=== PATIENT | female | born 1980 | race Caucasian/White ===

== ENCOUNTER → 2019-02-18 | Outpatient (CLI) | payer BC ==
--- NOTE | 2019-02-18 16:36 | XR ---
PROCEDURE: XR lumbosacral spine min 5V DATE AND TIME: 02/18/2019 4:22 PM CLINICAL INDICATION: YCH; [id number] LBP,LUMBAGO TECHNIQUE: Department protocol COMPARISON: None FINDINGS: There is no fracture or malalignment. The soft tissues are unremarkable. No incidentals. IMPRESSION: NO ACUTE PROCESS.
== END | disposition home or self-care (01) ==
LOC: RADXRYALE 15:55
PROVIDERS: ATTEND Physician Assistant Medical
DX: M54.40 Lumbago with sciatica, unspecified side (principal)
CPT/HCPCS: 72110

== ENCOUNTER → 2020-07-19 | Outpatient (CLI) | payer BC ==
--- NOTE | 2020-07-19 15:53 | XR ---
Second digit right hand HISTORY: Pain and swelling 2 views of the second digit of the right hand There is soft tissue swelling present. Bone mineralization, joint spaces and alignment are maintained . No fracture or dislocation. No periostitis to suggest osteomyelitis. IMPRESSION: Soft tissue swelling.
== END | disposition home or self-care (01) ==
LOC: RADXRYALE 14:36
PROVIDERS: ATTEND Physician Assistant Medical
DX: M79.89 Other specified soft tissue disorders (principal)

== ENCOUNTER 2020-10-08 13:36 | Observation (INO) | payer BC ==
[2020-10-08] MEDS ORDERED: SODIUM CHLORIDE 0.9% 800 ML IV STA (14:12)
[2020-10-08 14:38] LABS: Basophils % (A) 1 %; Eosinophils % (A) 1 %; HCT 38.5 % (34.0-46.0); HGB 14.4 gm/dL (11.4-16.0); Hyperchromasia Slight; Lymphocytes # (A) 1.2 k/uL (1.0-4.8); Lymphocytes % (A) 30 %; MCH 32.8 pg (25.0-35.0); MCHC 37.3 g/dL (31.0-37.0); MCV 87.9 fL (80.0-100.0); Mean Platelet Volume 7.4; Monocytes # (A) 0.2 k/uL (0-1.0); Monocytes % (A) 5 %; Neutrophils # (A) 2.4 k/uL (1.3-7.7); Neutrophils % (A) 61 %; Platelet Count 126 k/uL (150-450); RBC 4.38 m/uL (3.80-5.40); RDW 12.4 % (11.5-15.5); WBC 3.9 k/uL (3.8-10.6)
--- NOTE | 2020-10-08 14:41 | ED ---
General Adult HPI - General Chief complaint: Recheck/Abnormal Lab/Rx Stated complaint: Weight Loss Source: patient Mode of arrival: ambulatory Limitations: no limitations - History of Present Illness Initial comments: 39-year-old female presenting to the emergency department with a chief complaint of weight loss. Patient states in the last 8 months she has lost approximately 140 pounds. Patient states she has been on a strict [place] diet along with an extensive workout regimen. Patient reports over the last month she has lost muscle mass not just that. Patient states now she is feeling weak and is not able to run anymore. Only walking. She also reports some bruising in bilateral lower extremities although this is benign when on for several years. States she saw her primary care physician who obtain some laboratory work and contacted her today to come to emergency department for abnormal laboratory work. Patient states she is also seeing a counselor and takes antidepressant medication. Patient reports recently she has been under a lot of stress due to her mother passing away in her father going to hospice. She denies any nausea vomiting diarrhea. Denies any purging. Her family member present in the room did state the patient has been dealing with eating disorders while she was in her 20s as well. Denies chest pain shortness of breath. - Related Data Home Medications Medication Instructions Recorded Confirmed Ibuprofen 800 mg PO Q8H PRN 10/08/20 10/08/20 Sertraline [Zoloft] 50 mg PO DAILY 10/08/20 10/08/20 clonazePAM [KlonoPIN] 0.5 mg PO BID PRN 10/08/20 10/08/20 Allergies Allergy/AdvReac Type Severity Reaction Status Date / Time Sulfa (Sulfonamide Allergy Swelling Verified 10/08/20 14:36 Antibiotics) Review of Systems ROS Statement: Those systems with pertinent positive or pertinent negative responses have been documented in the HPI. ROS Other: All systems not noted in ROS Statement are negative. Past Medical History Past Medical History: Neurologic Disorder Additional Past Medical History / Comment(s): neuropathy History of Any Multi-Drug Resistant Organisms: None Reported Past Surgical History: Cholecystectomy Past Psychological History: Anxiety, Depression Smoking Status: Never smoker Past Alcohol Use History: None Reported Past Drug Use History: None Reported General Exam Limitations: no limitations General appearance: alert, in no apparent distress, cachectic Head exam: Present: atraumatic, normocephalic, normal inspection Eye exam: Present: normal appearance, PERRL, EOMI Pupils: Present: normal accommodation ENT exam: Present: normal exam, normal oropharynx, mucous membranes moist, TM's normal bilaterally, normal external ear exam Neck exam: Present: normal inspection, full ROM. Absent: tenderness Respiratory exam: Present: normal lung sounds bilaterally. Absent: respiratory distress, wheezes Cardiovascular Exam: Present: regular rate, normal rhythm, normal heart sounds. Absent: systolic murmur, diastolic murmur GI/Abdominal exam: Present: soft. Absent: distended, tenderness, guarding, rebound Extremities exam: Present: normal inspection (Some bruising noted on bilateral lower extremities), full ROM, normal capillary refill. Absent: tenderness, pedal edema, joint swelling, calf tenderness Back exam: Present: normal inspection, full ROM. Absent: tenderness, CVA tenderness (R), CVA tenderness (L) Neurological exam: Present: alert, oriented X3 Psychiatric exam: Present: normal affect, normal mood Skin exam: Present: warm, dry, intact, normal color Course Vital Signs 10/08/20 10/08/20 13:37 15:00 Temperature 97.8 F Pulse Rate 64 64 Respiratory 18 15 Rate Blood Pressure 130/83 121/88 O2 Sat by Pulse 99 99 Oximetry EKG Findings - EKG Comments: EKG Findings:: Sinus rhythm with first-degree AV block. Ventricular rate 61, NC 230, QRS 96, QTC 410. Medical Decision Making - Medical Decision Making 39-year-old female presenting to emergency departments chief complaint of weight loss. Medical record reviewed. Supposedly the patient lost 140 pounds in about 8-9 months. This was achieved with restrictive carbohydrate diet and heavy exercise. Patient does appear slightly cachectic. CBC is unremarkable. CMP reveals hyponatremia with a sodium level of 126. Magnesium, phosphorus and potassium within normal limits. She also has an elevated BUN and creatinine. Patient was given IV fluids. Patient will be admitted for electrolyte imbalance, dehydration and anorexia. I spoke to . Inserting Machine Operator will be consulted along with psychiatric services. Case discussed with Dr.Bayudam Dr morrow is admitting Dr Salter consulted Diatician consulted - Lab Data Result diagrams: 10/08/20 14:32 10/08/20 14:32 Lab Results 10/08/20 10/08/20 10/08/20 Range/Units 14:32 14:32 14:32 WBC 3.9 (3.8-10.6) k/uL RBC 4.38 (3.80-5.40) m/uL Hgb 14.4 (11.4-16.0) gm/dL Hct 38.5 (34.0-46.0) % MCV 87.9 (80.0-100.0) fL MCH 32.8 (25.0-35.0) pg MCHC 37.3 H (31.0-37.0) g/dL RDW 12.4 (11.5-15.5) % Plt Count 126 L (150-450) k/uL MPV 7.4 Neutrophils % 61 % Lymphocytes % 30 % Monocytes % 5 % Eosinophils % 1 % Basophils % 1 % Neutrophils # 2.4 (1.3-7.7) k/uL Lymphocytes # 1.2 (1.0-4.8) k/uL Monocytes # 0.2 (0-1.0) k/uL Eosinophils # 0.0 (0-0.7) k/uL Basophils # 0.0 (0-0.2) k/uL Hyperchromasia Slight PT 9.7 (9.0-12.0) sec INR 0.9 (<1.2) APTT 23.0 (22.0-30.0) sec Sodium 126 L (137-145) mmol/L Potassium 4.4 (3.5-5.1) mmol/L Chloride 87 L (98-107) mmol/L Carbon Dioxide 38 H (22-30) mmol/L Anion Gap 1 mmol/L BUN 34 H (7-17) mg/dL Creatinine 0.72 (0.52-1.04) mg/dL Est GFR (CKD-EPI)AfAm >90 (>60 ml/min/1.73 sqM) Est GFR (CKD-EPI)NonAf >90 (>60 ml/min/1.73 sqM) Glucose 88 (74-99) mg/dL Calcium 8.8 (8.4-10.2) mg/dL Phosphorus (2.5-4.5) mg/dL Magnesium (1.6-2.3) mg/dL Total Bilirubin 0.6 (0.2-1.3) mg/dL AST 80 H (14-36) U/L ALT 123 H (4-34) U/L Alkaline Phosphatase 65 (38-126) U/L Creatine Kinase 45 (30-135) U/L Total Protein 6.6 (6.3-8.2) g/dL Albumin 4.0 (3.5-5.0) g/dL Urine Color Urine Appearance (Clear) Urine pH (5.0-8.0) Ur Specific Wiggins (1.001-1.035) Urine Protein (Negative) Urine Glucose (UA) (Negative) Urine Ketones (Negative) Urine Blood (Negative) Urine Nitrite (Negative) Urine Bilirubin (Negative) Urine Urobilinogen (<2.0) mg/dL Ur Leukocyte Esterase (Negative) Urine RBC (0-5) /hpf Urine WBC (0-5) /hpf Ur Squamous Epith Cells (0-4) /hpf Amorphous Sediment (None) /hpf Urine Bacteria (None) /hpf 10/08/20 10/08/20 Range/Units 14:32 15:22 WBC (3.8-10.6) k/uL RBC (3.80-5.40) m/uL Hgb (11.4-16.0) gm/dL Hct (34.0-46.0) % MCV (80.0-100.0) fL MCH (25.0-35.0) pg MCHC (31.0-37.0) g/dL RDW (11.5-15.5) % Plt Count (150-450) k/uL MPV Neutrophils % % Lymphocytes % % Monocytes % % Eosinophils % % Basophils % % Neutrophils # (1.3-7.7) k/uL Lymphocytes # (1.0-4.8) k/uL Monocytes # (0-1.0) k/uL Eosinophils # (0-0.7) k/uL Basophils # (0-0.2) k/uL Hyperchromasia PT (9.0-12.0) sec INR (<1.2) APTT (22.0-30.0) sec Sodium (137-145) mmol/L Potassium (3.5-5.1) mmol/L Chloride (98-107) mmol/L Carbon Dioxide (22-30) mmol/L Anion Gap mmol/L BUN (7-17) mg/dL Creatinine (0.52-1.04) mg/dL Est GFR (CKD-EPI)AfAm (>60 ml/min/1.73 sqM) Est GFR (CKD-EPI)NonAf (>60 ml/min/1.73 sqM) Glucose (74-99) mg/dL Calcium (8.4-10.2) mg/dL Phosphorus 2.5 (2.5-4.5) mg/dL Magnesium 2.2 (1.6-2.3) mg/dL Total Bilirubin (0.2-1.3) mg/dL AST (14-36) U/L ALT (4-34) U/L Alkaline Phosphatase (38-126) U/L Creatine Kinase (30-135) U/L Total Protein (6.3-8.2) g/dL Albumin (3.5-5.0) g/dL Urine Color Colorless Urine Appearance Clear (Clear) Urine pH 7.0 (5.0-8.0) Ur Specific Wiggins 1.006 (1.001-1.035) Urine Protein Negative (Negative) Urine Glucose (UA) Negative (Negative) Urine Ketones Negative (Negative) Urine Blood Negative (Negative) Urine Nitrite Negative (Negative) Urine Bilirubin Negative (Negative) Urine Urobilinogen <2.0 (<2.0) mg/dL Ur Leukocyte Esterase Moderate H (Negative) Urine RBC 1 (0-5) /hpf Urine WBC 4 (0-5) /hpf Ur Squamous Epith Cells 2 (0-4) /hpf Amorphous Sediment Rare H (None) /hpf Urine Bacteria Rare H (None) /hpf Disposition Clinical Impression: Anorexia, Hyponatremia, Dehydration Disposition: ADMITTED IP TO THIS HOSP Condition: Fair Is patient prescribed a controlled substance at d/c from ED?: No Referrals: Jones Mclean DO [Primary Care Provider] - 1-2 days Time of Disposition: 15:39
[2020-10-08 14:50] LABS: ALT 123 U/L (4-34); AST 80 U/L (14-36); African American GFR (CKD) >90 (>60 ml/min/1.73 sqM); Alkaline Phosphatase 65 U/L (38-126); Anion Gap 1 mmol/L; Blood Urea Nitrogen 34 mg/dL (7-17); Calcium 8.8 mg/dL (8.4-10.2); Carbon Dioxide 38 mmol/L (22-30); Chloride 87 mmol/L (98-107); Creatine Kinase 45 U/L (30-135); Glucose 88 mg/dL (74-99); Non-African American GFR(CKD) >90 (>60 ml/min/1.73 sqM); Potassium 4.4 mmol/L (3.5-5.1); Sodium 126 mmol/L (137-145); Total Bilirubin 0.6 mg/dL (0.2-1.3); Total Protein 6.6 g/dL (6.3-8.2)
[2020-10-08 14:52] LABS: INR 0.9 (<1.2); Prothrombin Time 9.7 sec (9.0-12.0)
[2020-10-08 15:22] LABS: Magnesium 2.2 mg/dL (1.6-2.3); Phosphorus 2.5 mg/dL (2.5-4.5)
[2020-10-08] MEDS ORDERED: LORazepam 2 MG/ML INJ IV PRN (15:29)
[2020-10-08] MEDS ORDERED: HYDROmorphone 0.5 MG/0.5 ML SYRINGE IVP PRN (15:29)
[2020-10-08] MEDS ORDERED: NALOXONE 0.4 MG/ML 1 ML VIAL IV PRN (15:29)
[2020-10-08] MEDS ORDERED: ONDANSETRON 4 MG/2 ML VIAL IVP PRN (15:29)
[2020-10-08] MEDS ORDERED: MORPHINE SULFATE 4 MG/ML SYRINGE IV PRN (15:29)
[2020-10-08] MEDS ORDERED: traMADol 50 MG TAB PO PRN (15:29)
[2020-10-08] MEDS ORDERED: SODIUM CHLORIDE 0.9% 1,000 ML IV SCH (15:30)
[2020-10-08 15:33] LABS: Amorphous Sediment,Urine Rare /hpf; Appearance,Urine Clear (Clear); Bacteria,Urine Rare /hpf; Bilirubin,Urine Negative (Negative); Blood,Urine Negative (Negative); Color,Urine Colorless; Glucose,Urine (UA) Negative (Negative); Ketones,Urine Negative (Negative); Leukocyte Esterase,Urine Moderate (Negative); Nitrite,Urine Negative (Negative); Protein,Urine Negative (Negative); RBC,Urine 1 /hpf (0-5); Specific Gravity,Urine 1.006 (1.001-1.035); Squamous Epithelial Cell,Urine 2 /hpf (0-4); Urobilinogen,Urine <2.0 mg/dL (<2.0); WBC,Urine 4 /hpf (0-5)
[2020-10-08] MEDS ORDERED: IBUPROFEN 400 MG TAB PO PRN (17:02)
[2020-10-08] MEDS: PANTOPRAZOLE 40 MG/10 ML VIAL IVP SCH (20:12)
[2020-10-08] MEDS ORDERED: clonazePAM 0.5 MG TAB PO PRN (21:00)
--- NOTE | 2020-10-09 | P.HPIM ---
History of Present Illness H&P Date: 10/08/20 Chief Complaint: Generalized weakness Patient is a 39-year-old female with a known history of anxiety/depression and neuropathy who has been trying to lose weight with keto diet for the past 8 months. She lost about 140 LBS during last 8 to 9 months. Patient states that she has been strict keto diet and exercise regimen but for the past few weeks patient has been eating normally but could not weight gain her weight back and has been feeling weak. And unable to run anymore. Patient also reports bruising in the bilateral lower extremities. Patient's family recommended her to go to her primary care physician. Patient was seen by her primary care physician who obtained laboratory data work-up and recommended go to ER. Patient is also seeing a counselor and is taking antidepressant medication. Otherwise patient denies any complaints of fever or chills. No nausea vomiting or abdominal pain or diarrhea. No complaints of chest pain or shortness breath. No leg swelling. According to her family mother at bedside patient has been dealing with eating disorders in her 20s as well. Patient states that she has been under a lot of stress due to her mother passing away and her father is going to hospice care. EKG showed normal sinus rhythm with first-degree AV block. Laboratory data showed WBC 3.9, hemoglobin 14.4 and platelets 126 Sodium 126, potassium 4.4, chloride 87, bicarb 38 and BUN 34 and creatinine 0.72 AST 80, ALT 123 UA showed moderate leukocytes present for WBCs. Blood pressure is 127/90 8 mm history and 95% on room air. Pulse ox. Heart rat e 63 and respiration 18. Review of Systems Constitutional: Patient denies any fever or chills . Generalized weakness and fatigue. Weight loss. Abdomen: Patient denied nausea vomiting and diarrhea and abdominal pain. Cardiovascular: Patient denies any chest pain or short of breath no palpitations. Respiratory: patient denied any cough or sputum production. No shortness of breath Neurologic: Patient denied any numbness or tingling headache. Musculoskeletal: Patient denies any complaints of joint swelling or deformity. Skin: Negative Psychiatric: Negative Endocrine: No heat or cold intolerance. No recent weight gain. Genitourinary: No dysuria or hematuria. 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 Past Drug Use History: None Reported - Past Family History Father Family Medical History: Pneumonia Additional Family Medical History / Comment(s): Parkinson's, depression, TBI. Mother Family Medical History: Coronary Artery Disease (CAD) Medications and Allergies Home Medications Medication Instructions Recorded Confirmed Type Ibuprofen 800 mg PO Q8H PRN 10/08/20 10/08/20 History Sertraline [Zoloft] 50 mg PO DAILY 10/08/20 10/08/20 History clonazePAM [KlonoPIN] 0.5 mg PO BID PRN 10/08/20 10/08/20 History Allergies Allergy/AdvReac Type Severity Reaction Status Date / Time Sulfa (Sulfonamide Allergy Swelling Verified 10/08/20 14:36 Antibiotics) Physical Exam Vitals: Vital Signs Temp Pulse Pulse Resp BP BP Pulse Ox 10/08/20 16:41 97.9 F 63 18 127/98 95 10/08/20 16:16 97.9 F 78 16 132/78 98 10/08/20 15:00 64 15 121/88 99 10/08/20 13:37 97.8 F 64 18 130/83 99 Intake and Output 10/08/20 10/08/20 10/08/20 06:59 14:59 22:59 Other: Weight 42.229 kg 41 kg PHYSICAL EXAMINATION: Patient is lying in the bed comfortably, no acute distress, awake alert and oriented.Cachectic. HEENT: Normocephalic. Neck is supple. Pupils reactive. Nostrils clear. Oral cavity is moist. Ears reveal no drainage. Neck reveals no JVD, carotid bruits, or thyromegaly. CHEST EXAMINATION: Trachea is central. Symmetrical expansion. Lung keane clear to auscultation and percussion. CARDIAC: Normal S1, S2 with no gallops. No murmurs ABDOMEN: Soft. Bowel sounds normal. No organomegaly. No abdominal bruits. Extremities: reveal no edema. No clubbing or cyanosis Neurologically awake, alert, oriented x3 with well-coordinated movements. No focal deficits noted Skin: Patient does have bruising on the lower calf region. Psychiatric: Coperative. Nonsuicidal Musculoskeletal: No joint swelling or deformity. Normal range of motion. Results CBC & Chem 7: 10/08/20 14:32 10/08/20 14:32 Labs: Abnormal Lab Results - Last 24 Hours (Table) 10/08/20 10/08/20 10/08/20 Range/Units 14:32 14:32 15:22 MCHC 37.3 H (31.0-37.0) g/dL Plt Count 126 L (150-450) k/uL Sodium 126 L (137-145) mmol/L Chloride 87 L (98-107) mmol/L Carbon Dioxide 38 H (22-30) mmol/L BUN 34 H (7-17) mg/dL AST 80 H (14-36) U/L ALT 123 H (4-34) U/L Ur Leukocyte Esterase Moderate H (Negative) Amorphous Sediment Rare H (None) /hpf Urine Bacteria Rare H (None) /hpf Thrombosis Risk Factor Assmnt - DVT/VTE Prophylaxis DVT/VTE Prophylaxis: Mechanical Prophylaxis ordered - Choose All That Apply Any of the Below Risk Factors Present?: Yes Each Factor Represents 1 point: Age 41-60 years Other Risk Factors: No Other congenital or acquired thrombophilia - If yes, enter type in comment: No Thrombosis Risk Factor Assessment Total Risk Factor Score: 1 Thrombosis Risk Factor Assessment Level: Low Risk Assessment and Plan Assessment: Generalized weakness and fatigue likely due to refeeding syndrome. Hypovolemic hyponatremia Hypercapnia likely due to contraction alkalosis. Elevated liver enzymes Mild thrombocytopenia Extensive weight loss with keto diet until 1 week ago and is currently regular diet as per patient. History of eating disorders and anorexia. Anxiety/depression First-degree AV block and T inversion in the lateral leads. DVT prophylaxis with SCDs Plan: Patient will be continued on IV hydration with normal saline. Replace electrolytes and follow-up CBC and BMP tomorrow. Patient will continue regular diet and nutrition service will be consulted. Psychiatry will be consulted and follow-up closely. Further recommendations based on the clinical course. Time with Patient: Greater than 30
[2020-10-09 03:05] VITALS: RESP 16
[2020-10-09 06:08] LABS: HCT 37.7 % (34.0-46.0); HGB 13.7 gm/dL (11.4-16.0); MCH 32.3 pg (25.0-35.0); MCHC 36.3 g/dL (31.0-37.0); MCV 88.9 fL (80.0-100.0); Mean Platelet Volume 7.2; Platelet Count 123 k/uL (150-450); RBC 4.24 m/uL (3.80-5.40); RDW 12.6 % (11.5-15.5); WBC 3.7 k/uL (3.8-10.6)
[2020-10-09 06:29] LABS: African American GFR (CKD) >90 (>60 ml/min/1.73 sqM); Anion Gap -1 mmol/L; Blood Urea Nitrogen 32 mg/dL (7-17); Calcium 8.5 mg/dL (8.4-10.2); Carbon Dioxide 40 mmol/L (22-30); Chloride 90 mmol/L (98-107); Glucose 78 mg/dL (74-99); Non-African American GFR(CKD) >90 (>60 ml/min/1.73 sqM); Potassium 3.7 mmol/L (3.5-5.1); Sodium 129 mmol/L (137-145)
[2020-10-09 06:48] LABS: Lymphocytes # (M) 1.44 k/uL (1.0-4.8); Monocytes # (M) 0.26 k/uL (0-1.0); Neutrophils % (M) 54 %; Nucleated Red Blood Cells 0 /100 WBC (0-0); Total Cells Counted 100
[2020-10-09] MEDS: PANTOPRAZOLE 40 MG/10 ML VIAL IVP SCH (08:08)
[2020-10-09] MEDS ORDERED: SERTRALINE 50 MG TAB PO SCH (09:00)
[2020-10-09 11:46] LABS: Hepatitis A Antibody IgM Non-Reactive (Non-Reactive); Hepatitis B Core IgM Non-Reactive (Non-Reactive); Hepatitis B Surface Antigen Non-Reactive (Non-Reactive); Hepatitis C IgG Antibody Non-Reactive (Non-Reactive)
[2020-10-09 12:09] VITALS: BMI 16.5
--- NOTE | 2020-10-09 12:52 | P.CRDCN ---
History of Present Illness Consult date: 10/09/20 Reason for Consult (text): Abnormal EKG History of present illness: The patient is a 39-year-old female with past medical history of anxiety and depression, who presents to the hospital for weakness. The patient was on the Keto diet in an attempt to lose weight, as well as participating in a beach body exercise program. The patient has lost approximately 140 over the last 8-9 months. The patient states she had been doing well and retaining muscle mass up until the month of July. Gradually over the last several weeks she's been unable to exercise due to muscle weakness. She has not been able to gain any weight back despite gradually increasing the volume of her diet. 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 No carbohydrates. On arrival to the emergency room, she was noted to be extremely dehydrated and hyponatremic. Cardiology was consult to for an abnormal EKG. The patient's family has been quite concerned with her weight loss as she has a history of eating disorders. The patient's mother recently and her father has been admitted to [facility] for hospice care. The patient was interviewed and examined in her room. She was pacing around the room quite anxiously, then eventually sat down for her exam. She states her initial weight loss was intentional, however over the last several weeks she knows that her weight has become unhealthy. She denies any excessive laxative use or induced vomiting. She states she is feeling better now that she has received IV fluids. DIAGNOSTICS: EKG shows sinus mechanism with first-degree AV block and T-wave inversions in V4 through V6 Laboratory data shows WBC 3.9, hemoglobin 14.4, hematocrit 30.5, platelet 126, sodium 126, potassium 4.4, chloride 87, BUN 34, creatinine 0.72, magnesium 2.2, phosphorus 2.5, AST 80, ALT 123, albumin 4.0, CK 45 PAST MEDICAL HISTORY: Anxiety, depression, eating disorder REVIEW OF SYSTEMS: No fever or chills. No cough or expectoration. No diaphoresis. Patient denies headache, dizziness, blurred vision, double vision. Patient denies any stomach discomfort. No nausea, vomiting. No hematochezia. No hematemesis. Denies any black stools or blood in his stools. Denies dysuria or hematuria. No chest pain or chest pressure. Positive for muscle weakness. PHYSICAL EXAMINATION: This is a 39-year-old underweight female who is quite anxious at the time of my examination. HEENT: Head is atraumatic, normocephalic. Pupils are equal, round. Sclerae anicteric. Conjunctivae are clear. Mucous membranes of the mouth are moist. Neck is supple. There is no jugular venous distention. No carotid bruit is heard. CHEST EXAMINATION: Lungs are clear to auscultation. No chest wall tenderness is noted on palpation or with deep breathing. HEART EXAMINATION: Heart regular rate and rhythm. S1, S2 heard. No murmurs, gallops or rub. ABDOMEN: Soft, nontender. Bowel sounds are heard. No organomegaly noted. EXTREMITIES: 2+ peripheral pulses with no evidence of peripheral edema and no calf tenderness noted. Cachectic. NEUROLOGIC EXAMINATION: Patient is awake, alert and oriented x3. FINAL ASSESSMENT AND PLAN: #1 dehydration, rapid weight loss due to dietary modification #2 hyponatremia, secondary to dehydration #3 history of eating disorder, psychiatric consult pending #4 abnormal EKG, newly diagnosed first-degree AV block and T-wave inversion PLAN: No recommendations from the cardiac standpoint at this time, as she remains asymptomatic from the cardiac standpoint. The patient will follow-up in our office for further workup if needed. The patient does have a family history of cardiac disorders and she would like to continue to follow with Dr. Baer. The patient has been seen and evaluated. Plan of care has been reviewed and agreed upon by Dr Baer. 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 Past Drug Use History: None Reported - Past Family History Father Family Medical History: Pneumonia Additional Family Medical History / Comment(s): Parkinson's, depression, TBI. Mother Family Medical History: Coronary Artery Disease (CAD) Medications and Allergies Home Medications Medication Instructions Recorded Confirmed Type Ibuprofen 800 mg PO Q8H PRN 10/08/20 10/08/20 History Sertraline [Zoloft] 50 mg PO DAILY 10/08/20 10/08/20 History clonazePAM [KlonoPIN] 0.5 mg PO BID PRN 10/08/20 10/08/20 History Allergies Allergy/AdvReac Type Severity Reaction Status Date / Time Sulfa (Sulfonamide Allergy Swelling Verified 10/08/20 14:36 Antibiotics) Physical Exam Vitals: Vital Signs Temp Pulse Pulse Resp BP BP Pulse Ox 10/09/20 08:00 97.4 F L 67 16 114/71 100 10/09/20 02:00 97.5 F L 66 16 96/62 98 10/08/20 23:58 64 17 10/08/20 23:53 97.8 F 64 17 100/74 97 10/08/20 20:00 98.1 F 72 18 122/72 100 10/08/20 16:41 97.9 F 63 18 127/98 95 10/08/20 16:16 97.9 F 78 16 132/78 98 10/08/20 15:00 64 15 121/88 99 10/08/20 13:37 97.8 F 64 18 130/83 99 Intake and Output 10/08/20 10/09/20 10/09/20 22:59 06:59 14:59 Intake Total 1989 Balance 1989 Intake: Intake, IV Titration 750 Amount Sodium Chloride 0.9% 1, 750 000 ml @ 75 mls/hr IV . [id number] [facility] Rx#:[id number] Oral 1240 Other: Voiding Method Toilet Toilet # Voids 1 1 1 Weight 41 kg 41 kg Results 10/09/20 05:54 10/09/20 05:54 Cardiac Enzymes 10/08/20 Range/Units 14:32 AST 80 H (14-36) U/L Coagulation 10/08/20 Range/Units 14:32 PT 9.7 (9.0-12.0) sec APTT 23.0 (22.0-30.0) sec CBC 10/08/20 10/09/20 Range/Units 14:32 05:54 WBC 3.9 3.7 L (3.8-10.6) k/uL RBC 4.38 4.24 (3.80-5.40) m/uL Hgb 14.4 13.7 (11.4-16.0) gm/dL Hct 38.5 37.7 (34.0-46.0) % Plt Count 126 L 123 L (150-450) k/uL Comprehensive Metabolic Panel 10/08/20 10/09/20 Range/Units 14:32 05:54 Sodium 126 L 129 L (137-145) mmol/L Potassium 4.4 3.7 (3.5-5.1) mmol/L Chloride 87 L 90 L (98-107) mmol/L Carbon Dioxide 38 H 40 H (22-30) mmol/L BUN 34 H 32 H (7-17) mg/dL Creatinine 0.72 0.72 (0.52-1.04) mg/dL Glucose 88 78 (74-99) mg/dL Calcium 8.8 8.5 (8.4-10.2) mg/dL AST 80 H (14-36) U/L ALT 123 H (4-34) U/L Alkaline Phosphatase 65 (38-126) U/L Total Protein 6.6 (6.3-8.2) g/dL Albumin 4.0 (3.5-5.0) g/dL Current Medications Generic Name Dose Route Start Last Admin Trade Name Freq PRN Reason Stop Dose Admin Clonazepam 0.5 mg 10/08/20 21:00 Clonazepam 0.5 Mg Tab PO BID PRN Anxiety Hydromorphone HCl 0.5 mg 10/08/20 15:29 Hydromorphone 0.5 Mg/0.5 Ml Syringe IVP Q3HR PRN Moderate Pain Sodium Chloride 1,000 mls @ 75 mls/hr 10/08/20 15:30 10/08/20 15:35 Saline 0.9% IV 20 mls/hr .[id number] MILADYS Administration Ibuprofen 400 mg 10/08/20 17:02 10/08/20 17:13 Ibuprofen 400 Mg Tab PO 400 mg Q6HR PRN Administration Pain Lorazepam 0.5 mg 10/08/20 15:29 Lorazepam 2 Mg/Ml Inj IV Q6HR PRN Anxiety Morphine Sulfate 4 mg 10/08/20 15:29 Morphine Sulfate 4 Mg/Ml Syringe IV Q4HR PRN Severe Pain Naloxone HCl 0.2 mg 10/08/20 15:29 Naloxone 0.4 Mg/Ml 1 Ml Vial IV Q2M PRN Opioid Reversal Ondansetron HCl 4 mg 10/08/20 15:29 Ondansetron 4 Mg/2 Ml Vial IVP Q8HR PRN Nausea And Vomiting Pantoprazole Sodium 40 mg 10/09/20 17:30 Pantoprazole 40 Mg Tablet PO AC-BID MILADYS Sertraline HCl 50 mg 10/09/20 09:00 10/09/20 08:08 Sertraline 50 Mg Tab PO 50 mg DAILY MILADYS Administration Tramadol HCl 50 mg 10/08/20 15:29 Tramadol 50 Mg Tab PO Q6H PRN Moderate Pain Intake and Output 10/08/20 10/09/20 10/09/20 22:59 06:59 14:59 Intake Total 1989 Balance 1989 Intake: Intake, IV Titration 750 Amount Sodium Chloride 0.9% 1, 750 000 ml @ 75 mls/hr IV . [id number] [facility] Rx#:[id number] Oral 1240 Other: Voiding Method Toilet Toilet # Voids 1 1 1 Weight 41 kg 41 kg Patient Weight 10/10/20 06:59 Weight 41 kg 10/09/20 05:54 10/09/20 05:54
[2020-10-09 15:22] VITALS: BP 103/67; PULSE 66; TEMP 98
[2020-10-09] MEDS ORDERED: PANTOPRAZOLE 40 MG TABLET PO SCH (17:30)
--- NOTE | 2020-10-09 23:20 | CONS ---
CONSULTATION DATE OF SERVICE: 10/09/2020 PURPOSE OF CONSULTATION: Evaluate for the eating disorder and depression. HISTORY OF PRESENTING ILLNESS: The patient is a 39-year-old female who was admitted to the medical floor for generalized weakness and fatigue along with hypovolemia and hyponatremia. She has had long-term problems with eating disorder issues. She had been obese and in the last year began losing weight primarily with efforts of a ketogenic diet along with exercise. She lost about 140 pounds total. In the last year, she notes that she had lost 100 pounds. Back to about 3 to 4 months ago she was stable at around 115 pounds, which she maintained through the fall. In the last month, she was under a lot of stress and began losing more weight even without any efforts towards weight loss. She said she was under high stress in that her mother had . She was living with her father and caring for him, though was no longer able to keep up with that. One month ago she supported him in moving to [place]. She said that that was a very high stress situation and continues to create a lot of difficulties for her. There are money issues that the family is struggling with. The patient notes that when all of the stress came on her, she started losing more weight and now she notes that her weight is down to around 89 pounds. She said that her ideal weight would be 115 pounds. Her height is 5 feet 2 inches. She notes that she was working out regularly on a daily basis and felt that she was managing her weight well. Now she notes that she has even been trying to eat more, but continues to lose weight. She has lost significant muscle mass in her arms and legs. She notes significant depression. She has been on Zoloft 25 mg a day. It was recently increased to 50 mg a day. She has not been sleeping well. She says that at most she may sleep 5 or 6 hours, though it does not feel she is sleeping very soundly. She has high anxiety. She has had some recent episodes of panic. She does not exactly identify depression though notes high anxiety as more of her mood state than anything else. She has not had issues with psychotic or bipolar symptoms. She has just started seeing a counselor at [facility] and had her first appointment last week. She is scheduled to see the counselor every 2 weeks. Her family physician prescribes Zoloft. She reports no substance use issues. MENTAL STATUS EXAM: Patient was sitting in bed. She gave fairly good eye contact. She was fairly restless. She answered questions appropriately. Her thoughts were clear, coherent, and goal directed. She was spontaneous and interactive. Her affect was somewhat anxious though for the most part appropriate. Her mood dysphoric, though not clearly depressed. She appears to be moderately distressed. There was no indication of thought disorder. She voiced no thoughts of harm. Cognition was clear. ASSESSMENT: This 39-year-old female was diagnosed with major depression. Her major symptoms of depression are manifest through anxiety, sleep difficulties and experiencing a high level of stress. She likely has had some metabolic alterations as one factor contributing to weight loss. One factor could be that if she stopped working out and began losing muscle mass than that could contribute to significant metabolic change. I recommended to the patient that she talk with her physician about increasing Zoloft to 100 mg a day for 2 weeks. If she does not see improvement in terms of anxiety and other issues relating to mood disorder to look at increasing to 150 mg a day. If she does not benefit from Zoloft after a few weeks trial on each dose, there might be consideration to switching to an alternative antidepressant. Given that her TSH is at 3.2, there might be consideration for short-term use of triiodothyronine 12.5 mcg a day up to 25 mcg a day for antidepressant augmentation, which would be just a short-term trial for 1-2 weeks along with the increase in Zoloft. I encouraged the patient to get back on a regular exercise program, especially to work the major muscles in her arms and legs. I provided her with some resources to look at diet and would recommend a balanced diet between protein, fats and carbohydrates. Natural probiotics may provide some additional benefits as well. The patient notes that she has consultations set up with a credentialing analyst and feels that she has had a positive connection with the counselor with whom she will continue to work. She will be discharged today for outpatient followup. MMODL / IJN: [id number] /
--- NOTE | 2020-10-17 21:58 | P.DS ---
Providers Date of admission: 10/08/20 15:43 Expected date of discharge: 10/09/20 Attending physician: Dulce Maria Ramirez Consults: 10/08/20 15:29 Consult Physician Stat Consulting Provider: Rodrigo Salter Consult Reason/Comments: anoxeria Do you want consulting provider notified?: Yes 10/08/20 20:42 Consult Physician Routine Consulting Provider: Felix Quinteros Consult Reason/Comments: ekg change, low sodium. Do you want consulting provider notified?: Yes [facility] care physician: [facility] Hospital Course: Discharge diagnosis Generalized weakness and fatigue likely due to refeeding syndrome. improved Hypovolemic hyponatremia Hypercapnia likely due to contraction alkalosis. Elevated liver enzymes Mild thrombocytopenia Extensive weight loss with keto diet until 1 week ago and is currently regular diet as per patient. History of eating disorders and anorexia. Anxiety/depression First-degree AV block and T inversion in the lateral leads. DVT prophylaxis with SCDs Hospital course Patient is a 39-year-old female with a known history of anxiety/depression and neuropathy who has been trying to lose weight with keto diet for the past 8 months. She lost about 140 LBS during last 8 to 9 months. Patient states that she has been strict keto diet and exercise regimen but for the past few weeks patient has been eating normally but could not weight gain her weight back and has been feeling weak. And unable to run anymore. Patient also reports bruising in the bilateral lower extremities. Patient's family recommended her to go to her primary care physician. Patient was seen by her primary care physician who obtained laboratory data work-up and recommended go to ER. Patient is also seeing a counselor and is taking antidepressant medication. Otherwise patient denies any complaints of fever or chills. No nausea vomiting or abdominal pain or diarrhea. No complaints of chest pain or shortness breath. No leg swelling. According to her family mother at bedside patient has been dealing with eating disorders in her 20s as well. Patient states that she has been under a lot of stress due to her mother passing away and her father is going to hospice care. EKG showed normal sinus rhythm with first-degree AV block. Laboratory data showed WBC 3.9, hemoglobin 14.4 and platelets 126 Sodium 126, potassium 4.4, chloride 87, bicarb 38 and BUN 34 and creatinine 0.72 AST 80, ALT 123 UA showed moderate leukocytes present for WBCs. Blood pressure is 127/90 8 mm history and 95% on room air. Pulse ox. Heart rate 63 and respiration 18. Patient was continued on IV hydration with normal saline. Replaced electrolytes. Patient will continue regular diet and nutrition service was consulted. Psychiatry will be consulted and follow-up closely. Patient did improve clinically overnight. Tolerating oral diet now. No complaints of chest pain or shortness of the. Sodium level improved. Cardiology recommends no further intervention at this time. Patient does have psychiatric follow-up as an outpatient and follows with [facility]. Patient is awake alert oriented x3 and wishes to be discharged home. PHYSICAL EXAMINATION: Patient is lying in the bed comfortably, no acute distress, awake alert and oriented.Cachectic. HEENT: Normocephalic. Neck is supple. Pupils reactive. Nostrils clear. Oral cavity is moist. Ears reveal no drainage. Neck reveals no JVD, carotid bruits, or thyromegaly. CHEST EXAMINATION: Trachea is central. Symmetrical expansion. Lung keane clear to auscultation and percussion. CARDIAC: Normal S1, S2 with no gallops. No murmurs ABDOMEN: Soft. Bowel sounds normal. No organomegaly. No abdominal bruits. Extremities: reveal no edema. No clubbing or cyanosis Neurologically awake, alert, oriented x3 with well-coordinated movements. No focal deficits noted Skin: Patient does have bruising on the lower calf region. Psychiatric: Coperative. Nonsuicidal Musculoskeletal: No joint swelling or deformity. Normal range of motion. Discharge vitals reviewed. Patient Condition at Discharge: Fair Plan - Discharge Summary Discharge Rx Participant: Yes New Discharge Prescriptions: Continue Ibuprofen 800 mg PO Q8H PRN PRN Reason: Pain clonazePAM [KlonoPIN] 0.5 mg PO BID PRN PRN Reason: Anxiety Sertraline [Zoloft] 50 mg PO DAILY Discharge Medication List Ibuprofen 800 mg PO Q8H PRN 10/08/20 [History] Sertraline [Zoloft] 50 mg PO DAILY 10/08/20 [History] clonazePAM [KlonoPIN] 0.5 mg PO BID PRN 10/08/20 [History] Follow up Appointment(s)/Referral(s): Mj Baer MD [STAFF PHYSICIAN] - 3 Weeks Jones Mclean DO [Primary Care Provider] - 1-2 days Patient Instructions/Handouts: Hyponatremia (DC), Anorexia Nervosa (DC) Discharge Disposition: HOME SELF-CARE
== END 2020-10-09 16:06 | disposition home or self-care (01) ==
LOC: EC 13:36 → 6PED 15:43 → 1SOBS 21:49
PROVIDERS: ADMIT Internal Medicine; ATTEND Internal Medicine
DX: R64 Cachexia (principal); M62.81 Muscle weakness (generalized); E87.1 Hypo-osmolality and hyponatremia; E86.0 Dehydration; E86.1 Hypovolemia; R74.8 Abnormal levels of other serum enzymes; D69.6 Thrombocytopenia, unspecified; Z86.59 Personal history of other mental and behavioral disorders; Z81.8 Family history of other mental and behavioral disorders; Z82.0 Family history of epilepsy and other diseases of the nervous system; F41.9 Anxiety disorder, unspecified; F32.9 Major depressive disorder, single episode, unspecified; I44.0 Atrioventricular block, first degree; G62.9 Polyneuropathy, unspecified; Z79.899 Other long term (current) drug therapy
CPT/HCPCS: 96374; 93005 ×2; 96376; 96361; 99284; 36415; 80053; 80048; 80074; 82550; 83735; 84100; 85025 ×2; 85610; 85730; 81001; G0378 ×3; C9113 ×2

== ENCOUNTER → 2020-10-19 | Outpatient (CLI) | payer BC ==
[2020-10-20 11:13] VITALS: BMI 18.3
== END | disposition home or self-care (01) ==
LOC: DBWHC3 15:00
PROVIDERS: ATTEND Physician Assistant Medical
DX: R63.4 Abnormal weight loss (principal); R53.1 Weakness
CPT/HCPCS: 97802

== ENCOUNTER 2020-11-08 18:02 | Inpatient (IN) | payer BC, OTHER ==
--- NOTE | 2020-11-08 18:11 | ED ---
Anxiety HPI - General Chief Complaint: Anxiety Stated Complaint: anxiety, dizziness Time Seen by Provider: 11/08/20 18:09 Source: patient Mode of arrival: ambulatory - History of Present Illness Initial Comments: 40-year-old female with history of anorexia presenting to the emergency department for psychiatric evaluation. Patient states she was admitted to the hospital about 2 months ago for malnutrition. Patient states she is not having an adequate diet. Patient is concerned about gaining weight. Patient states that she is mostly drinking energy drinks struck the day but not eating much food. Patient reports taking Zoloft for quite some time which she believes it is not helping her much. States about 1 month ago she was started on Klonopin which makes her like a "zombie", So she stopped taking it. Patient states she attempted to reach out to [facility] with no success. States she also saw dietitian in the last month but it has not helped her. Patient states her father recently and she is under a lot of stress and has increased anxiety. She also reports feeling weak. She denies any homicidal, suicidal thoughts or ideations. - Related Data Home Medications: Home Medications Medication Instructions Recorded Confirmed clonazePAM [KlonoPIN] 0.5 mg PO BID PRN 10/08/20 11/08/20 Sertraline [Zoloft] 50 mg PO DAILY 11/08/20 11/08/20 Allergies/Adverse Reactions: Allergies Allergy/AdvReac Type Severity Reaction Status Date / Time Sulfa (Sulfonamide Allergy Swelling Verified 11/08/20 19:22 Antibiotics) Review of Systems ROS Statement: Those systems with pertinent positive or pertinent negative responses have been documented in the HPI. ROS Other: All systems not noted in ROS Statement are negative. Past Medical History Past Medical History: Neurologic Disorder Additional Past Medical History / Comment(s): neuropathy History of Any Multi-Drug Resistant Organisms: None Reported Past Surgical History: Cholecystectomy Past Anesthesia/Blood Transfusion Reactions: No Reported Reaction Past Psychological History: Anxiety, Depression Smoking Status: Never smoker Past Alcohol Use History: None Reported Past Drug Use History: None Reported - Past Family History Father Family Medical History: Pneumonia Additional Family Medical History / Comment(s): Parkinson's, depression, TBI. Mother Family Medical History: Coronary Artery Disease (CAD) General Exam Limitations: no limitations General appearance: alert, in no apparent distress, other (BMI of 16.5) Head exam: Present: atraumatic, normocephalic, normal inspection Eye exam: Present: normal appearance, PERRL, EOMI Pupils: Present: normal accommodation ENT exam: Present: normal exam, normal oropharynx, mucous membranes moist, TM's normal bilaterally, normal external ear exam Neck exam: Present: normal inspection, full ROM. Absent: tenderness Respiratory exam: Present: normal lung sounds bilaterally. Absent: respiratory distress, wheezes, rales, rhonchi, stridor Cardiovascular Exam: Present: regular rate, normal rhythm, normal heart sounds GI/Abdominal exam: Present: soft. Absent: distended, tenderness, guarding, rebound Extremities exam: Present: normal inspection, full ROM, normal capillary refill. Absent: tenderness, pedal edema, joint swelling, calf tenderness Back exam: Present: normal inspection, full ROM. Absent: tenderness, CVA tenderness (R), CVA tenderness (L) Neurological exam: Present: alert, oriented X3 Psychiatric exam: Present: normal affect, depressed Skin exam: Present: warm, dry, intact, normal color Course Vital Signs 11/08/20 18:04 Temperature 97.7 F Pulse Rate 63 Respiratory 20 Rate Blood Pressure 110/71 O2 Sat by Pulse 100 Oximetry Medical Decision Making - Medical Decision Making 40-year-old female presenting to the emergency department physical to evaluation. On initial evaluation, patient appears to be malnutrition. Her BMI is 16.5. She was admitted about 2 months ago for hypernatremia. Repeat labs reveal similar electrolyte levels. Patient is hyponatremic with 126. Elevated BUN of 37. Creatinine within normal limits. Sodium replacement therapy started. Patient will be admitted for further medical management. Case was discussed with patient was understanding and agreeable. Case was also discussed with Dr. Hayward. Admitting physician is . Psychiatry consulted Insurance Associate consulted - Lab Data Result diagrams: 11/08/20 18:48 11/08/20 18:48 Lab Results 11/08/20 11/08/20 11/08/20 Range/Units 18:48 18:48 18:48 WBC 4.5 (3.8-10.6) k/uL RBC 4.27 (3.80-5.40) m/uL Hgb 14.4 (11.4-16.0) gm/dL Hct 40.7 (34.0-46.0) % MCV 95.2 D (80.0-100.0) fL MCH 33.6 (25.0-35.0) pg MCHC 35.3 (31.0-37.0) g/dL RDW 13.9 (11.5-15.5) % Plt Count 304 D (150-450) k/uL MPV 6.6 Neutrophils % 65 % Lymphocytes % 27 % Monocytes % 5 % Eosinophils % 1 % Basophils % 1 % Neutrophils # 2.9 (1.3-7.7) k/uL Lymphocytes # 1.2 (1.0-4.8) k/uL Monocytes # 0.2 (0-1.0) k/uL Eosinophils # 0.0 (0-0.7) k/uL Basophils # 0.1 (0-0.2) k/uL Sodium 126 L (137-145) mmol/L Potassium 3.9 (3.5-5.1) mmol/L Chloride 90 L (98-107) mmol/L Carbon Dioxide 28 (22-30) mmol/L Anion Gap 8 mmol/L BUN 37 H (7-17) mg/dL Creatinine 0.66 (0.52-1.04) mg/dL Est GFR (CKD-EPI)AfAm >90 (>60 ml/min/1.73 sqM) Est GFR (CKD-EPI)NonAf >90 (>60 ml/min/1.73 sqM) Glucose 123 H (74-99) mg/dL Calcium 9.3 (8.4-10.2) mg/dL Total Bilirubin 0.5 (0.2-1.3) mg/dL AST 40 H (14-36) U/L ALT 37 H (4-34) U/L Alkaline Phosphatase 52 (38-126) U/L Total Protein 7.0 (6.3-8.2) g/dL Albumin 4.3 (3.5-5.0) g/dL Urine Opiates Screen Not Detected (NotDetected) Ur Oxycodone Screen Not Detected (NotDetected) Urine Methadone Screen Not Detected (NotDetected) Ur Propoxyphene Screen Not Detected (NotDetected) Ur Barbiturates Screen Not Detected (NotDetected) U Tricyclic Antidepress Not Detected (NotDetected) Ur Phencyclidine Scrn Not Detected (NotDetected) Ur Amphetamines Screen Not Detected (NotDetected) U Methamphetamines Scrn Not Detected (NotDetected) U Benzodiazepines Scrn Not Detected (NotDetected) Urine Cocaine Screen Not Detected (NotDetected) U Marijuana (THC) Screen Not Detected (NotDetected) Disposition Clinical Impression: Acute anxiety, Hyponatremia, Dehydration, Anorexia Disposition: ADMITTED IP TO THIS [facility] Condition: Fair Instructions (If sedation given, give patient instructions): Generalized Anxiety Disorder (ED) Is patient prescribed a controlled substance at d/c from ED?: No Referrals: Jones Mclean DO [Primary Care Provider] - 1-2 days Time of Disposition: 20:25
[2020-11-08] MEDS ORDERED: SODIUM CHLORIDE 0.9% 1,000 ML IV STA (18:24)
[2020-11-08 19:13] LABS: Basophils # (A) 0.1 k/uL (0-0.2); Basophils % (A) 1 %; Eosinophils % (A) 1 %; HCT 40.7 % (34.0-46.0); HGB 14.4 gm/dL (11.4-16.0); Lymphocytes # (A) 1.2 k/uL (1.0-4.8); Lymphocytes % (A) 27 %; MCH 33.6 pg (25.0-35.0); MCHC 35.3 g/dL (31.0-37.0); Mean Platelet Volume 6.6; Monocytes # (A) 0.2 k/uL (0-1.0); Monocytes % (A) 5 %; Neutrophils # (A) 2.9 k/uL (1.3-7.7); Neutrophils % (A) 65 %; RBC 4.27 m/uL (3.80-5.40); RDW 13.9 % (11.5-15.5); WBC 4.5 k/uL (3.8-10.6)
[2020-11-08 19:21] LABS: ALT 37 U/L (4-34); AST 40 U/L (14-36); African American GFR (CKD) >90 (>60 ml/min/1.73 sqM); Albumin 4.3 g/dL (3.5-5.0); Alkaline Phosphatase 52 U/L (38-126); Anion Gap 8 mmol/L; Blood Urea Nitrogen 37 mg/dL (7-17); Calcium 9.3 mg/dL (8.4-10.2); Carbon Dioxide 28 mmol/L (22-30); Chloride 90 mmol/L (98-107); Glucose 123 mg/dL (74-99); Non-African American GFR(CKD) >90 (>60 ml/min/1.73 sqM); Potassium 3.9 mmol/L (3.5-5.1); Sodium 126 mmol/L (137-145); Total Bilirubin 0.5 mg/dL (0.2-1.3)
[2020-11-08 19:26] LABS: MCV 95.2 fL (80.0-100.0); Platelet Count 304 k/uL (150-450)
[2020-11-08 19:33] LABS: Amphetamine Screen,Urine Not Detected (NotDetected); Barbiturate Screen,Urine Not Detected (NotDetected); Benzodiazepines Screen,Urine Not Detected (NotDetected); Cocaine Screen,Urine Not Detected (NotDetected); Methadone Screen, Urine Not Detected (NotDetected); Opiate Screen,Urine Not Detected (NotDetected); Oxycodone Screen, Urine Not Detected (NotDetected); Phencyclidine Screen,Urine Not Detected (NotDetected); Tricyclic Antidepressant,Urine Not Detected (NotDetected); Urn Cannabinoid Scrn Not Detected (NotDetected)
[2020-11-08] MEDS ORDERED: Acetaminophen-Codeine 300-30mg TAB PO PRN (20:25)
[2020-11-08] MEDS ORDERED: ONDANSETRON 4 MG/2 ML VIAL IVP PRN (20:25)
[2020-11-08] MEDS ORDERED: ACETAMINOPHEN TAB 325 MG TAB PO PRN (20:25)
[2020-11-08] MEDS ORDERED: LORazepam 2 MG/ML INJ IV PRN (20:25)
[2020-11-08] MEDS ORDERED: MORPHINE SULFATE 4 MG/ML SYRINGE IV PRN (20:25)
[2020-11-08] MEDS ORDERED: NALOXONE 0.4 MG/ML 1 ML VIAL IV PRN (20:25)
[2020-11-09] MEDS: SERTRALINE 50 MG TAB PO SCH (08:10)
[2020-11-09 13:29] VITALS: BMI 16.5
[2020-11-09] MEDS: SODIUM CHLORIDE 0.9% 1,000 ML IV SCH (16:03)
--- NOTE | 2020-11-09 23:29 | P.HPIM ---
History of Present Illness H&P Date: 11/09/20 Patient is a 40-year-old female with a known history of anxiety/depression, neuropathy and malnutrition/anorexia presents to ER with complaints of anxiety and psychiatric evaluation. Patient was previous admitted to the hospital 2 months ago for malnutrition and hyponatremia. Patient is concerned about gaining weight and not taking adequate oral intake. Patient has been drinking Gatorade and plain water not eating solid diet. Patient does take Zoloft for a long time but believes it is not helping her. Patient is supposed to follow-up with mental health clinic as an outpatient. Patient states that she was started on Klonopin which makes her of so she stopped taking it. Patient states that her father recently after her previous admission and is under a lot of stress with increased anxiety. Patient also feels very weak. Denies any cough or sputum production. No fever no chills. No suicidal or homicidal ideation. No headache or dizziness lightheadedness. Laboratory showed sodium 126, potassium 3.9, BUN 37 creatinine 0.66 AST 40 ALT 37 and UDS is negative. Albumin 4.3. Review of Systems Constitutional: Patient denies any fever or chills . generalized weakness and weight loss. Abdomen: Patient denied nausea vomiting and diarrhea and abdominal pain. Cardiovascular: Patient denies any chest pain or short of breath no palpitations. Respiratory: patient denied any cough or sputum production. No shortness of breath Neurologic: Patient denied any numbness or tingling headache. Musculoskeletal: Patient denies any complaints of joint swelling or deformity. Skin: Negative Psychiatric: anxiety Endocrine: No heat or cold intolerance. No recent weight gain. Genitourinary: No dysuria or hematuria. 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 Past Drug Use History: None Reported - Past Family History Father Family Medical History: Pneumonia Additional Family Medical History / Comment(s): Parkinson's, depression, TBI. Mother Family Medical History: Coronary Artery Disease (CAD) Medications and Allergies Home Medications Medication Instructions Recorded Confirmed Type clonazePAM [KlonoPIN] 0.5 mg PO BID PRN 10/08/20 11/08/20 History Sertraline [Zoloft] 50 mg PO DAILY 11/08/20 11/08/20 History Allergies Allergy/AdvReac Type Severity Reaction Status Date / Time Sulfa (Sulfonamide Allergy Swelling Verified 11/08/20 19:22 Antibiotics) Physical Exam Vitals: Vital Signs Temp Pulse Pulse Resp BP BP Pulse Ox 11/09/20 13:12 98.3 F 53 L 19 125/82 100 11/09/20 07:19 97.4 F L 53 L 19 118/76 100 11/09/20 02:00 98 F 53 L 17 102/66 99 11/08/20 21:09 97.8 F 54 L 18 108/69 100 11/08/20 21:00 63 18 106/74 98 11/08/20 18:04 97.7 F 63 20 110/71 100 Intake and Output 11/08/20 11/09/20 11/09/20 22:59 06:59 14:59 Other: Weight 40.823 kg 40.823 kg PHYSICAL EXAMINATION: Patient is lying in the bed comfortably, no acute distress, awake alert and oriented. anorexic.. HEENT: Normocephalic. Neck is supple. Pupils reactive. Nostrils clear. Oral cavity is moist. Ears reveal no drainage. Neck reveals no JVD, carotid bruits, or thyromegaly. CHEST EXAMINATION: Trachea is central. Symmetrical expansion. Lung keane clear to auscultation and percussion. CARDIAC: Normal S1, S2 with no gallops. No murmurs ABDOMEN: Soft. Bowel sounds normal. No organomegaly. No abdominal bruits. Extremities: reveal no edema. No clubbing or cyanosis Neurologically awake, alert, oriented x3 with well-coordinated movements. No focal deficits noted Skin: No rash or skin lesions. Psychiatric: Coperative. NonsuicidalAnxious, Musculoskeletal: No joint swelling or deformity. Normal range of motion. Results CBC & Chem 7: 11/08/20 18:48 11/08/20 18:48 Labs: Abnormal Lab Results - Last 24 Hours (Table) 11/08/20 Range/Units 18:48 Sodium 126 L (137-145) mmol/L Chloride 90 L (98-107) mmol/L BUN 37 H (7-17) mg/dL Glucose 123 H (74-99) mg/dL AST 40 H (14-36) U/L ALT 37 H (4-34) U/L Thrombosis Risk Factor Assmnt - DVT/VTE Prophylaxis DVT/VTE Prophylaxis: Pharmacologic Prophylaxis ordered - Choose All That Apply Any of the Below Risk Factors Present?: Yes Each Factor Represents 1 point: Age 41-60 years Other Risk Factors: No Other congenital or acquired thrombophilia - If yes, enter type in comment: No Thrombosis Risk Factor Assessment Total Risk Factor Score: 1 Thrombosis Risk Factor Assessment Level: Low Risk Assessment and Plan Assessment: Hyponatremia likely due to increased plain water intake and decreased solute intake. Dehydration volume depletion Malnutrition and anorexia Depression/anxiety DVT prophylaxis with early ambulation Plan: Patient will require IV hydration with normal saline and monitor sodium level. Encourage increased solute intake and solid diet. Patient was seen by nutrition service during previous admission. Psychiatry will be consulted for evaluation. Further recommendations based on clinical course. Time with Patient: Greater than 30
[2020-11-10 05:42] VITALS: RESP 16
[2020-11-10] MEDS: SERTRALINE 50 MG TAB PO SCH (08:32)
[2020-11-10 09:15] LABS: African American GFR (CKD) 123.9 (60.0-200.0); Anion Gap 5.1 mmol/L (4.00-12.00); BUN/Creat Ratio 38.57 Ratio (12.00-20.00); Calcium 8.9 mg/dL (8.7-10.3); Carbon Dioxide 30.9 mmol/L (21.6-31.8); Non-African American GFR(CKD) 106.9 (60.0-200.0); Potassium 4.2 mmol/L (3.5-5.5)
[2020-11-10] MEDS ORDERED: ALPRAZolam 0.25 MG TAB PO PRN (10:21)
[2020-11-10] MEDS: SODIUM CHLORIDE 0.9% 1,000 ML IV SCH (11:37)
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
[2020-11-10 13:51] VITALS: BP 120/79; PULSE 92; TEMP 97.8
--- NOTE | 2020-11-10 15:10 | CDI ---
Documentation Clarification Form Date: 11/10/2020 From: Yennifer Shoemaker RN,CCDS Admit Date: 11/08/2020 Patient Name: Irena Alfonso (F 40 yrs) Visit Number: [id number] Discharge Date: Dr. Dulce Maria Ramirez Malnutrition has been documented in the past medical history and the H/P. Please further specify the severity of malnutrition. History/Risk Factors: Anxiety, Depression, malnutrition, Neurologic Disorder Clinical Indicators: 40-year-old concerned about gaining weight and not taking adequate oral intake. She has been drinking Gatorade and plain water not eating solid diet. She admits to binge eating per nutrition history. 11/09 Labs: Na+ 126, K+ 3.9, BUN 37 Current BMI: 16.5 kg (was 41 kg on last admission 10/09/2020) Insufficient energy intake: Yes not eating solid foods Weight Loss: She is underweight Loss of subcutaneous fat: Mild clavicle, positive temporal muscle wasting Loss of muscle mass: Yes Treatment: Monitor PO intake Dietary Consult: Yes Supplements: Ensure Enlive BID In your professional opinion, can you please clarify if these findings signify one of the following conditions? Mild Protein-Calorie Malnutrition Moderate Protein-Calorie Malnutrition Severe Protein-Calorie Malnutrition Other condition, please specify Unable to determine (Last Revision: April 2019) MTDD
--- NOTE | 2020-11-10 15:38 | P.DS ---
Providers Date of admission: 11/08/20 20:00 Expected date of discharge: 11/10/20 Attending physician: Esperanza Mazariegos Consults: 11/09/20 13:49 Consult Physician Routine Consulting Provider: Tad Hwang Consult Reason/Comments: Anorexia psych support. Do you want consulting provider notified?: Yes Primary care physician: Jones Mclean Hospital Course: Final diagnosis Mild protein calorie malnutrition Hyponatremia likely due to increased plain water intake and decreased solute intake, improved Dehydration volume depletion anorexia Depression/anxiety DVT prophylaxis Discharge disposition Patient is being discharged in a stable condition with guarded prognosis to home. Patient will follow-up with Dr. Mclean upon discharge. Patient to follow-up with psychiatry in the outpatient setting. Total time taken is greater than 35 minutes. Hospital course This is a 40-year-old female who was recently admitted with hyponatremia, anxiety, depression and was being closely monitored. Patient was started on IV fluids and sodium improved and is currently 140. Patient was seen and evaluated with psychiatry and medication adjustments have been made. Patient will continue with Zoloft at an increased dose and will add Abilify 5 mg for mood and will follow-up with counseling outpatient. Patient also provided resources for psychiatrist follow-up she will continue to need prescriptions. Patient does follow with Dr. Mclean in the outpatient setting and instructed to follow up upon discharge. Patient denies any suicidal ideation or thoughts of harming he rself or others. Patient states she would like to go home today. Currently no reports of chest pain, shortness of breath, or palpitations. Patient is afebrile. No reports of nausea or vomiting and patient is tolerating diet. Guarded prognosis. On exam vital signs are stable. Temp is 97.8F, pulse is 92, respirations are 16, blood pressure is 120/79, oxygen saturation is 94% on room air. Cardio S1, S2 are muffled. Respiratory shows diminished breath sounds at the bases with no wheezing or rhonchi noted. Abdomen is soft and nontender. Nervous system shows no focal deficits. Please refer to medication reconciliation sheet for a list of medications. Patient Condition at Discharge: Stable Plan - Discharge Summary Discharge Rx Participant: No New Discharge Prescriptions: New ARIPiprazole [Abilify] 5 mg PO DAILY 30 Days #30 tab ALPRAZolam [Xanax] 0.25 mg PO BID PRN #10 tab PRN Reason: Anxiety Sertraline [Zoloft] 100 mg PO DAILY 30 Days #60 tab Discontinued clonazePAM [KlonoPIN] 0.5 mg PO BID PRN PRN Reason: Anxiety Sertraline [Zoloft] 50 mg PO DAILY Discharge Medication List ALPRAZolam [Xanax] 0.25 mg PO BID PRN #10 tab 11/10/20 [Rx] ARIPiprazole [Abilify] 5 mg PO DAILY 30 Days #30 tab 11/10/20 [Rx] Sertraline [Zoloft] 100 mg PO DAILY 30 Days #60 tab 11/10/20 [Rx] Follow up Appointment(s)/Referral(s): Jones Mclean DO [Primary Care Provider] - 1-2 days Patient Instructions/Handouts: Generalized Anxiety Disorder (ED) Activity/Diet/Wound Care/Special Instructions: Activity Limited until follow-up Follow-up with primary care provider upon discharge Follow-up with counseling outpatient Established with psychiatrist in the outpatient setting Possible follow-up with [facility] comprehensive eating disorder program [phone] Discharge Disposition: HOME SELF-CARE
[2020-11-11] MEDS ORDERED: ARIPiprazole 5 MG TAB PO SCH (09:00)
[2020-11-11] MEDS ORDERED: SERTRALINE 50 MG TAB PO SCH (09:00)
== END 2020-11-10 14:41 | disposition home or self-care (01) | DRG 641 ==
LOC: EC 18:02 → 5NMEDONC 20:00
PROVIDERS: ADMIT Internal Medicine; ATTEND Internal Medicine
DX: E87.1 Hypo-osmolality and hyponatremia (principal); E44.1 Mild protein-calorie malnutrition; Z68.1 Body mass index [BMI] 19.9 or less, adult; F32.9 Major depressive disorder, single episode, unspecified; F50.9 Eating disorder, unspecified; E86.0 Dehydration; G62.9 Polyneuropathy, unspecified; F41.9 Anxiety disorder, unspecified; R94.4 Abnormal results of kidney function studies; Z79.899 Other long term (current) drug therapy; Z63.4 Disappearance and death of family member; Z90.49 Acquired absence of other specified parts of digestive tract; Z87.19 Personal history of other diseases of the digestive system; Z98.890 Other specified postprocedural states; Z88.2 Allergy status to sulfonamides; Z82.0 Family history of epilepsy and other diseases of the nervous system; Z82.49 Family history of ischemic heart disease and other diseases of the circulatory system; Z83.6 Family history of other diseases of the respiratory system
CPT/HCPCS: 36415; 80048; 80053; 80306; 85025; 99284

== ENCOUNTER → 2021-10-11 | Outpatient (CLI) | payer OTHER ==
[2021-10-11 09:54] VITALS: BP 118/77; PULSE 71; RESP 16; TEMP 98.1
--- NOTE | 2021-10-11 11:45 | P.HPOB ---
History of Present Illness H&P Date: 10/11/21 Chief Complaint: The patient is here for her routine gynecologic exam and ma mmogram. This is a 40-year-old G0 with an LMP of 2018. The patient is here to establish with this office. It has been about 5 years since her last pelvic exam. She states her menstrual periods were regular until about 1-1/2 years ago when they suddenly stopped. She believes it may be related to her significant weight loss which was intentional. Lost about 120 pounds over the past 2 years and this has been through exercise and diet. She denies any significant hot flashes. She is without gynecologic complaints. Review of Systems The patient has lost 120 pounds over the last 2 years. The weight loss has been intentional and has been done through diet and exercise. She denies respiratory, cardiac, or G.I. problems. 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 History of Any Multi-Drug Resistant Organisms: None Reported Past Surgical History: Cholecystectomy Past Anesthesia/Blood Transfusion Reactions: No Reported Reaction Past Psychological History: Anxiety, Depression Smoking Status: Never smoker Past Alcohol Use History: Abuse Additional Past Alcohol Use History / Comment(s): former alcoholic . sober since 2011. Past Drug Use History: None Reported Additional History: She is single and is not seeing anybody at this time and is not sexually active at this time. She works doing [employer] and works out of her home. - Past Family History Father Family Medical History: Pneumonia Additional Family Medical History / Comment(s): Parkinson's following a closed head injury., depression, TBI. Mother Family Medical History: Coronary Artery Disease (CAD) Additional Family Medical History / Comment(s): following a surgery for a heart valve problem. Medications and Allergies Home Medications Medication Instructions Recorded Confirmed Type Desvenlafaxine Succinate [Pristiq] 100 mg PO DAILY 10/11/21 10/11/21 History Folic Acid 1 mg PO DAILY 10/11/21 10/11/21 History Multivitamin [Multivitamins Adult 1 each PO DAILY 10/11/21 10/11/21 History Gummies] metHOTREXate sodium [Methotrexate] 10 mg PO Q7D 12/22/21 12/22/21 History Allergies Allergy/AdvReac Type Severity Reaction Status Date / Time Sulfa (Sulfonamide Allergy Swelling Verified 10/11/21 09:47 Antibiotics) Exam Vital Signs Temp Pulse Resp BP Pulse Ox 10/11/21 09:48 98.1 F 71 16 118/77 99 Intake and Output 10/10/21 10/11/21 10/11/21 22:59 06:59 14:59 Other: Weight 53.07 kg Height 5 feet 2 half inches, weight 117 pounds, BMI 21.1. This is a well-developed well-nourished white female who is alert and oriented times 3 in no acute distress. HEENT: Within normal limits. NECK: Supple without mass or thyromegaly. CHEST AND LUNGS: Clear to auscultation. HEART: Regular rate and rhythm. BREASTS: Are without mass or discharge. AXILLARY EXAM: Negative for adenopathy. BACK: Negative for CVA tenderness. ABDOMEN: Soft, nontender, without palpable masses. PELVIC EXAM: Normal external genitalia. Cervix and vagina appear normal. There is no unusual discharge. There is no evidence of prolapse. The uterus is midposition, nongravid size and nontender. There are no palpable adnexal masses or tenderness. RECTAL EXAM: negative for mass or tenderness and is negative for occult blood. EXTREMITIES: Nontender. IMPRESSION: 1. 40-year-old female with normal gynecologic exam. 2. Secondary amenorrhea. Differential diagnosis will include menopause, thyroid dysfunction, and exercise/weight loss-induced amenorrhea. PLAN: 1. Pap smear cotest was performed. 2. Self breast awareness was discussed with the patient. We have also discussed symptoms associated with inflammatory breast cancer. 3. Screening mammogram will be done today. This is a baseline screening mammogram. 4. Osteoporosis prevention was discussed. I have stressed the importance of adequate calcium, vitamin D and regular exercise. Recommended amounts of calcium and vitamin D were also discussed. 5. Blood tests will include estradiol, FSH and TSH. This will be drawn today. 6. She has not received a Covid vaccination. We have discussed possible risks of being unvaccinated including serious illness and possible . She we will consider getting vaccinated. 7. She was advised to return in one year for her annual well woman exam.
[2021-10-11 19:20] LABS: Estradiol 9.9 pg/mL
== END | disposition home or self-care (01) ==
LOC: WWCWWP 09:20
PROVIDERS: ATTEND Obstetrics & Gynecology
DX: Z12.31 Encounter for screening mammogram for malignant neoplasm of breast (principal); N91.1 Secondary amenorrhea
CPT/HCPCS: 77067; 82670; 83001; 84443

== ENCOUNTER → 2022-07-16 | Outpatient (CLI) | payer OTHER ==
[2022-07-16 13:46] LABS: INR 0.9 (<1.2); Partial Thromboplastin Time 23.1 sec (22.0-30.0); Prothrombin Time 10.1 sec (9.0-12.0)
[2022-07-16 19:13] LABS: HCT 42.1 % (37.2-46.3); HGB 13.8 g/dL (12.0-15.0); MCH 30.9 pg (27.0-32.0); MCHC 32.8 g/dL (32.0-37.0); MCV 94.2 fL (80.0-97.0); Mean Platelet Volume 10.4 fL (9.5-12.2); NRBC Per 100 WBC 0 /100 WBCS (0.0-0.0); Platelet Count 260 X 10*3/uL (140-440); RBC 4.47 X 10*6/uL (4.10-5.20); RDW 14.8 % (11.5-14.5); WBC 5.57 X 10*3/uL (4.50-10.00)
[2022-07-16 19:26] LABS: African American GFR (CKD) 102.8 (60.0-200.0); Albumin 4.4 g/dL (3.8-4.9); Albumin/Globulin Ratio 1.86 (1.60-3.17); Anion Gap 8.9 mmol/L (10.00-18.00); BUN/Creat Ratio 20.94 Ratio (12.00-20.00); Calcium 9.5 mg/dL (8.7-10.3); Carbon Dioxide 27.5 mmol/L (20.0-27.5); Globulin 2.4 g/dL (1.6-3.3); Non-African American GFR(CKD) 88.7 (60.0-200.0); Potassium 3.8 mmol/L (3.5-5.5); Total Bilirubin 0.3 mg/dL (0.30-1.20); Total Protein 6.8 g/dL (6.2-8.2)
== END | disposition home or self-care (01) ==
LOC: LABWHC1 12:27
PROVIDERS: ATTEND Orthopaedic Surgery
DX: Z01.812 Encounter for preprocedural laboratory examination (principal); Z01.818 Encounter for other preprocedural examination; M17.12 Unilateral primary osteoarthritis, left knee
CPT/HCPCS: 80053; 85027; 85610; 85730; 87070

== ENCOUNTER 2022-08-06 07:21 | Day surgery (SDC) | payer OTHER ==
[~2022-08-06 07:21] MED LIST: ACETAMINOPHEN TAB 500 MG TAB PO PRN; DEXAMETHASONE SOD PHOSPHATE 4 MG/ML 1 ML VIAL IV ONE; GABAPENTIN 300 MG CAP PO PRN; LACTATED RINGERS 1,000 ML IV SCH; LIDOCAINE 1% (10MG/ML) FOR IV START INTRADERMA PRN; MELOXICAM 7.5 MG TAB PO PRN; MIDAZOLAM 2 MG/2 ML VIAL IV PRN; ONDANSETRON 4 MG/2 ML VIAL IVP ONE; TRANEXAMIC ACID IN NACL,ISO-OS 1,000 MG in SALINE 1 100ML.BAG IVPB PRN; VANCOMYCIN 1,000 MG in SODIUM CHLORIDE 0.9% 250 ML IVPB PRN
[2022-08-06 08:16] LABS: Glucose,Whole Blood 72 mg/dL (70-110)
[2022-08-06] MEDS ORDERED: fentaNYL (PF) 50 MCG/ML 2 ML AMP IVP ONE (08:35)
[2022-08-06] MEDS ORDERED: MIDAZOLAM 2 MG/2 ML VIAL IVP ONE (08:35)
[2022-08-06] MEDS ORDERED: HYDROmorphone 0.5 MG/0.5 ML SYRINGE IVP PRN ×2 (08:46)
[2022-08-06] MEDS ORDERED: HYDROmorphone 1 MG/ML 1 ML SYRINGE IVP PRN (08:46)
[2022-08-06] MEDS ORDERED: NALOXONE 0.4 MG/ML 1 ML VIAL IV PRN (08:46)
[2022-08-06] MEDS ORDERED: hydrOXYzine pamoate 25 MG CAP PO PRN (08:46)
[2022-08-06] MEDS ORDERED: ONDANSETRON 4 MG/2 ML VIAL IVP PRN (08:46)
[2022-08-06] MEDS ORDERED: traMADol 50 MG TAB PO PRN (08:46)
[2022-08-06] MEDS ORDERED: KETOROLAC 15 MG/ML 1 ML VIAL IVP PRN (08:49)
[2022-08-06] MEDS ORDERED: DEXAMETHASONE SOD PHOSPHATE 4 MG/ML 1 ML VIAL ONE (08:59)
[2022-08-06] MEDS ORDERED: KETAMINE 10 MG/ML 20 ML VIAL ONE (08:59)
[2022-08-06] MEDS ORDERED: PROPOFOL 10 MG/ML 20 ML VIAL IV ONE (08:59)
[2022-08-06] MEDS ORDERED: LIDOCAINE 2% INJ 20 MG/ML (2 ML VIAL) ONE (08:59)
[2022-08-06] MEDS ORDERED: GLYCOPYRROLATE 0.2 MG/ML 2 ML VIAL ONE (08:59)
[2022-08-06] MEDS ORDERED: TRANEXAMIC ACID IN NACL,ISO-OS 1,000 MG/100 ML BAG ONE (08:59)
[2022-08-06] MEDS ORDERED: SODIUM CHLORIDE 0.9% (PF) 10 ML VIAL ONE (08:59)
[2022-08-06] MEDS ORDERED: ROPIVACAINE 5 MG/ML 30 ML VIAL ONE (08:59)
[2022-08-06] MEDS ORDERED: ROCURONIUM 10 MG/ML (5 ML VIAL) IV ONE (08:59)
[2022-08-06] MEDS ORDERED: SUCCINYLCHOLINE CHLORIDE 200 MG/10 ML VIAL IV ONE (08:59)
[2022-08-06] MEDS ORDERED: NEOSTIGMINE 1 MG/ML 10 ML VIAL ONE (08:59)
[2022-08-06] MEDS ORDERED: fentaNYL (PF) 50 MCG/ML 2 ML AMP ONE (08:59)
[2022-08-06] MEDS ORDERED: MIDAZOLAM 2 MG/2 ML VIAL ONE (08:59)
[2022-08-06] MEDS ORDERED: SODIUM CHLORIDE 0.9% 1,000 ML IV SCH (09:00)
[2022-08-06] MEDS ORDERED: SCOPOLAMINE 1 MG/72 HR PATCH TRANSDERM ONE (09:01)
[2022-08-06] MEDS ORDERED: ceFAZolin 1,000 MG in SODIUM CHLORIDE 0.9% 1,000 ML IRRIGATION ONE (09:06)
[2022-08-06] MEDS ORDERED: SODIUM CHLORIDE 0.9% 50 ML with ceFAZolin 2,000 MG IV ONE ×2 (09:06)
--- NOTE | 2022-08-06 09:29 | P.ANPRN ---
Procedure Note - Anesthesia - Nerve Block Performed Left Adductor Canal Infusion Time Out Performed: Yes (833) Date of Procedure: 08/06/22 Procedure Start Time: 08:40 Procedure Stop Time: 08:55 Location of Patient: PreOp Indication: Acute Post-Operative Pain, Requested by Surgeon Sedation Type: Sedate with meaningful contact maintained Preparation: Sterile Prep, Sterile Dressing Position: Supine Catheter: Indwelling Needle Types: On-Q Needle Gauge: 18 Ultrasound used to visualize needle placement: Yes Ultrasound used to observe medication spread: Yes Injectate: 2.0% Lidocaine (see comment for volume) (5 mL of 2% lidocaine volume injected as a test dose) Blood Aspirated: No Pain Paresthesia on Injection Noted: No Resistance on Injection: Normal Image Stored and Saved: Yes Events: Other (see comment) (20 mL of block solution containing 10 mL of 0.5% ropivacaine, 9 mL of preservative free 0.9% NaCl,) Left iPack Single Time Out Performed: Yes (833) Date of Procedure: 08/06/22 Procedure Start Time: :40 Procedure Stop Time: 08:55 Location of Patient: PreOp Indication: Acute Post-Operative Pain, Requested by Surgeon Sedation Type: Sedate with meaningful contact maintained Preparation: Sterile Prep, Sterile Dressing Position: Supine Catheter: None Needle Types: Pajunk Needle Gauge: 21 Ultrasound used to visualize needle placement: Yes Ultrasound used to observe medication spread: Yes Injectate: 0.5% Ropivacaine (see comment for volume) Blood Aspirated: No Pain Paresthesia on Injection Noted: No Resistance on Injection: Normal Image Stored and Saved: Yes Events: Uneventful and Well Tolerated (20 mL of block solution containing 9 mL of 0.5% ropivacaine, 9 mL of preservative free 0.9% NaCl mixed with 4 MG of dexamethasone)
--- NOTE | 2022-08-06 10:11 | P.OP ---
Date of Procedure: 08/06/22 Preoperative Diagnosis: Severe osteoarthritis left knee Postoperative Diagnosis: Severe osteoarthritis left knee Procedure(s) Performed: Left total knee arthroplasty Implants: Rob & Nephew Journey II CR Oxinium cruciate retaining femoral component size 4, left Rob & Nephew Journey nonporous tibial baseplate size 3, left Rob & Nephew Journey II, XLPE Deep Dished articular insert, size 13 mm, Size 3-4, left Rob & Nephew Journey Renae II resurfacing patellar component, oval, 29 mm All components were cemented using Palacos R bone cement The articulation is Oxinium on polyethylene Anesthesia: YANELI Surgeon: Jones Oviedo Technology Assistant #1: Sunitha Smith Estimated Blood Loss (ml): 40 Pathology: other (Bone and cartilage) Condition: stable Disposition: PACU Indications for Procedure: After failure of conservative treatment we discussed the surgical and nonsurgical treatment options at length. Patient wishes to proceed with a total knee arthroplasty. Complications specific to this procedure were discussed at length, including but not limited to infection, bleeding, stiffness, and nerve injury. Covid-19 was also discussed at length with the patient, and they are aware of the current policies and procedures. The patient was given the option of delaying surgery, but they elect to proceed knowing these risks. Patient is aware of all these complications and informed consent was obtained Operative Findings: The operative findings are consistent with severe osteoarthritis of the left knee Description of Procedure: Patient was seen in the preoperative area and the consent was reviewed and the operative site was marked with a skin marker. The patient verified the procedure and the operative site. An adductor canal pain catheter and an iPACK block was placed by anesthesia in the preoperative area. The patient was then brought to the operating room and given preoperative antibiotics intravenously. A gram of transexamic acid was given intravenously. A general anesthetic was administered by the anesthesia department. A tourniquet was placed on the upper thigh and the lower extremity was prepped with chlorhexidine and draped in usual sterile fashion. A universal timeout was then performed which confirmed the patient's name, surgical site, ALLERGIES, and consent. The lower extremity was then exsanguinated and tourniquet was inflated to 250 mmHg. A standard anterior midline approach to the knee was performed. The skin and subcutaneous tissue were sharply dissected down to the patellar tendon. A medial parapatellar arthrotomy was then performed. The knee was then extended, the patellar was everted, and the knee was again flexed. The infra-patellar fat pad was removed in order to enhance exposure. The anterior horns of both menisci were excised, and a release was performed to the posterior medial aspect of the knee. On gross visual inspection, there was complete loss of articular cartilage in the medial and patellofemoral joint spaces. There was also significant cartilage damage in the lateral compartment. There were multiple periarticular osteophytes globally about the knee which were then removed with a Ronguer. The femoral canal was then opened with the 9.5 mm intramedullary drill. The 8 mm intramedullary melvin was then inserted into the femoral canal with the distal femoral cutting guide set for 5 of valgus. The distal femoral cutting block was then pinned in place. The intramedullary melvin was then removed, and the distal femur was then cut. The cutting block was then removed and the cut was checked for symmetry. The resected bone was then measured to confirm the appropriate distal femoral resection. Next, the sizing guide was then placed and set for 3 external rotation based off of the epicondylar axis and [place] line. Pins were then placed and the drill holes, and the femur was sized with the sizing stylus. The pins were then removed, and the sizing guide was then removed. The spikes of the femoral block was then placed into the predrilled holes, and malleted into place. Two 45 mm pins were then placed into the fixation holes on the cutting block. An sher wing was then used to ensure there would be no notching with the anterior cut. The anterior condyles were cut without notching. The anterior chord cut was then performed, followed by the posterior cut, posterior chamfer cut, and the anterior chamfer cut. The collateral ligaments were protected during the entire process. The cutting block was then removed. Any remaining bone and osteophytes were removed from the femur with a Ronguer. The femoral canal was plugged with autologous bone. Attention was then directed to the tibia. The remaining ACL was removed with a Ronguer, and the tibia was then gently subluxed forward with a large bent knee retractor. Any remaining menisci were excised. The posterior lateral corner was cauterized in order to coagulate the lateral geniculate artery. The extra medullary tibial cutting guide was then placed, set for the appropriate rotation, slope, and depth of resection. The proximal tibia cutting guide was then pinned in place. Proximal tibia was then cut and sized. The femoral trial was placed. A narrow saw blade was then used to remove the anterior intracondylar femoral bone. The CR notch trial was then placed. The tibial trial was placed with the appropriate-sized insert. The knee was able to fully extend and flex to 130 and was stable throughout all range of motion. The knee was then extended and the patella was everted. Patella was then measured, and then using an osteotomy guide, the patella was cut at the appropriate level. The patella was then measured and drilled and the patella trial was then placed. The knee was then taken through range of motion with the patella trial and the patella tracked normally using the no thumbs technique. The knee was then extended patella trial was then removed and the patella was everted. Knee was then flexed and lug holes were drilled through the femoral trial and the femoral trial was then removed. The tibial was then re-exposed, and the tibial broach guide was then pinned in place after it was set for the appropriate rotation to allow for the most coverage without overhang. The tibia was then reamed and broached. The cut surfaces of bone were then irrigated with pulsatile lavage. The knee was also irrigated with Irrisept solution. The components were then opened, the cement was mixed, and the components were then cemented in place. The cement was allowed to harden with the knee in full extension. After the cemented hardened, the tourniquet was released and hemostasis was obtained. A second gram of transexamic acid was given intravenously. The knee was again irrigated. The knee was again taken through range of motion and found to be stable throughout all range of motion of 0-130, and the patella tracked normally. The fascia was then closed with 0 Vicryl followed by #2 strata fix suture. The subcutaneous tissue was closed with 3-0 Vicryl and 3-0 strata fix. Exofin glue was used for the skin and placed with the knee in flexion. After the glue had dried, and Optafoam silver impregnated dressing was applied. The patient was then transferred to recovery room in stable condition. The medical assistant supervisor ANASTASIYA Haro was required due the complexity surgery and the need for a skilled surgical asst. She assisted in positioning, draping, retraction, and closure of the wound.
[2022-08-06] MEDS: HYDROmorphone 0.5 MG/0.5 ML SYRINGE IVP PRN ×3 (10:49→11:33)
[2022-08-06 11:03] VITALS: TEMP 97
[2022-08-06] MEDS ORDERED: SODIUM CHLORIDE 0.9% 1,000 ML IV ONE (11:08)
[2022-08-06] MEDS ORDERED: ROPIVACAINE 0.2%-NS ON-Q PUMP 2 MG/ML EACH MISCELLANE ONE (11:09)
--- NOTE | 2022-08-06 11:46 | XR ---
Left knee Limited HISTORY: Status post left knee arthroplasty 2 views left knee Patient is status post left knee arthroplasty. There is anatomic alignment. Lucencies present within the soft tissues consistent with postop state. IMPRESSION: Orthopedic follow-up.
[2022-08-06] MEDS ORDERED: ONDANSETRON 4 MG/2 ML VIAL IVP ONE (14:17)
[2022-08-06] MEDS ORDERED: ceFAZolin 1,000 MG VIAL IVPB ONE (14:19)
[2022-08-06 14:52] VITALS: BP 116/67; PULSE 74; RESP 16
== END 2022-08-06 15:19 | disposition home health service (06) ==
LOC: OR 07:21
PROVIDERS: ATTEND Orthopaedic Surgery
DX: M17.12 Unilateral primary osteoarthritis, left knee (principal); G89.18 Other acute postprocedural pain; F32.A Depression, unspecified; Z97.3 Presence of spectacles and contact lenses; Z79.899 Other long term (current) drug therapy; Z88.0 Allergy status to penicillin; Z82.49 Family history of ischemic heart disease and other diseases of the circulatory system
CPT/HCPCS: 97110; 97161; 81025; 64999; 64448; 76942; 88300; 73560; 27447; C1713; J2250; J3370; J0330; J1100; J2710; J2405; J0690; J3010; J2795 ×2; J2704; J1170; J2001

== ENCOUNTER 2022-10-02 07:36 | Day surgery (SDC) | payer OTHER ==
[2022-09-27 10:28] VITALS: BMI 22.1
[~2022-10-02 07:36] MED LIST changes: -LIDOCAINE 1% (10MG/ML) FOR IV START INTRADERMA PRN; -MIDAZOLAM 2 MG/2 ML VIAL IV PRN; -VANCOMYCIN 1,000 MG in SODIUM CHLORIDE 0.9% 250 ML IVPB PRN
[2022-10-02 07:58] VITALS: RESP 16
[2022-10-02] MEDS ORDERED: VANCOMYCIN 750 MG in SODIUM CHLORIDE 0.9% 250 ML IVPB PRN (08:28)
[2022-10-02] MEDS ORDERED: VANCOMYCIN 1,000 MG in SODIUM CHLORIDE 0.9% 250 ML IVPB PRN (08:30)
[2022-10-02] MEDS ORDERED: SCOPOLAMINE 1 MG/72 HR PATCH TRANSDERM ONE (09:16)
[2022-10-02] MEDS ORDERED: MIDAZOLAM 2 MG/2 ML VIAL IVP ONE (09:19)
[2022-10-02] MEDS ORDERED: fentaNYL (PF) 50 MCG/1 ML VIAL IVP ONE (09:19)
[2022-10-02] MEDS ORDERED: SODIUM CHLORIDE 0.9% (PF) 10 ML VIAL ONE (09:55)
[2022-10-02] MEDS ORDERED: ROCURONIUM 10 MG/ML (5 ML VIAL) IV ONE (09:55)
[2022-10-02] MEDS ORDERED: fentaNYL (PF) 50 MCG/ML 2 ML AMP ONE (09:55)
[2022-10-02] MEDS ORDERED: ROPIVACAINE 5 MG/ML 30 ML VIAL ONE (09:55)
[2022-10-02] MEDS ORDERED: MIDAZOLAM 2 MG/2 ML VIAL ONE (09:55)
[2022-10-02] MEDS ORDERED: PROPOFOL 10 MG/ML 20 ML VIAL IV ONE (09:55)
[2022-10-02] MEDS ORDERED: SUCCINYLCHOLINE CHLORIDE 200 MG/10 ML VIAL IV ONE (09:55)
[2022-10-02] MEDS ORDERED: LIDOCAINE 2% INJ 20 MG/ML (2 ML VIAL) ONE (09:55)
[2022-10-02] MEDS ORDERED: TRANEXAMIC ACID IN NACL,ISO-OS 1,000 MG/100 ML BAG ONE (09:55)
[2022-10-02] MEDS ORDERED: ONDANSETRON 4 MG/2 ML VIAL IVP PRN (10:00)
[2022-10-02] MEDS ORDERED: ceFAZolin 1,000 MG in SODIUM CHLORIDE 0.9% 1,000 ML IRRIGATION ONE (10:00)
[2022-10-02] MEDS ORDERED: HYDROmorphone 0.5 MG/0.5 ML SYRINGE IVP PRN ×2 (10:00)
[2022-10-02] MEDS ORDERED: SODIUM CHLORIDE 0.9% 1,000 ML IV SCH (10:00)
[2022-10-02] MEDS ORDERED: NALOXONE 0.4 MG/ML 1 ML VIAL IV PRN (10:00)
[2022-10-02] MEDS ORDERED: HYDROmorphone 1 MG/ML 1 ML SYRINGE IVP PRN (10:00)
[2022-10-02] MEDS ORDERED: HYDROcodone/APAP 7.5-325MG 1 EACH TAB PO PRN ×2 (10:02)
--- NOTE | 2022-10-02 10:58 | P.ANPRN ---
Procedure Note - Anesthesia - Nerve Block Performed Right Adductor Canal Infusion Time Out Performed: Yes (917) Date of Procedure: 10/02/22 Procedure Start Time: : Procedure Stop Time: Location of Patient: PreOp Indication: Acute Post-Operative Pain, Requested by Surgeon Specifically requested for management of pain by DrLacy: Jones [place]o Sedation Type: Sedate with meaningful contact maintained Preparation: Sterile Prep, Sterile Dressing Position: Supine Catheter Depth at Skin (cm): 4 Catheter: Indwelling Needle Types: Pajunk Needle Gauge: 18 Ultrasound used to visualize needle placement: Yes Ultrasound used to observe medication spread: Yes Injectate: 0.5% Ropivacaine (see comment for volume) (15cc+ 5cc nacl pf) Blood Aspirated: No Pain Paresthesia on Injection Noted: No Resistance on Injection: Normal Image Stored and Saved: Yes Events: Uneventful and Well Tolerated
--- NOTE | 2022-10-02 10:58 | P.ANPRN ---
Procedure Note - Anesthesia - Nerve Block Performed Right iPack Single Time Out Performed: Yes (918) Date of Procedure: 10/02/22 Procedure Start Time: Procedure Stop Time: Location of Patient: PreOp Indication: Acute Post-Operative Pain, Requested by Surgeon Specifically requested for management of pain by DrLacy: Jones Oviedo Sedation Type: Sedate with meaningful contact maintained Preparation: Sterile Prep Position: Supine Catheter: None Needle Types: Pajunk Needle Gauge: 21 Ultrasound used to visualize needle placement: Yes Ultrasound used to observe medication spread: Yes Injectate: 0.5% Ropivacaine (see comment for volume) (15cc + 5cc nacl pf) Blood Aspirated: No Pain Paresthesia on Injection Noted: No Resistance on Injection: Normal Image Stored and Saved: Yes Events: Uneventful and Well Tolerated
[2022-10-02] MEDS ORDERED: LACTATED RINGERS 1,000 ML IV ONE (11:00)
--- NOTE | 2022-10-02 11:04 | P.OP ---
Date of Procedure: 10/02/22 Preoperative Diagnosis: Severe osteoarthritis right knee Postoperative Diagnosis: Severe osteoarthritis right knee Procedure(s) Performed: Right total knee arthroplasty Implants: Rob & Nephew Journey II CR Oxinium cruciate retaining femoral component size 4, right Rob & Nephew Journey nonporous tibial baseplate size 3, right Rob & Nephew Journey II, XLPE Deep Dished articular insert, size 13 mm, Size 3-4, right Rob & Nephew Journey Renae II resurfacing patellar component, oval, 29 mm All components were cemented using Palacos R bone cement The articulation is Oxinium on polyethylene Anesthesia: YANELI Surgeon: Jones Oviedo Host #1: Sunitha Smith Estimated Blood Loss (ml): 30 Pathology: other (Bone and cartilage) Condition: stable Disposition: PACU Indications for Procedure: This is a 41-year-old female with a history of right knee osteoarthritis. The patient's knee is end-stage, and conservative management has failed. The operation of knee replacement has been discussed at length in the office, as well as potential risks and complications. These are inclusive of, but not limited to: Infection, bleeding, scarring, discomfort, stiffness, blood vessel and nerve damage, need for further surgery, failure to relieve symptoms, persistence, recurrence, or worsening of problems, loosening, dislocation, wear, blood clot, pulmonary embolism, , gait dysfunction, stiffness, and other risks as discussed in the office. Patient elects to proceed and the consent form has been signed. Operative Findings: The operative findings are consistent with severe osteoarthritis of the right knee Description of Procedure: Patient was seen in the preoperative area and the consent was reviewed and the operative site was marked with a skin marker. The patient verified the procedure and the operative site. An adductor canal pain catheter and an IPACK block were placed by anesthesia in the preoperative area. The patient was then brought to the operating room and positioned on the operating room table in the supine position. Preoperative antibiotics and a gram of transexamic acid were given intravenously. A general anesthetic was administered by the anesthesia department. Care was taken to make sure that all pressure points were adequately padded. A tourniquet was placed on the upper thigh and the lower extremity was prepped with ChloraPrep and draped in usual sterile fashion. A universal timeout was then performed which confirmed the patient's name, surgical site, ALLERGIES, and consent. The lower extremity was then exsanguinated and tourniquet was inflated to 250 mmHg. A standard anterior midline approach to the knee was performed. The skin and subcutaneous tissue were sharply dissected down to the patellar tendon. A medial parapatellar arthrotomy was then performed. The knee was then extended, the patellar was everted, and the knee was flexed. The infra-patellar fat pad was removed in order to enhance exposure. The anterior horns of both menisci were excised, and a release was performed to the posterior medial aspect of the knee. On gross visual inspection, there was complete loss of articular cartilage in the medial and patellofemoral joint spaces. There was also significant cartilage damage in the lateral compartment. There were multiple periarticular osteophytes globally about the knee which were then removed with a Ronguer. The femoral canal was then opened with the 9.5 mm intramedullary drill. The 8 mm intramedullary melvin was then inserted into the femoral canal with the distal femoral cutting guide set for 5 of valgus. The distal femoral cutting block was then pinned in place. The intramedullary melvin was then removed, and the distal femur was then cut. The cutting block was then removed and the cut was checked for symmetry. The resected bone was then measured to confirm the appropriate distal femoral resection. Next, the sizing guide was then placed and set for 3 external rotation based off of the epicondylar axis and [place]'s line. Pins were then placed and the drill holes, and the femur was sized with the sizing stylus. The pins were then removed, and the sizing guide was then removed. The spikes of the appropriate size femoral block was then placed into the predrilled holes, and malleted into place. Two 45 mm pins were then placed into the fixation holes on the cutting block. An sher wing was then used to ensure there would be no notching with the anterior cut. The anterior condyles were cut without notching. The anterior chord cut was then performed, followed by the posterior cut, posterior chamfer cut, and the anterior chamfer cut. The collateral ligaments were protected during the entire process. The cutting block was then removed. Any remaining bone and osteophytes were removed from the femur with a Ronguer. Attention was then directed to the tibia. The remaining ACL was removed with a Ronguer, and the tibia was then gently subluxed forward with a large bent knee retractor. Any remaining menisci were excised. The posterior lateral corner was cauterized in order to coagulate the lateral geniculate artery. The extra medullary tibial cutting guide was then placed, set for the appropriate rotation, slope, and depth of resection. The proximal tibia cutting guide was then pinned in place. Proximal tibia was then cut and sized. A curved osteotome was then used to remove any posterior osteophytes from the distal femur. The femoral trial was placed. A narrow saw blade was then used to remove the anterior intracondylar femoral bone. The CR notch trial was then placed. The tibial trial was placed with the appropriate-sized insert. The knee was able to fully extend and flex to 130 and was stable throughout all range of motion. The knee was then extended and the patella was everted. Patella was then measured, and then using an osteotomy guide, the patella was cut at the appropriate level. The patellar component was sized. The patellar drill guide was placed and the patella was drilled. The patella trial was then placed. The knee was then taken through range of motion with the patella trial and the patella tracked normally using the no thumbs technique. The patella trial was then removed. The knee was then flexed and lug holes were drilled through the femoral trial and the femoral trial was then removed. The tibial was then re- exposed, and the tibial broach guide was then pinned in place after it was set for the appropriate rotation to allow for the most coverage without overhang. The tibia was then reamed and broached. The femoral canal was plugged with autologous bone. The cut surfaces of bone were then irrigated with pulsatile lavage. The knee was also irrigated with Irrisept solution. The components were then opened, the cement was mixed. Cement was placed on the backside of the femoral, tibial, and patellar components. Cement was then applied to the tibial surface and pressurized into the surface using finger pressurization technique. The tibial component was then applied and excess cement was removed after it was impacted securely noted to be flush with the cut surface. In similar fashion, the cement was applied to the cut femoral surface, pressurized and using finger pressurization the component was impacted in place. Excess cement was removed. The polyethylene spacer was then implanted and locked into position. Patellar component was then applied in a similar technique and the patellar clamp was used to hold patella in place while the alexx ent hardened. The knee was held in full extension while the cement hardened. Once the cement had fully hardened, the knee was reinspected. Any other cement extrusion was removed the final range of motion testing showed range of motion from 0-130 with excellent stability, both medial and laterally and appropriate alignment of the leg. Patella tracked normally[default value] After the cemented hardened, the tourniquet was released and hemostasis was obtained. A second gram of transexamic acid was given intravenously. The knee was again irrigated. The knee was again taken through range of motion and found to be stable throughout all range of motion of 0-130, and the patella tracked normally. The fascia was then closed with 0 Vicryl followed by #2 strata fix suture. The subcutaneous tissue was closed with 3-0 Vicryl and 3-0 strata fix. Exofin glue was used for the skin and placed with the knee in flexion. After the glue had dried, and Optafoam silver impregnated dressing was applied. A lightly compressive dressing was applied using web roll and Alex wrap. Patient was then transferred to the stretcher and taken to recovery room in stable condition. Sponge and needle counts were correct. The editorial assistant ANASTASIYA Haro was required due the complexity surgery and the need for a skilled child welfare assistant. She assisted in positioning, draping, retraction, and closure of the wound.
[2022-10-02 11:40] VITALS: TEMP 97.5
[2022-10-02] MEDS ORDERED: ROPIVACAINE 1,100 MG, SODIUM CHLORIDE 0.9% 500 ML 330 ML, EMPTY PAIN BALL 1 EACH MISCELLANE PRN ×2 (11:46)
[2022-10-02] MEDS: HYDROmorphone 0.5 MG/0.5 ML SYRINGE IVP PRN ×2 (12:07→12:47)
--- NOTE | 2022-10-02 12:09 | XR ---
EXAMINATION TYPE: XR knee limited RT DATE OF EXAM: 10/02/2022 COMPARISON: NONE TECHNIQUE: Two views submitted HISTORY: Post op FINDINGS: There is a prosthetic knee in near anatomic alignment. There is soft tissue edema and emphysema. IMPRESSION: 1. Postoperative change. Appears in near-anatomic alignment
[2022-10-02 13:40] VITALS: PULSE 83
[2022-10-02] MEDS ORDERED: ceFAZolin 10 GM VIAL IVPB ONE (13:43)
[2022-10-02] MEDS ORDERED: traMADol 50 MG TAB PO PRN (13:46)
[2022-10-02] MEDS ORDERED: traMADol 50 MG TAB ONE (13:51)
[2022-10-02] MEDS ORDERED: traMADol 50 MG TAB PO ONE (13:52)
[2022-10-02 13:55] VITALS: BP 120/71
[2022-10-02] MEDS ORDERED: IV FLUID CONTINUATION 1,000 ML IV ONE (13:57)
== END 2022-10-02 14:46 | disposition home or self-care (01) ==
LOC: OR 07:36
PROVIDERS: ATTEND Orthopaedic Surgery
DX: M17.11 Unilateral primary osteoarthritis, right knee (principal); M25.761 Osteophyte, right knee; G89.18 Other acute postprocedural pain; G62.9 Polyneuropathy, unspecified; F32.A Depression, unspecified; Z79.1 Long term (current) use of non-steroidal anti-inflammatories (NSAID); Z79.83 Long term (current) use of bisphosphonates; Z79.899 Other long term (current) drug therapy; Z97.3 Presence of spectacles and contact lenses; Z88.2 Allergy status to sulfonamides; Z47.1 Aftercare following joint replacement surgery; Z96.652 Presence of left artificial knee joint; Z82.49 Family history of ischemic heart disease and other diseases of the circulatory system; Z79.811 Long term (current) use of aromatase inhibitors
CPT/HCPCS: 97161; 64999; 64448; 76942; 88300; 73560; 27447; C1713; C1776; C1751; J2250; J3370; J0330; J1100; J0690 ×2; J2405; J3010 ×2; J2795; J2704; J1170; J2001

== ENCOUNTER 2023-05-16 14:51 | Observation (INO) | payer OTHER ==
[2023-05-16] MEDS ORDERED: SODIUM CHLORIDE 0.9% 1,000 ML IV ONE (16:33)
[2023-05-16] MEDS ORDERED: chlordiazePOXIDE 25 MG CAP PO STA (16:33)
--- NOTE | 2023-05-16 17:14 | ED ---
Alcohol HPI - General Chief Complaint: Alcohol Stated Complaint: ETOH Time Seen by Provider: 05/16/23 15:35 Source: EMS Mode of arrival: EMS Limitations: no limitations - History of Present Illness Initial Comments: Irena is a 42-year-old female with a history of depression, anxiety and alcohol abuse. The patient presents to ER today via ambulance for evaluation of concern for alcohol detox. Patient states that for the past 6 months she is been drinking about a fifth of vodka daily, she woke up this morning feeling shaky and nauseated had some vomiting palpitations she knew she was beginning withdrawal so she drank a pint of vodka. She then decided to come the hospital for evaluation a few scattered going through withdrawals at home. She has not been hospitalized for DTs or withdrawals in the past. She was previously sober for 10 years before her relapse 6 months ago. Patient states she just feels very very anxious and very well and like she is not safe to be home alone. She denies any intent to harm or self or others and states that medically she doesn't feel like she is well enough to be alone. - Related Data Home Medications Medication Instructions Recorded Confirmed Etanercept [Enbrel] 25 mg SQ SA 05/16/23 05/16/23 Ibuprofen [Motrin Ib] 800 mg PO Q8H PRN 05/16/23 05/16/23 Venlafaxine HCl [Effexor XR] 150 mg PO DAILY 05/16/23 05/16/23 Allergies Allergy/AdvReac Type Severity Reaction Status Date / Time Sulfa (Sulfonamide Allergy Swelling Verified 05/16/23 16:27 Antibiotics) Review of Systems ROS Statement: Those systems with pertinent positive or pertinent negative responses have been documented in the HPI. ROS Other: All systems not noted in ROS Statement are negative. 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 History of Any Multi-Drug Resistant Organisms: None Reported Past Surgical History: Cholecystectomy Additional Past Surgical History / Comment(s): Left knee replacement. Past Anesthesia/Blood Transfusion Reactions: No Reported Reaction Past Psychological History: Anxiety, Depression Smoking Status: Never smoker Past Alcohol Use History: Abuse Past Drug Use History: None Reported - Past Family History Father Family Medical History: Pneumonia Additional Family Medical History / Comment(s): Parkinson's following a closed head injury, depression, TBI. Mother Family Medical History: Coronary Artery Disease (CAD) Additional Family Medical History / Comment(s): following a surgery for a heart valve problem. General Exam - General Exam Comments Initial Comments: Physical Exam GENERAL: Patient is well-developed and well-nourished. Patient is nontoxic and well-hydrated and is in no distress. HENT: Normocephalic, Atraumatic. EYES: PERRL, EOMI PULMONARY: Unlabored respirations. CARDIOVASCULAR: RRR Warm and well perfused extremities ABDOMEN: Non-distended SKIN: No rashes or bruising : Deferred NEUROLOGIC: Alert and oriented Normal speech MUSCULOSKELETAL: Moving all extremities with no apparent injury PSYCHIATRIC: Anxious, tearful Limitations: no limitations Course Vital Signs 05/16/23 14:58 Temperature 98.9 F Pulse Rate 105 H Respiratory 16 Rate Blood Pressure 150/90 O2 Sat by Pulse 96 Oximetry Medical Decision Making - Medical Decision Making The patient was seen and evaluated, history is obtained from the patient, initially discussed the patient option for outpatient management however she is very anxious states she feels unwell she feels that she will have withdraw at home and is not safe for discharge. Initial CIWA 8 - IV ativan ordered Labs unremarkable Patient has symptomatic alcohol withdrawal, requiring IV medications, she i snot stable for discharge home and will require hospitalization for medications and monitoring. Was pt. sent in by a medical professional or institution (, PA, MACHINE LACER, urgent care, hospital, or longterm...) When possible be specific @ -No Did you speak to anyone other than the patient for history (EMS, parent, family, police, friend...)? What history was obtained from this source @ -No Did you review nursing and triage notes (agree or disagree)? Why? @ -I reviewed and agree with nursing and triage notes Were old charts reviewed (outside hosp., previous admission, EMS record, old EKG, old radiological studies, urgent care reports/EKG's, longterm records)? Report findings @ -No old charts were reviewed Differential Diagnosis (chest pain, altered mental status, abdominal pain women, abdominal pain men, vaginal bleeding, weakness, fever, dyspnea, syncope, headache, dizziness, GI bleed, back pain, seizure, CVA, palpatations, mental health, musculoskeletal)? @ -not applicable EKG interpreted by me (3pts min.). @ -As above X-rays interpreted by me (1pt min.). @ -None done CT interpreted by me (1pt min.). @ -None done U/S interpreted by me (1pt. min.). @ -None done What testing was considered but not performed or refused? (CT, X-rays, U/S, labs)? Why? @ -None What meds were considered but not given or refused? Why? @ -None Did you discuss the management of the patient with other professionals (professionals i.e. , PA, MACHINE LACER, lab, RT, psych nurse, social security assessor, senior quality analyst, teacher, head correction officer, wrapper caser)? Give summary @ -No Was smoking cessation discussed for >3mins.? @ -No Was critical care preformed (if so, how long)? @ -No Were there social determinants of health that impacted care today? How? (Homelessness, low income, unemployed, alcoholism, drug addiction, transportation, low edu. Level, literacy, decrease access to med. care, halfway, rehab)? @ -No Was there de-escalation of care discussed even if they declined (Discuss DNR or withdrawal of care, Hospice)? DNR status @ -No What co-morbidities impacted this encounter? (DM, HTN, Smoking, COPD, CAD, Cancer, CVA, ARF, Chemo, Hep., AIDS, mental health diagnosis, sleep apnea, morbid obesity)? @ -None Was patient admitted / discharged? Hospital course, mention meds given and route, prescriptions, significant lab abnormalities, going to OR and other pertinent info. @ - Admitted Undiagnosed new problem with uncertain prognosis? @ -No Drug Therapy requiring intensive monitoring for toxicity (Heparin, Nitro, Insulin, Cardizem)? @ -No Were any procedures done? @ -No Diagnosis/symptom? @ -Alcohol withdrawal Acute, or Chronic, or Acute on Chronic? @ -default Uncomplicated (without systemic symptoms) or Complicated (systemic symptoms)? @ -default Side effects of treatment? @ -No Exacerbation, Progression, or Severe Exacerbation? @ -No Poses a threat to life or bodily function? How? (Chest pain, [place], [place], pneumonia, PE, COPD, DKA, ARF, appy, cholecystitis, CVA, Diverticulitis, Homicidal, Suicidal, threat to staff... and all critical care pts) @ -No - Lab Data Result diagrams: 05/16/23 17:38 05/16/23 17:38 Lab Results 05/16/23 05/16/23 05/16/23 Range/Units 17:38 17:38 17:38 WBC 5.4 (3.8-10.6) k/uL RBC 4.85 (3.80-5.40) m/uL Hgb 14.1 (11.4-16.0) gm/dL Hct 42.4 (34.0-46.0) % MCV 87.3 (80.0-100.0) fL MCH 29.1 (25.0-35.0) pg MCHC 33.4 (31.0-37.0) g/dL RDW 15.5 (11.5-15.5) % Plt Count 258 (150-450) k/uL MPV 6.9 Neutrophils % 70 % Lymphocytes % 22 % Monocytes % 5 % Eosinophils % 1 % Basophils % 1 % Neutrophils # 3.7 (1.3-7.7) k/uL Lymphocytes # 1.2 (1.0-4.8) k/uL Monocytes # 0.3 (0-1.0) k/uL Eosinophils # 0.0 (0-0.7) k/uL Basophils # 0.1 (0-0.2) k/uL Sodium 139 (137-145) mmol/L Potassium 4.1 (3.5-5.1) mmol/L Chloride 107 (98-107) mmol/L Carbon Dioxide 18 L (22-30) mmol/L Anion Gap 14 mmol/L BUN 12 (7-17) mg/dL Creatinine 0.58 (0.52-1.04) mg/dL Est GFR (CKD-EPI)AfAm >90 (>60 ml/min/1.73 sqM) Est GFR (CKD-EPI)NonAf >90 (>60 ml/min/1.73 sqM) Glucose 90 (74-99) mg/dL Calcium 8.4 (8.4-10.2) mg/dL Total Bilirubin 0.6 (0.2-1.3) mg/dL AST 40 H (14-36) U/L ALT 23 (4-34) U/L Alkaline Phosphatase 73 (38-126) U/L Total Protein 8.2 (6.3-8.2) g/dL Albumin 4.5 (3.5-5.0) g/dL Urine Color Yellow Urine Appearance Clear (Clear) Urine pH 6.0 (5.0-8.0) Ur Specific [place] 1.025 (1.001-1.035) Urine Protein 2+ (Negative) Ur Protein Confirm Not Reportable Urine Glucose (UA) Negative (Negative) Urine Ketones Negative (Negative) Urine Blood Trace (Negative) Urine Nitrite Negative (Negative) Urine Bilirubin Negative (Negative) Ur Bilirubin Confirm Not Reportable Urine Urobilinogen <2.0 (<2.0) mg/dL Ur Leukocyte Esterase Negative (Negative) Urine RBC 1 (0-5) /hpf Urine WBC 2 (0-5) /hpf Ur Squamous Epith Cells 1 (0-4) /hpf Urine Bacteria Rare H (None) /hpf Hyaline Casts 3 H (0-2) /lpf Urine Mucus Rare H (None) /hpf Urine Opiates Screen Not Detected (NotDetected) Ur Oxycodone Screen Not Detected (NotDetected) Urine Methadone Screen Not Detected (NotDetected) Ur Propoxyphene Screen Not Detected (NotDetected) Ur Barbiturates Screen Not Detected (NotDetected) U Tricyclic Antidepress Not Detected (NotDetected) Ur Phencyclidine Scrn Not Detected (NotDetected) Ur Amphetamines Screen Not Detected (NotDetected) U Methamphetamines Scrn Not Detected (NotDetected) U Benzodiazepines Scrn Not Detected (NotDetected) Urine Cocaine Screen Not Detected (NotDetected) U Marijuana (THC) Screen Not Detected (NotDetected) Disposition Clinical Impression: Alcohol withdrawal syndrome Disposition: ADMITTED IP TO THIS [facility] Condition: Stable Is patient prescribed a controlled substance at d/c from ED?: No Referrals: Jones Mclean DO [Primary Care Provider] - 1-2 days
[2023-05-16] MEDS ORDERED: LORazepam 2 MG/ML INJ IV STA (17:28)
[2023-05-16 17:47] LABS: Basophils # (A) 0.1 k/uL (0-0.2); Basophils % (A) 1 %; Eosinophils % (A) 1 %; HCT 42.4 % (34.0-46.0); HGB 14.1 gm/dL (11.4-16.0); Lymphocytes # (A) 1.2 k/uL (1.0-4.8); Lymphocytes % (A) 22 %; MCH 29.1 pg (25.0-35.0); MCHC 33.4 g/dL (31.0-37.0); MCV 87.3 fL (80.0-100.0); Mean Platelet Volume 6.9; Monocytes # (A) 0.3 k/uL (0-1.0); Monocytes % (A) 5 %; Neutrophils # (A) 3.7 k/uL (1.3-7.7); Neutrophils % (A) 70 %; Platelet Count 258 k/uL (150-450); RBC 4.85 m/uL (3.80-5.40); RDW 15.5 % (11.5-15.5); WBC 5.4 k/uL (3.8-10.6)
[2023-05-16 18:06] LABS: Bacteria,Urine Rare /hpf; Hyaline Casts,Urine 3 /lpf (0-2); Mucus,Urine Rare /hpf; RBC,Urine 1 /hpf (0-5); Squamous Epithelial Cell,Urine 1 /hpf (0-4); WBC,Urine 2 /hpf (0-5)
[2023-05-16 18:07] LABS: ALT 23 U/L (4-34); AST 40 U/L (14-36); African American GFR (CKD) >90 (>60 ml/min/1.73 sqM); Albumin 4.5 g/dL (3.5-5.0); Alkaline Phosphatase 73 U/L (38-126); Anion Gap 14 mmol/L; Blood Urea Nitrogen 12 mg/dL (7-17); Calcium 8.4 mg/dL (8.4-10.2); Carbon Dioxide 18 mmol/L (22-30); Chloride 107 mmol/L (98-107); Glucose 90 mg/dL (74-99); Non-African American GFR(CKD) >90 (>60 ml/min/1.73 sqM); Potassium 4.1 mmol/L (3.5-5.1); Sodium 139 mmol/L (137-145); Total Bilirubin 0.6 mg/dL (0.2-1.3); Total Protein 8.2 g/dL (6.3-8.2)
[2023-05-16 18:18] LABS: Amphetamine Screen,Urine Not Detected (NotDetected); Barbiturate Screen,Urine Not Detected (NotDetected); Benzodiazepines Screen,Urine Not Detected (NotDetected); Cocaine Screen,Urine Not Detected (NotDetected); Methadone Screen, Urine Not Detected (NotDetected); Opiate Screen,Urine Not Detected (NotDetected); Oxycodone Screen, Urine Not Detected (NotDetected); Phencyclidine Screen,Urine Not Detected (NotDetected); Tricyclic Antidepressant,Urine Not Detected (NotDetected); Urn Cannabinoid Scrn Not Detected (NotDetected)
[2023-05-16 18:35] LABS: Appearance,Urine Clear (Clear); Bilirubin,Urine Negative (Negative); Blood,Urine Trace (Negative); Color,Urine Yellow; Glucose,Urine (UA) Negative (Negative); Ketones,Urine Negative (Negative); Protein,Urine 2+ (Negative); Specific Gravity,Urine 1.025 (1.001-1.035); Urobilinogen,Urine <2.0 mg/dL (<2.0)
[2023-05-16 18:36] LABS: Leukocyte Esterase,Urine Negative (Negative); Nitrite,Urine Negative (Negative)
[2023-05-16] MEDS ORDERED: NALOXONE 0.4 MG/ML 1 ML VIAL IV PRN (20:09)
[2023-05-16] MEDS ORDERED: LORazepam 2 MG/ML INJ IV PRN (22:29)
[2023-05-16] MEDS ORDERED: chlordiazePOXIDE 25 MG CAP PO PRN (22:29)
[2023-05-16] MEDS ORDERED: THIAMINE 100 MG/ML 2 ML VIAL IM STA (22:29)
[2023-05-16] MEDS: LORazepam 1 MG TAB PO PRN (22:59)
[2023-05-17] MEDS ORDERED: ONDANSETRON 4 MG/2 ML VIAL IVP PRN (01:27)
--- NOTE | 2023-05-17 01:27 | P.HPIM ---
History of Present Illness H&P Date: 05/16/23 Chief Complaint: alcohol withdrawal 42 year old female with alcohol dependance patient coming in for alcohol detox. she by choice decided to quit alcohol , and seeking help. she normally drinks a fifth every day, and today was her last drink she is trying to quit and had only a pint GERD feels that she is shaky and nervous she seeing shadows denies any tactile hallucination she's been through rehab she denies any history of withdrawal seizures Otherwise he denies any GI bleeding abdominal pain nausea vomiting denies any chest pain trouble breathing coughing fevers or chills She denies any significant past medical history Denies any illicit drugs or smoking review of systems Pertinent positives as noted in HPI. All other systems were reviewed and are negative on exam Constitutional: No acute distress, conversant, pleasant Eyes: Anicteric sclerae, moist conjunctiva, Pupils equal round reactive to light ENMT: NC/AT Oropharynx clear, no erythema, or exudates Neck: Supple, no masses, or JVD No carotid bruits No thyromegaly Lungs: Clear to auscultation Clear to percussion Normal respiratory effort, no accessory muscle use Cardiovascular: Heart regular in rate and rhythm, No murmurs, gallops, or rubs No peripheral edema Abdominal: Soft Nontender, no guarding, rebound or rigidity Abdomen moving with respiration Normoactive bowel sounds No hepatomegaly, No splenomegaly No palpable mass No abdominal wall hernia noted Skin: Normal temperature, tone, texture, turgor No induration No subcutaneous nodules No rash, lesions No ulcers Extremities: No digital cyanosis No clubbing Pedal pulses intact and symmetrical Radial pulses intact and symmetrical No calf tenderness Psychiatric: Alert and oriented to person, place and time Appropriate affect fair judgement Neuro Muscles Strength 5/5 in all 4 extremities Sensation to light touch grossly present throughout Cranial nerves II-XII grossly intact Lymphatics: no palpable cervical or supraclavicular lymph nodes Past Medical History Past Medical History: Neurologic Disorder, Rheumatoid Arthritis (RA) Additional Past Medical History / Comment(s): neuropathy. 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 History of Any Multi-Drug Resistant Organisms: None Reported Past Surgical History: Cholecystectomy Additional Past Surgical History / Comment(s): Left knee replacement. Past Anesthesia/Blood Transfusion Reactions: No Reported Reaction Past Psychological History: Anxiety, Depression Smoking Status: Never smoker Past Alcohol Use History: Abuse Past Drug Use History: None Reported - Past Family History Father Family Medical History: Pneumonia Additional Family Medical History / Comment(s): Parkinson's following a closed head injury, depression, TBI. Mother Family Medical History: Coronary Artery Disease (CAD) Additional Family Medical History / Comment(s): following a surgery for a heart valve problem. Medications and Allergies Home Medications Medication Instructions Recorded Confirmed Type Etanercept [Enbrel] 25 mg SQ SA 05/16/23 05/16/23 History Ibuprofen [Motrin Ib] 800 mg PO Q8H PRN 05/16/23 05/16/23 History Venlafaxine HCl [Effexor XR] 150 mg PO DAILY 05/16/23 05/16/23 History Allergies Allergy/AdvReac Type Severity Reaction Status Date / Time Sulfa (Sulfonamide Allergy Swelling Verified 05/16/23 16:27 Antibiotics) Physical Exam Vitals: Vital Signs Temp Pulse Resp BP Pulse Ox 05/16/23 14:58 98.9 F 105 H 16 150/90 96 Intake and Output 05/16/23 05/16/23 05/16/23 06:59 14:59 22:59 Other: Weight 81.647 kg Results CBC & Chem 7: 05/16/23 17:38 05/16/23 17:38 Labs: Abnormal Lab Results - Last 24 Hours (Table) 05/16/23 05/16/23 Range/Units 17:38 17:38 Carbon Dioxide 18 L (22-30) mmol/L AST 40 H (14-36) U/L Urine Bacteria Rare H (None) /hpf Hyaline Casts 3 H (0-2) /lpf Urine Mucus Rare H (None) /hpf Assessment and Plan Assessment: 42-year-old female with alcohol dependence coming in seeking detox from alcohol discussed the case with the ED doctor and accepted the admission for alcohol withdrawals with anticipated length of stay more than 2 midnights Alcohol dependence with pending alcohol withdrawals Seizure precautions Benzos per CIWA scale Thiamine daily IV fluid hydration normal saline Renal function showing BUN of 12 creatinine 0.5 sodium 139 potassium 4.1 Hemoglobin 14.1 white BC 5.4 both unremarkable Full code DVT prophylaxis mechanical
[2023-05-17] MEDS: LORazepam 1 MG TAB PO PRN ×3 (04:40→12:12)
[2023-05-17 08:10] VITALS: RESP 16
[2023-05-17] MEDS ORDERED: MULTIVITAMINS, THERA 1 EACH TAB PO SCH (09:00)
[2023-05-17] MEDS ORDERED: THIAMINE 100 MG TAB PO SCH (09:00)
[2023-05-17] MEDS ORDERED: FOLIC ACID 1 MG TAB PO SCH (09:00)
[2023-05-17 14:05] VITALS: BP 154/95; PULSE 116; TEMP 98.4
--- NOTE | 2023-05-17 14:07 | P.PN ---
Subjective Progress Note Date: 05/17/23 No new complaints today. Gen: awake, alert HEENT: normocephalic, atraumatic, good hearing acuity, moist mucous membranes Resp: good air exchange, breathing comfortably with no accessory muscle use CVS: good distal perfusion x 4, GI: soft, NTTP, ND : no SPT, no CVAT, whitaker catheter not present MSK: no pitting edema, no clubbing Neuro: non-focal, moving all extremities Psych: cooperative, euthymic mood Assessment/Plan: 42-year-old female with alcohol dependence coming in seeking detox from alcohol discussed the case with the ED doctor and accepted the admission for alcohol withdrawals with anticipated length of stay more than 2 midnights Alcohol dependence with pending alcohol withdrawals Seizure precautions Benzos per CIWA scale Thiamine daily IV fluid hydration normal saline Renal function showing BUN of 12 creatinine 0.5 sodium 139 potassium 4.1 Hemoglobin 14.1 white BC 5.4 both unremarkable Full code DVT prophylaxis mechanical Objective - Vital Signs Vital signs: Vital Signs Temp 98.4 F 05/17/23 14:03 Pulse 116 H 05/17/23 14:03 Resp 16 05/17/23 14:03 BP 154/95 05/17/23 14:03 Pulse Ox 100 05/17/23 14:03 FiO2 Intake & Output 05/16/23 05/17/23 05/17/23 18:59 06:59 18:59 Weight 81.647 kg 81.647 kg Other: Voiding Method Toilet # Voids 2 1 - Labs CBC & Chem 7: 05/16/23 17:38 05/16/23 17:38 Labs: Abnormal Lab Results - Last 24 Hours (Table) 05/16/23 05/16/23 Range/Units 17:38 17:38 Carbon Dioxide 18 L (22-30) mmol/L AST 40 H (14-36) U/L Urine Bacteria Rare H (None) /hpf Hyaline Casts 3 H (0-2) /lpf Urine Mucus Rare H (None) /hpf
--- NOTE | 2023-05-17 14:50 | P.DS ---
Providers Date of admission: 05/16/23 20:09 Expected date of discharge: 05/17/23 Attending physician: Haroon Ruth MD Primary care physician: [facility] Course: Alcohol dependence with pending alcohol withdrawals 42-year-old female with alcohol dependence coming in seeking detox from alcohol discussed the case with the ED doctor and accepted the admission for alcohol withdrawals with anticipated length of stay more than 2 midnights. In the emergency room, patient is afebrile, 150/90, heart rate 105, 96% on room air. CBC is unremarkable. Basic metabolic panel showed mild acidosis to 18, otherwise unremarkable. Liver function test showed AST elevation of 40, ALT of 23. UA was unremarkable. Urine tox screen was negative. Patient was admitted for alcohol withdrawal syndrome. She was given Ativan as needed for withdrawal symptoms and improved quickly and by the following day was amenable to discharge. Patient was counseled on alcohol cessation and recommended to go to alcoholic's Anonymous, she should complete 2 weeks of thiamine, multiple vitamin, folic acid. Follow-up with her PCP. Gen: awake, alert HEENT: normocephalic, atraumatic, good hearing acuity, moist mucous membranes Resp: good air exchange, breathing comfortably with no accessory muscle use CVS: good distal perfusion x 4, GI: soft, NTTP, ND : no SPT, no CVAT, whitaker catheter not present MSK: no pitting edema, no clubbing Neuro: non-focal, moving all extremities Psych: cooperative, euthymic mood Patient Condition at Discharge: Good Plan - Discharge Summary New Discharge Prescriptions: New Multivitamins, Thera [Multivitamin (formulary)] 1 each PO DAILY #30 tab Folic Acid 1 mg PO DAILY #14 tab Thiamine [Vitamin B-1] 100 mg PO DAILY #14 tab Continue Etanercept [Enbrel] 25 mg SQ SA Ibuprofen [Motrin Ib] 800 mg PO Q8H PRN PRN Reason: Pain Or Fever > 100.5 Venlafaxine HCl [Effexor XR] 150 mg PO DAILY Discharge Medication List Etanercept [Enbrel] 25 mg SQ SA 05/16/23 [History] Ibuprofen [Motrin Ib] 800 mg PO Q8H PRN 05/16/23 [History] Venlafaxine HCl [Effexor XR] 150 mg PO DAILY 05/16/23 [History] Folic Acid 1 mg PO DAILY #14 tab 05/17/23 [Rx] Multivitamins, Thera [Multivitamin (formulary)] 1 each PO DAILY #30 tab 05/17/23 [Rx] Thiamine [Vitamin B-1] 100 mg PO DAILY #14 tab 05/17/23 [Rx] Follow up Appointment(s)/Referral(s): Jones Mclean DO [Primary Care Provider] - 1-2 days Discharge/Stand Alone Forms: AA Meetings [place] Discharge Disposition: HOME SELF-CARE
== END 2023-05-17 15:31 | disposition home or self-care (01) ==
LOC: EC 14:51 → 6NMEDSUR 20:09
PROVIDERS: ADMIT Internal Medicine; ATTEND Internal Medicine
DX: F10.20 Alcohol dependence, uncomplicated (principal); E87.20 Acidosis, unspecified; M06.9 Rheumatoid arthritis, unspecified; F32.A Depression, unspecified; F41.9 Anxiety disorder, unspecified; R11.2 Nausea with vomiting, unspecified; R00.2 Palpitations; Z71.41 Alcohol abuse counseling and surveillance of alcoholic; Z79.899 Other long term (current) drug therapy; Z88.2 Allergy status to sulfonamides; Z90.49 Acquired absence of other specified parts of digestive tract; Z96.652 Presence of left artificial knee joint; Z81.8 Family history of other mental and behavioral disorders; Z82.0 Family history of epilepsy and other diseases of the nervous system; Z82.49 Family history of ischemic heart disease and other diseases of the circulatory system
CPT/HCPCS: 82075; 96361; 96372; 96374; 99285; 36415; 80053; 85025; 81001; 80306; G0378 ×2; J2060; J3411

== ENCOUNTER 2023-05-24 21:06 | Emergency (ER) | payer OTHER ==
[2023-05-24 21:12] VITALS: TEMP 97.9
[2023-05-24] MEDS ORDERED: SODIUM CHLORIDE 0.9% 1,000 ML IV ONE (21:55)
--- NOTE | 2023-05-24 22:16 | ED ---
General Adult HPI - General Chief complaint: Alcohol Stated complaint: Detoxing Time Seen by Provider: 05/24/23 21:23 Source: patient, RN notes reviewed Mode of arrival: ambulatory Limitations: no limitations - History of Present Illness Initial comments: 42-year-old female with a past medical history significant for EtOH abuse presents emergency Department with a chief complaint of EtOH withdrawal. Patient reports that she drinks a fifth of vodka daily and has for 10 years. She reports that her last drink was at 10 AM this morning. She reports that she would like to detox. She is concerned for her safety at home. She denies any homicidal or suicidal ideations. Denies any plan for suicide. Patient states if I go home I will to the . "She denies any specific complaints at this time. Denies any headache, dizziness, vision loss, nausea, vomiting, tremors. Denies any auditory or visual hallucination - Related Data Home Medications Medication Instructions Recorded Confirmed Etanercept [Enbrel] 25 mg SQ SA 05/16/23 05/16/23 Ibuprofen [Motrin Ib] 800 mg PO Q8H PRN 05/16/23 05/16/23 Venlafaxine HCl [Effexor XR] 150 mg PO DAILY 05/16/23 05/16/23 Previous Rx's Medication Instructions Recorded Folic Acid 1 mg PO DAILY #14 tab 05/17/23 Multivitamins, Thera [Multivitamin 1 each PO DAILY #30 tab 05/17/23 (formulary)] Thiamine [Vitamin B-1] 100 mg PO DAILY #14 tab 05/17/23 Allergies Allergy/AdvReac Type Severity Reaction Status Date / Time Sulfa (Sulfonamide Allergy Swelling Verified 05/24/23 14:11 Antibiotics) Review of Systems ROS Statement: Those systems with pertinent positive or pertinent negative responses have been documented in the HPI. ROS Other: All systems not noted in ROS Statement are negative. 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 History of Any Multi-Drug Resistant Organisms: None Reported Past Surgical History: Cholecystectomy Additional Past Surgical History / Comment(s): Left knee replacement. Past Anesthesia/Blood Transfusion Reactions: No Reported Reaction Past Psychological History: Anxiety, Depression Smoking Status: Never smoker Past Alcohol Use History: Abuse, Daily, Heavy Past Drug Use History: None Reported - Past Family History Father Family Medical History: Pneumonia Additional Family Medical History / Comment(s): Parkinson's following a closed head injury, depression, TBI. Mother Family Medical History: Coronary Artery Disease (CAD) Additional Family Medical History / Comment(s): following a surgery for a heart valve problem. General Exam - General Exam Comments Initial Comments: General: Alert, in no acute distress Head: atraumatic normocephalic. Eyes PERRL, EOMI intact, mucous membranes moist Respiratory: Lungs clear to auscultation bilaterally Cardiovascular: Heart rate regular rate and rhythm Abdominal: Soft without guarding or rebound Extremities: Normal inspection with full range of motion and normal capillary re fill Neuroogic: alert and oriented 3, CN II-XII intact, able to ambulate with steady gait Skin: warm dry and intact with normal color Limitations: no limitations Course Vital Signs 05/24/23 05/25/23 21:08 00:03 Temperature 97.9 F Pulse Rate 109 H 108 H Respiratory 20 18 Rate Blood Pressure 147/105 142/105 O2 Sat by Pulse 98 97 Oximetry Medical Decision Making - Medical Decision Making Was pt. sent in by a medical professional or institution (, PA, SEO ANALYST, urgent care, hospital, or [facility]...) When possible be specific @ -[No] Did you speak to anyone other than the patient for history (EMS, parent, family, police, friend...)? What history was obtained from this source @ -[No] Did you review nursing and triage notes (agree or disagree)? Why? @ -[I reviewed and agree with nursing and triage notes] Were old charts reviewed (outside hosp., previous admission, EMS record, old EKG, old radiological studies, urgent care reports/EKG's, [facility] records)? Report findings @ -[No old charts were reviewed] Differential Diagnosis (chest pain, altered mental status, abdominal pain women, abdominal pain men, vaginal bleeding, weakness, fever, dyspnea, syncope, headache, dizziness, GI bleed, back pain, seizure, CVA, palpatations, mental health, musculoskeletal)? @ -[not applicable] EKG interpreted by me (3pts min.). @ -[As above] X-rays interpreted by me (1pt min.). @ -[None done] CT interpreted by me (1pt min.). @ -[None done] U/S interpreted by me (1pt. min.). @ -[None done] What testing was considered but not performed or refused? (CT, X-rays, U/S, labs)? Why? @ -[None] What meds were considered but not given or refused? Why? @ -[None] Did you discuss the management of the patient with other professionals (professionals i.e. , PA, SEO ANALYST, lab, RT, psych nurse, sr. social media & mobile manager, repair miller, te acher, network security officer, insurance case manager)? Give summary @ -[No] Was smoking cessation discussed for >3mins.? @ -[No] Was critical care preformed (if so, how long)? @ -[No] Were there social determinants of health that impacted care today? How? (Homelessness, low income, unemployed, alcoholism, drug addiction, transportation, low edu. Level, literacy, decrease access to med. care, intermediate, rehab)? @ -[No] Was there de-escalation of care discussed even if they declined (Discuss DNR or withdrawal of care, Hospice)? DNR status @ -[No] What co-morbidities impacted this encounter? (DM, HTN, Smoking, COPD, CAD, Cancer, CVA, ARF, Chemo, Hep., AIDS, mental health diagnosis, sleep apnea, morbid obesity)? @ -[None] Was patient admitted / discharged? Hospital course, mention meds given and route, prescriptions, significant lab abnormalities, going to OR and other pertinent info. @ -Discharged. This is a pleasant 42-year-old female who presents emergency Department with alcohol withdrawal. Patient had a thorough history and physical exam performed on the ED. Physical exam is essentially unremarkable. Heart rate regular rate and rhythm, lungs clear to auscultation bilaterally, abdomen soft without tenderness. Patient's breathalyzer alcohol test is 0.182 patient appears clinically sober. I discussed the results in detail with the patient verbalized understanding and all questions were addressed. She was given a 1 L IV with symptomatic relief in the emergency department. Return precautions were discussed at length with recommend close follow-up with PCP in 1-2 days. Patient will be discharged in stable condition Case discussed with Dr. Carranza who agrees with plan of care Undiagnosed new problem with uncertain prognosis? @ -[No] Drug Therapy requiring intensive monitoring for toxicity (Heparin, Nitro, Insulin, Cardizem)? @ -[No] Were any procedures done? @ -[No] Diagnosis/symptom? @ -Alcohol Withdrawal Acute, or Chronic, or Acute on Chronic? @ -Acute on Chronic Uncomplicated (without systemic symptoms) or Complicated (systemic symptoms)? @ Uncomplicated Side effects of treatment? @ -[No] Exacerbation, Progression, or Severe Exacerbation? @ -[No] Poses a threat to life or bodily function? How? (Chest pain, USA, [place], pneumonia, PE, COPD, DKA, ARF, appy, cholecystitis, CVA, Diverticulitis, Homicidal, Suicidal, threat to staff... and all critical care pts) @ -Low likelihood Disposition Clinical Impression: Alcohol abuse Disposition: HOME SELF-CARE Condition: Stable Instructions (If sedation given, give patient instructions): Alcohol Withdrawal (ED) Additional Instructions: Please follow-up with [place] Please return to the nearest emergency department symptoms worsen or persist Is patient prescribed a controlled substance at d/c from ED?: No Referrals: Jones Mclean DO [Primary Care Provider] - 1-2 days Time of Disposition: 23:37
[2023-05-25 00:06] VITALS: BP 142/105; PULSE 108; RESP 18
== END 2023-05-25 00:05 | disposition home or self-care (01) ==
LOC: EC 21:06
DX: F10.139 Alcohol abuse with withdrawal, unspecified (principal); F41.9 Anxiety disorder, unspecified; F32.A Depression, unspecified; Z79.899 Other long term (current) drug therapy; Z88.2 Allergy status to sulfonamides; Z90.49 Acquired absence of other specified parts of digestive tract
CPT/HCPCS: 82075; 96360; 99283

== ENCOUNTER 2023-08-11 14:02 | Inpatient (IN) | payer OTHER ==
[2023-08-11] MEDS ORDERED: SODIUM CHLORIDE 0.9% 1,000 ML IV ONE ×2 (14:20→16:30)
[2023-08-11 14:56] LABS: Basophils % (A) 0 %; Eosinophils # (A) 0.1 k/uL (0-0.7); Eosinophils % (A) 0 %; HCT 44.3 % (34.0-46.0); HGB 14.8 gm/dL (11.4-16.0); Lymphocytes # (A) 0.8 k/uL (1.0-4.8); Lymphocytes % (A) 5 %; MCHC 33.5 g/dL (31.0-37.0); MCV 86.5 fL (80.0-100.0); Mean Platelet Volume 6.5; Monocytes # (A) 0.6 k/uL (0-1.0); Monocytes % (A) 4 %; Neutrophils # (A) 14.3 k/uL (1.3-7.7); Neutrophils % (A) 90 %; Platelet Count 238 k/uL (150-450); RBC 5.12 m/uL (3.80-5.40); RDW 15.8 % (11.5-15.5); WBC 15.9 k/uL (3.8-10.6)
[2023-08-11 15:35] LABS: ALT 120 U/L (4-34); AST 161 U/L (14-36); African American GFR (CKD) >90 (>60 ml/min/1.73 sqM); Albumin 5.3 g/dL (3.5-5.0); Alkaline Phosphatase 145 U/L (38-126); Anion Gap 29 mmol/L; Blood Urea Nitrogen 9 mg/dL (7-17); Calcium 8.8 mg/dL (8.4-10.2); Chloride 100 mmol/L (98-107); Glucose 80 mg/dL (74-99); Magnesium 2.3 mg/dL (1.6-2.3); Non-African American GFR(CKD) >90 (>60 ml/min/1.73 sqM); Potassium 4.7 mmol/L (3.5-5.1); Sodium 136 mmol/L (137-145); Total Bilirubin 1.4 mg/dL (0.2-1.3); Total Protein 9.1 g/dL (6.3-8.2)
--- NOTE | 2023-08-11 15:35 | ED ---
General Adult HPI - General Chief complaint: Psychiatric Symptoms Stated complaint: Mental Health, ETOH Time Seen by Provider: 08/11/23 14:04 Source: patient, family, EMS, RN notes reviewed, old records reviewed Mode of arrival: EMS Limitations: altered mental status - History of Present Illness Initial comments: 42-year-old female presenting with alcohol intoxication, suicidal statements. History is obtained somewhat from the patient but predominantly from the patient's brother and [id number] who state that she's been dealing with alcoholism for some time and she had previously been to a rehabilitation center outside of the stay and have been released approximately one week ago. Patient does admit to heavy alcohol consumption. She had apparently made statements saying that she wanted to end her life. Patient's level of intoxication does limit history. Patient has been petitioned by family for psychiatric evaluation. - Related Data Home Medications Medication Instructions Recorded Confirmed Etanercept [Enbrel] 25 mg SQ SA 05/16/23 05/16/23 Ibuprofen [Motrin Ib] 800 mg PO Q8H PRN 05/16/23 05/16/23 Venlafaxine HCl [Effexor XR] 150 mg PO DAILY 05/16/23 05/16/23 Previous Rx's Medication Instructions Recorded Folic Acid 1 mg PO DAILY #14 tab 05/17/23 Multivitamins, Thera [Multivitamin 1 each PO DAILY #30 tab 05/17/23 (formulary)] Thiamine [Vitamin B-1] 100 mg PO DAILY #14 tab 05/17/23 Allergies Allergy/AdvReac Type Severity Reaction Status Date / Time Sulfa (Sulfonamide Allergy Swelling Verified 05/24/23 14:11 Antibiotics) Review of Systems ROS Statement: Those systems with pertinent positive or pertinent negative responses have been documented in the HPI. ROS Other: All systems not noted in ROS Statement are negative. 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 History of Any Multi-Drug Resistant Organisms: None Reported Past Surgical History: Cholecystectomy Additional Past Surgical History / Comment(s): Left knee replacement. Past Anesthesia/Blood Transfusion Reactions: No Reported Reaction Past Psychological History: Anxiety, Depression Smoking Status: Never smoker Past Alcohol Use History: Abuse, Daily, Heavy Past Drug Use History: None Reported - Past Family History Father Family Medical History: Pneumonia Additional Family Medical History / Comment(s): Parkinson's following a closed head injury, depression, TBI. Mother Family Medical History: Coronary Artery Disease (CAD) Additional Family Medical History / Comment(s): following a surgery for a heart valve problem. General Exam Limitations: altered mental status General appearance: in no apparent distress, appears intoxicated Head exam: Present: atraumatic, normocephalic Eye exam: Present: normal appearance, PERRL ENT exam: Present: mucous membranes dry Neck exam: Present: normal inspection. Absent: tenderness, meningismus Cardiovascular Exam: Present: normal rhythm, tachycardia GI/Abdominal exam: Present: soft. Absent: distended, tenderness Neurological exam: Present: alert. Absent: motor sensory deficit Skin exam: Present: warm, dry, intact Course Vital Signs 08/11/23 14:03 Temperature 98.4 F Pulse Rate 121 H Respiratory 18 Rate Blood Pressure 138/109 O2 Sat by Pulse 98 Oximetry Medical Decision Making - Medical Decision Making Was pt. sent in by a medical professional or institution (ANASTASIYA Hernandez, TOPOGRAPHICAL DRAFTER, urgent care, hospital, or usp...) When possible be specific @ -No Did you speak to anyone other than the patient for history (EMS, parent, family, police, friend...)? What history was obtained from this source @ -[Patient's family members Did you review nursing and triage notes (agree or disagree)? Why? @ -I reviewed and agree with nursing and triage notes Were old charts reviewed (outside hosp., previous admission, EMS record, old EKG, old radiological studies, urgent care reports/EKG's, usp records)? Report findings @ -No old charts were reviewed Differential Diagnosis (chest pain, altered mental status, abdominal pain women, abdominal pain men, vaginal bleeding, weakness, fever, dyspnea, syncope, headache, dizziness, GI bleed, back pain, seizure, CVA, palpatations, mental health, musculoskeletal)? @ -Overdose, alcohol intoxication EKG interpreted by me (3pts min.). @ -As above X-rays interpreted by me (1pt min.). @ -None done CT interpreted by me (1pt min.). @ -None done U/S interpreted by me (1pt. min.). @ -None done What testing was considered but not performed or refused? (CT, X-rays, U/S, labs)? Why? @ -None What meds were considered but not given or refused? Why? @ -None Did you discuss the management of the patient with other professionals (professionals i.e. , PA, TOPOGRAPHICAL DRAFTER, lab, RT, psych nurse, public health social worker, group worker, teacher, commanding officer traffic division, case sealer)? Give summary @ -Sound Was smoking cessation discussed for >3mins.? @ -No Was critical care preformed (if so, how long)? @ -[yes 35 minutes Were there social determinants of health that impacted care today? How? (Homelessness, low income, unemployed, alcoholism, drug addiction, transportation, low edu. Level, literacy, decrease access to med. care, fdc, rehab)? @ -Alcoholism Was there de-escalation of care discussed even if they declined (Discuss DNR or withdrawal of care, Hospice)? DNR status @ -No What co-morbidities impacted this encounter? (DM, HTN, Smoking, COPD, CAD, Cancer, CVA, ARF, Chemo, Hep., AIDS, mental health diagnosis, sleep apnea, morb id obesity)? @ -None Was patient admitted / discharged? Hospital course, mention meds given and route, prescriptions, significant lab abnormalities, going to OR and other pertinent info. @42-year-old female with acute alcohol intoxication, suicidal statements. Patient is tachycardic with otherwise stable vitals. Her breath alcohol is significantly elevated and serum alcohol is obtained which is over 400. She is also acidotic with an anion gap metabolic acidosis likely secondary to alcohol and possible starvation ketosis. She's given IV fluid, fine and. She is monitored on her suicide precaution as well as seizure precaution for wi thdrawal. She'll be admitted to [facility] emergency department physician group. Repeat BMP, venous gas, Tylenol and salicylate levels have been added and results are pending. Undiagnosed new problem with uncertain prognosis? @ -No Drug Therapy requiring intensive monitoring for toxicity (Heparin, Nitro, Insulin, Cardizem)? @ -No Were any procedures done? @ -No Diagnosis/symptom? @ -Alcohol intoxication, metabolic acidosis Acute, or Chronic, or Acute on Chronic? @ -Acute on chronic Uncomplicated (without systemic symptoms) or Complicated (systemic symptoms)? @ -[Complicated Side effects of treatment? @ -No Exacerbation, Progression, or Severe Exacerbation? @ -No Poses a threat to life or bodily function? How? (Chest pain, USA, [place], pneumonia, PE, COPD, DKA, ARF, appy, cholecystitis, CVA, Diverticulitis, Homicidal, Suicidal, threat to staff... and all critical care pts) @ -Yes, alcohol abuse. - Lab Data Result diagrams: 08/11/23 14:47 08/11/23 14:47 Lab Results 08/11/23 08/11/23 Range/Units 14:47 14:47 WBC 15.9 H (3.8-10.6) k/uL RBC 5.12 (3.80-5.40) m/uL Hgb 14.8 (11.4-16.0) gm/dL Hct 44.3 (34.0-46.0) % MCV 86.5 (80.0-100.0) fL MCH 29.0 (25.0-35.0) pg MCHC 33.5 (31.0-37.0) g/dL RDW 15.8 H (11.5-15.5) % Plt Count 238 (150-450) k/uL MPV 6.5 Neutrophils % 90 % Lymphocytes % 5 % Monocytes % 4 % Eosinophils % 0 % Basophils % 0 % Neutrophils # 14.3 H (1.3-7.7) k/uL Lymphocytes # 0.8 L (1.0-4.8) k/uL Monocytes # 0.6 (0-1.0) k/uL Eosinophils # 0.1 (0-0.7) k/uL Basophils # 0.0 (0-0.2) k/uL Sodium 136 L (137-145) mmol/L Potassium 4.7 (3.5-5.1) mmol/L Chloride 100 (98-107) mmol/L Carbon Dioxide 7 L* (22-30) mmol/L Anion Gap 29 mmol/L BUN 9 (7-17) mg/dL Creatinine 0.64 (0.52-1.04) mg/dL Est GFR (CKD-EPI)AfAm >90 (>60 ml/min/1.73 sqM) Est GFR (CKD-EPI)NonAf >90 (>60 ml/min/1.73 sqM) Glucose 80 (74-99) mg/dL Calcium 8.8 (8.4-10.2) mg/dL Magnesium 2.3 (1.6-2.3) mg/dL Total Bilirubin 1.4 H (0.2-1.3) mg/dL AST 161 H (14-36) U/L ALT 120 H (4-34) U/L Alkaline Phosphatase 145 H (38-126) U/L Total Protein 9.1 H (6.3-8.2) g/dL Albumin 5.3 H (3.5-5.0) g/dL Serum Alcohol 445 H* mg/dL Critical Care Time Critical Care Time: Yes Total Critical Care Time: 35 Disposition Clinical Impression: Alcoholic intoxication, Metabolic acidosis, Dehydration Disposition: HOME SELF-CARE Condition: Fair Is patient prescribed a controlled substance at d/c from ED?: No Referrals: Jones Mclean DO [Primary Care Provider] - 1-2 days Time of Disposition: 15:56
[2023-08-11 15:42] LABS: Carbon Dioxide 7 mmol/L (22-30)
[2023-08-11 15:45] LABS: Alcohol 445 mg/dL
[2023-08-11] MEDS ORDERED: THIAMINE 100 MG/ML 2 ML VIAL IM STA (15:47)
[2023-08-11] MEDS ORDERED: LORazepam 2 MG/ML INJ IV PRN ×2 (15:47)
[2023-08-11] MEDS ORDERED: NALOXONE 0.4 MG/ML 1 ML VIAL IV PRN (15:48)
[2023-08-11] MEDS ORDERED: SODIUM CHLORIDE 0.9% 1,000 ML IV SCH (16:00)
[2023-08-11 16:06] LABS: VBG PH 7.28 (7.31-7.41)
[2023-08-11] MEDS ORDERED: LORazepam 1 MG TAB PO PRN (16:22)
[2023-08-11] MEDS ORDERED: LORazepam 0.5 MG TAB PO PRN (16:22)
[2023-08-11 16:29] LABS: Amphetamine Screen,Urine Not Detected (NotDetected); Barbiturate Screen,Urine Not Detected (NotDetected); Benzodiazepines Screen,Urine Not Detected (NotDetected); Cocaine Screen,Urine Not Detected (NotDetected); Methadone Screen, Urine Not Detected (NotDetected); Opiate Screen,Urine Not Detected (NotDetected); Oxycodone Screen, Urine Not Detected (NotDetected); Phencyclidine Screen,Urine Not Detected (NotDetected); Tricyclic Antidepressant,Urine Not Detected (NotDetected); Urn Cannabinoid Scrn Not Detected (NotDetected)
[2023-08-11 16:48] LABS: Acetaminophen <10.0 ug/mL; Salicylate <1.0 mg/dL
[2023-08-11] MEDS: ONDANSETRON 4 MG/2 ML VIAL IVP PRN ×2 (16:57→23:27)
--- NOTE | 2023-08-11 18:03 | P.HPIM ---
History of Present Illness H&P Date: 08/11/23 History of Presenting Illness: Patient is a 42-year-old female with a past medical history of alcoholism. She reports she recently got out of a [facility] last week and has been on a 5 day and her drinking a minimum of a fifth of alcohol a day and more. She reports long-standing history of alcoholism but since leaving rehab she has been very depressed and reports wanting to drink away her life. Patient presented to the emergency department and reportedly making suicidal statements. Patient was petitioned by family members at bedside. She underwent full evaluation in the emergency department. Labs completed and reviewed. CBC showing leukocytosis with WBC count of 15.9. BMP showing sodium 136, chloride 100, bicarb 7, and anion gap elevated at 29 with normal blood glucose of 80. Liver profile showing transaminitis with total bili of 1.4, AST of 161, ALT 120, and alkaline phosphatase of 145. Blood alcohol 445. VBG showing pH of 7.28, pCO2 of 25, and bicarb of 12. PT 11.0 with INR 1.0. Lactic acid was elevated at 4.3. Urine hCG negative for . Urine drug screen pending. EKG completed showing sinus tachycardia at 123 bpm. Patient's blood alcohol level at stated above is 445. However patient is sitting up in bed at time of assessment, speech clear and answering questions appropriately at this time. Patient denies having any other drug use, reports alcohol is her crutch. Patient currently denies having suicidal plan but does report having frequent suicidal ideations. Patient denies having any headache, lightheadedness, dizziness, chest pain, palpitations, shortness of breath, or experiencing any recent falls or injuries at this time. Patient admitted under our services with consultation to psychiatry. Review of systems: Pertinent positives and negatives as discussed in HPI, a complete review of systems was performed and all other systems are negative. Physical exam: Vital signs reviewed and stable. General: Nontoxic, no distress and appears stated age. Derm: Skin warm and dry, normal coloration for ethnicity. Head: Atraumatic, normocephalic and symmetric. Eyes: EOMs intact, no lid lag, and anicteric sclera Mouth: no lip lesions, mucus membranes moist Cardiovascular: regular rate and rhythm with normal S1S2, no murmur, positive posterior tibial pulses bilaterally, and cap refill < 2 seconds. Lungs: Respirations even, regular, and unlabored on room air. Lungs CTA bilatera lly, no rhonchi, no rales, no wheezing, and no accessory muscle usage. Abdominal: soft, nontender to palpation, no guarding, no appreciable organomegaly Ext: ROM intact. No gross muscle atrophy, no edema, no contractures Neuro: Speech clear, face symmetrical and CN II-XII grossly intact with no noted focal neuro deficits Psych: Alert and oriented to person, place, time, and situation. Depressed affect, tearful throughout assessment. 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 -Order placed for monitoring of CIWA scores and patient to be medicated with Ativan 0.5 mg every 4 hours as needed for CIWA score of 4-5, Ativan 1 mg every 4 hours for CIWA score of 6-7, Ativan 2 mg every 3 hours CIWA score of 8-9, and Ativan 2 mg every 2 hours forr CIWA score of 10 or greater. -Patient given 2 L bolus for lactic acidosis with initial lactate of 4.3 and we will continue to monitor for resolution. -Continuous IV hydration. -Thiamine 100 mg twice a day, Multivitamin daily, and Folate 1 mg daily -Seizure, fall, aspiration, and elopement precautions in place. -Urine drug screen -Urine hCG negative for -Continued close monitoring of electrolytes and replace as needed. -Telemetry monitoring. Suicidal ideations without reported suicidal plan Consult placed to psychiatry Patient placed on suicide precautions with one-to-one sitter Data reviewed: -Labs completed and reviewed. CBC showing leukocytosis with WBC count of 15.9. BMP showing sodium 136, chloride 100, bicarb 7, and anion gap elevated at 29 with normal blood glucose of 80. Liver profile showing transaminitis with total bili of 1.4, AST of 161, ALT 120, and alkaline phosphatase of 145. Blood alcohol 445. VBG showing pH of 7.28, pCO2 of 25, and bicarb of 12. PT 11.0 with INR 1.0. Lactic acid was elevated at 4.3. -Urine hCG negative for . Urine drug screen pending. -EKG completed showing sinus tachycardia at 123 bpm. CODE STATUS: Full code DVT prophylaxis: Heparin Discussed with: Pt, RN, and ED physician Anticipated discharge date: Clinical course to determine Anticipated discharge place: Clinical course to determine Patient was seen independently by Nurse Practitioner. This document was prepared using Gut[employer] dictation software. Please allow for errors in professional advisor while rare they do occur. Elio Garcia NP rendered care for this patient independently, reviewed the findings and plan as documented in the note above. I did not physically speak with or examine the patient on this date. 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 History of Any Multi-Drug Resistant Organisms: None Reported Past Surgical History: Cholecystectomy Additional Past Surgical History / Comment(s): Left knee replacement. Past Anesthesia/Blood Transfusion Reactions: No Reported Reaction Past Psychological History: Anxiety, Depression Smoking Status: Never smoker Past Alcohol Use History: Abuse, Daily, Heavy Past Drug Use History: None Reported - Past Family History Father Family Medical History: Pneumonia Additional Family Medical History / Comment(s): Parkinson's following a closed head injury, depression, TBI. Mother Family Medical History: Coronary Artery Disease (CAD) Additional Family Medical History / Comment(s): following a surgery for a heart valve problem. Medications and Allergies Home Medications Medication Instructions Recorded Confirmed Type Etanercept [Enbrel] 25 mg SQ SA 05/16/23 05/16/23 History Ibuprofen [Motrin Ib] 800 mg PO Q8H PRN 05/16/23 05/16/23 History Venlafaxine HCl [Effexor XR] 150 mg PO DAILY 05/16/23 05/16/23 History Folic Acid 1 mg PO DAILY #14 tab 05/17/23 Rx Multivitamins, Thera [Multivitamin 1 each PO DAILY #30 tab 05/17/23 Rx (formulary)] Thiamine [Vitamin B-1] 100 mg PO DAILY #14 tab 05/17/23 Rx Allergies Allergy/AdvReac Type Severity Reaction Status Date / Time Sulfa (Sulfonamide Allergy Swelling Verified 05/24/23 14:11 Antibiotics) Physical Exam Vitals: Vital Signs Temp Pulse Resp BP Pulse Ox 08/11/23 14:03 98.4 F 121 H 18 138/109 98 Intake and Output 08/11/23 08/11/23 08/11/23 06:59 14:59 22:59 Other: Weight 83.915 kg Results CBC & Chem 7: 08/12/23 02:31 08/12/23 02:31 Labs: Abnormal Lab Results - Last 24 Hours (Table) 08/11/23 08/11/23 08/11/23 Range/Units 14:47 14:47 15:58 WBC 15.9 H (3.8-10.6) k/uL RDW 15.8 H (11.5-15.5) % Neutrophils # 14.3 H (1.3-7.7) k/uL Lymphocytes # 0.8 L (1.0-4.8) k/uL VBG pH 7.28 L (7.31-7.41) VBG pCO2 25 L (37-51) mmHg VBG HCO3 12 L (24-28) mmol/L Sodium 136 L (137-145) mmol/L Carbon Dioxide 7 L* (22-30) mmol/L Total Bilirubin 1.4 H (0.2-1.3) mg/dL AST 161 H (14-36) U/L ALT 120 H (4-34) U/L Alkaline Phosphatase 145 H (38-126) U/L Total Protein 9.1 H (6.3-8.2) g/dL Albumin 5.3 H (3.5-5.0) g/dL Serum Alcohol 445 H* mg/dL
[2023-08-11 18:47] LABS: African American GFR (CKD) >90 (>60 ml/min/1.73 sqM); Anion Gap 24 mmol/L; Blood Urea Nitrogen 9 mg/dL (7-17); Calcium 8.1 mg/dL (8.4-10.2); Chloride 105 mmol/L (98-107); Glucose 81 mg/dL (74-99); Non-African American GFR(CKD) >90 (>60 ml/min/1.73 sqM); Potassium 4.1 mmol/L (3.5-5.1); Sodium 136 mmol/L (137-145)
[2023-08-11 19:02] LABS: Carbon Dioxide 7 mmol/L (22-30)
[2023-08-11] MEDS: DEXTROSE 5%-0.9% NACL 1,000 ML IV SCH (19:03)
[2023-08-11] MEDS: LORazepam 2 MG/ML INJ IV PRN (21:55)
[2023-08-11] MEDS: HEPARIN SODIUM,PORCINE 5,000 UNIT/ML 1 ML VIAL SQ SCH (23:41)
[2023-08-12] MEDS: LORazepam 2 MG/ML INJ IV PRN ×3 (01:18→08:50)
[2023-08-12 03:00] LABS: HCT 35.5 % (34.0-46.0); MCH 28.9 pg (25.0-35.0); MCHC 33.7 g/dL (31.0-37.0); MCV 85.9 fL (80.0-100.0); Mean Platelet Volume 7.7; Platelet Count 127 k/uL (150-450); RBC 4.13 m/uL (3.80-5.40); RDW 15.8 % (11.5-15.5)
[2023-08-12 03:41] LABS: Band Neutrophils % 10 %; Hypochromasia (M) Present; Lymphocytes # (M) 0.49 k/uL (1.0-4.8); Metamyelocytes # (M) 0.07 k/uL (0); Metamyelocytes % 1 %; Monocytes # (M) 0.49 k/uL (0-1.0); Neutrophils % (M) 75 %; Nucleated Red Blood Cells 0 /100 WBC (0-0); Total Cells Counted 100
[2023-08-12 03:56] LABS: African American GFR (CKD) >90 (>60 ml/min/1.73 sqM); Anion Gap 15 mmol/L; Blood Urea Nitrogen 8 mg/dL (7-17); Carbon Dioxide 14 mmol/L (22-30); Chloride 102 mmol/L (98-107); Glucose 120 mg/dL (74-99); Non-African American GFR(CKD) >90 (>60 ml/min/1.73 sqM); Potassium 3.9 mmol/L (3.5-5.1); Sodium 131 mmol/L (137-145)
[2023-08-12] MEDS: DEXTROSE 5%-0.9% NACL 1,000 ML IV SCH ×2 (04:32→11:19)
[2023-08-12] MEDS: HEPARIN SODIUM,PORCINE 5,000 UNIT/ML 1 ML VIAL SQ SCH ×3 (08:49→23:36)
[2023-08-12] MEDS: MULTIVITAMINS, THERA 1 EACH TAB PO SCH (08:49)
[2023-08-12] MEDS: THIAMINE 100 MG TAB PO SCH (08:49)
[2023-08-12] MEDS: FOLIC ACID 1 MG TAB PO SCH (08:49)
[2023-08-12 10:47] LABS: Total Bilirubin 1.3 mg/dL (0.2-1.3)
[2023-08-12] MEDS: chlordiazePOXIDE 25 MG CAP PO SCH ×3 (11:14→20:17)
--- NOTE | 2023-08-12 16:10 | P.PN ---
Subjective Progress Note Date: 08/12/23 (delayed charting seen at 1020) Patient is a 42-year-old female with known alcoholism, hypertension, and anxiety/depression who presented with increased alcohol intake and feelings of hopelessness. Patient was petitioned by family members. On arrival to the ER she underwent an extensive evaluation. Which demonstrated a white blood cell count of 15.9, starvation ketosis with a pH of 7.28, carbon dioxide of 7, and anion gap of 24, elevated lactic acid at 3.1, and alcoholic hepatitis. Her Seroquel level was 445 and her acetones were positive. She was admitted for further evaluation and psychiatric consultation. She was continued on IV fluids. Patient seen and examined at bedside. She is feeling "terrible". She is having a headache, nausea, tremulousness, and anxiety. She reports that she started drinking again several weeks ago and has been consuming a fifth daily. Vital signs reviewed General: nontoxic, no distress, appears at stated age Cardiovascular: S1S2 reg, no murmur, positive posterior tibial pulse bilateral, Lungs: CTA bilateral, no rhonchi, no rales , no accessory muscle use Abdominal: soft, nontender to palpation, no guarding, no appreciable organo megaly Ext: no gross muscle atrophy, no edema b/l lower extremities, no contractures Neuro: CN II-XI grossly intact, no focal neuro deficits, tremors Psych: Alert, oriented, appears withdrawn, avoids eye contact Assessment/Plan: Alcohol withdrawal Alcoholic hepatitis Alcoholic ketosis -Start Librium 25 mg 3 times daily, continue with D5 half-normal 100 mL/h -Folic acid 1 mg daily, thiamine 100 mg daily -Continue with CIWA assessments and treatment with Ativan using Ativan at 0.5, 1 mg, or 2 mg per CIWA scale. Monitor closely for sedation and respiratory depression. - repeat BMP in AM to assure that acidosis is improving Thrombocytopenia - suspect due to direct bone marrow suppression of alcohol - repeat CBC in AM Possible suicidal ideation in conjunction with history of anxiety/depression -Await psych consultation -Resume buspirone 15 mg twice daily and Effexor 150 mg daily Hypertension -Lisinopril 10 mg daily Acute alcohol intoxication in a know alcoholic , resolved Imaging: None Data Review: Tachycardic with normal blood pressures Labs reviewed included CBC which was amenable for platelets of 127, basic metabolic profile which demonstrates carbon dioxide of 14, liver function testing which shows bilirubin of 1.3, AST 89, ALT 79 DVT prophylaxis: Heparin 5000 units every 8 hours Anticipated discharge date: Pending clinical course Anticipated discharge place: Pending clinical course This dictation was prepared using [employer] voice recognition software. Though every attempt is made to correct errors during dictation some may still exist. Objective - Vital Signs Vital signs: Vital Signs Temp 98.8 F 08/12/23 08:50 Pulse 114 H 08/12/23 11:55 Resp 17 08/12/23 11:55 BP 143/76 08/12/23 11:55 Pulse Ox 99 08/12/23 11:55 FiO2 Intake & Output 08/11/23 08/12/23 08/12/23 18:59 06:59 18:59 Intake Total 480 360 Balance 480 360 Weight 83.915 kg 83.915 kg Intake: Oral 480 360 Other: Voiding Method Toilet Toilet # Voids 1 # Bowel Movements 2 - Labs CBC & Chem 7: 08/12/23 02:31 08/12/23 02:31 Labs: Abnormal Lab Results - Last 24 Hours (Table) 08/11/23 08/11/23 08/11/23 Range/Units 15:58 15:58 16:57 RDW (11.5-15.5) % Plt Count (150-450) k/uL Lymphocytes # (Manual) (1.0-4.8) k/uL Metamyelocytes # (Man) (0) k/uL VBG pH 7.28 L (7.31-7.41) VBG pCO2 25 L (37-51) mmHg VBG HCO3 12 L (24-28) mmol/L Sodium 136 L (137-145) mmol/L Carbon Dioxide 7 L* (22-30) mmol/L Glucose (74-99) mg/dL Plasma Lactic Acid Feroz 4.3 H* (0.7-2.0) mmol/L Calcium 8.1 L (8.4-10.2) mg/dL AST (14-36) U/L ALT (4-34) U/L 08/11/23 08/11/23 08/12/23 Range/Units 19:25 22:46 02:31 RDW 15.8 H (11.5-15.5) % Plt Count 127 L (150-450) k/uL Lymphocytes # (Manual) 0.49 L (1.0-4.8) k/uL Metamyelocytes # (Man) 0.07 H (0) k/uL VBG pH (7.31-7.41) VBG pCO2 (37-51) mmHg VBG HCO3 (24-28) mmol/L Sodium (137-145) mmol/L Carbon Dioxide (22-30) mmol/L Glucose (74-99) mg/dL Plasma Lactic Acid Feroz 4.0 H* 3.1 H* (0.7-2.0) mmol/L Calcium (8.4-10.2) mg/dL AST (14-36) U/L ALT (4-34) U/L 08/12/23 08/12/23 Range/Units 02:31 10:10 RDW (11.5-15.5) % Plt Count (150-450) k/uL Lymphocytes # (Manual) (1.0-4.8) k/uL Metamyelocytes # (Man) (0) k/uL VBG pH (7.31-7.41) VBG pCO2 (37-51) mmHg VBG HCO3 (24-28) mmol/L Sodium 131 L (137-145) mmol/L Carbon Dioxide 14 L (22-30) mmol/L Glucose 120 H (74-99) mg/dL Plasma Lactic Acid Feroz (0.7-2.0) mmol/L Calcium 8.0 L (8.4-10.2) mg/dL AST 89 H (14-36) U/L ALT 79 H (4-34) U/L
[2023-08-12] MEDS: busPIRone HCl 5 MG TAB PO SCH (20:17)
[2023-08-13] MEDS: DEXTROSE 5%-0.9% NACL 1,000 ML IV SCH ×3 (03:43→21:18)
[2023-08-13 09:02] LABS: HCT 34.9 % (34.0-46.0); HGB 11.4 gm/dL (11.4-16.0); MCH 28.2 pg (25.0-35.0); MCHC 32.8 g/dL (31.0-37.0); Mean Platelet Volume 8.3; Platelet Count 107 k/uL (150-450); RBC 4.06 m/uL (3.80-5.40); RDW 15.5 % (11.5-15.5); WBC 4.3 k/uL (3.8-10.6)
[2023-08-13 09:07] LABS: ALT 71 U/L (4-34); AST 78 U/L (14-36); African American GFR (CKD) >90 (>60 ml/min/1.73 sqM); Albumin 3.7 g/dL (3.5-5.0); Alkaline Phosphatase 112 U/L (38-126); Anion Gap 11 mmol/L; Blood Urea Nitrogen 5 mg/dL (7-17); Calcium 8.5 mg/dL (8.4-10.2); Carbon Dioxide 22 mmol/L (22-30); Chloride 101 mmol/L (98-107); Glucose 94 mg/dL (74-99); Non-African American GFR(CKD) >90 (>60 ml/min/1.73 sqM); Potassium 2.9 mmol/L (3.5-5.1); Sodium 134 mmol/L (137-145); Total Bilirubin 0.8 mg/dL (0.2-1.3); Total Protein 6.5 g/dL (6.3-8.2)
[2023-08-13] MEDS: MULTIVITAMINS, THERA 1 EACH TAB PO SCH (09:13)
[2023-08-13] MEDS: busPIRone HCl 5 MG TAB PO SCH ×2 (09:13→20:34)
[2023-08-13] MEDS: FOLIC ACID 1 MG TAB PO SCH (09:13)
[2023-08-13] MEDS: THIAMINE 100 MG TAB PO SCH (09:13)
[2023-08-13] MEDS: lisinopriL 10 MG TAB PO SCH (09:14)
[2023-08-13] MEDS: chlordiazePOXIDE 25 MG CAP PO SCH (09:14)
[2023-08-13] MEDS: HEPARIN SODIUM,PORCINE 5,000 UNIT/ML 1 ML VIAL SQ SCH ×3 (09:14→23:50)
[2023-08-13] MEDS: VENLAFAXINE HCL ER 150 MG CAP PO SCH (09:17)
[2023-08-13] MEDS ORDERED: POTASSIUM CHLORIDE ER 20 MEQ TAB.ER PO STA (11:25)
[2023-08-13] MEDS ORDERED: POTASSIUM CHLORIDE 20 MEQ in WATER FOR INJECTION 1 100ML.BAG IVPB STA (11:25)
--- NOTE | 2023-08-13 15:28 | P.CN ---
Psychiatric Consult - . 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 REASON FOR REFERRAL: Psychiatry was consulted for suicidal ideations HISTORY OF PRESENT ILLNESS: The patient presented to the hospital on 08/11. Patient came in with alcohol intoxication, suicidal ideations. Patient was petitioned by family. The patient has been abusing alcohol and also mentioned that she wanted to end her life by drinking. She apparently has been discharged from rehab about a week ago. She has been drinking heavily the past few days. Patient's LFTs were initially elevated however have decreased since admission. Patient's blood alcohol level on admission was 445. Patient was seen today at the bedside and agreeable speech instructor. She claims that she has been "in and out of rehab" states that she has not been doing well. She claims that she was recently discharged from rehab in [place] and states that she had no way to get back home. She claims that her grandmother and her parents have within the past few years and she has been finding it difficult grieving with it. She was sad and tearful when she was talking about her family members. States that her aunt is her main support. Claims that she is mildly depressed at this time, endorsing anxiety as well. In that she called 911 on herself to come to the hospital due to not being able to cope with her alcohol use. States that her sleep is poor appetite has been fairly poor. Claims that she has mild withdrawal symptoms at this time, mild tremors denying any other symptoms now DTs or history of severe withdrawals in the past . At this time patient denies any suicidal or homical ideations, intent or plan. Patient denies any auditory, visual hallucinations and denies any paranoia or delusions. Patients admits to using alcohol as noted above, states that she has been dealing with this since 2011, states that she has been to rehab about 3 times in the past, is also content to meetings. States that she is motivated to try medications for cravings and also get into therapy and [facility]. States that she is drinking about a fifth of vodka a day, her last drink was about 2 days ago. Denies any other recreational drug use. PAST PSYCHIATRIC HISTORY: Patient has a a history of alcohol abuse/use disorder, depression and anxiety. Patient is currently on Effexor, BuSpar. Patient denies any previous psychiatric hospitalizations. Patient denies any psychiatric outpatient follow-up. Patient denies any history of suicide attempts in the past. Past Medical History: Neurologic Disorder, Rheumatoid Arthritis (RA) Additional Past Medical History / Comment(s): neuropathy. 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 History of Any Multi-Drug Resistant Organisms: None Reported Past Surgical History: Cholecystectomy Additional Past Surgical History / Comment(s): Left knee replacement. Past Anesthesia/Blood Transfusion Reactions: No Reported Reaction Past Psychological History: Anxiety, Depression Smoking Status: Never smoker Past Alcohol Use History: Abuse, Daily, Heavy Past Drug Use History: None Reported ALLERGIES: as per EMR. CHEMICAL DEPENDENCY HISTORY: as per HPI. FAMILY PSYCHIATRIC/SUBSTANCE USE HISTORY: denies SOCIAL HISTORY: Patient was born and raised in [place], [place]. Patient claims that she completed high school and did a bachelor's degree. States that she got a DUI in 2011. 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 She has no kids. MENTAL STATUS EXAM: General Appearance: Patient appears to be mildly overweight, short hair, stated age is alert, directable and attempts to be cooperative. Patient appears to have fair hygiene and grooming wearing hospital gown with fair eye contact. Behavior: Patient is calmly lying in bed without any agitated behavior. Appears to be in mild distress and mild tremors in her hands. Speech: Patient's speech is fluent and nonpressured. Mood/Affect: Patient reports their mood is "depressed sometimes", affect is congruent Suicidality/Homicidality: Patient denies having any suicidal or homicidal ideation intent or plan. Perceptions: Patient denies any visual hallucinations and denies any auditory hallucinations Though content/process: There is no evidence of any delusional thought content and thought process is linear and goal-directed. Focused on recovery Memory and concentration: AOX3, grossly intact for the purposes of this session. Can spell "WORLD" backwards Judgment and insight: poor IMPRESSIONS: Depressive disorder unspecified r/o alcohol induced depressive disorder Alcohol use disorder, severe dependence PLAN: -At this time patient DOES NOT meet criteria for inpatient psychiatric admiss ion. -Would recommend the following medication changes/additions: Decreased Librium to 10 mg 4 times a day with plan to continue tapering down. BuSpar 15 mg twice a day for anxiety, Effexor continued at 150 mg daily for mood/anxiety, acamprosate for alcohol cravings, start at 333 mg 3 times a day and increased to 666 mg 3 times a day starting tomorrow morning. Restarted on naltrexone 50 mg daily for alcohol cravings, trazodone 50 mg daily at bedtime for insomnia/mood. -CIWA protocol with PRN Ativan for alcohol withdrawal. Continue to monitor vital signs. -sprinkler worker to provide patient with outpatient mental health/psychiatry resources for appropriate follow up upon discharge -Admitting Clerk spoke with patient about substance abuse and the harmful effects on medical and mental health, patient verbally understood and agreed. -sprinkler worker to provide patient substance use treatment resources including AA/NA meetings in the community. -sprinkler worker to provide patient with access line number to call for inpatient substance rehab -Communicated plan to patient's nurse and to Dr Maruqez -Psychiatry will sign off at this time -Please contact with any questions. 08/13/23 15:13 08/13/23 15:20
[2023-08-13] MEDS: NALTREXONE HCL 50 MG TAB PO SCH (15:50)
[2023-08-13] MEDS: ACAMPROSATE CALCIUM 333 MG TABLET.DR PO SCH ×2 (15:50→20:34)
--- NOTE | 2023-08-13 19:39 | P.PN ---
Subjective Progress Note Date: 08/13/23 (wili charting seen at 11 am) Patient is a 42-year-old female with known alcoholism, hypertension, and anxiety/depression who presented with increased alcohol intake and feelings of hopelessness. Patient was petitioned by family members. On arrival to the ER she underwent an extensive evaluation. Which demonstrated a white blood cell count of 15.9, starvation ketosis with a pH of 7.28, carbon dioxide of 7, and anion gap of 24, elevated lactic acid at 3.1, and alcoholic hepatitis. Her Seroquel level was 445 and her acetones were positive. She was admitted for further evaluation and psychiatric consultation. She was continued on IV fluids. Her ketosis resolved. Her withdrawal improved. Patient seen and examined at bedside. She is feeling much better today. She is aware that she needs to have a plan and what to do when she leaves here. She does not feel like being in the mental health unit will benefit her. She plans on following up with [facility], obtaining a counselor, and staying active with Alcoholics Anonymous. Beta discussion benefit potentially discharge her home with Librium to help with withdrawal symptoms for the short-term. We discussed the benefits and risks of this medication including that it can lead to overdose of combine with alcohol. We discussed that this can result in respiratory depression, sedation, and even . She states she has no intention to start drinking again and she would like Librium on discharge. Vital signs reviewed General: nontoxic, no distress, appears at stated age Cardiovascular: S1S2 reg, no murmur, positive posterior tibial pulse bilateral, Lungs: CTA bilateral, no rhonchi, no rales , no accessory muscle use Abdominal: soft, nontender to palpation, no guarding, no appreciable orga nomegaly Ext: no gross muscle atrophy, no edema b/l lower extremities, no contractures Neuro: CN II-XI grossly intact, no focal neuro deficits, tremors Psych: Alert, oriented, appears withdrawn, avoids eye contact Assessment/Plan: Alcohol withdrawal Alcoholic hepatitis, improved Alcoholic ketosis, resolved Possible suicidal ideation when intoxicated, now denies suicidal ideation -Librium to 10 mg QID, D/C IV fluids -Folic acid 1 mg daily, thiamine 100 mg daily -Continue with CIWA assessments and treatment with Ativan using Ativan at 0.5, 1 mg, or 2 mg per CIWA scale. Monitor closely for sedation and respiratory depression. -Case discussed with psychiatry. They feel that she should be watched on a Librium taper for another 24 hours and then would be cleared for discharge as long as symptoms remain controlled. He recommended short Librium taper on discharge, naltrexone, and accamposate Hypokalemia -Potassium chloride 20 mEq IV piggyback, potassium chloride 40 mEq by mouth -Repeat BMP and magnesium in a.m. Thrombocytopenia - suspect due to direct bone marrow suppression of alcohol - repeat CBC in AM Hypertension -Lisinopril 10 mg daily Acute alcohol intoxication in a know alcoholic , resolved Imaging: None Data Review: Laboratory analysis reviewed today include CBC and basic metabolic profile which were remarkable for platelets 107, potassium 2.9, sodium 134 DVT prophylaxis: Heparin 5000 units every 8 hours Anticipated discharge date: Pending clinical course Anticipated discharge place: Pending clinical course This dictation was prepared using TabbedOut voice recognition software. Though every attempt is made to correct errors during dictation some may still exist. Objective - Vital Signs Vital signs: Vital Signs Temp 98.4 F 08/13/23 09:15 Pulse 106 H 08/13/23 15:54 Resp 18 08/13/23 15:54 BP 120/83 08/13/23 15:54 Pulse Ox 96 08/13/23 15:54 FiO2 Intake & Output 08/13/23 08/13/23 08/14/23 06:59 18:59 06:59 Intake Total 350 Balance 350 Intake: Oral 350 Other: Voiding Method Toilet Toilet - Labs CBC & Chem 7: 08/13/23 07:01 08/13/23 07:01 Labs: Abnormal Lab Results - Last 24 Hours (Table) 08/13/23 08/13/23 Range/Units 07:01 07:01 Plt Count 107 L (150-450) k/uL Sodium 134 L (137-145) mmol/L Potassium 2.9 L (3.5-5.1) mmol/L BUN 5 L (7-17) mg/dL Creatinine 0.43 L (0.52-1.04) mg/dL AST 78 H (14-36) U/L ALT 71 H (4-34) U/L
[2023-08-13] MEDS ORDERED: traZODone HCL 50 MG TAB PO SCH (21:00)
[2023-08-14 03:58] VITALS: RESP 18
[2023-08-14] MEDS: FOLIC ACID 1 MG TAB PO SCH (08:44)
[2023-08-14] MEDS: lisinopriL 10 MG TAB PO SCH (08:44)
[2023-08-14] MEDS: MULTIVITAMINS, THERA 1 EACH TAB PO SCH (08:44)
[2023-08-14] MEDS: HEPARIN SODIUM,PORCINE 5,000 UNIT/ML 1 ML VIAL SQ SCH (08:44)
[2023-08-14] MEDS: THIAMINE 100 MG TAB PO SCH (08:44)
[2023-08-14] MEDS: busPIRone HCl 5 MG TAB PO SCH (08:44)
[2023-08-14] MEDS: NALTREXONE HCL 50 MG TAB PO SCH (08:45)
[2023-08-14] MEDS: VENLAFAXINE HCL ER 150 MG CAP PO SCH (08:45)
[2023-08-14] MEDS ORDERED: ACAMPROSATE CALCIUM 333 MG TABLET.DR PO SCH (09:00)
[2023-08-14 10:29] LABS: African American GFR (CKD) >90 (>60 ml/min/1.73 sqM); Anion Gap 10 mmol/L; Blood Urea Nitrogen 6 mg/dL (7-17); Calcium 8.9 mg/dL (8.4-10.2); Carbon Dioxide 25 mmol/L (22-30); Chloride 101 mmol/L (98-107); Glucose 114 mg/dL (74-99); Non-African American GFR(CKD) >90 (>60 ml/min/1.73 sqM); Potassium 3.2 mmol/L (3.5-5.1); Sodium 136 mmol/L (137-145)
[2023-08-14 10:43] VITALS: TEMP 97.4
[2023-08-14] MEDS ORDERED: POTASSIUM CHLORIDE ER 20 MEQ TAB.ER PO STA (11:40)
--- NOTE | 2023-08-14 12:21 | P.DS ---
Providers Date of admission: 08/11/23 15:58 Expected date of discharge: 08/14/23 Attending physician: Farhan Pathak MD Consults: 08/11/23 15:48 Consult Physician Routine Consulting Provider: Tad Hwang Consult Reason/Comments: SI Do you want consulting provider notified?: Yes Primary care physician: Jones Mclean Hospital Course: Discharge Diagnosis: Alcohol withdrawal Alcoholic hepatitis, improved Alcoholic ketosis, resolved Possible suicidal ideation when intoxicated, now denies suicidal ideation Hypokalemia Thrombocytopenia Hypertension Acute alcohol intoxication in a know alcoholic Hospital Course: Patient is a 42-year-old female with known alcoholism, hypertension, and anxiety/depression who presented with increased alcohol intake and feelings of hopelessness. Patient was petitioned by family members. On arrival to the ER she underwent an extensive evaluation. Which demonstrated a white blood cell count of 15.9, starvation ketosis with a pH of 7.28, carbon dioxide of 7, and anion gap of 24, elevated lactic acid at 3.1, and alcoholic hepatitis. Her Seroquel level was 445 and her acetones were positive. She was admitted for further evaluation and psychiatric consultation. She was continued on IV fluids. Her ketosis resolved. Her withdrawal improved. Her Librium slowly wea jenaro. She was seen by psychiatry who felt that she was appropriate for outpatient follow-up. She was started on trazodone and acamprosate in addition to her about naltrexone. She did feel comfortable going home with a prescription for Librium. We discussed that if she combines this with alcoholic related to sedation resulting in respiratory depression, overdose and including . She is aware of the risks and benefits of this medication but feels that she will be able to use it appropriately and avoid alcohol. Follow-up: Dr. Mclean and the next one to 2 weeks, therapy on an outpatient basis. Medications include a 3 day course of Librium, acamprosate, Librium Patient seen and examined at bedside. Doing well, feeling hopeful, no complaints at this time. Vital signs reviewed and stable. General: nontoxic, no distress, appears at stated age Cardiovascular: S1S2 reg, no murmur, positive posterior tibial pulse bilateral, Lungs: CTA bilateral, no rhonchi, no rales , no accessory muscle use Neuro: CN II-XI grossly intact, no focal neuro deficits Psych: Alert, oriented, appropriate affect A total of 37 minutes of time were spent preparing this complex discharge summary. Patient was discharged on 08/14/23. This dictation was prepared using [employer] voice recognition software. Though every attempt is made to correct errors during dictation some may still exist. Patient Condition at Discharge: Fair Plan - Discharge Summary Discharge Rx Participant: No New Discharge Prescriptions: New traZODone HCL [Desyrel] 50 mg PO HS #30 tab chlordiazePOXIDE HCl [Librium] See Rx Instructions .ROUTE .COMPLEX #6 cap Multivitamins, Thera [Multivitamin (formulary)] 1 each PO DAILY tab Acamprosate Calcium [Campral] 666 mg PO TID #180 tab Thiamine [Vitamin B-1] 100 mg PO DAILY #14 tab Continue Folic Acid 1 mg PO DAILY #14 tab lisinopriL [Zestril] 10 mg PO DAILY busPIRone HCL 15 mg PO BID Venlafaxine HCl [Effexor XR] 150 mg PO DAILY Naltrexone HCl [Revia] 50 mg PO DAILY Discharge Medication List Folic Acid 1 mg PO DAILY #14 tab 05/17/23 [Rx] Naltrexone HCl [Revia] 50 mg PO DAILY 08/12/23 [History] Venlafaxine HCl [Effexor XR] 150 mg PO DAILY 08/12/23 [History] busPIRone HCL 15 mg PO BID 08/12/23 [History] lisinopriL [Zestril] 10 mg PO DAILY 08/12/23 [History] Acamprosate Calcium [Campral] 666 mg PO TID #180 tab 08/14/23 [Rx] Multivitamins, Thera [Multivitamin (formulary)] 1 each PO DAILY tab 08/14/23 [Rx] Thiamine [Vitamin B-1] 100 mg PO DAILY #14 tab 08/14/23 [Rx] chlordiazePOXIDE HCl [Librium] See Rx Instructions .ROUTE .COMPLEX #6 cap 08/14/23 [Rx] traZODone HCL [Desyrel] 50 mg PO HS #30 tab 08/14/23 [Rx] Follow up Appointment(s)/Referral(s): Jones Mclean DO [Primary Care Provider] - 1-2 days Activity/Diet/Wound Care/Special Instructions: Activity: As tolerated Diet: Regular Special Instructions: Do not combine Librium with alcohol as this can lead to sedation, overdose, depressed respirations, and even . We had a dc discussion about these risks and the benefits, and you wished to be discharged with this medication. Abstain from alcohol. Thank you for trusting us with your care. We whish you well on your journey to better health. Discharge/Stand Alone Forms: AA Kevin Guido, Outpatient Counseling, In Substance Abuse Facilities
[2023-08-14 13:09] VITALS: BP 123/79; PULSE 112
== END 2023-08-14 13:22 | disposition home or self-care (01) | DRG 897 ==
LOC: EC 14:02 → 3SCARD 15:58
PROVIDERS: ADMIT Student in an Organized Health Care Education/Training Program; ATTEND Student in an Organized Health Care Education/Training Program
DX: F10.239 Alcohol dependence with withdrawal, unspecified (principal); R45.851 Suicidal ideations; E87.20 Acidosis, unspecified; D69.6 Thrombocytopenia, unspecified; K70.10 Alcoholic hepatitis without ascites; F10.229 Alcohol dependence with intoxication, unspecified; E86.0 Dehydration; F32.A Depression, unspecified; I10 Essential (primary) hypertension; M06.9 Rheumatoid arthritis, unspecified; F17.210 Nicotine dependence, cigarettes, uncomplicated; Y90.8 Blood alcohol level of 240 mg/100 ml or more; Z71.41 Alcohol abuse counseling and surveillance of alcoholic; E87.6 Hypokalemia; F41.9 Anxiety disorder, unspecified; Z79.899 Other long term (current) drug therapy; Z82.49 Family history of ischemic heart disease and other diseases of the circulatory system; Z96.652 Presence of left artificial knee joint
CPT/HCPCS: 36415; 80048; 80053; 80143; 80179; 80306; 80320; 81025; 82009; 82075; 82247; 82803; 83605; 83735; 84450; 84460; 85025; 85027; 85610; 93005; 96361; 96374; 96375; 96376; 99291

== ENCOUNTER 2023-08-27 14:21 | Inpatient (IN) | payer OTHER ==
--- NOTE | 2023-08-27 15:15 | ED ---
Psych HPI - General Source: patient, RN notes reviewed Mode of arrival: EMS Limitations: no limitations - History of Present Illness MD Complaint: suicidal ideation <Abimbola Rose - Last Filed: 08/27/23 15:15> - General Source: patient, RN notes reviewed Limitations: no limitations <Gerardo Hayward - Last Filed: 08/27/23 22:08> - General Chief Complaint: Psychiatric Symptoms Stated Complaint: Mental Health Time Seen by Provider: 08/27/23 15:12 - History of Present Illness Initial Comments: This is a 42-year-old female who presents to the emergency department for suicidal ideations and increasing depression. Patient notes a substantial history of alcohol abuse and consumed alcohol shortly prior to arrival. She has been admitted for alcohol intoxication in the past, most recently about 2 weeks ago. She was feeling suicidal at that time as well. States that she called 911 as a result of the suicidal ideations, and was subsequently brought to the emergency department. (Abimbola Rose) Patient is a pleasant 42-year-old female presenting to the emergency Department with depression. Patient states she does have long standing depression. Patient is having suicidal thoughts. Patient has thoughts of aching herself to . Patient is a chronic drinker. No new physical complaints. No hallucinations. No homicidal thoughts. (Gerardo Hayward) - Related Data Home Medications Medication Instructions Recorded Confirmed Naltrexone HCl [Revia] 50 mg PO DAILY 08/12/23 08/12/23 Venlafaxine HCl [Effexor XR] 150 mg PO DAILY 08/12/23 08/12/23 busPIRone HCL 15 mg PO BID 08/12/23 08/12/23 lisinopriL [Zestril] 10 mg PO DAILY 08/12/23 08/12/23 Previous Rx's Medication Instructions Recorded Folic Acid 1 mg PO DAILY #14 tab 05/17/23 Acamprosate Calcium [Campral] 666 mg PO TID #180 tab 08/14/23 Multivitamins, Thera [Multivitamin 1 each PO DAILY tab 08/14/23 (formulary)] Thiamine [Vitamin B-1] 100 mg PO DAILY #14 tab 08/14/23 chlordiazePOXIDE HCl [Librium] See Rx Instructions .ROUTE 08/14/23 .COMPLEX #6 cap traZODone HCL [Desyrel] 50 mg PO HS #30 tab 08/14/23 Allergies Allergy/AdvReac Type Severity Reaction Status Date / Time Sulfa (Sulfonamide Allergy Swelling Verified 05/24/23 14:11 Antibiotics) Review of Systems ROS Other: All systems not noted in ROS Statement are negative. <Abimbola Rose - Last Filed: 08/27/23 15:15> ROS Other: All systems not noted in ROS Statement are negative. Constitutional: Denies: fever Eyes: Denies: eye pain ENT: Denies: ear pain Respiratory: Denies: cough, dyspnea Psychiatric: Reports: depression, suicidal thoughts. Denies: auditory hallucinations, visual hallucinations, homicidal thoughts <Gerardo Hayward - Last Filed: 08/27/23 22:08> ROS Statement: Those systems with pertinent positive or pertinent negative responses have been documented in the HPI. 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 History of Any Multi-Drug Resistant Organisms: None Reported Past Surgical History: Cholecystectomy Additional Past Surgical History / Comment(s): Left knee replacement. Past Anesthesia/Blood Transfusion Reactions: No Reported Reaction Past Psychological History: Anxiety, Depression Smoking Status: Never smoker Past Alcohol Use History: Abuse, Daily, Heavy Past Drug Use History: None Reported - Past Family History Father Family Medical History: Pneumonia Additional Family Medical History / Comment(s): Parkinson's following a closed head injury, depression, TBI. Mother Family Medical History: Coronary Artery Disease (CAD) Additional Family Medical History / Comment(s): following a surgery for a heart valve problem. <Abimbola Rose - Last Filed: 08/27/23 15:15> General Exam Limitations: no limitations <Abimbola Rose - Last Filed: 08/27/23 15:15> Limitations: no limitations General appearance: alert, in no apparent distress Head exam: Present: normocephalic Eye exam: Present: normal appearance Respiratory exam: Present: normal lung sounds bilaterally Cardiovascular Exam: Present: regular rate, normal rhythm GI/Abdominal exam: Present: soft. Absent: tenderness Extremities exam: Present: normal inspection Neurological exam: Present: alert Psychiatric exam: Present: depressed, flat affect Skin exam: Present: normal color <Gerardo Hayward - Last Filed: 08/27/23 22:08> - General Exam Comments Initial Comments: Visual Physical Exam Vital signs reviewed General: Well-appearing, nontoxic, no acute distress. Head: Normocephalic, atraumatic Eyes: PERRLA, EOMI ENT: Airway patent Chest: Nonlabored breathing Skin: No visual rash, normal skin tone Neuro: Alert and oriented 3 Musculoskeletal: No gross abnormalities I performed the QuickNote portion of this chart. Signed Abimbola Rose PA-C. (Abimbola Rose) Course Vital Signs 08/27/23 14:38 Temperature 97.4 F L Pulse Rate 106 H Respiratory 20 Rate Blood Pressure 141/82 O2 Sat by Pulse 94 L Oximetry Medical Decision Making <Gerardo Hayward - Last Filed: 08/27/23 22:08> - Medical Decision Making Was pt. sent in by a medical professional or institution (ANASTASIYA Hernandez, COMMUNITY SERVICES OFFICER, urgent care, hospital, or custodial...) When possible be specific @ -No Did you speak to anyone other than the patient for history (EMS, parent, family, police, friend...)? What history was obtained from this source @ -No Did you review nursing and triage notes (agree or disagree)? Why? @ -I reviewed and agree with nursing and triage notes Were old charts reviewed (outside hosp., previous admission, EMS record, old EKG, old radiological studies, urgent care reports/EKG's, custodial records)? Report findings @ -No old charts were reviewed Differential Diagnosis (chest pain, altered mental status, abdominal pain women, abdominal pain men, vaginal bleeding, weakness, fever, dyspnea, syncope, headache, dizziness, GI bleed, back pain, seizure, CVA, palpatations, mental health, musculoskeletal)? @ -Differential Mental Health Depression, anxiety, bipolar, psychosis, schizophrenia, borderline personality, situational depression, adjustment disorder, behavioral disorder, brain tumor, malingering, substance abuse, encephalopathy, medication reaction, dementia, hypothyroidism, degenerative neurologic disorder, lupus.... This is not meant to be all-inclusive list EKG interpreted by me (3pts min.). @ -As above X-rays interpreted by me (1pt min.). @ -None done CT interpreted by me (1pt min.). @ -None done U/S interpreted by me (1pt. min.). @ -None done What testing was considered but not performed or refused? (CT, X-rays, U/S, labs)? Why? @ -None What meds were considered but not given or refused? Why? @ -None Did you discuss the management of the patient with other professionals (professionals i.e. , PA, COMMUNITY SERVICES OFFICER, lab, RT, psych nurse, 7th grade social studies teacher, theatrical scenic designer, teacher, equal employment opportunity officer, case management assistant)? Give summary @ -Case was discussed with mental health nurse Anne with plans for admission or transfer Was smoking cessation discussed for >3mins.? @ -No Was critical care preformed (if so, how long)? @ -No Were there social determinants of health that impacted care today? How? (Homelessness, low income, unemployed, alcoholism, drug addiction, bundy sportation, low edu. Level, literacy, decrease access to med. care, [facility], rehab)? @ -No Was there de-escalation of care discussed even if they declined (Discuss DNR or withdrawal of care, Hospice)? DNR status @ -No What co-morbidities impacted this encounter? (DM, HTN, Smoking, COPD, CAD, Cancer, CVA, ARF, Chemo, Hep., AIDS, mental health diagnosis, sleep apnea, morbid obesity)? @ -None Was patient admitted / discharged? Hospital course, mention meds given and route, prescriptions, significant lab abnormalities, going to OR and other pertinent info. @ -Patient will be transferred or admitted for mental health. Positive clinical certificate is completed. Undiagnosed new problem with uncertain prognosis? @ -No Drug Therapy requiring intensive monitoring for toxicity (Heparin, Nitro, Insulin, Cardizem)? @ -No Were any procedures done? @ -No Diagnosis/symptom? @ -Depression with suicidal ideation Acute, or Chronic, or Acute on Chronic? @ -Acute on chronic, acute Uncomplicated (without systemic symptoms) or Complicated (systemic symptoms)? @ -default Side effects of treatment? @ -No Exacerbation, Progression, or Severe Exacerbation? @ -No Poses a threat to life or bodily function? How? (Chest pain, [place], [place], pneumonia, PE, COPD, DKA, ARF, appy, cholecystitis, CVA, Diverticulitis, Homicidal, Suicidal, threat to staff... and all critical care pts) @ -No (Gerardo Hayward) Disposition <Abimbola Rose - Last Filed: 08/27/23 15:15> Is patient prescribed a controlled substance at d/c from ED?: No Time of Disposition: 22:08 <Gerardo Hayward - Last Filed: 08/27/23 22:08> Clinical Impression: Suicidal ideation, Depression Disposition: TRANSFER TO PSYCH HOSP/UNIT Referrals: Jones Mclean DO [Primary Care Provider] - 1-2 days
[2023-08-27] MEDS ORDERED: ONDANSETRON 4 MG TAB PO STA (22:06)
[2023-08-27 23:15] LABS: Amphetamine Screen,Urine Not Detected (NotDetected); Barbiturate Screen,Urine Not Detected (NotDetected); Benzodiazepines Screen,Urine Detected (NotDetected); Cocaine Screen,Urine Not Detected (NotDetected); Methadone Screen, Urine Not Detected (NotDetected); Opiate Screen,Urine Not Detected (NotDetected); Oxycodone Screen, Urine Detected (NotDetected); Phencyclidine Screen,Urine Not Detected (NotDetected); Tricyclic Antidepressant,Urine Not Detected (NotDetected); Urn Cannabinoid Scrn Not Detected (NotDetected)
[2023-08-27 23:46] LABS: Appearance,Urine Cloudy (Clear); Bacteria,Urine Rare /hpf; Bilirubin,Urine Negative (Negative); Blood,Urine Trace (Negative); Color,Urine Yellow; Glucose,Urine (UA) Negative (Negative); Ketones,Urine 3+ (Negative); Leukocyte Esterase,Urine Negative (Negative); Mucus,Urine Moderate /hpf; Nitrite,Urine Negative (Negative); Protein,Urine 2+ (Negative); RBC,Urine <1 /hpf (0-5); Specific Gravity,Urine 1.025 (1.001-1.035); Squamous Epithelial Cell,Urine 4 /hpf (0-4); Urobilinogen,Urine <2.0 mg/dL (<2.0); WBC,Urine <1 /hpf (0-5)
[2023-08-27] MEDS ORDERED: LORazepam 1 MG TAB PO STA (23:47)
[2023-08-28 00:21] LABS: African American GFR (CKD) >90 (>60 ml/min/1.73 sqM); Anion Gap 18 mmol/L; Blood Urea Nitrogen 8 mg/dL (7-17); Calcium 9.1 mg/dL (8.4-10.2); Carbon Dioxide 17 mmol/L (22-30); Chloride 98 mmol/L (98-107); Glucose 75 mg/dL (74-99); Non-African American GFR(CKD) >90 (>60 ml/min/1.73 sqM); Potassium 4.1 mmol/L (3.5-5.1); Sodium 133 mmol/L (137-145)
[2023-08-28 00:25] LABS: Anisocytosis Slight; Basophils % (A) 0 %; Eosinophils % (A) 0 %; HCT 38.3 % (34.0-46.0); HGB 12.6 gm/dL (11.4-16.0); Lymphocytes # (A) 0.7 k/uL (1.0-4.8); Lymphocytes % (A) 6 %; MCH 29.2 pg (25.0-35.0); MCV 88.5 fL (80.0-100.0); Mean Platelet Volume 7.2; Monocytes # (A) 0.5 k/uL (0-1.0); Monocytes % (A) 4 %; Neutrophils # (A) 12.1 k/uL (1.3-7.7); Neutrophils % (A) 90 %; RBC 4.32 m/uL (3.80-5.40); RDW 17.4 % (11.5-15.5); WBC 13.5 k/uL (3.8-10.6)
[2023-08-28 00:27] LABS: Platelet Count 261 k/uL (150-450)
[2023-08-28] MEDS ORDERED: LORazepam 1 MG TAB PO STA ×3 (02:59→13:21)
[2023-08-28] MEDS ORDERED: MAG HYDROX/AL HYDROX/SIMETH 30 ML CUP PO PRN (13:36)
[2023-08-28] MEDS ORDERED: ACETAMINOPHEN TAB 325 MG TAB PO PRN (13:36)
[2023-08-28] MEDS ORDERED: LORazepam 1 MG TAB PO PRN ×2 (13:36)
[2023-08-28] MEDS ORDERED: LORazepam 2 MG/ML INJ IM PRN (13:40)
[2023-08-28] MEDS: LORazepam 1 MG TAB PO PRN ×2 (16:47→23:22)
[2023-08-28] MEDS: busPIRone HCl 5 MG TAB PO SCH (20:15)
[2023-08-28] MEDS ORDERED: LOPERAMIDE 2 MG CAP PO PRN (23:13)
--- NOTE | 2023-08-29 01:02 | P.CONS ---
History of Present Illness - Reason for Consult Consult date: 08/29/23 - History of Present Illness The patient is a 42-year-old female with a H significant alcohol abuse and hypertension who presented to the emergency room with complaints of depression and suicidal ideation. The patient was admitted to the mental health unit where she was seen and evaluated. The patient has an extensive alcohol abuse history with multiple recent hospitalizations for alcohol intoxication and withdrawal. Patient notes drinking a pint of hard liquor daily for the past several years. She has a history of delirium tremens with alcohol withdrawal seizures. Reports her last drink was just prior to coming to the emergency room. Denied experiencing chest discomfort, shortness of breath, fever, chills, cough, nausea, vomiting, abdominal pain, diarrhea. Patient denied tobacco use. Patient does report that her mental health was suffering due to her ongoing alcohol use and that she has been feeling down about her life and was contemplating suicide. Review of systems: Pertinent positives and negatives as discussed in HPI, a complete review of systems was performed and all other systems are negative. Physical examination: General: non toxic, no distress, appears at stated age, obese Derm: no unusual rashes/lesions, no unusual ecchymoses, warm, dry Head: atraumatic, normocephalic, symmetric Eyes: EOMI, no lid lag, anicteric sclera ENT: Nose and ears atraumatic, no thrush, no pharyngeal erythema Neck: trachea midline, supple Mouth: no lip lesion, mucus membranes moist Cardiovascular: S1S2 reg, no murmur, no edema Lungs: CTA bilateral, no rhonchi, no rales , no accessory muscle use Abdominal: soft, nontender to palpation, no guarding Ext: no gross muscle atrophy, no contractures, Neuro: No gross focal neuro deficits noted Psych: Alert, oriented, appropriate affect Assessment: Alcohol abuse, impending withdrawal Hypertension Depression and suicidal ideation Imaging: EKG in the emergency room revealed sinus rhythm with T-wave inversion in lead V2 and V3 with no other ST/T-wave changes noted as reviewed by me. Data Review: Laboratory evaluation was remarkable for leukocytosis of 13.5, sodium 133, CO2 17, with urine toxicology positive for oxycodone and benzodiazepines with an unremarkable UA. Plan: C/w CIWA protocol with Ativan prn Start Librium Thiamine and MV Nicotine patch Defer management of depression and suicidal ideation to the primary psychiatry service Thank you for allowing us to participate in the care of this patient. We will follow peripherally. Do not hesitate to contact us with questions. Someone can be reached from the [facility] hospitalist group at all hours of the day at [phone]. 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 History of Any Multi-Drug Resistant Organisms: None Reported Past Surgical History: Cholecystectomy Additional Past Surgical History / Comment(s): Left knee replacement. Past Anesthesia/Blood Transfusion Reactions: No Reported Reaction Smoking Status: Never smoker - Past Family History Father Family Medical History: Pneumonia Additional Family Medical History / Comment(s): Parkinson's following a closed head injury, depression, TBI. Mother Family Medical History: Coronary Artery Disease (CAD) Additional Family Medical History / Comment(s): following a surgery for a heart valve problem. Medications and Allergies Home Medications Medication Instructions Recorded Confirmed Type Folic Acid 1 mg PO DAILY #14 tab 05/17/23 08/27/23 Rx Naltrexone HCl [Revia] 50 mg PO DAILY 08/12/23 08/27/23 History Venlafaxine HCl [Effexor XR] 150 mg PO DAILY 08/12/23 08/27/23 History busPIRone HCL 15 mg PO BID 08/12/23 08/27/23 History lisinopriL [Zestril] 10 mg PO DAILY 08/12/23 08/27/23 History Acamprosate Calcium [Campral] 666 mg PO TID #180 tab 08/14/23 08/27/23 Rx traZODone HCL [Desyrel] 50 mg PO HS #30 tab 08/14/23 08/27/23 Rx Multivitamins, Thera [Multivitamin 1 tab PO DAILY 08/27/23 08/27/23 History (formulary)] Allergies Allergy/AdvReac Type Severity Reaction Status Date / Time Sulfa (Sulfonamide Allergy Rash/Hives Verified 08/28/23 14:59 Antibiotics) Physical Exam Vitals: Vital Signs Temp Pulse Pulse Resp BP BP Pulse Ox 08/28/23 14:30 97.8 F 97 18 136/80 97 08/28/23 14:04 96 20 145/68 98 08/28/23 13:00 98.6 F 86 16 140/80 98 08/28/23 11:00 100 20 140/68 98 08/28/23 08:00 98.2 F 90 16 145/86 98 08/28/23 06:05 109 H 18 154/83 99 Intake and Output 08/28/23 08/28/23 08/29/23 14:59 22:59 06:59 Other: Weight 83.1 kg 83.1 kg Results CBC & Chem 7: 08/27/23 23:54 08/27/23 23:54
[2023-08-29] MEDS: FOLIC ACID 1 MG TAB PO SCH (08:17)
[2023-08-29] MEDS: busPIRone HCl 5 MG TAB PO SCH (08:17)
[2023-08-29] MEDS: MULTIVITAMINS, THERA 1 EACH TAB PO SCH (08:17)
[2023-08-29] MEDS: THIAMINE 100 MG TAB PO SCH (08:17)
[2023-08-29] MEDS: VENLAFAXINE HCL ER 150 MG CAP PO SCH (08:31)
[2023-08-29] MEDS: lisinopriL 10 MG TAB PO SCH (08:31)
[2023-08-29] MEDS ORDERED: NICOTINE 14MG/24HR PATCH TRANSDERM SCH (09:00)
[2023-08-29] MEDS ORDERED: busPIRone HCl 5 MG TAB PO ONE (14:00)
--- NOTE | 2023-08-29 14:08 | P.HP ---
Psychiatric H&P - . H&P Date: 08/29/23 History & Physical: Allergies Allergy/AdvReac Type Severity Reaction Status Date / Time Sulfa (Sulfonamide Allergy Rash/Hives Verified 08/28/23 14:59 Antibiotics) Vital Signs Temp 97.8 F 08/28/23 14:30 Pulse 125 H 08/29/23 08:38 Resp 20 08/29/23 08:38 BP 137/81 08/29/23 08:38 Pulse Ox 97 08/28/23 14:30 FiO2 Intake & Output 08/28/23 08/29/23 08/29/23 18:59 06:59 18:59 Weight 83.1 kg Laboratory Last Values WBC 13.5 k/uL (3.8-10.6) H 08/27/23 23:54 RBC 4.32 m/uL (3.80-5.40) 08/27/23 23:54 Hgb 12.6 gm/dL (11.4-16.0) 08/27/23 23:54 Hct 38.3 % (34.0-46.0) 08/27/23 23:54 MCV 88.5 fL (80.0-100.0) 08/27/23 23:54 MCH 29.2 pg (25.0-35.0) 08/27/23 23:54 MCHC 33.0 g/dL (31.0-37.0) 08/27/23 23:54 RDW 17.4 % (11.5-15.5) H 08/27/23 23:54 Plt Count 261 k/uL (150-450) D 08/27/23 23:54 MPV 7.2 08/27/23 23:54 Neutrophils % 90 % 08/27/23 23:54 Lymphocytes % 6 % 08/27/23 23:54 Monocytes % 4 % 08/27/23 23:54 Eosinophils % 0 % 08/27/23 23:54 Basophils % 0 % 08/27/23 23:54 Neutrophils # 12.1 k/uL (1.3-7.7) H 08/27/23 23:54 Lymphocytes # 0.7 k/uL (1.0-4.8) L 08/27/23 23:54 Monocytes # 0.5 k/uL (0-1.0) 08/27/23 23:54 Eosinophils # 0.0 k/uL (0-0.7) 08/27/23 23:54 Basophils # 0.0 k/uL (0-0.2) 08/27/23 23:54 Anisocytosis Slight 08/27/23 23:54 Sodium 133 mmol/L (137-145) L 08/27/23 23:54 Potassium 4.1 mmol/L (3.5-5.1) 08/27/23 23:54 Chloride 98 mmol/L (98-107) 08/27/23 23:54 Carbon Dioxide 17 mmol/L (22-30) L 08/27/23 23:54 Anion Gap 18 mmol/L 08/27/23 23:54 BUN 8 mg/dL (7-17) 08/27/23 23:54 Creatinine 0.50 mg/dL (0.52-1.04) L 08/27/23 23:54 Est GFR (CKD-EPI)AfAm >90 (>60 ml/min/1.73 sqM) 08/27/23 23:54 Est GFR (CKD-EPI)NonAf >90 (>60 ml/min/1.73 sqM) 08/27/23 23:54 Glucose 75 mg/dL (74-99) 08/27/23 23:54 Calcium 9.1 mg/dL (8.4-10.2) 08/27/23 23:54 TSH 2.990 mIU/L (0.465-4.680) 08/29/23 08:00 Urine Color Yellow 08/27/23 22:40 Urine Appearance Cloudy (Clear) H 08/27/23 22:40 Urine pH 6.0 (5.0-8.0) 08/27/23 22:40 Ur Specific [place] 1.025 (1.001-1.035) 08/27/23 22:40 Urine Protein 2+ (Negative) H 08/27/23 22:40 Urine Glucose (UA) Negative (Negative) 08/27/23 22:40 Urine Ketones 3+ (Negative) H 08/27/23 22:40 Urine Blood Trace (Negative) H 08/27/23 22:40 Urine Nitrite Negative (Negative) 08/27/23 22:40 Urine Bilirubin Negative (Negative) 08/27/23 22:40 Urine Urobilinogen <2.0 mg/dL (<2.0) 08/27/23 22:40 Ur Leukocyte Esterase Negative (Negative) 08/27/23 22:40 Urine RBC <1 /hpf (0-5) 08/27/23 22:40 Urine WBC <1 /hpf (0-5) 08/27/23 22:40 Ur Squamous Epith Cells 4 /hpf (0-4) 08/27/23 22:40 Urine Bacteria Rare /hpf (None) H 08/27/23 22:40 Urine Mucus Moderate /hpf (None) H 08/27/23 22:40 Urine HCG, Qual Not Detected (Not Detectd) 08/27/23 22:40 Urine Opiates Screen Not Detected (NotDetected) 08/27/23 22:40 Ur Oxycodone Screen Detected (NotDetected) H 08/27/23 22:40 Urine Methadone Screen Not Detected (NotDetected) 08/27/23 22:40 Ur Propoxyphene Screen Not Detected (NotDetected) 08/27/23 22:40 Ur Barbiturates Screen Not Detected (NotDetected) 08/27/23 22:40 U Tricyclic Antidepress Not Detected (NotDetected) 08/27/23 22:40 Ur Phencyclidine Scrn Not Detected (NotDetected) 08/27/23 22:40 Ur Amphetamines Screen Not Detected (NotDetected) 08/27/23 22:40 U Methamphetamines Scrn Not Detected (NotDetected) 08/27/23 22:40 U Benzodiazepines Scrn Detected (NotDetected) H 08/27/23 22:40 Urine Cocaine Screen Not Detected (NotDetected) 08/27/23 22:40 U Marijuana (THC) Screen Not Detected (NotDetected) 08/27/23 22:40 Coronavirus (PCR) Not Detected (Not Detectd) 08/27/23 23:54 08/29/23 13:20 IDENTIFYING DATA: This patient is a 42-year-old female, particularly lives alone, lives in the house, she is single, she has, 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 HISTORY OF PRESENT ILLNESS: The patient presented to the hospital on 08/27 complaining of depression and anxiety, suicidal ideations and struggling with alcohol. Patient apparently was admitted to the medical floors about 2 weeks ago for alcohol intoxication, she was seen by technical publications writer for psychiatric consult on 08/13/23. Patient had her psychiatric medications adjusted and was discharged from the medical floors back home. Patient has a history of chronic depression and alcohol abuse. She was seen today by technical publications writer and agreeable to speak to technical publications writer in the office. Patient claims that upon discharge when technical publications writer saw her previously on the medical floor she states that she was sober for 1 day and then relapsed back on drinking. She states that she mainly did it as a defiance from her family members as they "put pressure on me not to drink". She states that she does have some cravings for alcohol. She was actively minimizing her alcohol abuse and also her need for treatment. She was fairly focused on discharge and rationalizing. She claims that she been drinking about a fifth of vodka a day for the past few days. Claims that she called EMS herself claiming that she was depressed and anxious and wanted to "drink myself to ". She minimizes her mood and depression seem that "I'm okay now" claims that she is feeling anxious. States that her last drink was about 2-3 days ago. Her sleep and appetite have been poor. At this time patient denies any suicidal or homical ideations, intent or plan. Patient denies any auditory, visual hallucinations and denies any paranoia or delusions. she has been to rehab about 3 times in the past. States that she is drinking about a fifth of vodka a day, her last drink was about 3 days ago. Denies any other recreational drug use. At this time she is stating that she is having very mild withdrawal symptoms including mild tremors in her hands. Denies any history of DTs or withdrawal seizures. PAST PSYCHIATRIC HISTORY: Patient has a a history of alcohol abuse/use disorder, depression and anxiety. Patient is currently on Effexor, BuSpar. Patient denies any previous psychiatric hospitalizations. Patient denies any psychiatric outpatient follow-up. Patient denies any history of suicide attempts in the past. Patient was last seen by technical publications writer for psychiatric consult about 2 weeks ago on the medical floors. Past Medical History: Neurologic Disorder, Rheumatoid Arthritis (RA) Additional Past Medical History / Comment(s): neuropathy. PAST WET END TESTER HISTORY: She has no history of STDs. History of Any Multi-Drug Resistant Organisms: None Reported Past Surgical History: Cholecystectomy Additional Past Surgical History / Comment(s): Left knee replacement. Past Anesthesia/Blood Transfusion Reactions: No Reported Reaction Past Psychological History: Anxiety, Depression Smoking Status: Never smoker Past Alcohol Use History: Abuse, Daily, Heavy Past Drug Use History: None Reported ALLERGIES: as per EMR. CHEMICAL DEPENDENCY HISTORY: as per HPI. FAMILY PSYCHIATRIC/SUBSTANCE USE HISTORY: denies SOCIAL HISTORY: Patient was born and raised in [place], [place]. Patient claims that she completed high school and did a bachelor's degree. States that she got a DUI in 2011. 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 She has no kids. MENTAL STATUS EXAM: General Appearance: Patient appears to be mildly overweight, short hair, stated age is alert, attempts to cooperate over his fairly superficial. Patient appears to have [poor] hygiene and grooming. Behavior: Patient is seated without any agitated behavior. Superficial, attempt s to cooperate. Speech: Patient's speech is [fluent and nonpressured.] Mood/Affect: Patient reports their mood is [depressed and anxious], affect is congruent and constricted. Suicidality/Homicidality: Patient denies having any homicidal ideation intent or plan. [Denies any suicidal ideations intent or plan] Perceptions: Patient denies any visual hallucinations [and denies any auditory hallucinations] Though content/process: [There is no evidence of any delusional thought content and thought process is linear and goal-directed.] Focused on discharge, minimizing. Rationalizing. Memory and concentration: AOX3, grossly intact for the purposes of this session. Can spell "WORLD" backwards Judgment and insight: [poor] STRENGTHS/WEAKNESSES: strength is that patient is [resilient]. Weakness is that patient [has poor judgment and is impulsive] INTELLECT: [average] IMPRESSIONS: Major depressive disorder, without psychotic features Alcohol use disorder, severe dependence PLAN: -Patient is admitted under [voluntary] status to MHU for stabilization of psychiatric symptoms and safety. Patient has signed [adult voluntary form and] [medication consent] and is placed in patient's chart. -Medications : Continue Effexor XR 150 mg daily for mood/anxiety, Librium scheduled 3 times a day for alcohol withdrawal, continue to taper down. Trazodone 50 mg daily at bedtime for sleep/mood, acamprosate 666 mg 3 times a day for her cravings. Naltrexone 50 mg by mouth daily for alcohol cravings. -Ativan [and Haldol] PRN for agitation/aggression [-Started thiamine, MVM for etoh use] [-CIWA protocol with Ativan PRN for ETOH withdrawal] [-Patient was counselled on substance abuse and desired to cut back on use] -Patient was informed of the risks, benefits and side effects of the medication and patient verbally consented to taking the medications. Patient signed med consent form and was placed in chart. -Internal Medicine consult to perform medical evaluation and physical. -NRT - not needed as patient does not smoke. -SW on board for discharge planning. Encourage patient to participate in groups to work on coping skills. refusing inpt rehab. 08/29/23 13:58 08/29/23 14:07
[2023-08-29] MEDS: NALTREXONE HCL 50 MG TAB PO SCH (14:24)
[2023-08-29] MEDS: hydrOXYzine pamoate 25 MG CAP PO SCH (15:25)
[2023-08-29] MEDS: ACAMPROSATE CALCIUM 333 MG TABLET.DR PO SCH ×2 (15:38→22:19)
[2023-08-29] MEDS: busPIRone HCl 10 MG TAB PO SCH (20:06)
[2023-08-29] MEDS: traZODone HCL 50 MG TAB PO SCH ×2 (20:06→20:56)
[2023-08-30] MEDS: hydrOXYzine pamoate 25 MG CAP PO SCH ×4 (04:27→22:03)
[2023-08-30] MEDS: VENLAFAXINE HCL ER 150 MG CAP PO SCH (08:04)
[2023-08-30] MEDS: MULTIVITAMINS, THERA 1 EACH TAB PO SCH (08:04)
[2023-08-30] MEDS: FOLIC ACID 1 MG TAB PO SCH (08:04)
[2023-08-30] MEDS: NALTREXONE HCL 50 MG TAB PO SCH (08:04)
[2023-08-30] MEDS: THIAMINE 100 MG TAB PO SCH (08:04)
[2023-08-30] MEDS: ACAMPROSATE CALCIUM 333 MG TABLET.DR PO SCH ×3 (08:04→21:15)
[2023-08-30] MEDS: busPIRone HCl 10 MG TAB PO SCH ×2 (08:04→21:15)
[2023-08-30] MEDS: lisinopriL 10 MG TAB PO SCH (08:04)
[2023-08-30 11:36] LABS: ALT 48 U/L (4-34); AST 69 U/L (14-36); African American GFR (CKD) >90 (>60 ml/min/1.73 sqM); Albumin 4.6 g/dL (3.5-5.0); Alkaline Phosphatase 97 U/L (38-126); Anion Gap 13 mmol/L; Blood Urea Nitrogen 12 mg/dL (7-17); Calcium 10.4 mg/dL (8.4-10.2); Carbon Dioxide 24 mmol/L (22-30); Chloride 98 mmol/L (98-107); Glucose 88 mg/dL (74-99); Non-African American GFR(CKD) >90 (>60 ml/min/1.73 sqM); Potassium 3.9 mmol/L (3.5-5.1); Sodium 135 mmol/L (137-145); Total Protein 7.8 g/dL (6.3-8.2)
--- NOTE | 2023-08-30 14:18 | P.PN ---
Progress Note - Text Progress Note Date: 08/30/23 Interval history: Patient was seen today for psychiatric follow up today in the office. Patient claims that she is feeling a bit better with regard to her mood and anxiety. States she has been trying to go to groups and participated that she can and found that the AA meeting group has been most beneficial for her. She spoke about how alcohol has been affecting her life. We spoke about being transitioned onto vivitrol injection to help ensure compliance and more stability however patient states that she wants to read information about it. Claims that she was able to sleep a little better last visit with the trazodone. States that her withdrawal symptoms of an improving. Consider appetite is fair. At this time she is denying any suicidal or homicidal ideations intent or plan. Denying any auditory or visual hallucinations. MENTAL STATUS EXAM: General Appearance: Patient appears to be mildly overweight, short hair, stated age is alert, attempts to cooperate over his fairly superficial. Patient appears to have improving hygiene and grooming. Behavior: Patient is seated without any agitated behavior. Attempts to cooperate Speech: Patient's speech is fluent and nonpressured. Mood/Affect: Patient reports their mood is improving mildly, affect is congruent and constricted. Suicidality/Homicidality: Patient denies having any homicidal ideation intent or plan. Denies any suicidal ideations intent or plan Perceptions: Patient denies any visual hallucinations and denies any auditory hallucinations Though content/process: There is no evidence of any delusional thought content and thought process is linear and goal-directed. Less focused on discharge today. Memory and concentration: AOX3, grossly intact for the purposes of this session Judgment and insight: poor, improving mildly IMPRESSIONS: Major depressive disorder, without psychotic features Alcohol use disorder, severe dependence PLAN: -Patient is admitted under voluntary status to MHU for stabilization of psychiatric symptoms and safety. Patient has signed adult voluntary form and medication consent and is placed in patient's chart. -Medications : Continue Effexor XR 150 mg daily for mood/anxiety, Librium scheduled for alcohol withdrawal, continue to taper down over the weekend. Trazodone 50 mg daily at bedtime for sleep/mood, acamprosate 666 mg 3 times a day for her cravings. Naltrexone 50 mg by mouth daily for alcohol cravings. patient will receive literature on vivitrol injection and consider if she wants this prior to discharge, -Ativan and Haldol PRN for agitation/aggression -thiamine, MVM for etoh use -CIWA protocol with Ativan PRN for ETOH withdrawal -NRT - not needed as patient does not smoke. -SW on board for discharge planning. Encourage patient to participate in groups to work on coping skills. pt is refusing inpt rehab, she wants to continue outpatient counselling and AA meetings. likely discharge saturday.
[2023-08-30] MEDS: traZODone HCL 50 MG TAB PO SCH (22:03)
[2023-08-31] MEDS: hydrOXYzine pamoate 25 MG CAP PO SCH ×3 (08:35→20:36)
[2023-08-31] MEDS: NALTREXONE HCL 50 MG TAB PO SCH (08:36)
[2023-08-31] MEDS: VENLAFAXINE HCL ER 150 MG CAP PO SCH (08:36)
[2023-08-31] MEDS: THIAMINE 100 MG TAB PO SCH (08:36)
[2023-08-31] MEDS: ACAMPROSATE CALCIUM 333 MG TABLET.DR PO SCH ×3 (08:36→20:36)
[2023-08-31] MEDS: lisinopriL 10 MG TAB PO SCH (08:36)
[2023-08-31] MEDS: busPIRone HCl 10 MG TAB PO SCH ×2 (08:36→20:36)
[2023-08-31] MEDS: FOLIC ACID 1 MG TAB PO SCH (08:36)
[2023-08-31] MEDS: MULTIVITAMINS, THERA 1 EACH TAB PO SCH (08:36)
--- NOTE | 2023-08-31 09:27 | P.PN ---
Subjective Progress Note Date: 08/31/23 Principal diagnosis: IMPRESSIONS: Major depressive disorder, without psychotic features Alcohol use disorder, severe dependence Interval history: Patient was seen today for psychiatric follow up in the office. Patient claims that she is feeling a bit better with regard to her mood and anxiety. States she has been trying to go to groups and participated as well as she can and found that the AA meeting group has been most beneficial for her. She assured me that she has a sponsor at her AA in the community and intends to call more frequently. She seems to be serious about how alcohol has been affecting her life. She had a period of 8 years of sobriety and really enjoyed it and wants to get back to that. States that her withdrawal symptoms of an improving. Consider appetite is fair. At this time she is denying any suicidal or homicidal ideations intent or plan. Denying any auditory or visual hallucinations. She says that her concentration is adequate but that she still has poor emotional control struggling with being too sad to anxious to irritable to overwhelm. Her BuSpar was increased from 15 twice a day to 20 twice a day and I educated her on what that does and how long it takes to work. MENTAL STATUS EXAM: Good eye contact cooperative General Appearance: Patient appears to be mildly overweight, short hair, appears to be her stated age, is alert, cooperative. Patient appears to have minimal but adequate hygiene and grooming. Behavior: Patient is seated without any agitated behavior. Speech: Patient's speech is fluent and nonpressured. Mood/Affect: Patient reports their mood is improving mildly, affect is congruent and constricted. Suicidality/Homicidality: Patient denies having any homicidal ideation intent or plan. Denies any suicidal ideations intent or plan Perceptions: Patient denies any visual hallucinations and denies any auditory hallucinations Though content/process: There is no evidence of any delusional thought content and thought process is linear and goal-directed. Less focused on discharge today. Memory and concentration: AOX3, grossly intact for the purposes of this session Judgment and insight: poor, improving mildly PLAN: No change at this time -Patient is admitted under voluntary status to MHU for stabilization of psychiatric symptoms and safety. Patient has signed adult voluntary form and medication consent and is placed in patient's chart. -Medications : Continue Effexor XR 150 mg daily for mood/anxiety, Librium scheduled for alcohol withdrawal, continue to taper down over the weekend. Traz odone 50 mg daily at bedtime for sleep/mood, acamprosate 666 mg 3 times a day for her cravings. Naltrexone 50 mg by mouth daily for alcohol cravings. patient will receive literature on vivitrol injection and consider if she wants this prior to discharge, -Ativan and Haldol PRN for agitation/aggression -thiamine, MVM for etoh use -CIWA protocol with Ativan PRN for ETOH withdrawal -NRT - not needed as patient does not smoke. -SW on board for discharge planning. Encourage patient to participate in groups to work on coping skills. pt is refusing inpt rehab, she wants to continue outpatient counselling and AA meetings. likely discharge saturday. Objective - Vital Signs Vital signs: Vital Signs Temp 97.8 F 08/28/23 14:30 Pulse 105 H 08/31/23 08:38 Resp 20 08/29/23 08:38 BP 125/60 08/31/23 08:38 Pulse Ox 97 08/28/23 14:30 FiO2 - Labs CBC & Chem 7: 08/27/23 23:54 08/30/23 10:31 Labs: Abnormal Lab Results - Last 24 Hours (Table) 08/30/23 Range/Units 10:31 Sodium 135 L (137-145) mmol/L Calcium 10.4 H (8.4-10.2) mg/dL AST 69 H (14-36) U/L ALT 48 H (4-34) U/L
[2023-08-31] MEDS: traZODone HCL 50 MG TAB PO SCH (22:06)
[2023-09-01] MEDS: FOLIC ACID 1 MG TAB PO SCH (08:38)
[2023-09-01] MEDS: lisinopriL 10 MG TAB PO SCH (08:38)
[2023-09-01] MEDS: hydrOXYzine pamoate 25 MG CAP PO SCH ×3 (08:38→21:23)
[2023-09-01] MEDS: busPIRone HCl 10 MG TAB PO SCH ×2 (08:38→21:23)
[2023-09-01] MEDS: ACAMPROSATE CALCIUM 333 MG TABLET.DR PO SCH ×3 (08:38→21:23)
[2023-09-01] MEDS: NALTREXONE HCL 50 MG TAB PO SCH (08:38)
[2023-09-01] MEDS: THIAMINE 100 MG TAB PO SCH (08:38)
[2023-09-01] MEDS: VENLAFAXINE HCL ER 150 MG CAP PO SCH (08:38)
[2023-09-01] MEDS: MULTIVITAMINS, THERA 1 EACH TAB PO SCH (08:39)
--- NOTE | 2023-09-01 08:54 | P.PN ---
Subjective Progress Note Date: 09/01/23 Principal diagnosis: IMPRESSIONS: Major depressive disorder, without psychotic features Alcohol use disorder, severe dependence Interval history: Patient was seen today for psychiatric follow up in the office. Patient claims that she is feeling a bit better with regard to her mood and anxiety. States she has been going to groups and participating as well as she can and found that the AA meeting group has been most beneficial for her. She assured me that she has a sponsor at her AA in the community and intends to call more frequently. She seems to be serious about how alcohol has been affecting her life. She had a period of 8 years of sobriety and really enjoyed it and wants to get back to that. She was able to repeat some of the ideas we had covered yesterday and was positive about the insight and help. States that her withdrawal symptoms are improving. She says she slept well. Her appetite is good. At this time she is denying any suicidal or homicidal ideations intent or plan. Denying any auditory or visual hallucinations. She says that her concentration is adequate but that she still has poor emotional control struggling with being too sad too anxious too irritable too overwhelmed. Her BuSpar was increased from 15 twice a day to 20 twice a day and I educated her on what that does and how long it takes to work. MENTAL STATUS EXAM: Good eye contact cooperative General Appearance: Patient appears to be mildly overweight, short hair, appears to be her stated age, is alert, cooperative. Patient appears to have minimal but adequate hygiene and grooming. Behavior: Patient is seated without any agitated behavior. Speech: Patient's speech is fluent and nonpressured. Mood/Affect: Patient reports their mood is improving mildly, affect is congruent and constricted. Suicidality/Homicidality: Patient denies having any homicidal ideation intent or plan. Denies any suicidal ideations intent or plan Perceptions: Patient denies any visual hallucinations and denies any auditory hallucinations Though content/process: There is no evidence of any delusional thought content and thought process is linear and goal-directed. Less focused on discharge today. Memory and concentration: AOX3, grossly intact for the purposes of this session Judgment and insight: poor, improving mildly Assessment: Patient is participating and getting benefit. Will be hard to tell whether the mild increase in BuSpar will be adequate to help her serotonin she may have to go up to 30 twice a day. PLAN: No change at this time -Patient is admitted under voluntary status to MHU for stabilization of psychiatric symptoms and safety. Patient has signed adult voluntary form and medication consent and is placed in patient's chart. -Medications : Continue Effexor XR 150 mg daily for mood/anxiety, Librium scheduled for alcohol withdrawal, continue to taper down over the weekend. Trazodone 50 mg daily at bedtime for sleep/mood, acamprosate 666 mg 3 times a d ay for her cravings. Naltrexone 50 mg by mouth daily for alcohol cravings. patient will receive literature on vivitrol injection and consider if she wants this prior to discharge, -Ativan and Haldol PRN for agitation/aggression -thiamine, MVM for etoh use -CIWA protocol with Ativan PRN for ETOH withdrawal -NRT - not needed as patient does not smoke. -SW on board for discharge planning. Encourage patient to participate in groups to work on coping skills. pt is refusing inpt rehab, she wants to continue outpatient counselling and AA meetings. likely discharge saturday. Objective - Vital Signs Vital signs: Vital Signs Temp 96.9 F L 08/31/23 10:12 Pulse 92 09/01/23 08:46 Resp 16 08/31/23 10:12 BP 130/72 09/01/23 08:46 Pulse Ox 97 08/31/23 10:12 FiO2 - Labs CBC & Chem 7: 08/27/23 23:54 08/30/23 10:31
[2023-09-01] MEDS: traZODone HCL 50 MG TAB PO SCH (21:23)
[2023-09-02 06:33] VITALS: BP 125/65; PULSE 90; RESP 15; TEMP 98.1
[2023-09-02] MEDS: THIAMINE 100 MG TAB PO SCH (08:14)
[2023-09-02] MEDS: ACAMPROSATE CALCIUM 333 MG TABLET.DR PO SCH (08:14)
[2023-09-02] MEDS: FOLIC ACID 1 MG TAB PO SCH (08:15)
[2023-09-02] MEDS: VENLAFAXINE HCL ER 150 MG CAP PO SCH (08:15)
[2023-09-02] MEDS: lisinopriL 10 MG TAB PO SCH (08:15)
[2023-09-02] MEDS: MULTIVITAMINS, THERA 1 EACH TAB PO SCH (08:16)
[2023-09-02] MEDS: NALTREXONE HCL 50 MG TAB PO SCH (08:16)
[2023-09-02] MEDS: hydrOXYzine pamoate 25 MG CAP PO SCH (08:16)
[2023-09-02] MEDS: busPIRone HCl 10 MG TAB PO SCH (08:16)
--- NOTE | 2023-09-02 10:29 | P.DS ---
Providers Date of admission: 08/28/23 13:22 Expected date of discharge: 09/02/23 Attending physician: Tad Hwang MD Consults: 08/28/23 13:36 Consult Physician Routine Consulting Provider: Raji Orellana Consult Reason/Comments: H&P Do you want consulting provider notified?: Yes Primary care physician: Jones Mclean - Discharge Diagnosis(es) (1) Major depressive disorder without psychotic features Current Visit: Yes Status: Acute Priority: High (2) Alcohol use disorder, severe, dependence Current Visit: Yes Status: Acute Priority: High Hospital Course: Admission HPI: Admission note was completed by sign writer hand "This patient is a 42-year-old female, particularly lives alone, lives in the house, she is single, she has, 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 The patient presented to the hospital on 08/27 complaining of depression and anxiety, suicidal ideations and struggling with alcohol. Patient apparently was admitted to the medical floors about 2 weeks ago for alcohol intoxication, she was seen by sign writer hand for psychiatric consult on 08/13/23. Patient had her psychiatric medications adjusted and was discharged from the medical floors back home. Patient has a history of chronic depression and alcohol abuse. She was seen today by sign writer hand and agreeable to speak to sign writer hand in the office. Patient claims that upon discharge when sign writer hand saw her previously on the medical floor she states that she was sober for 1 day and then relapsed back on drinking. She states that she mainly did it as a defiance from her family members as they "put pressure on me not to drink". She states that she does have some cravings for alcohol. She was actively minimizing her alcohol abuse and also her need for treatment. She was fairly focused on discharge and rationalizing. She claims that she been drinking about a fifth of vodka a day for the past few days. Claims that she called EMS herself claiming that she was depressed and anxious and wanted to "drink myself to ". She minimizes her mood and depression seem that "I'm okay now" claims that she is feeling anxious. States that her last drink was about 2-3 days ago. Her sleep and appetite have been poor. At this time patient denies any suicidal or homical ideations, intent or plan. Patient denies any auditory, visual hallucinations and denies any paranoia or delusions. she has been to rehab about 3 times in the past. States that she is drinking about a fifth of vodka a day, her last drink was about 3 days ago. Denies any other recreational drug use. At this time she is stating that she is having very mild withdrawal symptoms including mild tremors in her hands. Denies any history of DTs or withdrawal seizures." Hospital course: Upon admission to the unit patient was directable and agreeable to commence treatment and signed adult voluntary form. Patient got along well with other patients on the unit and followed unit protocol. Patient was compliant with the medications and denied any side effects throughout hospital course. Patient was started on Effexor XR 150 mg daily for mood/anxiety, trazodone 50 mg daily at bedtime for sleep/mood, acamprosate 666 mg 3 times a day for alcohol cravings, no checks and 50 mg by mouth daily for alcohol cravings, she was placed on Librium scheduled to however was gradually tapered off. We spoke about the risks versus benefits of switching patient onto vivitrol injection for etoh cravings to help ensure compliance however patient declined this option and wanted to continue taking PO meds. Patient spoke of her stressors and engaged in therapy both group and individual. Patient was also seen by medical team for history and physical exam. Throughout the course of the hospitalization patient gradually improved with regards to mood, anxiety, cravings/etoh withdrawal, sleep and returned back to their baseline level of functioning. On the day of discharge patient denied any suicidal or homicidal ideations intent or plan denied any auditory or visual hallucinations. Patient endorsed wanting to live for her health and future. The patient denied any access to guns or weapons. Patient denied any paranoia and did not endorse any delusions. Patient does have a significant history of substance abuse and was counseled on abstaining from all substances including alcohol and marijuana. Patient was offered however declined inpatient substance-abuse rehab. Patient elected to do outpatient substance use treatment program through [facility] and continue on with meetings and therapy. Patient was also counseled on the medications and need for regular compliance and was encouraged to follow-up with their outpatient appointment for mental health and also for primary care. Prior to discharge a family meeting will be arranged by elementary school social worker to answer any questions and ensure safety upon discharge. Mental status exam: General Appearance: Patient appears to be mildly overweight, stated age is alert, pleasant, and cooperative. Patient is in no acute distress and has improved hygiene and grooming Behavior: Patient is calmly seated without any agitated behavior. Speech: Patient's speech is fluent and nonpressured. Mood/Affect: Patient reports their mood is "better", affect is congruent and euthymic. Suicidality/Homicidality: Patient denies having any suicidal or homicidal ideation intent or plan. Perceptions: Patient denies any auditory or visual hallucinations. Though content/process: There is no evidence of any delusional thought content and thought process is linear and goal-directed. more future oriented Memory and concentration: AOX3, grossly intact for the purposes of this session. Can spell "WORLD" backwards correctly. Judgment and insight: chronically poor, however has improved with guarded prognosis Impression: Major depressive disorder without psychotic features Alcohol use disorder severe dependent Plan: -Continue with discharge today as patient has improved and stabilized psychiatrically and is not currently an imminent threat to herself and/or others. Patient will remain at chronically elevated risk for harm to self and/or others due to her impulsivity and substance abuse. -Continue medications: Effexor XR 150 mg daily for mood/anxiety, trazodone 50 mg daily at bedtime for sleep/mood, acamprosate 666 mg 3 times a day 4 alcohol cravings, naltrexone 50 mg by mouth daily for alcohol cravings. -Patient was counseled on the need for medication compliance and appropriate follow-up at mental health and also primary care for medical issues. Patient verbalized understanding and agreed. -Social work to arrange for and conduct family meeting to ensure safety upon discharge and answer any questions/concerns. Social work also to arrange for patients follow up appointments for psychiatric care along with follow up with primary care provider. -Patient counseled on abstaining from recreational drugs and marijuana and alcohol. Was informed/educated on the adverse effects on their physical and mental health. Patient verbally agreed and understood. Patient was offered substance abuse treatment however declined at this time. -Patient was instructed to return to the hospital or seek immediate medical care if their psychiatric or medical symptoms do worsen or reoccur. Allergies Allergy/AdvReac Type Severity Reaction Status Date / Time Sulfa (Sulfonamide Allergy Rash/Hives Verified 08/28/23 14:59 Antibiotics) Laboratory Results WBC 13.5 k/uL (3.8-10.6) H 08/27/23 23:54 RBC 4.32 m/uL (3.80-5.40) 08/27/23 23:54 Hgb 12.6 gm/dL (11.4-16.0) 08/27/23 23:54 Hct 38.3 % (34.0-46.0) 08/27/23 23:54 MCV 88.5 fL (80.0-100.0) 08/27/23 23:54 MCH 29.2 pg (25.0-35.0) 08/27/23 23:54 MCHC 33.0 g/dL (31.0-37.0) 08/27/23 23:54 RDW 17.4 % (11.5-15.5) H 08/27/23 23:54 Plt Count 261 k/uL (150-450) D 08/27/23 23:54 MPV 7.2 08/27/23 23:54 Neutrophils % 90 % 08/27/23 23:54 Lymphocytes % 6 % 08/27/23 23:54 Monocytes % 4 % 08/27/23 23:54 Eosinophils % 0 % 08/27/23 23:54 Basophils % 0 % 08/27/23 23:54 Neutrophils # 12.1 k/uL (1.3-7.7) H 08/27/23 23:54 Lymphocytes # 0.7 k/uL (1.0-4.8) L 08/27/23 23:54 Monocytes # 0.5 k/uL (0-1.0) 08/27/23 23:54 Eosinophils # 0.0 k/uL (0-0.7) 08/27/23 23:54 Basophils # 0.0 k/uL (0-0.2) 08/27/23 23:54 Anisocytosis Slight 08/27/23 23:54 Sodium 135 mmol/L (137-145) L 08/30/23 10:31 Potassium 3.9 mmol/L (3.5-5.1) 08/30/23 10:31 Chloride 98 mmol/L (98-107) 08/30/23 10:31 Carbon Dioxide 24 mmol/L (22-30) 08/30/23 10:31 Anion Gap 13 mmol/L 08/30/23 10:31 BUN 12 mg/dL (7-17) 08/30/23 10:31 Creatinine 0.63 mg/dL (0.52-1.04) 08/30/23 10:31 Est GFR (CKD-EPI)AfAm >90 (>60 ml/min/1.73 sqM) 08/30/23 10:31 Est GFR (CKD-EPI)NonAf >90 (>60 ml/min/1.73 sqM) 08/30/23 10:31 Glucose 88 mg/dL (74-99) 08/30/23 10:[address] Glu mg/dL 94 mg/dL 08/29/23 08:00 Hemoglobin A1c 4.9 % (<=6.0) 08/29/23 08:00 Calcium 10.4 mg/dL (8.4-10.2) H 08/30/23 10:31 Total Bilirubin 1.0 mg/dL (0.2-1.3) 08/30/23 10:31 AST 69 U/L (14-36) H 08/30/23 10:31 ALT 48 U/L (4-34) H 08/30/23 10:31 Alkaline Phosphatase 97 U/L (38-126) 08/30/23 10:31 Total Protein 7.8 g/dL (6.3-8.2) 08/30/23 10:31 Albumin 4.6 g/dL (3.5-5.0) 08/30/23 10:31 TSH 2.990 mIU/L (0.465-4.680) 08/29/23 08:00 Urine Color Yellow 08/27/23 22:40 Urine Appearance Cloudy (Clear) H 08/27/23 22:40 Urine pH 6.0 (5.0-8.0) 08/27/23 22:40 Ur Specific [place] 1.025 (1.001-1.035) 08/27/23 22:40 Urine Protein 2+ (Negative) H 08/27/23 22:40 Urine Glucose (UA) Negative (Negative) 08/27/23 22:40 Urine Ketones 3+ (Negative) H 08/27/23 22:40 Urine Blood Trace (Negative) H 08/27/23 22:40 Urine Nitrite Negative (Negative) 08/27/23 22:40 Urine Bilirubin Negative (Negative) 08/27/23 22:40 Urine Urobilinogen <2.0 mg/dL (<2.0) 08/27/23 22:40 Ur Leukocyte Esterase Negative (Negative) 08/27/23 22:40 Urine RBC <1 /hpf (0-5) 08/27/23 22:40 Urine WBC <1 /hpf (0-5) 08/27/23 22:40 Ur Squamous Epith Cells 4 /hpf (0-4) 08/27/23 22:40 Urine Bacteria Rare /hpf (None) H 08/27/23 22:40 Urine Mucus Moderate /hpf (None) H 08/27/23 22:40 Urine HCG, Qual Not Detected (Not Detectd) 08/27/23 22:40 Urine Opiates Screen Not Detected (NotDetected) 08/27/23 22:40 Ur Oxycodone Screen Detected (NotDetected) H 08/27/23 22:40 Urine Methadone Screen Not Detected (NotDetected) 08/27/23 22:40 Ur Propoxyphene Screen Not Detected (NotDetected) 08/27/23 22:40 Ur Barbiturates Screen Not Detected (NotDetected) 08/27/23 22:40 U Tricyclic Antidepress Not Detected (NotDetected) 08/27/23 22:40 Ur Phencyclidine Scrn Not Detected (NotDetected) 08/27/23 22:40 Ur Amphetamines Screen Not Detected (NotDetected) 08/27/23 22:40 U Methamphetamines Scrn Not Detected (NotDetected) 08/27/23 22:40 U Benzodiazepines Scrn Detected (NotDetected) H 08/27/23 22:40 Urine Cocaine Screen Not Detected (NotDetected) 08/27/23 22:40 U Marijuana (THC) Screen Not Detected (NotDetected) 08/27/23 22:40 Coronavirus (PCR) Not Detected (Not Detectd) 08/27/23 23:54 Vital Signs Temp 98.1 F 09/02/23 06:00 Pulse 90 09/02/23 06:00 Resp 15 09/02/23 06:00 BP 125/65 09/02/23 06:00 Pulse Ox 97 09/02/23 06:00 FiO2 Patient Condition at Discharge: Stable Plan - Discharge Summary New Discharge Prescriptions: New busPIRone HCl [Buspar] 20 mg PO BID 30 Days #120 tab Acamprosate Calcium [Campral] 666 mg PO TID 30 Days #180 tab Loperamide [Imodium] 2 mg PO QID PRN cap PRN Reason: Diarrhea hydrOXYzine pamoate [Vistaril] 25 mg PO BID PRN 30 Days #60 cap PRN Reason: Anxiety Continue traZODone HCL [Desyrel] 50 mg PO HS 30 Days #30 tab Venlafaxine HCl [Effexor XR] 150 mg PO DAILY 30 Days #30 cap Naltrexone HCl [Revia] 50 mg PO DAILY 30 Days #30 tab Folic Acid 1 mg PO DAILY #14 tab lisinopriL [Zestril] 10 mg PO DAILY Multivitamins, Thera [Multivitamin (formulary)] 1 tab PO DAILY Discontinued busPIRone HCL 15 mg PO BID Acamprosate Calcium [Campral] 666 mg PO TID #180 tab Discharge Medication List Folic Acid 1 mg PO DAILY #14 tab 05/17/23 [Rx] lisinopriL [Zestril] 10 mg PO DAILY 08/12/23 [History] Multivitamins, Thera [Multivitamin (formulary)] 1 tab PO DAILY 08/27/23 [Histo ry] Acamprosate Calcium [Campral] 666 mg PO TID 30 Days #180 tab 09/02/23 [Rx] Loperamide [Imodium] 2 mg PO QID PRN cap 09/02/23 [Rx] Naltrexone HCl [Revia] 50 mg PO DAILY 30 Days #30 tab 09/02/23 [Rx] Venlafaxine HCl [Effexor XR] 150 mg PO DAILY 30 Days #30 cap 09/02/23 [Rx] busPIRone HCl [Buspar] 20 mg PO BID 30 Days #120 tab 09/02/23 [Rx] hydrOXYzine pamoate [Vistaril] 25 mg PO BID PRN 30 Days #60 cap 09/02/23 [Rx] traZODone HCL [Desyrel] 50 mg PO HS 30 Days #30 tab 09/02/23 [Rx] Follow up Appointment(s)/Referral(s): [facility] Cross [Outside] - 1 Week Jones Mclean DO [Primary Care Provider] - 1-2 days Patient Instructions/Handouts: Depression (DC), Alcohol Intoxication (DC) Activity/Diet/Wound Care/Special Instructions: Avoid the use of street drugs and alcohol. Take all medications as prescribed. When you are in need of refills on your medications, please contact your medical provider and/or outpatient psychiatrist/provider to have this done. Please go to your scheduled outpatient appointment for aftercare treatment. If symptoms return or become worse, call the crisis line at and/or go to the nearest emergency room for evaluation. National Suicide Hotline 988. Discharge/Stand Alone Forms: AA Meetings Dist 22 & 24 - [facility] Discharge Disposition: HOME SELF-CARE
== END 2023-09-02 12:45 | disposition home or self-care (01) | DRG 881 ==
LOC: EC 14:21 → 3MHU 08-28 13:22
PROVIDERS: ADMIT Psychiatry & Neurology Psychiatry; ATTEND Psychiatry & Neurology Psychiatry
PROC: HZ2ZZZZ Detoxification Services for Substance Abuse Treatment (ICD-10-PCS; principal; 2023-08-28)
DX: F32.A Depression, unspecified (principal); F10.239 Alcohol dependence with withdrawal, unspecified; R45.851 Suicidal ideations; Z20.822 Contact with and (suspected) exposure to COVID-19; E03.9 Hypothyroidism, unspecified; Z79.890 Hormone replacement therapy; Z71.41 Alcohol abuse counseling and surveillance of alcoholic; I10 Essential (primary) hypertension; G62.9 Polyneuropathy, unspecified; M06.9 Rheumatoid arthritis, unspecified; Z88.2 Allergy status to sulfonamides; Z90.49 Acquired absence of other specified parts of digestive tract; Z96.652 Presence of left artificial knee joint
CPT/HCPCS: 36415; 80048; 80053; 80306; 81001; 81025; 82075; 83036; 84443; 85025; 87635; 93005; 99285

== ENCOUNTER 2023-09-12 08:31 | Observation (INO) | payer OTHER ==
[2023-09-12] MEDS ORDERED: SODIUM CHLORIDE 0.9% 1,000 ML IV STA (09:22)
--- NOTE | 2023-09-12 09:27 | ED ---
General Adult HPI - General Chief complaint: Recheck/Abnormal Lab/Rx Stated complaint: cough Time Seen by Provider: 09/12/23 09:04 Source: patient, RN notes reviewed Mode of arrival: ambulatory Limitations: no limitations - History of Present Illness Initial comments: 42-year-old female with past medical history significant for EtOH abuse presents to the emergency department with a chief complaint of cough. Patient reports a cough that is nonproductive for one week. She denies any recent sick contacts. She denies any known fevers, chills, nausea, vomiting, chest pain, palpitations, shortness of breath, abdominal pain. She does report that her last alcoholic beverage was yesterday and she is attempting to withdrawal. She does take dictations for depression however she does not take anything for her anxiety. She reports worsening anxiety over the last week. - Related Data Home Medications Medication Instructions Recorded Confirmed lisinopriL [Zestril] 10 mg PO DAILY 08/12/23 09/12/23 Multivitamins, Thera [Multivitamin 1 tab PO DAILY 08/27/23 09/12/23 (formulary)] Previous Rx's Medication Instructions Recorded Folic Acid 1 mg PO DAILY #14 tab 05/17/23 Acamprosate Calcium [Campral] 666 mg PO TID 30 Days #180 tab 09/02/23 Loperamide [Imodium] 2 mg PO QID PRN cap 09/02/23 Naltrexone HCl [Revia] 50 mg PO DAILY 30 Days #30 tab 09/02/23 Venlafaxine HCl [Effexor XR] 150 mg PO DAILY 30 Days #30 cap 09/02/23 busPIRone HCl [Buspar] 20 mg PO BID 30 Days #120 tab 09/02/23 hydrOXYzine pamoate [Vistaril] 25 mg PO BID PRN 30 Days #60 cap 09/02/23 traZODone HCL [Desyrel] 50 mg PO HS 30 Days #30 tab 09/02/23 Allergies Allergy/AdvReac Type Severity Reaction Status Date / Time Sulfa (Sulfonamide Allergy Rash/Hives Verified 09/12/23 12:55 Antibiotics) Review of Systems ROS Statement: Those systems with pertinent positive or pertinent negative responses have been documented in the HPI. ROS Other: All systems not noted in ROS Statement are negative. 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 History of Any Multi-Drug Resistant Organisms: None Reported Past Surgical History: Cholecystectomy Additional Past Surgical History / Comment(s): Left knee replacement. Past Anesthesia/Blood Transfusion Reactions: No Reported Reaction Past Psychological History: Anxiety, Depression Smoking Status: Never smoker Past Alcohol Use History: None Reported Past Drug Use History: None Reported - Past Family History Father Family Medical History: Pneumonia Additional Family Medical History / Comment(s): Parkinson's following a closed head injury, depression, TBI. Mother Family Medical History: Coronary Artery Disease (CAD) Additional Family Medical History / Comment(s): following a surgery for a heart valve problem. General Exam - General Exam Comments Initial Comments: General: Alert, in no acute distress Head: atraumatic normocephalic. Eyes PERRL, EOMI intact, mucous membranes moist Respiratory: Lungs clear to auscultation bilaterally Cardiovascular: Tachycardic Abdominal: Soft without guarding or rebound Extremities: Normal inspection with full range of motion and normal capillary refill Neuroogic: alert and oriented 3, CN II-XII intact, able to ambulate with steady gait Skin: warm dry and intact with normal color Limitations: no limitations Course Vital Signs 09/12/23 09/12/23 09/12/23 08:36 09:30 10:00 Temperature 98 F Pulse Rate 136 H 128 H 115 H Respiratory 22 18 20 Rate Blood Pressure 157/104 104/58 110/92 O2 Sat by Pulse 99 Oximetry 09/12/23 09/12/23 10:30 11:00 Temperature Pulse Rate 112 H 122 H Respiratory 18 18 Rate Blood Pressure 122/87 136/87 O2 Sat by Pulse Oximetry - Reevaluation(s) Reevaluation #1: 09/12/23 10:07 Patient reevaluated. Patient requesting something for anxiety. Ativan ordered. Reevaluation #2: 09/12/23 12:49 case discussed with amynor Egan who agrees and accepts the patient for admission EKG Findings - EKG Comments: EKG Findings:: I interpreted the following: EKG performed at 09:13 rate 125 bpm and sinus tachycardia IA interval 144, QRS sikhism 90, QT/QTc 330/404 Medical Decision Making - Medical Decision Making Was pt. sent in by a medical professional or institution (ANASTASIYA Hernandez, GUNSTOCK REPAIRER, urgent care, hospital, or [facility]...) When possible be specific @ -[No] Did you speak to anyone other than the patient for history (EMS, parent, family, police, friend...)? What history was obtained from this source @ -[No] Did you review nursing and triage notes (agree or disagree)? Why? @ -[I reviewed and agree with nursing and triage notes] Were old charts reviewed (outside hosp., previous admission, EMS record, old EKG, old radiological studies, urgent care reports/EKG's, [facility] records)? Report findings @ -[No old charts were reviewed] Differential Diagnosis (chest pain, altered mental status, abdominal pain women, abdominal pain men, vaginal bleeding, weakness, fever, dyspnea, syncope, headache, dizziness, GI bleed, back pain, seizure, CVA, palpatations, mental health, musculoskeletal)? @ -[not applicable] EKG interpreted by me (3pts min.). @ -[As above] X-rays interpreted by me (1pt min.). @ -[None done] CT interpreted by me (1pt min.). @ -[None done] U/S interpreted by me (1pt. min.). @ -[None done] What testing was considered but not performed or refused? (CT, X-rays, U/S, labs)? Why? @ -[None] What meds were considered but not given or refused? Why? @ -[None] Did you discuss the management of the patient with other professionals ( professionals i.e. ANASTASIYA Hernandez, GUNSTOCK REPAIRER, lab, RT, psych nurse, manager social responsibility, ironer hand, teacher, medical officer, social work case manager)? Give summary @ Case discussed with who agrees and accepts the patient for admission Was smoking cessation discussed for >3mins.? @ -[No] Was critical care preformed (if so, how long)? @ -[No] Were there social determinants of health that impacted care today? How? (Homelessness, low income, unemployed, alcoholism, drug addiction, transportation, low edu. Level, literacy, decrease access to med. care, alf, rehab)? @ -[No] Was there de-escalation of care discussed even if they declined (Discuss DNR or withdrawal of care, Hospice)? DNR status @ -[No] What co-morbidities impacted this encounter? (DM, HTN, Smoking, COPD, CAD, Cancer, CVA, ARF, Chemo, Hep., AIDS, mental health diagnosis, sleep apnea, morbid obesity)? @ -[None] Was patient admitted / discharged? Hospital course, mention meds given and route, prescriptions, significant lab abnormalities, going to OR and other pertinent info. @ -Admission. This is a 42-year-old female who presents the emergency department with cough. Patient had a thorough history and physical exam performed. Patient remains tachycardic during The course of the ED. Phyllis ngs sounds clear to auscultation all keane. Abdomen is soft and nontender. Patient laboratory studies which revealed WBC 17.1, hemoglobin 14.4 platelets 27 sodium 137, potassium 4.1 carbon dioxide BUN 10, creatinine 0.65 facility with 2 initial lactic acid 7.3 AST 132, ALP 75 Covid positive. I discussed results in detail with the patient verbalizes standing all questions addressed. She is agreeable with the plan for admission. Case is discussed with Maynor Bronson who agrees with plan for observation Recommends fluid replenishment and serial lactic acid draw. Case was discussed with Dr Vargas., [facility] who agrees with plan of care Undiagnosed new problem with uncertain prognosis? @ -[No] Drug Therapy requiring intensive monitoring for toxicity (Heparin, Nitro, Insulin, Cardizem)? @ -[No] Were any procedures done? @ -[No] Diagnosis/symptom? @ -COugh -COVID19 - Metabolic Acidosis -Transaminitis -Alchol Abuse - Alcohol Withdrawal Acute, or Chronic, or Acute on Chronic? @ Acute Uncomplicated (without systemic symptoms) or Complicated (systemic symptoms)? @ -Uncomplicated Side effects of treatment? @ -[No] Exacerbation, Progression, or Severe Exacerbation? @ -[No] Poses a threat to life or bodily function? How? (Chest pain, [place], [place], pneumonia, PE, COPD, DKA, ARF, appy, cholecystitis, CVA, Diverticulitis, Homicidal, Suicidal, threat to staff... and all critical care pts) @ -Yes - Lab Data Result diagrams: 09/12/23 09:26 09/12/23 09:26 Lab Results 09/12/23 09/12/23 09/12/23 Range/Units 08:41 09:26 09:26 WBC 17.1 H (3.8-10.6) k/uL RBC 4.85 (3.80-5.40) m/uL Hgb 14.4 (11.4-16.0) gm/dL Hct 43.8 (34.0-46.0) % MCV 90.2 (80.0-100.0) fL MCH 29.8 (25.0-35.0) pg MCHC 33.0 (31.0-37.0) g/dL RDW 17.4 H (11.5-15.5) % Plt Count 287 (150-450) k/uL MPV 6.9 Neutrophils % 93 % Lymphocytes % 4 % Monocytes % 2 % Eosinophils % 0 % Basophils % 0 % Neutrophils # 15.9 H (1.3-7.7) k/uL Lymphocytes # 0.7 L (1.0-4.8) k/uL Monocytes # 0.3 (0-1.0) k/uL Eosinophils # 0.1 (0-0.7) k/uL Basophils # 0.1 (0-0.2) k/uL Anisocytosis Slight Sodium 137 (137-145) mmol/L Potassium 4.1 (3.5-5.1) mmol/L Chloride 101 (98-107) mmol/L Carbon Dioxide 9 L* (22-30) mmol/L Anion Gap 27 mmol/L BUN 10 (7-17) mg/dL Creatinine 0.65 (0.52-1.04) mg/dL Est GFR (CKD-EPI)AfAm >90 (>60 ml/min/1.73 sqM) Est GFR (CKD-EPI)NonAf >90 (>60 ml/min/1.73 sqM) Glucose 182 H (74-99) mg/dL Lactic Ac Sepsis Rflx Plasma Lactic Acid Feroz (0.7-2.0) mmol/L Calcium 8.7 (8.4-10.2) mg/dL Total Bilirubin 1.2 (0.2-1.3) mg/dL AST 132 H (14-36) U/L ALT 75 H (4-34) U/L Alkaline Phosphatase 134 H (38-126) U/L Total Protein 8.3 H (6.3-8.2) g/dL Albumin 5.0 (3.5-5.0) g/dL Urine Opiates Screen (NotDetected) Ur Oxycodone Screen (NotDetected) Urine Methadone Screen (NotDetected) Ur Propoxyphene Screen (NotDetected) Ur Barbiturates Screen (NotDetected) U Tricyclic Antidepress (NotDetected) Ur Phencyclidine Scrn (NotDetected) Ur Amphetamines Screen (NotDetected) U Methamphetamines Scrn (NotDetected) U Benzodiazepines Scrn (NotDetected) Urine Cocaine Screen (NotDetected) U Marijuana (THC) Screen (NotDetected) Serum Alcohol 61 mg/dL Influenza Type A (PCR) Not Detected (Not Detectd) Influenza Type B (PCR) Not Detected (Not Detectd) RSV (PCR) Not Detected (Not Detectd) SARS-CoV-2 (PCR) Detected A (Not Detectd) 09/12/23 09/12/23 09/12/23 Range/Units 10:37 11:18 11:47 WBC (3.8-10.6) k/uL RBC (3.80-5.40) m/uL Hgb (11.4-16.0) gm/dL Hct (34.0-46.0) % MCV (80.0-100.0) fL MCH (25.0-35.0) pg MCHC (31.0-37.0) g/dL RDW (11.5-15.5) % Plt Count (150-450) k/uL MPV Neutrophils % % Lymphocytes % % Monocytes % % Eosinophils % % Basophils % % Neutrophils # (1.3-7.7) k/uL Lymphocytes # (1.0-4.8) k/uL Monocytes # (0-1.0) k/uL Eosinophils # (0-0.7) k/uL Basophils # (0-0.2) k/uL Anisocytosis Sodium (137-145) mmol/L Potassium (3.5-5.1) mmol/L Chloride (98-107) mmol/L Carbon Dioxide (22-30) mmol/L Anion Gap mmol/L BUN (7-17) mg/dL Creatinine (0.52-1.04) mg/dL Est GFR (CKD-EPI)AfAm (>60 ml/min/1.73 sqM) Est GFR (CKD-EPI)NonAf (>60 ml/min/1.73 sqM) Glucose (74-99) mg/dL Lactic Ac Sepsis Rflx Y Plasma Lactic Acid Feroz 7.3 H* (0.7-2.0) mmol/L Calcium (8.4-10.2) mg/dL Total Bilirubin (0.2-1.3) mg/dL AST (14-36) U/L ALT (4-34) U/L Alkaline Phosphatase (38-126) U/L Total Protein (6.3-8.2) g/dL Albumin (3.5-5.0) g/dL Urine Opiates Screen Not Detected (NotDetected) Ur Oxycodone Screen Not Detected (NotDetected) Urine Methadone Screen Not Detected (NotDetected) Ur Propoxyphene Screen Not Detected (NotDetected) Ur Barbiturates Screen Not Detected (NotDetected) U Tricyclic Antidepress Not Detected (NotDetected) Ur Phencyclidine Scrn Not Detected (NotDetected) Ur Amphetamines Screen Not Detected (NotDetected) U Methamphetamines Scrn Not Detected (NotDetected) U Benzodiazepines Scrn Detected H (NotDetected) Urine Cocaine Screen Not Detected (NotDetected) U Marijuana (THC) Screen Not Detected (NotDetected) Serum Alcohol mg/dL Influenza Type A (PCR) (Not Detectd) Influenza Type B (PCR) (Not Detectd) RSV (PCR) (Not Detectd) SARS-CoV-2 (PCR) (Not Detectd) Disposition Clinical Impression: Tachycardia, Dehydration, Metabolic acidosis, Alcohol abuse, COVID-19 Disposition: ADMITTED IP TO THIS HOSP Condition: Fair Is patient prescribed a controlled substance at d/c from ED?: No Referrals: Jones Mclean DO [Primary Care Provider] - 1-2 days Time of Disposition: 12:51
[2023-09-12] MEDS ORDERED: ONDANSETRON 4 MG/2 ML VIAL IVP STA (09:34)
[2023-09-12 09:37] LABS: Anisocytosis Slight; Basophils # (A) 0.1 k/uL (0-0.2); Basophils % (A) 0 %; Eosinophils # (A) 0.1 k/uL (0-0.7); Eosinophils % (A) 0 %; HCT 43.8 % (34.0-46.0); HGB 14.4 gm/dL (11.4-16.0); Lymphocytes # (A) 0.7 k/uL (1.0-4.8); Lymphocytes % (A) 4 %; MCH 29.8 pg (25.0-35.0); MCV 90.2 fL (80.0-100.0); Mean Platelet Volume 6.9; Monocytes # (A) 0.3 k/uL (0-1.0); Monocytes % (A) 2 %; Neutrophils # (A) 15.9 k/uL (1.3-7.7); Neutrophils % (A) 93 %; Platelet Count 287 k/uL (150-450); RBC 4.85 m/uL (3.80-5.40); RDW 17.4 % (11.5-15.5); WBC 17.1 k/uL (3.8-10.6)
--- NOTE | 2023-09-12 09:41 | XR ---
EXAMINATION TYPE: XR chest 2V DATE OF EXAM: 09/12/2023 COMPARISON: NONE HISTORY: cough TECHNIQUE: Single frontal view of the chest is obtained. FINDINGS: There is no focal air space opacity, pleural effusion, or pneumothorax seen. The cardiac silhouette size is within normal limits. The osseous structures are intact. IMPRESSION: 1. No acute process.
[2023-09-12 09:52] LABS: ALT 75 U/L (4-34); AST 132 U/L (14-36); African American GFR (CKD) >90 (>60 ml/min/1.73 sqM); Alcohol 61 mg/dL; Alkaline Phosphatase 134 U/L (38-126); Anion Gap 27 mmol/L; Blood Urea Nitrogen 10 mg/dL (7-17); Calcium 8.7 mg/dL (8.4-10.2); Chloride 101 mmol/L (98-107); Glucose 182 mg/dL (74-99); Non-African American GFR(CKD) >90 (>60 ml/min/1.73 sqM); Potassium 4.1 mmol/L (3.5-5.1); Sodium 137 mmol/L (137-145); Total Bilirubin 1.2 mg/dL (0.2-1.3); Total Protein 8.3 g/dL (6.3-8.2)
[2023-09-12] MEDS ORDERED: LORazepam 1 MG TAB PO STA (09:58)
[2023-09-12 10:23] LABS: Carbon Dioxide 9 mmol/L (22-30)
[2023-09-12 11:04] LABS: Amphetamine Screen,Urine Not Detected (NotDetected); Barbiturate Screen,Urine Not Detected (NotDetected); Benzodiazepines Screen,Urine Detected (NotDetected); Cocaine Screen,Urine Not Detected (NotDetected); Methadone Screen, Urine Not Detected (NotDetected); Opiate Screen,Urine Not Detected (NotDetected); Oxycodone Screen, Urine Not Detected (NotDetected); Phencyclidine Screen,Urine Not Detected (NotDetected); Tricyclic Antidepressant,Urine Not Detected (NotDetected); Urn Cannabinoid Scrn Not Detected (NotDetected)
[2023-09-12] MEDS: SODIUM CHLORIDE 0.9% 1,000 ML IV SCH ×2 (11:52→22:18)
[2023-09-12] MEDS ORDERED: THIAMINE 100 MG/ML 2 ML VIAL IM STA (12:48)
[2023-09-12] MEDS ORDERED: LORazepam 2 MG/ML INJ IV PRN ×2 (12:48)
[2023-09-12] MEDS: LORazepam 2 MG/ML INJ IV PRN ×4 (13:09→22:24)
--- NOTE | 2023-09-12 14:02 | US ---
EXAMINATION TYPE: US gallbladder DATE OF EXAM: 09/12/2023 COMPARISON: NONE CLINICAL INDICATION: Female, 42 years old with history of elevated LFT's; TECHNIQUE: Multiple sonographic images of the right upper quadrant are obtained. FINDINGS: EXAM MEASUREMENTS: Liver Length: 17.5 cm CBD: 0.4 cm Right Kidney: 10.9 x 4.3 x 4.3 cm Pancreas: visualized portions wnl, limited by overlying midline bowel gas Liver: measures in upper limits of normal, attenuating, heterogeneous Gallbladder: surgically absent Evidence for sonographic Sweeney's sign: no CBD: visualized portions wnl, limited by overlying bowel gas Right Kidney: wnl IMPRESSION: Borderline hepatomegaly with underlying hepatic steatosis.
[2023-09-12] MEDS ORDERED: NALOXONE 0.4 MG/ML 1 ML VIAL IV PRN (14:31)
[2023-09-12] MEDS ORDERED: SODIUM CHLORIDE 0.9% 1,000 ML IV SCH (14:45)
--- NOTE | 2023-09-12 17:14 | P.HPIM ---
History of Present Illness H&P Date: 09/12/23 Patient is a 42-year-old female with history of alcohol dependence, hypertension, depression/anxiety presenting with cough. She claims that her symptoms started about 2 weeks ago. For the last 2 weeks she has been having fevers, chills, cough, nausea, vomiting, anorexia. She denies any abdominal pain, urinary or bowel complaints. She denies any chest pain, shortness of breath. She denies any smoking. She drinks about 1/5 of vodka every day. She has had multiple bouts of alcohol withdrawals. She has been to rehab in the past but relapsed. She denies any travel history. In the ED, her temperature was 98, pulse 136, blood pressure 157/104, respiratory rate 22, saturating at 99% on room air. WBC 17.1, bicarb 9, anion gap 27, creatinine 0.65, BUN 10, lactate 7.3, total bilirubin 1.2, AST 135, ALT 75, alcohol level LXI, positive for COVID-19. EKG independently interpreted, shows sinus tachycardia. Chest x-ray independently interpreted, shows no opacities. Gallbladder ultrasound shows hepatomegaly with underlying hepatic steatosis, normal CBD. She was given oral Ativan in the ED, given 1 L of normal saline started on IV fluids. Patient being admitted for metabolic acidosis in the setting of alcohol dependence. Pertinent positives and negatives as discussed in HPI, a complete review of systems was performed and all other systems are negative. Patient seen and examined at bedside. Vital signs reviewed General: nontoxic, no distress, appears at stated age Derm: warm, dry Head: atraumatic, normocephalic, symmetric Eyes: EOMI, no lid lag, anicteric sclera, pupils equal round reactive to light ENT: Nose and ears atraumatic Neck: No thyromegaly, supple Mouth: no lip lesion, mucus membranes moist Cardiovascular: S1S2 reg, no murmur, no edema Lungs: clear to auscultation bilateral, no rhonchi, no rales, no wheeze, no accessory muscle use Abdominal: soft, nontender to palpation, no guarding, no appreciable organomegaly Ext: no gross muscle atrophy, muscle strength muscle strength 5 out of 5 in all 4 extremities, no contractures Neuro: CN II-XII grossly intact, slight tremor. Psych: Alert, oriented, appropriate affect Assessment/Plan: Active: High anion gap metabolic acidosis Lactic acidosis Leukocytosis Alcohol intoxication Alcohol dependence Impending alcohol withdrawal Dehydration Asymptomatic COVID-19 infection -Continue IV fluids at 1 20 mL an hour -Repeat lactate -Repeat BMP tomorrow -Repeat CBC tomorrow, leukocytosis likely in the setting of dehydration -IV Ativan as needed per CIWA score -Oral thiamine 100 mg daily -Currently on room air Chronic: Depression/anxiety Hypertension The patient is admitted with an anticipated less than 2 midnight stay as observation status for evaluation of lactic acidosis . Surrogate decision-maker: Aunt CODE STATUS:full code DVT prophylaxis: lovenox Anticipated discharge date: pending clinical course Anticipated discharge place: pending clinical course A total of 66 minutes was spent on the care of this complex patient more than 50% of the time was spent in counseling and care coordination. 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 History of Any Multi-Drug Resistant Organisms: None Reported Past Surgical History: Cholecystectomy Additional Past Surgical History / Comment(s): Left knee replacement. Past Anesthesia/Blood Transfusion Reactions: No Reported Reaction Past Psychological History: Anxiety, Depression Smoking Status: Never smoker Past Alcohol Use History: None Reported Past Drug Use History: None Reported - Past Family History Father Family Medical History: Pneumonia Additional Family Medical History / Comment(s): Parkinson's following a closed head injury, depression, TBI. Mother Family Medical History: Coronary Artery Disease (CAD) Additional Family Medical History / Comment(s): following a surgery for a heart valve problem. Medications and Allergies Home Medications Medication Instructions Recorded Confirmed Type Folic Acid 1 mg PO DAILY #14 tab 05/17/23 09/12/23 Rx lisinopriL [Zestril] 10 mg PO DAILY 08/12/23 09/12/23 History Multivitamins, Thera [Multivitamin 1 tab PO DAILY 08/27/23 09/12/23 History (formulary)] Acamprosate Calcium [Campral] 666 mg PO TID 30 Days #180 tab 09/02/23 09/12/23 Rx Loperamide [Imodium] 2 mg PO QID PRN cap 09/02/23 09/12/23 Rx Naltrexone HCl [Revia] 50 mg PO DAILY 30 Days #30 tab 09/02/23 09/12/23 Rx Venlafaxine HCl [Effexor XR] 150 mg PO DAILY 30 Days #30 cap 09/02/23 09/12/23 Rx busPIRone HCl [Buspar] 20 mg PO BID 30 Days #120 tab 09/02/23 09/12/23 Rx hydrOXYzine pamoate [Vistaril] 25 mg PO BID PRN 30 Days #60 cap 09/02/23 09/12/23 Rx traZODone HCL [Desyrel] 50 mg PO HS 30 Days #30 tab 09/02/23 09/12/23 Rx Allergies Allergy/AdvReac Type Severity Reaction Status Date / Time Sulfa (Sulfonamide Allergy Rash/Hives Verified 09/12/23 12:55 Antibiotics) Physical Exam Vitals: Vital Signs Temp Pulse Resp BP Pulse Ox 09/12/23 15:51 112 H 18 134/88 96 09/12/23 15:32 115 H 18 134/88 98 09/12/23 11:00 122 H 18 136/87 09/12/23 10:30 112 H 18 122/87 09/12/23 10:00 115 H 20 110/92 09/12/23 09:30 128 H 18 104/58 09/12/23 08:36 98 F 136 H 22 157/104 99 Intake and Output 09/12/23 09/12/23 09/12/23 06:59 14:59 22:59 Other: Weight 86.183 kg Results CBC & Chem 7: 09/12/23 09:26 09/12/23 09:26 Labs: Abnormal Lab Results - Last 24 Hours (Table) 09/12/23 09/12/23 09/12/23 Range/Units 08:41 09:26 09:26 WBC 17.1 H (3.8-10.6) k/uL RDW 17.4 H (11.5-15.5) % Neutrophils # 15.9 H (1.3-7.7) k/uL Lymphocytes # 0.7 L (1.0-4.8) k/uL Carbon Dioxide 9 L* (22-30) mmol/L Glucose 182 H (74-99) mg/dL Plasma Lactic Acid Feroz (0.7-2.0) mmol/L AST 132 H (14-36) U/L ALT 75 H (4-34) U/L Alkaline Phosphatase 134 H (38-126) U/L Total Protein 8.3 H (6.3-8.2) g/dL U Benzodiazepines Scrn (NotDetected) SARS-CoV-2 (PCR) Detected A (Not Detectd) 09/12/23 09/12/23 09/12/23 Range/Units 10:37 11:18 14:45 WBC (3.8-10.6) k/uL RDW (11.5-15.5) % Neutrophils # (1.3-7.7) k/uL Lymphocytes # (1.0-4.8) k/uL Carbon Dioxide (22-30) mmol/L Glucose (74-99) mg/dL Plasma Lactic Acid Feroz 7.3 H* 2.3 H* (0.7-2.0) mmol/L AST (14-36) U/L ALT (4-34) U/L Alkaline Phosphatase (38-126) U/L Total Protein (6.3-8.2) g/dL U Benzodiazepines Scrn Detected H (NotDetected) SARS-CoV-2 (PCR) (Not Detectd)
[2023-09-12] MEDS: ONDANSETRON 4 MG/2 ML VIAL IVP PRN (18:53)
[2023-09-12] MEDS: busPIRone HCl 10 MG TAB PO SCH (19:42)
[2023-09-12] MEDS: traZODone HCL 50 MG TAB PO SCH (19:42)
[2023-09-13] MEDS: ONDANSETRON 4 MG/2 ML VIAL IVP PRN (06:42)
[2023-09-13] MEDS: LORazepam 2 MG/ML INJ IV PRN ×2 (06:43→23:32)
[2023-09-13] MEDS: SODIUM CHLORIDE 0.9% 1,000 ML IV SCH ×2 (06:47→10:35)
[2023-09-13] MEDS: ENOXAPARIN 40 MG/0.4 ML SYRINGE SQ SCH (08:19)
[2023-09-13] MEDS: THIAMINE 100 MG TAB PO SCH (08:20)
[2023-09-13] MEDS: busPIRone HCl 10 MG TAB PO SCH ×2 (08:20→20:42)
[2023-09-13] MEDS: VENLAFAXINE HCL ER 150 MG CAP PO SCH (08:20)
[2023-09-13] MEDS: FOLIC ACID 1 MG TAB PO SCH (08:20)
[2023-09-13] MEDS: MULTIVITAMINS, THERA 1 EACH TAB PO SCH (08:20)
[2023-09-13] MEDS: lisinopriL 10 MG TAB PO SCH (08:20)
[2023-09-13] MEDS ORDERED: guaiFENesin-DM 600/30MG 1 EACH TAB.ER.12H PO PRN (10:53)
[2023-09-13 11:32] LABS: Anisocytosis Slight; Basophils % (A) 0 %; Eosinophils # (A) 0.1 k/uL (0-0.7); Eosinophils % (A) 2 %; HCT 37.6 % (34.0-46.0); HGB 12.8 gm/dL (11.4-16.0); Lymphocytes # (A) 0.6 k/uL (1.0-4.8); Lymphocytes % (A) 16 %; MCH 30.6 pg (25.0-35.0); MCV 90.2 fL (80.0-100.0); Mean Platelet Volume 8.2; Monocytes # (A) 0.1 k/uL (0-1.0); Monocytes % (A) 3 %; Neutrophils % (A) 77 %; Platelet Count 159 k/uL (150-450); RBC 4.17 m/uL (3.80-5.40); RDW 17.4 % (11.5-15.5); WBC 3.9 k/uL (3.8-10.6)
[2023-09-13 11:49] LABS: African American GFR (CKD) >90 (>60 ml/min/1.73 sqM); Anion Gap 7 mmol/L; Blood Urea Nitrogen 9 mg/dL (7-17); Calcium 8.1 mg/dL (8.4-10.2); Carbon Dioxide 26 mmol/L (22-30); Chloride 102 mmol/L (98-107); Glucose 98 mg/dL (74-99); Non-African American GFR(CKD) >90 (>60 ml/min/1.73 sqM); Sodium 135 mmol/L (137-145)
--- NOTE | 2023-09-13 12:28 | P.PN ---
Subjective Progress Note Date: 09/13/23 Hospital Course: 42-year-old female with history of alcohol dependence, hypertension, d epression/anxiety presenting with cough. In the ED, her temperature was 98, pulse 136, blood pressure 157/104, respiratory rate 22, saturating at 99% on room air. WBC 17.1, bicarb 9, anion gap 27, creatinine 0.65, BUN 10, lactate 7.3, total bilirubin 1.2, AST 135, ALT 75, alcohol level LXI, positive for COVID-19. EKG independently interpreted, shows sinus tachycardia. Chest x-ray independently interpreted, shows no opacities. Gallbladder ultrasound shows hepatomegaly with underlying hepatic steatosis, normal CBD. She was given oral Ativan in the ED, given 1 L of normal saline started on IV fluids. Patient being admitted for metabolic acidosis in the setting of alcohol dependence. Lac tic acidosis is improved with IV fluids. Currently having alcohol withdrawals, requiring IV Ativan. Subjective: Patient seen and examined at bedside. No acute events overnight. Pertinent positives and negatives as discussed above, a complete review of systems was performed and all other systems are negative. Vitals Signs Reviewed. General: nontoxic, no distress, appears at stated age Derm: warm, dry Head: atraumatic, normocephalic, symmetric Eyes: EOMI, no lid lag, anicteric sclera Mouth: no lip lesion, mucus membranes moist Cardiovascular: S1S2 reg, tachycardic, no murmur Lungs: CTA bilateral, no rhonchi, no rales , no accessory muscle use Abdominal: soft, nontender to palpation, no guarding, no appreciable organomegaly Ext: no gross muscle atrophy, no edema, no contractures Neuro: CN II-XI grossly intact, no focal neuro deficits, tremulous Psych: Alert, oriented, appropriate affect Data Reviewed Today: Pertinent Labs: WBC 3.9, hemoglobin 12.8, anion gap 7, bicarb 26, creatinine 0.64, lactate 1.6 Imaging: No new imaging Assessment and Plan: Severe Alcohol withdrawal Alcohol dependence Acute alcohol intoxication Acute COVID-19 infection -IV Ativan as needed per CIWA score, monitor for decrease in respiratory drive -Continue on telemetry, patient currently tachycardic in the setting of withdrawals -Oral thiamine 100 mg daily -Currently on room air -Started on Mucinex DM 1 each every 12 hours as needed cough Resolved: High anion gap metabolic acidosis Lactic acidosis Leukocytosis Dehydration Chronic: Depression/anxiety Hypertension DVT ppx: Lovenox Code status: Full code Anticipated discharge place: Likely home Anticipated discharge time: Pending clinical course Objective - Vital Signs Vital signs: Vital Signs Temp 97.9 F 09/13/23 06:46 Pulse 97 09/13/23 06:46 Resp 19 09/13/23 06:46 BP 146/89 09/13/23 06:46 Pulse Ox 100 09/13/23 06:46 FiO2 Intake & Output 09/12/23 09/13/23 09/13/23 18:59 06:59 18:59 Weight 86.183 kg Other: # Voids 1 - Labs CBC & Chem 7: 09/13/23 11:17 09/13/23 11:17 Labs: Abnormal Lab Results - Last 24 Hours (Table) 09/12/23 09/13/23 09/13/23 Range/Units 14:45 11:17 11:17 RDW 17.4 H (11.5-15.5) % Lymphocytes # 0.6 L (1.0-4.8) k/uL Sodium 135 L (137-145) mmol/L Plasma Lactic Acid Feroz 2.3 H* (0.7-2.0) mmol/L Calcium 8.1 L (8.4-10.2) mg/dL
[2023-09-13] MEDS: traZODone HCL 50 MG TAB PO SCH (20:42)
[2023-09-14] MEDS: MULTIVITAMINS, THERA 1 EACH TAB PO SCH (07:53)
[2023-09-14] MEDS: ENOXAPARIN 40 MG/0.4 ML SYRINGE SQ SCH (07:53)
[2023-09-14] MEDS: lisinopriL 10 MG TAB PO SCH (07:53)
[2023-09-14] MEDS: busPIRone HCl 10 MG TAB PO SCH (07:53)
[2023-09-14] MEDS: FOLIC ACID 1 MG TAB PO SCH (07:53)
[2023-09-14] MEDS: THIAMINE 100 MG TAB PO SCH (07:53)
[2023-09-14] MEDS: VENLAFAXINE HCL ER 150 MG CAP PO SCH (07:53)
[2023-09-14] MEDS: LORazepam 2 MG/ML INJ IV PRN (09:10)
[2023-09-14 09:28] VITALS: BP 116/74; PULSE 81; RESP 20; TEMP 97.4
--- NOTE | 2023-09-14 12:15 | P.DS ---
Providers Date of admission: 09/12/23 14:06 Expected date of discharge: 09/14/23 Attending physician: Farhan Pathak MD Primary care physician: Jones Mclean [facility] Course: Discharge Diagnosis: Severe Alcohol withdrawal Alcohol dependence Acute alcohol intoxication Acute COVID-19 infection High anion gap metabolic acidosis Lactic acidosis Leukocytosis Dehydration Depression/anxiety Hypertension Hospital Course: 42-year-old female with history of alcohol dependence, hypertension, depression/anxiety presenting with cough. In the ED, her temperature was 98, pulse 136, blood pressure 157/104, respiratory rate 22, saturating at 99% on room air. WBC 17.1, bicarb 9, anion gap 27, creatinine 0.65, BUN 10, lactate 7.3, total bilirubin 1.2, AST 135, ALT 75, alcohol level 61, positive for COVID- 19. EKG independently interpreted, shows sinus tachycardia. Chest x-ray independently interpreted, shows no opacities. Gallbladder ultrasound shows hepatomegaly with underlying hepatic steatosis, normal CBD. She was given oral Ativan in the ED, given 1 L of normal saline started on IV fluids. Patient being admitted for metabolic acidosis in the setting of alcohol dependence. Lactic acidosis is improved with IV fluids. Patient was going through alcohol withdrawal, requiring IV Ativan. Now doing better. Not requiring any oxygen. Follow-up with PCP. Patient seen and examined at bedside. Vital signs reviewed and stable. General: nontoxic, no distress, appears at stated age Derm: warm, dry Head: atraumatic, normocephalic, symmetric Eyes: EOMI, no lid lag, anicteric sclera Mouth: no lip lesion, mucus membranes moist Cardiovascular: S1S2 reg, no murmur Lungs: CTA bilateral, no rhonchi, no rales , no accessory muscle use Abdominal: soft, nontender to palpation, no guarding, no appreciable organomegaly Ext: no gross muscle atrophy, no edema, no contractures Neuro: CN II-XI grossly intact, no focal neuro deficits Psych: Alert, oriented, appropriate affect A total of 36 minutes of time were spent preparing this complex discharge summary. Patient was discharged on 09/14/23 at 10:27. Patient Condition at Discharge: Stable Plan - Discharge Summary Discharge Rx Participant: No New Discharge Prescriptions: New Thiamine [Vitamin B-1] 100 mg PO DAILY #60 tab Continue busPIRone HCl [Buspar] 20 mg PO BID 30 Days #120 tab traZODone HCL [Desyrel] 50 mg PO HS 30 Days #30 tab Venlafaxine HCl [Effexor XR] 150 mg PO DAILY 30 Days #30 cap Naltrexone HCl [Revia] 50 mg PO DAILY 30 Days #30 tab Folic Acid 1 mg PO DAILY #14 tab lisinopriL [Zestril] 10 mg PO DAILY Multivitamins, Thera [Multivitamin (formulary)] 1 tab PO DAILY Acamprosate Calcium [Campral] 666 mg PO TID 30 Days #180 tab Loperamide [Imodium] 2 mg PO QID PRN cap PRN Reason: Diarrhea hydrOXYzine pamoate [Vistaril] 25 mg PO BID PRN 30 Days #60 cap PRN Reason: Anxiety Discharge Medication List Folic Acid 1 mg PO DAILY #14 tab 05/17/23 [Rx] lisinopriL [Zestril] 10 mg PO DAILY 08/12/23 [History] Multivitamins, Thera [Multivitamin (formulary)] 1 tab PO DAILY 08/27/23 [History] Acamprosate Calcium [Campral] 666 mg PO TID 30 Days #180 tab 09/02/23 [Rx] Loperamide [Imodium] 2 mg PO QID PRN cap 09/02/23 [Rx] Naltrexone HCl [Revia] 50 mg PO DAILY 30 Days #30 tab 09/02/23 [Rx] Venlafaxine HCl [Effexor XR] 150 mg PO DAILY 30 Days #30 cap 09/02/23 [Rx] busPIRone HCl [Buspar] 20 mg PO BID 30 Days #120 tab 09/02/23 [Rx] hydrOXYzine pamoate [Vistaril] 25 mg PO BID PRN 30 Days #60 cap 09/02/23 [Rx] traZODone HCL [Desyrel] 50 mg PO HS 30 Days #30 tab 09/02/23 [Rx] Thiamine [Vitamin B-1] 100 mg PO DAILY #60 tab 09/14/23 [Rx] Follow up Appointment(s)/Referral(s): Jones Mclean DO [Primary Care Provider] - 1-2 days (Office is closed at time of discharge. Please call for follow-up appointment.) Patient Instructions/Handouts: Alcohol Withdrawal (DC), Alcohol Dependence (DC) Activity/Diet/Wound Care/Special Instructions: Please see PCP. Discharge Disposition: HOME SELF-CARE
== END 2023-09-14 11:25 | disposition home or self-care (01) ==
LOC: EC 08:31 → 6NMEDSUR 14:06 → 5NMEDONC 16:58 → 4SSUR 16:59
PROVIDERS: ADMIT Student in an Organized Health Care Education/Training Program; ATTEND Student in an Organized Health Care Education/Training Program
DX: F10.239 Alcohol dependence with withdrawal, unspecified (principal); F10.229 Alcohol dependence with intoxication, unspecified; U07.1 COVID-19; R00.0 Tachycardia, unspecified; E86.0 Dehydration; E87.20 Acidosis, unspecified; D72.829 Elevated white blood cell count, unspecified; F41.9 Anxiety disorder, unspecified; F32.A Depression, unspecified; I10 Essential (primary) hypertension; Y90.3 Blood alcohol level of 60-79 mg/100 ml; Z79.899 Other long term (current) drug therapy; Z88.2 Allergy status to sulfonamides
CPT/HCPCS: 96376 ×4; 96361 ×3; 96372 ×3; 96375; 96374; 99284; 36415; 93005; 80053; 80048; 83605; 85025 ×2; 80306; 80320; 87636; 71046; 76705; G0378 ×4; J2060 ×3; J3411; J2405 ×2; J1650 ×2

== ENCOUNTER 2024-02-04 07:51 | Observation (INO) | payer OTHER ==
--- NOTE | 2024-02-04 08:08 | ED ---
General Adult HPI - General Chief complaint: Nausea/Vomiting/Diarrhea Stated complaint: Dehydration Time Seen by Provider: 02/04/24 07:55 Source: patient, EMS Mode of arrival: EMS Limitations: no limitations - History of Present Illness Initial comments: 43-year-old female with past medical history of alcohol abuse who presents emergency department reporting chest pain. States that she feels like her heart is racing. She attributes it to alcohol withdrawal. She does drink 1/5 of vodka daily. States that her last drink was at 5 PM. Since then she has had intractable nausea and vomiting with racing heart. She denies history of withdr awal seizures. No cardiac history. EMS did start an IV, gave her 800 mL of fluid and an ODT Zofran. Patient continues to have heaving. Denies fevers. No other alleviating, precipitating or modifying factors - Related Data Home Medications Medication Instructions Recorded Confirmed lisinopriL [Zestril] 10 mg PO DAILY 08/12/23 02/04/24 busPIRone HCL 15 mg PO BID 02/04/24 02/04/24 clonazePAM [KlonoPIN] 0.5 mg PO DAILY PRN 02/04/24 02/04/24 Previous Rx's Medication Instructions Recorded Folic Acid 1 mg PO DAILY #14 tab 05/17/23 Venlafaxine HCl [Effexor XR] 150 mg PO DAILY 30 Days #30 cap 09/02/23 hydrOXYzine pamoate [Vistaril] 25 mg PO BID PRN 30 Days #60 cap 09/02/23 traZODone HCL [Desyrel] 50 mg PO HS 30 Days #30 tab 09/02/23 Allergies Allergy/AdvReac Type Severity Reaction Status Date / Time Sulfa (Sulfonamide Allergy Rash/Hives Verified 02/04/24 10:39 Antibiotics) Review of Systems ROS Statement: Those systems with pertinent positive or pertinent negative responses have been documented in the HPI. ROS Other: All systems not noted in ROS Statement are negative. Past Medical History Past Medical History: Hypertension, Neurologic Disorder, Rheumatoid Arthritis (RA) Additional Past Medical History / Comment(s): neuropathy, covid History of Any Multi-Drug Resistant Organisms: None Reported Past Surgical History: Cholecystectomy Additional Past Surgical History / Comment(s): Left knee replacement. Past Anesthesia/Blood Transfusion Reactions: No Reported Reaction Past Psychological History: Anxiety, Depression Smoking Status: Never smoker Past Alcohol Use History: Abuse, Daily Past Drug Use History: None Reported - Past Family History Father Family Medical History: Pneumonia Additional Family Medical History / Comment(s): Parkinson's following a closed head injury, depression, TBI. Mother Family Medical History: Coronary Artery Disease (CAD) Additional Family Medical History / Comment(s): following a surgery for a heart valve problem. General Exam Limitations: no limitations Course Vital Signs 02/04/24 02/04/24 07:55 10:08 Temperature 98.8 F Pulse Rate 131 H 128 H Respiratory 20 18 Rate Blood Pressure 149/72 146/87 O2 Sat by Pulse 95 96 Oximetry Medical Decision Making - Medical Decision Making Was pt. sent in by a medical professional or institution (Dr. PA, CLEAN ROOM ASSEMBLER, urgent care, hospital, or senior care...) When possible be specific @ -[No] Did you speak to anyone other than the patient for history (EMS, parent, family, police, friend...)? What history was obtained from this source @ -[No] Did you review nursing and triage notes (agree or disagree)? Why? @ -[I reviewed and agree with nursing and triage notes] Were old charts reviewed (outside hosp., previous admission, EMS record, old EKG, old radiological studies, urgent care reports/EKG's, senior care records)? Report findings @ -[No old charts were reviewed] Differential Diagnosis (chest pain, altered mental status, abdominal pain women, abdominal pain men, vaginal bleeding, weakness, fever, dyspnea, syncope, he adache, dizziness, GI bleed, back pain, seizure, CVA, palpatations, mental health, musculoskeletal)? @ -[not applicable] EKG interpreted by me (3pts min.). @ -Yes and demonstrates sinus tachycardia with a rate of 119. PA interval 154. QRS 92. QTc of 506. ST depression V2V3 X-rays interpreted by me (1pt min.). @ -[None done] CT interpreted by me (1pt min.). @ -[None done] U/S interpreted by me (1pt. min.). @ -[None done] What testing was considered but not performed or refused? (CT, X-rays, U/S, labs)? Why? @ -[None] What meds were considered but not given or refused? Why? @ -[None] Did you discuss the management of the patient with other professionals (professionals i.e. , PA, CLEAN ROOM ASSEMBLER, lab, RT, psych nurse, social media manager, applied psychology professor, teacher, safety security officer, case technician)? Give summary @ -[No] Was smoking cessation discussed for >3mins.? @ -[No] Was critical care preformed (if so, how long)? @ -[No] Were there social determinants of health that impacted care today? How? (Home lessness, low income, unemployed, alcoholism, drug addiction, transportation, low edu. Level, literacy, decrease access to med. care, senior living, rehab)? @ -[No] Was there de-escalation of care discussed even if they declined (Discuss DNR or withdrawal of care, Hospice)? DNR status @ -[No] What co-morbidities impacted this encounter? (DM, HTN, Smoking, COPD, CAD, Cancer, CVA, ARF, Chemo, Hep., AIDS, mental health diagnosis, sleep apnea, morbid obesity)? @ -[None] Was patient admitted / discharged? Hospital course, mention meds given and route, prescriptions, significant lab abnormalities, going to OR and other pertinent info. @ -[hospital course] Undiagnosed new problem with uncertain prognosis? @ -[No] Drug Therapy requiring intensive monitoring for toxicity (Heparin, Nitro, Insulin, Cardizem)? @ -[No] Were any procedures done? @ -[No] Diagnosis/symptom? @ -[default] Acute, or Chronic, or Acute on Chronic? @ -[default] Uncomplicated (without systemic symptoms) or Complicated (systemic symptoms)? @ -[default] Side effects of treatment? @ -[No] Exacerbation, Progression, or Severe Exacerbation? @ -[No] Poses a threat to life or bodily function? How? (Chest pain, [place], [place], pneumonia, PE, COPD, DKA, ARF, appy, cholecystitis, CVA, Diverticulitis, Homicidal, Suicidal, threat to staff... and all critical care pts) @ -[No] - Lab Data Result diagrams: 02/04/24 08:37 02/04/24 08:37 Lab Results 02/04/24 02/04/24 02/04/24 Range/Units 08:37 08:37 08:37 WBC 9.1 (3.8-10.6) k/uL RBC 4.16 (3.80-5.40) m/uL Hgb 12.7 (11.4-16.0) gm/dL Hct 36.9 (34.0-46.0) % MCV 88.6 (80.0-100.0) fL MCH 30.6 (25.0-35.0) pg MCHC 34.6 (31.0-37.0) g/dL RDW 16.6 H (11.5-15.5) % Plt Count 178 (150-450) k/uL MPV 7.5 Neutrophils % 89 % Lymphocytes % 5 % Monocytes % 5 % Eosinophils % 0 % Basophils % 0 % Neutrophils # 8.1 H (1.3-7.7) k/uL Lymphocytes # 0.4 L (1.0-4.8) k/uL Monocytes # 0.4 (0-1.0) k/uL Eosinophils # 0.0 (0-0.7) k/uL Basophils # 0.0 (0-0.2) k/uL Anisocytosis Slight Sodium 134 L (137-145) mmol/L Potassium 3.6 (3.5-5.1) mmol/L Chloride 102 (98-107) mmol/L Carbon Dioxide 13 L (22-30) mmol/L Anion Gap 19 mmol/L BUN 12 (7-17) mg/dL Creatinine 0.61 (0.52-1.04) mg/dL Est GFR (CKD-EPI)AfAm >90 (>60 ml/min/1.73 sqM) Est GFR (CKD-EPI)NonAf >90 (>60 ml/min/1.73 sqM) Glucose 102 H (74-99) mg/dL Calcium 7.8 L (8.4-10.2) mg/dL Total Bilirubin 1.5 H (0.2-1.3) mg/dL AST 81 H (14-36) U/L ALT 55 H (4-34) U/L Alkaline Phosphatase 108 (38-126) U/L Troponin I <0.012 (0.000-0.034) ng/mL Total Protein 7.4 (6.3-8.2) g/dL Albumin 4.5 (3.5-5.0) g/dL Lipase 102 (23-300) U/L Serum Alcohol 129 mg/dL Disposition Clinical Impression: Alcoholic intoxication, Alcohol withdrawal syndrome, Tachycardia, Nausea Disposition: ADMITTED IP TO THIS HOSP Condition: Stable Is patient prescribed a controlled substance at d/c from ED?: No Referrals: Jones Mclean DO [Primary Care Provider] - 1-2 days Time of Disposition: 10:47 Decision to Admit Reason: Admit from EC Decision Date: 02/04/24 Decision Time: 10:47
[2024-02-04] MEDS: SODIUM CHLORIDE 0.9% 2,000 ML IV STA (08:34)
[2024-02-04] MEDS: LORazepam 2 MG/ML INJ IV STA (08:48)
[2024-02-04 08:50] LABS: Anisocytosis Slight; Basophils % (A) 0 %; Eosinophils % (A) 0 %; HCT 36.9 % (34.0-46.0); HGB 12.7 gm/dL (11.4-16.0); Lymphocytes # (A) 0.4 k/uL (1.0-4.8); Lymphocytes % (A) 5 %; MCH 30.6 pg (25.0-35.0); MCHC 34.6 g/dL (31.0-37.0); MCV 88.6 fL (80.0-100.0); Mean Platelet Volume 7.5; Monocytes # (A) 0.4 k/uL (0-1.0); Monocytes % (A) 5 %; Neutrophils # (A) 8.1 k/uL (1.3-7.7); Neutrophils % (A) 89 %; Platelet Count 178 k/uL (150-450); RBC 4.16 m/uL (3.80-5.40); RDW 16.6 % (11.5-15.5); WBC 9.1 k/uL (3.8-10.6)
[2024-02-04 08:59] LABS: ALT 55 U/L (4-34); AST 81 U/L (14-36); African American GFR (CKD) >90 (>60 ml/min/1.73 sqM); Albumin 4.5 g/dL (3.5-5.0); Alkaline Phosphatase 108 U/L (38-126); Anion Gap 19 mmol/L; Blood Urea Nitrogen 12 mg/dL (7-17); Calcium 7.8 mg/dL (8.4-10.2); Carbon Dioxide 13 mmol/L (22-30); Chloride 102 mmol/L (98-107); Glucose 102 mg/dL (74-99); Lipase 102 U/L (23-300); Non-African American GFR(CKD) >90 (>60 ml/min/1.73 sqM); Potassium 3.6 mmol/L (3.5-5.1); Sodium 134 mmol/L (137-145); Total Bilirubin 1.5 mg/dL (0.2-1.3); Total Protein 7.4 g/dL (6.3-8.2)
[2024-02-04 09:05] LABS: Alcohol 129 mg/dL
[2024-02-04] MEDS: diphenhydrAMINE 50 MG/ML 1 ML VIAL IVP STA (10:11)
[2024-02-04] MEDS: METOCLOPRAMIDE 5 MG/ML 2 ML VIAL IVP STA (10:11)
[2024-02-04] MEDS ORDERED: LORazepam 2 MG/ML INJ IV PRN (10:41)
[2024-02-04] MEDS ORDERED: NALOXONE 0.4 MG/ML 1 ML VIAL IV PRN (10:47)
[2024-02-04] MEDS: LORazepam 2 MG/ML INJ IV PRN ×2 (11:27→22:05)
[2024-02-04] MEDS: THIAMINE 100 MG/ML 2 ML VIAL IM STA (11:27)
[2024-02-04] MEDS: SODIUM CHLORIDE 0.9% 1,000 ML IV SCH (11:28)
--- NOTE | 2024-02-04 11:28 | P.HPIM ---
History of Present Illness H&P Date: 02/04/24 History of Presenting Illness: Patient is a pleasant 43-year-old female with a past medical history of anxiety, depression, hypertension, rheumatoid arthritis, and daily alcohol abuse. Patient reports longstanding history of alcoholism and states she was clean and going to [employer] meetings, however relapsed approximately 1 year ago and has been consistently drinking a minimum of a fifth of vodka daily. Patient reports she was trying to quit at home because she wants to get her life back and stop drinking, however she reports becoming significantly ill feeling anxious, shaky, nauseous and vomiting. She reports she was shaking so bad she felt her heart was going to race right out of her chest so she knew she had to come to the hospital for assistance with her detox. She denies history of alcohol withdrawal seizures or previous ICU admissions for alcohol withdrawal. Patient reports last drink of alcohol was last night. She currently denies having any other complaints at this time including recent falls or injuries, headache, lightheadedness, dizziness, chest pain, shortness of breath, abdominal pain, or experiencing any numbness/tingling/weakness/swelling in her extremities. She underwent evaluation in the emergency department. Vital signs upon arrival show blood pressure 149/72, heart rate 131, respiratory rate 20, temp 98.8 F, and SpO2 of 95% on room air. EKG completed showing sinus tachycardia at 119 bpm with nonspecific T wave abnormality. Labs completed and reviewed CBC showing no significant abnormalities. BMP revealing mild hyponatremia with sodium of 134, chloride of 102, bicarb of 13 and elevated anion gap of 19. Troponin less than 0.012. Alcohol level 129 upon arrival. Patient admitted under our services to undergo assisted medical detox. Review of systems: Pertinent positives and negatives as discussed in HPI, a complete review of systems was performed and all other systems are negative. Physical exam: Vital signs reviewed and stable. General: Nontoxic, no distress and appears stated age. Derm: Skin warm and dry, normal coloration for ethnicity. Head: Atraumatic, normocephalic and symmetric. Eyes: EOMs intact, no lid lag, and anicteric sclera Mouth: no lip lesions, mucus membranes moist Cardiovascular: Tachycardic rate with regular rhythm. Normal S1S2, no murmur, positive posterior tibial pulses bilaterally, and cap refill < 2 seconds. Lungs: Respirations even, regular, and unlabored on room air. Lungs CTA bilaterally, no rhonchi, no rales, no wheezing, and no accessory muscle usage. Abdominal: soft, nontender to palpation, no guarding, no appreciable organomegaly Ext: ROM intact. No gross muscle atrophy, no edema, no contractures Neuro: Speech clear, face symmetrical and CN II-XII grossly intact with no noted focal neuro deficits. Tremors noted. Psych: Alert and oriented to person, place, time, and situation. Appropriate and pleasant affect. Assessment and Plan of Care: Alcohol withdraw in active alcoholic Sinus tachycardia, secondary to acute alcohol withdraw and dehydration Prolonged QTc, likely chronic due to lever operator use of antipsychotic medications Effexor and trazodone Electrolyte abnormalities with hyponatremia, hypocarbia, and hypomagnesemia. Secondary to daily alcohol use/abuse. Hyperbilirubinemia with elevated transaminases. Secondary to daily alcohol use/abuse. Anxiety and depression Hypertension -Order placed for monitoring of CIWA scores and patient to be medicated with Ativan 0.5 mg every 4 hours as needed for CIWA score of 4-5, Ativan 1 mg every 4 hours for CIWA score of 6-7, Ativan 2 mg every 3 hours CIWA score of 8-9, and Ativan 2 mg every 2 hours forr CIWA score of 10 or greater. -In addition to CIWA protocol patient also started on scheduled Librium 50 mg 3 times daily and will titrate -Continuous IV hydration with 0.9% normal saline at 130 cc/h -Thiamine 100 mg daily, Multivitamin daily, and Folate 1 mg daily -Seizure, fall, aspiration, and elopement precautions in place. -Replace magnesium with 2 g magnesium sulfate IVPB and we will continue close monitoring of electrolytes and replace as needed. -Telemetry monitoring. -Repeat CMP to follow-up on hyperbilirubinemia with elevated transaminases. -Continue daily medication regimen with Effexor 150 mg daily, trazodone 50 mg nightly, and BuSpar 15 mg twice daily. Will repeat daily EKG tomorrow morning to monitor QTc, if further prolongation may consider psychiatry evaluation for medication changes. Hypertension -Continue daily medication regimen with lisinopril 10 mg daily. The patient is admitted with an anticipated greater than 2 midnight stay for evaluation of alcohol withdraw CODE STATUS: Full code DVT prophylaxis: Lovenox Anticipated discharge date: Clinical course to determine Anticipated discharge place: Home versus inpatient drug and alcohol rehabilitation facility Patient was seen independently by Nurse Practitioner. This document was prepared using waygum dictation software. Please allow for er rors in director of teaching and learning while rare they do occur. Elio Garcia NP rendered care for this patient independently, reviewed the findings and plan as documented in the note above. I did not physically speak with or examine the patient on this date. Past Medical History Past Medical History: Hypertension, Neurologic Disorder, Rheumatoid Arthritis (RA) Additional Past Medical History / Comment(s): neuropathy, covid History of Any Multi-Drug Resistant Organisms: None Reported Past Surgical History: Cholecystectomy Additional Past Surgical History / Comment(s): Left knee replacement. Past Anesthesia/Blood Transfusion Reactions: No Reported Reaction Past Psychological History: Anxiety, Depression Smoking Status: Never smoker Past Alcohol Use History: Abuse, Daily Past Drug Use History: None Reported - Past Family History Father Family Medical History: Pneumonia Additional Family Medical History / Comment(s): Parkinson's following a closed head injury, depression, TBI. Mother Family Medical History: Coronary Artery Disease (CAD) Additional Family Medical History / Comment(s): following a surgery for a heart valve problem. Medications and Allergies Home Medications Medication Instructions Recorded Confirmed Type Folic Acid 1 mg PO DAILY #14 tab 05/17/23 02/04/24 Rx lisinopriL [Zestril] 10 mg PO DAILY 08/12/23 02/04/24 History Venlafaxine HCl [Effexor XR] 150 mg PO DAILY 30 Days #30 cap 09/02/23 02/04/24 Rx hydrOXYzine pamoate [Vistaril] 25 mg PO BID PRN 30 Days #60 cap 09/02/23 02/04/24 Rx traZODone HCL [Desyrel] 50 mg PO HS 30 Days #30 tab 09/02/23 02/04/24 Rx busPIRone HCL 15 mg PO BID 02/04/24 02/04/24 History clonazePAM [KlonoPIN] 0.5 mg PO DAILY PRN 02/04/24 02/04/24 History Allergies Allergy/AdvReac Type Severity Reaction Status Date / Time Sulfa (Sulfonamide Allergy Rash/Hives Verified 02/04/24 10:39 Antibiotics) Physical Exam Vitals: Vital Signs Temp Pulse Resp BP Pulse Ox 02/04/24 10:08 128 H 18 146/87 96 02/04/24 07:55 98.8 F 131 H 20 149/72 95 Intake and Output 02/03/24 02/04/24 02/04/24 22:59 06:59 14:59 Other: Weight 81.647 kg Results CBC & Chem 7: 02/04/24 08:37 02/04/24 08:37 Labs: Abnormal Lab Results - Last 24 Hours (Table) 02/04/24 02/04/24 Range/Units 08:37 08:37 RDW 16.6 H (11.5-15.5) % Neutrophils # 8.1 H (1.3-7.7) k/uL Lymphocytes # 0.4 L (1.0-4.8) k/uL Sodium 134 L (137-145) mmol/L Carbon Dioxide 13 L (22-30) mmol/L Glucose 102 H (74-99) mg/dL Calcium 7.8 L (8.4-10.2) mg/dL Total Bilirubin 1.5 H (0.2-1.3) mg/dL AST 81 H (14-36) U/L ALT 55 H (4-34) U/L
[2024-02-04] MEDS: busPIRone HCl 10 MG TAB PO SCH (11:38)
[2024-02-04] MEDS: lisinopriL 10 MG TAB PO SCH (11:39)
[2024-02-04] MEDS: VENLAFAXINE HCL ER 150 MG CAP PO SCH (11:39)
[2024-02-04] MEDS: chlordiazePOXIDE 25 MG CAP PO SCH (17:10)
[2024-02-04] MEDS: MAGNESIUM SULFATE-D5W PMX 1 GM in DEXTROSE/WATER 1 100ML.BAG IVPB SCH (18:05)
[2024-02-04] MEDS: traZODone HCL 50 MG TAB PO SCH (20:48)
[2024-02-05] MEDS: LORazepam 1 MG TAB PO PRN (01:02)
[2024-02-05 11:21] LABS: Basophils # (A) 0.02 X 10*3/uL (0.00-0.10); Basophils % (A) 0.5 %; Eosinophils # (A) 0.06 X 10*3/uL (0.04-0.35); Eosinophils % (A) 1.4 %; HCT 32.6 % (37.2-46.3); HGB 11.1 g/dL (12.0-15.0); Lymphocytes # (A) 0.75 X 10*3/uL (0.90-5.00); Lymphocytes % (A) 16.9 %; MCH 30.6 pg (27.0-32.0); MCV 89.8 FL (80.0-97.0); Mean Platelet Volume 9.7 FL (9.5-12.2); Monocytes # (A) 0.29 X 10*3/uL (0.20-1.00); Monocytes % (A) 6.5 %; NRBC Per 100 WBC 0 X 10*3/uL (0.00-0.01); Neutrophils # (A) 3.31 X 10*3/uL (1.80-7.70); Neutrophils % (A) 74.5 %; Platelet Count 113 X 10*3/uL (140-440); RBC 3.63 X 10*6/uL (4.10-5.20); RDW 16.4 % (11.5-14.5); WBC 4.44 X 10*3/uL (4.50-10.00)
[2024-02-05 11:34] LABS: ALT 37 U/L (8-44); AST 48 U/L (13-35); Albumin 3.8 g/dL (3.8-4.9); Albumin/Globulin Ratio 1.73 Ratio (1.60-3.17); Alkaline Phosphatase 80 U/L (41-126); Blood Urea Nitrogen 8.4 mg/dL (9.0-27.0); Calcium 7.7 mg/dL (8.7-10.3); Carbon Dioxide 23.8 mmol/L (21.6-31.8); Chloride 100 mmol/L (96-109); Globulin 2.2 g/dL (1.6-3.3); Glucose 94 mg/dL (70-110); Magnesium 2.1 mg/dL (1.5-2.4); Potassium 2.8 mmol/L (3.5-5.5); Sodium 134 mmol/L (135-145)
[2024-02-05] MEDS: THIAMINE 100 MG TAB PO SCH (11:44)
[2024-02-05] MEDS: ENOXAPARIN 40 MG/0.4 ML SYRINGE SQ SCH (11:44)
[2024-02-05] MEDS: FOLIC ACID 1 MG TAB PO SCH (11:44)
[2024-02-05] MEDS: MULTIVITAMINS, THERA 1 EACH TAB PO SCH (11:45)
[2024-02-05] MEDS: LORazepam 0.5 MG TAB PO PRN (14:00)
--- NOTE | 2024-02-05 15:43 | P.PN ---
Subjective Progress Note Date: 02/05/24 Hospital Course: Patient is a pleasant 43-year-old female with a past medical history of anxiety, depression, hypertension, rheumatoid arthritis, and daily alcohol abuse. Patient reports longstanding history of alcoholism and states she was clean and going to [employer] meetings, however relapsed approximately 1 year ago and has been consistently drinking a minimum of a fifth of vodka daily. Patient reports she was trying to quit at home because she wants to get her life back and stop drinking, however she reports becoming significantly ill feeling anxious, shaky, nauseous and vomiting. She reports she was shaking so bad she felt her heart was going to race right out of her chest so she knew she had to come to the hospital for assistance with her detox. She denies history of alcohol withdrawal seizures or previous ICU admissions for alcohol withdrawal. Patient reports last drink of alcohol was last night. She currently denies having any other complaints at this time including recent falls or injuries, headache, lightheadedness, dizziness, chest pain, shortness of breath, abdominal pain, or experiencing any numbness/tingling/weakness/swelling in her extremities. She underwent evaluation in the emergency department. Vital signs upon arrival show blood pressure 149/72, heart rate 131, respiratory rate 20, temp 98.8 F, and SpO2 of 95% on room air. EKG completed showing sinus tachycardia at 119 bpm with nonspecific T wave abnormality. Labs completed and reviewed CBC showing no significant abnormalities. BMP revealing mild hyponatremia with sodium of 134, chloride of 102, bicarb of 13 and elevated anion gap of 19. Troponin less than 0.012. Alcohol level 129 upon arrival. Patient admitted under our services to undergo assisted medical detox. Physical exam: Patient seen and fully evaluated at bedside this morning. Patient had telemetry monitoring leads/wires and IV tubing tangled all around her, she was very fidgety and expressed feeling anxious this morning. Mild tremors noted. Vital signs reviewed and stable. General: Nontoxic, no distress and appears stated age. Derm: Skin warm and dry, normal coloration for ethnicity. Head: Atraumatic, normocephalic and symmetric. Eyes: EOMs intact, no lid lag, and anicteric sclera Mouth: no lip lesions, mucus membranes moist Cardiovascular: Tachycardic rate with regular rhythm. Normal S1S2, no murmur, positive posterior tibial pulses bilaterally, and cap refill < 2 seconds. Lungs: Respirations even, regular, and unlabored on room air. Lungs CTA bilaterally, no rhonchi, no rales, no wheezing, and no accessory muscle usage. Abdominal: soft, nontender to palpation, no guarding, no appreciable organomegaly Ext: ROM intact. No gross muscle atrophy, no edema, no contractures Neuro: Speech clear, face symmetrical and CN II-XII grossly intact with no noted focal neuro deficits. Tremors noted. Psych: Alert and oriented to person, place, time, and situation. Appropriate and pleasant affect. 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 Secondary to daily alcohol use/abuse. Pancytopenia. Secondary to alcohol use/abuse. Hyperbilirubinemia with elevated transaminases. Secondary to daily alcohol use/abuse. Anxiety and depression Hypertension -Continue scheduled Librium 50 mg 3 times daily, will titrate down to 25 mg daily starting tomorrow morning and continue monitoring of CIWA scores and patient to be medicated with Ativan 0.5 mg every 4 hours as needed for CIWA score of 4-5, Ativan 1 mg every 4 hours for CIWA score of 6-7, Ativan 2 mg every 3 hours CIWA score of 8-9, and Ativan 2 mg every 2 hours for CIWA score of 10 or greater. -Hypocarbia resolved with bicarb of 23.8 this morning. -Hypokalemia with potassium of 2.8, orders placed for K-Dur 40 mEq every 2 hours x 2 doses. -Continuous IV hydration with 0.9% normal saline at 130 cc/h -Thiamine 100 mg daily, Multivitamin daily, and Folate 1 mg daily -Seizure, fall, aspiration, and elopement precautions in place. -Replace magnesium with 2 g magnesium sulfate IVPB and we will continue close monitoring of electrolytes and replace as needed. -Telemetry monitoring. -Repeat CMP to follow-up on hyperbilirubinemia with elevated transaminases. -Continue daily medication regimen with Effexor 150 mg daily, trazodone 50 mg nightly, and BuSpar 15 mg twice daily. Will repeat daily EKG again tomorrow morning to monitor QTc, if further prolongation may consider psychiatry evaluation for medication changes. Hypertension -Continue daily medication regimen with lisinopril 10 mg daily. Data and imaging reviewed: Repeat morning EKG reviewed showing sinus tachycardia at 101 bpm with QT/QTc of 398/516 ms Vital signs reviewed. Blood pressure 146/92, heart rate 119, respiratory rate 18, temp 98.2 F, and SpO2 of 100% on room air. Morning labs reviewed. CBC showing pancytopenia with WBC of 4.44, hemoglobin of 11.1, and platelet count of 113. BMP showing sodium 134, potassium 208, bicarb 23.8. Magnesium normal findings at 2.1. Hyperbilirubinemia resolved with bilirubin decreasing to 1.0 and liver profile showing elevated AST of 48 otherwise normal findings this morning. CODE STATUS: Full code DVT prophylaxis: Lovenox Anticipated discharge date: Clinical course to determine Anticipated discharge place: Home versus inpatient drug and alcohol rehabilitation facility Patient was seen independently by Nurse Practitioner. This document was prepared using [employer] dictation software. Please allow for errors in car repairman while rare they do occur. I reviewed the documentation as provided by the ANN above, who is the original author of this note. I agree with the documented assessment and plan, with the following changes: none Objective - Vital Signs Vital signs: Vital Signs Temp 98.3 F 02/05/24 02:00 Pulse 132 H 02/05/24 02:00 Resp 16 02/05/24 02:00 BP 128/56 02/05/24 02:00 Pulse Ox 96 02/05/24 02:00 FiO2 Intake & Output 02/04/24 02/05/24 02/05/24 18:59 06:59 18:59 Weight 81.647 kg 81.647 kg Other: Voiding Method Toilet # Voids 3 - Labs CBC & Chem 7: 02/05/24 07:42 02/06/24 06:39 Labs: Abnormal Lab Results - Last 24 Hours (Table) 02/04/24 02/04/24 02/04/24 Range/Units 08:37 08:37 08:37 RDW 16.6 H (11.5-15.5) % Neutrophils # 8.1 H (1.3-7.7) k/uL Lymphocytes # 0.4 L (1.0-4.8) k/uL Sodium 134 L (137-145) mmol/L Carbon Dioxide 13 L (22-30) mmol/L Glucose 102 H (74-99) mg/dL Calcium 7.8 L (8.4-10.2) mg/dL Magnesium 1.5 L (1.6-2.3) mg/dL Total Bilirubin 1.5 H (0.2-1.3) mg/dL AST 81 H (14-36) U/L ALT 55 H (4-34) U/L
[2024-02-05] MEDS: POTASSIUM CHLORIDE ER 20 MEQ TAB.ER PO SCH (17:49)
[2024-02-05] MEDS: ACETAMINOPHEN TAB 325 MG TAB PO PRN (18:13)
[2024-02-05] MEDS ORDERED: ONDANSETRON 4 MG/2 ML VIAL IVP PRN (20:56)
[2024-02-06 08:28] VITALS: BP 158/91; PULSE 104; RESP 18; TEMP 98.2
[2024-02-06] MEDS ORDERED: chlordiazePOXIDE 25 MG CAP PO SCH (09:00)
[2024-02-06] MEDS: chlordiazePOXIDE 25 MG CAP PO SCH (09:19)
--- NOTE | 2024-02-06 09:37 | P.DS ---
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 Secondary to daily alcohol use/abuse. Pancytopenia. Secondary to alcohol use/abuse. Hyperbilirubinemia with elevated transaminases. Secondary to daily alcohol use/abuse. Anxiety and depression Hypertension Hospital Course: Patient is a pleasant 43-year-old female with a past medical history of anxiety, depression, hypertension, rheumatoid arthritis, and daily alcohol abuse. Patient reports longstanding history of alcoholism and states she was clean and going to [employer], however relapsed approximately 1 year ago and has been consistently drinking a minimum of a fifth of vodka daily. Patient reports she was trying to quit at home because she wants to get her life back and stop drinking, however she reports becoming significantly ill feeling anxious, shaky, nauseous and vomiting. She reports she was shaking so bad she felt her heart was going to race right out of her chest so she knew she had to come to the hospital for assistance with her detox. She denies history of alcohol wi thdrawal seizures or previous ICU admissions for alcohol withdrawal. Patient reports last drink of alcohol was last night. She currently denies having any other complaints at this time including recent falls or injuries, headache, lightheadedness, dizziness, chest pain, shortness of breath, abdominal pain, or experiencing any numbness/tingling/weakness/swelling in her extremities. She underwent evaluation in the emergency department. Vital signs upon arrival show blood pressure 149/72, heart rate 131, respiratory rate 20, temp 98.8 F, and SpO2 of 95% on room air. EKG completed showing sinus tachycardia at 119 bpm with nonspecific T wave abnormality. Labs completed and reviewed CBC showing no significant abnormalities. BMP revealing mild hyponatremia with sodium of 134, chloride of 102, bicarb of 13 and elevated anion gap of 19. Troponin less than 0.012. Alcohol level 129 upon arrival. Patient admitted under our services to undergo assisted medical detox. Pt was observed ovr 48 hours and withdrawal symptoms remained controlled. She indicated to me that she had a plan to reconnect with her sponsor as well as to regularly attend AA meetings as her plan to completely quit drinking. She was discharged home with thiamine, folate. She should follow-up with her primary care doctor. I spent 32 minutes coordinating this discharge on 02/05 Physical exam: Gen: In NAD, non-toxic HEENT: normocephalic, atraumatic, hearing acuity is intant, mucous membranes moist CVS: perfusing all extremities well, no pitting edema, Respiratory: symmetric chest expansion, no accessory muscle use, GI: soft, NTTP, ND, : no suprapubic tenderness, no CVA tenderness MSK/Derm: no rashes, cyanosis Neuro: CN II-XII intact, no motor weakness, Psych: cooperative, euthymic mood, judgment and insight is intact Patient Condition at Discharge: Good Plan - Discharge Summary Discharge Rx Participant: No New Discharge Prescriptions: New Thiamine [Vitamin B-1] 100 mg PO DAILY #14 tab Acetaminophen Tab [Tylenol] 650 mg PO Q6HR PRN tab PRN Reason: Mild Pain Or Fever > 100.5 Continue traZODone HCL [Desyrel] 50 mg PO HS 30 Days #30 tab Venlafaxine HCl [Effexor XR] 150 mg PO DAILY 30 Days #30 cap Folic Acid 1 mg PO DAILY #14 tab lisinopriL [Zestril] 10 mg PO DAILY hydrOXYzine pamoate [Vistaril] 25 mg PO BID PRN 30 Days #60 cap PRN Reason: Anxiety clonazePAM [KlonoPIN] 0.5 mg PO DAILY PRN PRN Reason: Anxiety busPIRone HCL 15 mg PO BID Discharge Medication List Folic Acid 1 mg PO DAILY #14 tab 05/17/23 [Rx] lisinopriL [Zestril] 10 mg PO DAILY 08/12/23 [History] Venlafaxine HCl [Effexor XR] 150 mg PO DAILY 30 Days #30 cap 09/02/23 [Rx] hydrOXYzine pamoate [Vistaril] 25 mg PO BID PRN 30 Days #60 cap 09/02/23 [Rx] traZODone HCL [Desyrel] 50 mg PO HS 30 Days #30 tab 09/02/23 [Rx] busPIRone HCL 15 mg PO BID 02/04/24 [History] clonazePAM [KlonoPIN] 0.5 mg PO DAILY PRN 02/04/24 [History] Acetaminophen Tab [Tylenol] 650 mg PO Q6HR PRN tab 02/06/24 [Rx] Thiamine [Vitamin B-1] 100 mg PO DAILY #14 tab 02/06/24 [Rx] Follow up Appointment(s)/Referral(s): Jones Mclean DO [Primary Care Provider] - 1-2 days Discharge Disposition: HOME SELF-CARE
[2024-02-06 11:23] LABS: Magnesium 1.8 mg/dL (1.5-2.4)
[2024-02-06 11:32] LABS: BUN/Creat Ratio 16.17 Ratio (12.00-20.00); Blood Urea Nitrogen 9.7 mg/dL (9.0-27.0); Calcium 8.2 mg/dL (8.7-10.3); Carbon Dioxide 23.3 mmol/L (21.6-31.8); Chloride 108 mmol/L (96-109); Glucose 91 mg/dL (70-110); Sodium 140 mmol/L (135-145)
== END 2024-02-06 09:48 | disposition home or self-care (01) ==
LOC: EC 07:51 → 5NMEDONC 11:08
PROVIDERS: ADMIT Student in an Organized Health Care Education/Training Program; ATTEND Student in an Organized Health Care Education/Training Program
DX: F10.239 Alcohol dependence with withdrawal, unspecified (principal); F10.229 Alcohol dependence with intoxication, unspecified; R00.0 Tachycardia, unspecified; R11.0 Nausea; E86.0 Dehydration; R94.31 Abnormal electrocardiogram [ECG] [EKG]; E87.1 Hypo-osmolality and hyponatremia; E83.42 Hypomagnesemia; E80.6 Other disorders of bilirubin metabolism; D61.818 Other pancytopenia; I10 Essential (primary) hypertension; F32.A Depression, unspecified; F41.9 Anxiety disorder, unspecified; G62.9 Polyneuropathy, unspecified; Y90.6 Blood alcohol level of 120-199 mg/100 ml; Z79.899 Other long term (current) drug therapy; Z88.2 Allergy status to sulfonamides
CPT/HCPCS: 96376 ×2; 96361 ×2; 96372 ×2; 96365; 96366; 96375; 99285; 36415; 93005 ×3; 80053 ×2; 80048; 83690; 83735 ×3; 84484; 85025 ×2; 80320; G0378 ×3; J2060 ×2; J1200; J2765; J3411; J1650; J3475

== ENCOUNTER 2024-02-12 21:05 | Observation (INO) | payer OTHER ==
--- NOTE | 2024-02-12 21:31 | ED ---
Alcohol HPI - General Chief Complaint: Alcohol Stated Complaint: ETOH Time Seen by Provider: 02/12/24 21:10 Source: patient, EMS Mode of arrival: EMS Limitations: no limitations - History of Present Illness Initial Comments: This patient is a 43-year-old woman who presents because she feels very dehydrated. She states that she drinks about 1/5/day. Her last drink was 1 to 2 hours ago. The patient has had some nausea. She denies any recent trauma. MD Complaint: alcohol intoxication Last Drink: just [employer] Previous Visits for Alcohol Intoxication?: Yes Recent Trauma: No Associated Symptoms: nausea Treatments Prior to Arrival: none Chronic Alcohol Use: Yes - Related Data Home Medications Medication Instructions Recorded Confirmed lisinopriL [Zestril] 10 mg PO DAILY 08/12/23 02/13/24 busPIRone HCL 15 mg PO BID 02/04/24 02/13/24 clonazePAM [KlonoPIN] 0.5 mg PO DAILY PRN 02/04/24 02/13/24 Previous Rx's Medication Instructions Recorded Folic Acid 1 mg PO DAILY #14 tab 05/17/23 Venlafaxine HCl [Effexor XR] 150 mg PO DAILY 30 Days #30 cap 09/02/23 hydrOXYzine pamoate [Vistaril] 25 mg PO BID PRN 30 Days #60 cap 09/02/23 traZODone HCL [Desyrel] 50 mg PO HS 30 Days #30 tab 09/02/23 Acetaminophen Tab [Tylenol] 650 mg PO Q6HR PRN tab 02/06/24 Thiamine [Vitamin B-1] 100 mg PO DAILY #14 tab 02/06/24 Allergies Allergy/AdvReac Type Severity Reaction Status Date / Time Sulfa (Sulfonamide Allergy Rash/Hives Verified 02/13/24 06:42 Antibiotics) Review of Systems ROS Statement: Those systems with pertinent positive or pertinent negative responses have been documented in the HPI. ROS Other: All systems not noted in ROS Statement are negative. Constitutional: Reports: weakness. Denies: fever, chills Eyes: Denies: vision change Respiratory: Denies: cough, dyspnea Cardiovascular: Denies: chest pain, orthopnea, edema, syncope Gastrointestinal: Reports: nausea. Denies: abdominal pain, vomiting Genitourinary: Denies: dysuria, hematuria Musculoskeletal: Denies: back pain Skin: Denies: rash Neurological: Denies: headache, weakness Past Medical History Past Medical History: Hypertension, Neurologic Disorder, Rheumatoid Arthritis (RA) Additional Past Medical History / Comment(s): neuropathy, covid History of Any Multi-Drug Resistant Organisms: None Reported Past Surgical History: Cholecystectomy Additional Past Surgical History / Comment(s): Left knee replacement. Past Anesthesia/Blood Transfusion Reactions: No Reported Reaction Past Psychological History: Anxiety, Depression Smoking Status: Never smoker Past Alcohol Use History: Abuse, Daily Past Drug Use History: None Reported - Past Family History Father Family Medical History: Pneumonia Additional Family Medical History / Comment(s): Parkinson's following a closed head injury, depression, TBI. Mother Family Medical History: Coronary Artery Disease (CAD) Additional Family Medical History / Comment(s): following a surgery for a heart valve problem. General Exam Limitations: no limitations General appearance: alert, appears intoxicated Head exam: Present: atraumatic, normocephalic Eye exam: Present: normal appearance. Absent: scleral icterus, conjunctival injection ENT exam: Present: mucous membranes dry Neck exam: Present: normal inspection, full ROM. Absent: tenderness Respiratory exam: Present: normal lung sounds bilaterally. Absent: respiratory distress, wheezes, rales, rhonchi, stridor, accessory muscle use Cardiovascular Exam: Present: regular rate, normal rhythm, normal heart sounds. Absent: systolic murmur, diastolic murmur, rubs, gallop GI/Abdominal exam: Present: soft. Absent: distended, tenderness, guarding, rebound, rigid, mass Extremities exam: Present: normal inspection, normal capillary refill. Absent: pedal edema, calf tenderness Back exam: Present: normal inspection. Absent: CVA tenderness (R), CVA tenderness (L) Neurological exam: Present: alert, CN II-XII intact. Absent: motor sensory deficit Skin exam: Present: warm, dry, intact, normal color. Absent: rash Course Vital Signs 02/12/24 02/12/24 02/12/24 21:08 22:12 23:00 Temperature 98.9 F Pulse Rate 103 H 104 H 123 H Respiratory 18 22 22 Rate Blood Pressure 154/107 157/118 143/95 O2 Sat by Pulse 94 L 94 L 95 Oximetry 02/13/24 02/13/24 00:00 03:00 Temperature Pulse Rate 114 H 103 H Respiratory 26 H 22 Rate Blood Pressure 145/98 146/91 O2 Sat by Pulse 95 96 Oximetry Medical Decision Making - Lab Data Result diagrams: 02/12/24 21:34 02/12/24 21:34 Lab Results 02/12/24 02/12/24 02/12/24 Range/Units 21:34 21:34 21:57 WBC 2.2 L (3.8-10.6) k/uL RBC 4.15 (3.80-5.40) m/uL Hgb 12.5 (11.4-16.0) gm/dL Hct 38.7 (34.0-46.0) % MCV 93.4 (80.0-100.0) fL MCH 30.1 (25.0-35.0) pg MCHC 32.3 (31.0-37.0) g/dL RDW 17.6 H (11.5-15.5) % Plt Count 173 (150-450) k/uL MPV 7.2 Neutrophils % 44 % Lymphocytes % 41 % Monocytes % 7 % Eosinophils % 2 % Basophils % 1 % Neutrophils # 1.0 L (1.3-7.7) k/uL Lymphocytes # 0.9 L (1.0-4.8) k/uL Monocytes # 0.2 (0-1.0) k/uL Eosinophils # 0.1 (0-0.7) k/uL Basophils # 0.0 (0-0.2) k/uL Anisocytosis Slight Sodium 145 (137-145) mmol/L Potassium 3.9 (3.5-5.1) mmol/L Chloride 112 H (98-107) mmol/L Carbon Dioxide 21 L (22-30) mmol/L Anion Gap 12 mmol/L BUN 9 (7-17) mg/dL Creatinine 0.57 (0.52-1.04) mg/dL Est GFR (CKD-EPI)AfAm >90 (>60 ml/min/1.73 sqM) Est GFR (CKD-EPI)NonAf >90 (>60 ml/min/1.73 sqM) Glucose 86 (74-99) mg/dL Calcium 8.4 (8.4-10.2) mg/dL Magnesium 1.8 (1.6-2.3) mg/dL Total Bilirubin 0.5 (0.2-1.3) mg/dL AST 62 H (14-36) U/L ALT 41 H (4-34) U/L Alkaline Phosphatase 79 (38-126) U/L Total Protein 6.9 (6.3-8.2) g/dL Albumin 4.0 (3.5-5.0) g/dL Urine HCG, Qual Not Detected (Not Detectd) Serum Alcohol 312 H* mg/dL - EKG Data -: EKG Interpreted by Me EKG shows normal: sinus rhythm, axis (Normal), intervals (Normal), QRS complexes (Normal), ST-T waves (Normal) Rate: tachycardia (Rate 101 bpm) Disposition Clinical Impression: Alcoholic intoxication Disposition: ADMITTED IP TO THIS HOSP Condition: Fair Is patient prescribed a controlled substance at d/c from ED?: No
[2024-02-12 21:44] LABS: Anisocytosis Slight; Basophils % (A) 1 %; Eosinophils # (A) 0.1 k/uL (0-0.7); Eosinophils % (A) 2 %; HCT 38.7 % (34.0-46.0); HGB 12.5 gm/dL (11.4-16.0); Lymphocytes # (A) 0.9 k/uL (1.0-4.8); Lymphocytes % (A) 41 %; MCH 30.1 pg (25.0-35.0); MCHC 32.3 g/dL (31.0-37.0); MCV 93.4 fL (80.0-100.0); Mean Platelet Volume 7.2; Monocytes # (A) 0.2 k/uL (0-1.0); Monocytes % (A) 7 %; Neutrophils % (A) 44 %; Platelet Count 173 k/uL (150-450); RBC 4.15 m/uL (3.80-5.40); RDW 17.6 % (11.5-15.5); WBC 2.2 k/uL (3.8-10.6)
[2024-02-12] MEDS: LORazepam 2 MG/ML INJ IV STA (21:50)
[2024-02-12] MEDS: SODIUM CHLORIDE 0.9% 1,000 ML IV ONE (21:52)
[2024-02-12 21:53] LABS: ALT 41 U/L (4-34); AST 62 U/L (14-36); African American GFR (CKD) >90 (>60 ml/min/1.73 sqM); Alkaline Phosphatase 79 U/L (38-126); Anion Gap 12 mmol/L; Blood Urea Nitrogen 9 mg/dL (7-17); Calcium 8.4 mg/dL (8.4-10.2); Carbon Dioxide 21 mmol/L (22-30); Chloride 112 mmol/L (98-107); Glucose 86 mg/dL (74-99); Magnesium 1.8 mg/dL (1.6-2.3); Non-African American GFR(CKD) >90 (>60 ml/min/1.73 sqM); Potassium 3.9 mmol/L (3.5-5.1); Sodium 145 mmol/L (137-145); Total Bilirubin 0.5 mg/dL (0.2-1.3); Total Protein 6.9 g/dL (6.3-8.2)
[2024-02-12 22:03] LABS: Alcohol 312 mg/dL
[2024-02-12] MEDS ORDERED: LORazepam 2 MG/ML INJ IV PRN (22:12)
[2024-02-13] MEDS: LORazepam 2 MG/ML INJ IV PRN ×2 (01:11→03:06)
[2024-02-13] MEDS ORDERED: NALOXONE 0.4 MG/ML 1 ML VIAL IV PRN (02:20)
--- NOTE | 2024-02-13 06:16 | P.HPIM ---
History of Present Illness H&P Date: 02/13/24 Chief Complaint: Alcohol intoxication 43-year-old female with alcohol dependence Patient coming in for evaluation due to alcohol intoxication she was drinking heavily and then started having palpitations and discomfort for which she decided to come into the hospital for evaluation denies any GI bleeding denies any falls denies any upper respiratory infection symptoms denies any urinary or bowel habit changes Patient admits to heavy daily drinking and her last drink was 1 to 2 hours before arrival Patient is hoping that we can help her quit drinking however currently denies any visual or auditory hallucinations. review of systems Pertinent positives as noted in HPI. All other systems were reviewed and are negative on exam Constitutional: No acute distress, conversant, pleasant Eyes: Anicteric sclerae, moist conjunctiva, Pupils equal round reactive to light ENMT: NC/AT Oropharynx clear, no erythema, or exudates Neck: Supple, no masses, or JVD No carotid bruits No thyromegaly Lungs: Clear to auscultation Clear to percussion Normal respiratory effort, no accessory muscle use Cardiovascular: Heart regular in rate and rhythm, No murmurs, gallops, or rubs No peripheral edema Abdominal: Soft Nontender, no guarding, rebound or rigidity Abdomen moving with respiration Normoactive bowel sounds Extremities: No digital cyanosis No clubbing Pedal pulses intact and symmetrical Radial pulses intact and symmetrical No calf tenderness Psychiatric: Alert and oriented to person, place and time Appropriate affect fair judgement Neuro Muscles Strength 5/5 in all 4 extremities Sensation to light touch grossly present throughout Cranial nerves II-XII grossly intact Lymphatics: no palpable cervical or supraclavicular lymph nodes Past Medical History Past Medical History: Hypertension, Neurologic Disorder, Rheumatoid Arthritis (RA) Additional Past Medical History / Comment(s): neuropathy, covid History of Any Multi-Drug Resistant Organisms: None Reported Past Surgical History: Cholecystectomy Additional Past Surgical History / Comment(s): Left knee replacement. Past Anesthesia/Blood Transfusion Reactions: No Reported Reaction Past Psychological History: Anxiety, Depression Smoking Status: Never smoker Past Alcohol Use History: Abuse, Daily Additional Past Alcohol Use History / Comment(s): Was sober for 10 years, relapsed recently due to depression. Past Drug Use History: None Reported - Past Family History Father Family Medical History: Pneumonia Additional Family Medical History / Comment(s): Parkinson's following a closed head injury, depression, TBI. Mother Family Medical History: Coronary Artery Disease (CAD) Additional Family Medical History / Comment(s): following a surgery for a heart valve problem. Medications and Allergies Home Medications Medication Instructions Recorded Confirmed Type Folic Acid 1 mg PO DAILY #14 tab 05/17/23 02/04/24 Rx lisinopriL [Zestril] 10 mg PO DAILY 08/12/23 02/04/24 History Venlafaxine HCl [Effexor XR] 150 mg PO DAILY 30 Days #30 cap 09/02/23 02/04/24 Rx hydrOXYzine pamoate [Vistaril] 25 mg PO BID PRN 30 Days #60 cap 09/02/23 02/04/24 Rx traZODone HCL [Desyrel] 50 mg PO HS 30 Days #30 tab 09/02/23 02/04/24 Rx busPIRone HCL 15 mg PO BID 02/04/24 02/04/24 History clonazePAM [KlonoPIN] 0.5 mg PO DAILY PRN 02/04/24 02/04/24 History Acetaminophen Tab [Tylenol] 650 mg PO Q6HR PRN tab 02/06/24 Rx Thiamine [Vitamin B-1] 100 mg PO DAILY #14 tab 02/06/24 Rx Allergies Allergy/AdvReac Type Severity Reaction Status Date / Time Sulfa (Sulfonamide Allergy Rash/Hives Verified 02/12/24 21:12 Antibiotics) Physical Exam Vitals: Vital Signs Temp Pulse Resp BP Pulse Ox 02/13/24 03:00 103 H 22 146/91 96 02/13/24 00:00 114 H 26 H 145/98 95 02/12/24 23:00 123 H 22 143/95 95 02/12/24 22:12 104 H 22 157/118 94 L 02/12/24 21:08 98.9 F 103 H 18 154/107 94 L Intake and Output 02/12/24 02/12/24 02/13/24 14:59 22:59 06:59 Other: Weight 81.647 kg 81.647 kg Results CBC & Chem 7: 02/12/24 21:34 02/12/24 21:34 Labs: Abnormal Lab Results - Last 24 Hours (Table) 02/12/24 02/12/24 Range/Units 21:34 21:34 WBC 2.2 L (3.8-10.6) k/uL RDW 17.6 H (11.5-15.5) % Neutrophils # 1.0 L (1.3-7.7) k/uL Lymphocytes # 0.9 L (1.0-4.8) k/uL Chloride 112 H (98-107) mmol/L Carbon Dioxide 21 L (22-30) mmol/L AST 62 H (14-36) U/L ALT 41 H (4-34) U/L Serum Alcohol 312 H* mg/dL Assessment and Plan Assessment: 43-year-old female with alcohol dependence coming in due to intolerance of alcohol with feeling nauseous and vomiting I discussed the case with ED doctor and accepted the admission for acute alcohol intoxication pending withdrawal with anticipated length of stay less than 2 midnights Acute severe alcohol intoxication secondary to alcohol dependence Benzos per CIWA scale Monitor urine output IV fluid hydration normal saline 100 cc/h Thiamine daily Patient currently denies any visual or auditory hallucinations she denies any negative thoughts that might involve hurting herself or someone else Leukopenia with white count of 2.2 suspected secondary to alcohol abuse Hemoglobin 12.5 unremarkable Renal function unremarkable sodium 145 potassium 3.9 BUN 9 creatinine 0.57 AST and ALT slightly elevated 62 and 41 respectively Full code DVT prophylaxis heparin subcu 3 times daily
[2024-02-13] MEDS: THIAMINE 100 MG TAB PO SCH (08:38)
[2024-02-13] MEDS: FAMOTIDINE 20 MG TAB PO SCH (08:38)
[2024-02-13] MEDS: busPIRone HCl 5 MG TAB PO SCH (20:41)
[2024-02-13] MEDS: traZODone HCL 50 MG TAB PO SCH (20:42)
[2024-02-14 08:07] VITALS: BP 150/101; PULSE 99; RESP 18; TEMP 98.2
[2024-02-14] MEDS: FOLIC ACID 1 MG TAB PO SCH (08:12)
[2024-02-14] MEDS: VENLAFAXINE HCL ER 150 MG CAP PO SCH (08:12)
[2024-02-14] MEDS: lisinopriL 10 MG TAB PO SCH (08:13)
[2024-02-14 10:53] LABS: Basophils # (A) 0.02 X 10*3/uL (0.00-0.10); Basophils % (A) 0.6 %; Eosinophils % (A) 3.2 %; HCT 37.5 % (37.2-46.3); HGB 12.1 g/dL (12.0-15.0); Lymphocytes # (A) 0.68 X 10*3/uL (0.90-5.00); Lymphocytes % (A) 21.9 %; MCH 30.3 pg (27.0-32.0); MCHC 32.3 g/dL (32.0-37.0); MCV 93.8 FL (80.0-97.0); Mean Platelet Volume 9.7 FL (9.5-12.2); Monocytes # (A) 0.38 X 10*3/uL (0.20-1.00); Monocytes % (A) 12.2 %; NRBC Per 100 WBC 0 X 10*3/uL (0.00-0.01); Neutrophils # (A) 1.92 X 10*3/uL (1.80-7.70); Neutrophils % (A) 61.8 %; Platelet Count 141 X 10*3/uL (140-440); WBC 3.11 X 10*3/uL (4.50-10.00)
[2024-02-14 11:05] LABS: Blood Urea Nitrogen 15.2 mg/dL (9.0-27.0); Calcium 9.3 mg/dL (8.7-10.3); Carbon Dioxide 23.8 mmol/L (21.6-31.8); Chloride 103 mmol/L (96-109); Glucose 84 mg/dL (70-110); Potassium 3.9 mmol/L (3.5-5.5); Sodium 139 mmol/L (135-145)
--- NOTE | 2024-02-14 11:13 | P.DS ---
Providers Date of admission: 02/13/24 02:20 Expected date of discharge: 02/14/24 Attending physician: Haroon Ruth MD Primary care physician: Jones Mclean Hospital Course: Discharge Diagnosis: Alcohol intoxication Alcohol dependence Hypertension Anxiety/depression Metabolic acidosis Transaminitis Leukopenia Hospital Course: 43-year-old female with history of alcohol dependence, hypertension, anxiety/depression presenting with acute alcohol intoxication. Vital signs on arrival showed mild tachycardia and hypertension. Laboratory workup showed WBC of 2.2, bicarb 21, anion gap 12, creatinine 0.57, AST 62, ALT 41, total bili 0.5, ALP 79, serum alcohol 312. Patient received IV fluids, and IV Ativan as needed. No longer intoxicated. Patient being discharged home, has a sponsor, and will be going to AA meetings. Patient seen and examined at bedside. Vital signs reviewed and stable. General: Nontoxic, no distress, appears at stated age Derm: Warm, dry Head: Atraumatic, normocephalic, symmetric Eyes: EOMI, no lid lag, anicteric sclera Mouth: No lip lesion, mucus membranes moist Cardiovascular: S1S2 reg, no murmur Lungs: CTA bilateral, no rhonchi, no rales, no accessory muscle use Abdominal: Soft, nontender to palpation, no guarding, no appreciable organomegaly Ext: No gross muscle atrophy, no edema, no contractures Neuro: CN II-XI grossly intact, no focal neuro deficits Psych: Alert, oriented, appropriate affect A total of 33 minutes of time were spent preparing this complex discharge summary. Patient was discharged on 02/14/2024 at 1024. Patient Condition at Discharge: Stable Plan - Discharge Summary New Discharge Prescriptions: New Folic Acid 1 mg PO DAILY #60 tab Thiamine [Vitamin B-1] 100 mg PO DAILY #60 tab Continue traZODone HCL [Desyrel] 50 mg PO HS 30 Days #30 tab Venlafaxine HCl [Effexor XR] 150 mg PO DAILY 30 Days #30 cap lisinopriL [Zestril] 10 mg PO DAILY busPIRone HCL 15 mg PO BID Acetaminophen Tab [Tylenol] 650 mg PO Q6HR PRN tab PRN Reason: Mild Pain Or Fever > 100.5 Discontinued Thiamine [Vitamin B-1] 100 mg PO DAILY #14 tab Folic Acid 1 mg PO DAILY #14 tab hydrOXYzine pamoate [Vistaril] 25 mg PO BID PRN 30 Days #60 cap PRN Reason: Anxiety clonazePAM [KlonoPIN] 0.5 mg PO DAILY PRN PRN Reason: Anxiety Discharge Medication List lisinopriL [Zestril] 10 mg PO DAILY 08/12/23 [History] Venlafaxine HCl [Effexor XR] 150 mg PO DAILY 30 Days #30 cap 09/02/23 [Rx] traZODone HCL [Desyrel] 50 mg PO HS 30 Days #30 tab 09/02/23 [Rx] busPIRone HCL 15 mg PO BID 02/04/24 [History] Acetaminophen Tab [Tylenol] 650 mg PO Q6HR PRN tab 02/06/24 [Rx] Folic Acid 1 mg PO DAILY #60 tab 02/14/24 [Rx] Thiamine [Vitamin B-1] 100 mg PO DAILY #60 tab 02/14/24 [Rx] Follow up Appointment(s)/Referral(s): Jones Mclean DO [Primary Care Provider] - 1-2 days Patient Instructions/Handouts: Alcohol Withdrawal (DC) Activity/Diet/Wound Care/Special Instructions: Please see your PCP. Please make sure someone is with you at home for the next 24-48 hours. If any withdrawal symptoms, please come back to the hospital. Discharge Disposition: HOME SELF-CARE
== END 2024-02-14 11:29 | disposition home or self-care (01) ==
LOC: EC 21:05 → 5NMEDONC 02-13 02:20 → INTOOBSV 02-13 02:20 → 4SSUR 02-13 08:21
PROVIDERS: ADMIT Internal Medicine; ATTEND Internal Medicine
DX: F10.229 Alcohol dependence with intoxication, unspecified (principal); F10.239 Alcohol dependence with withdrawal, unspecified; E87.20 Acidosis, unspecified; Y90.8 Blood alcohol level of 240 mg/100 ml or more; I10 Essential (primary) hypertension; F32.A Depression, unspecified; F41.9 Anxiety disorder, unspecified; D72.819 Decreased white blood cell count, unspecified; R74.01 Elevation of levels of liver transaminase levels; R00.0 Tachycardia, unspecified; Z79.899 Other long term (current) drug therapy; Z88.2 Allergy status to sulfonamides
CPT/HCPCS: 96376 ×2; 96361; 96374; 99285; 36415; 80053; 80048; 83735; 85025 ×2; 81025; 80320; G0378 ×3; J2060 ×3

== ENCOUNTER 2024-02-17 21:12 | Emergency (ER) | payer OTHER ==
--- NOTE | 2024-02-17 21:22 | ED ---
Alcohol HPI - General Source: patient, RN notes reviewed Mode of arrival: EMS Limitations: no limitations <Corinne Jolly - Last Filed: 02/17/24 21:21> <Stephanie Carranza - Last Filed: 02/22/24 07:41> - General Stated Complaint: Tachycardia,ETOH,Anxiety Time Seen by Provider: 02/17/24 21:21 - History of Present Illness Initial Comments: Quick note: 43-year-old female presented to the ER with a chief complaint of EtOH. Patient states she drank 1/5 earlier today. She states she is needing help to stop drinking. She states she is just "hurting". (Corinne Jolly) 43-year-old female well-known to the emergency department presents today for alcohol. States that she drank 1/5 of alcohol earlier today. Patient has been in the emergency department several times for same complaint and has been admitted twice in the past month. She states that she needs to stop drinking. Reports that the alcohol causes her to be anxious with a high heart rate. Patient denies any concern for . Denies use of any other illicit drugs. No suicidal or homicidal ideations. No other alleviating, precipitating modifying factors (Stephanie Carranza) - Related Data Home Medications Medication Instructions Recorded Confirmed lisinopriL [Zestril] 10 mg PO DAILY 08/12/23 02/18/24 busPIRone HCL 15 mg PO BID 02/04/24 02/18/24 Previous Rx's Medication Instructions Recorded Venlafaxine HCl [Effexor XR] 150 mg PO DAILY 30 Days #30 cap 09/02/23 traZODone HCL [Desyrel] 50 mg PO HS 30 Days #30 tab 09/02/23 Acetaminophen Tab [Tylenol] 650 mg PO Q6HR PRN tab 02/06/24 Folic Acid 1 mg PO DAILY #60 tab 02/14/24 Thiamine [Vitamin B-1] 100 mg PO DAILY #60 tab 02/14/24 Pantoprazole [Protonix] 40 mg PO AC-BRKFST #30 tab 02/20/24 chlordiazePOXIDE HCl [Librium] 10 mg PO TID PRN 3 Days #9 capsule 02/20/24 Allergies Allergy/AdvReac Type Severity Reaction Status Date / Time Sulfa (Sulfonamide Allergy Rash/Hives Verified 02/18/24 10:59 Antibiotics) Review of Systems ROS Other: All systems not noted in ROS Statement are negative. <Corinne Jolly - Last Filed: 02/17/24 21:21> ROS Other: All systems not noted in ROS Statement are negative. <Stephanie Carranza - Last Filed: 02/22/24 07:41> ROS Statement: Those systems with pertinent positive or pertinent negative responses have been documented in the HPI. Past Medical History Past Medical History: Hypertension, Neurologic Disorder, Rheumatoid Arthritis (RA) Additional Past Medical History / Comment(s): neuropathy, covid History of Any Multi-Drug Resistant Organisms: None Reported Past Surgical History: Cholecystectomy Additional Past Surgical History / Comment(s): Left knee replacement. Past Anesthesia/Blood Transfusion Reactions: No Reported Reaction Past Psychological History: Anxiety, Depression Smoking Status: Never smoker Past Alcohol Use History: Abuse, Daily Past Drug Use History: None Reported - Past Family History Father Family Medical History: Pneumonia Additional Family Medical History / Comment(s): Parkinson's following a closed head injury, depression, TBI. Mother Family Medical History: Coronary Artery Disease (CAD) Additional Family Medical History / Comment(s): following a surgery for a heart valve problem. <Corinne Jolly - Last Filed: 02/17/24 21:21> General Exam <Corinne Jolly - Last Filed: 02/17/24 21:21> General appearance: alert, in no apparent distress, appears intoxicated Head exam: Present: atraumatic, normocephalic, normal inspection Eye exam: Present: normal appearance, PERRL, EOMI. Absent: scleral icterus, conjunctival injection, periorbital swelling ENT exam: Present: normal exam, mucous membranes moist Neck exam: Present: normal inspection. Absent: tenderness, meningismus, lymphadenopathy Respiratory exam: Present: normal lung sounds bilaterally. Absent: respiratory distress, wheezes, rales, rhonchi, stridor Cardiovascular Exam: Present: normal rhythm, tachycardia, normal heart sounds. Absent: systolic murmur, diastolic murmur, rubs, gallop, clicks GI/Abdominal exam: Present: soft, normal bowel sounds. Absent: distended, tenderness, guarding, rebound, rigid Extremities exam: Present: normal inspection, full ROM, normal capillary refill. Absent: tenderness, pedal edema, joint swelling, calf tenderness Back exam: Present: normal inspection Neurological exam: Present: alert, oriented X3, CN II-XII intact Psychiatric exam: Present: anxious Skin exam: Present: warm, dry, intact, normal color. Absent: rash <Stephanie Carranza - Last Filed: 02/22/24 07:41> - General Exam Comments Initial Comments: Visual Physical Exam Vital signs reviewed General: Intoxicated in no signs of acute distress Head: Normocephalic, atraumatic Eyes: PERRLA, EOMI ENT: Airway patent Chest: Nonlabored breathing Skin: No visual rash, normal skin tone Neuro: Alert and oriented 3 Musculoskeletal: No gross abnormalities (Corinne Jolly) Course Vital Signs 02/17/24 21:43 Temperature 98.7 F Pulse Rate 121 H Respiratory 18 Rate Blood Pressure 160/106 O2 Sat by Pulse 96 Oximetry Medical Decision Making <Corinne Jolly - Last Filed: 02/17/24 21:21> - Lab Data Result diagrams: 02/17/24 21:46 <Stephanie Carranza - Last Filed: 02/22/24 07:41> - Medical Decision Making I performed the quick note portion of this chart. Electronically signed by Corinne Jolly PA-C (Corinne Jolly) Was pt. sent in by a medical professional or institution (ANASTASIYA Hernandez, REHAB THERAPY MANAGER, urgent care, hospital, or fci...) When possible be specific @ -No Did you speak to anyone other than the patient for history (EMS, parent, family, police, friend...)? What history was obtained from this source @ -With EMS for history Did you review nursing and triage notes (agree or disagree)? Why? @ -I reviewed and agree with nursing and triage notes Were old charts reviewed (outside hosp., previous admission, EMS record, old EKG, old radiological studies, urgent care reports/EKG's, fci records)? Report findings @ -I reviewed patient's discharge summary from the Differential Diagnosis (chest pain, altered mental status, abdominal pain women, abdominal pain men, vaginal bleeding, weakness, fever, dyspnea, syncope, headache, dizziness, GI bleed, back pain, seizure, CVA, palpatations, mental health, musculoskeletal)? @ -Differential Mental Health Depression, anxiety, bipolar, psychosis, schizophrenia, borderline personality, situational depression, adjustment disorder, behavioral disorder, brain tumor, malingering, substance abuse, encephalopathy, medication reaction, dementia, hypothyroidism, degenerative neurologic disorder, lupus.... This is not meant to be all-inclusive list EKG interpreted by me (3pts min.). @ -Yes and demonstrates sinus tachycardia with a rate of 119. NV interval 172. QRS 110. QTc of 390. No acute ST segment elevations or depressions X-rays interpreted by me (1pt min.). @ -None done CT interpreted by me (1pt min.). @ -None done U/S interpreted by me (1pt. min.). @ -None done What testing was considered but not performed or refused? (CT, X-rays, U/S, labs)? Why? @ -None What meds were considered but not given or refused? Why? @ -None Did you discuss the management of the patient with other professionals (professionals i.e. , PA, REHAB THERAPY MANAGER, lab, RT, psych nurse, forensic social worker, coal wheeler, teacher, fisheries officer, returned case inspector)? Give summary @ -No Was smoking cessation discussed for >3mins.? @ -No Was critical care preformed (if so, how long)? @ -No Were there social determinants of health that impacted care today? How? (Homelessness, low income, unemployed, alcoholism, drug addiction, transportation, low edu. Level, literacy, decrease access to med. care, fdc, rehab)? @ -No Was there de-escalation of care discussed even if they declined (Discuss DNR or withdrawal of care, Hospice)? DNR status @ -No What co-morbidities impacted this encounter? (DM, HTN, Smoking, COPD, CAD, Cancer, CVA, ARF, Chemo, Hep., AIDS, mental health diagnosis, sleep apnea, morbid obesity)? @ -Alcohol abuse Was patient admitted / discharged? Hospital course, mention meds given and route, prescriptions, significant lab abnormalities, going to OR and other pertinent info. @ -Upon arrival patient was seen and evaluated. Thorough history and physical exam was performed. Patient is intoxicated. She was observed for several hours. No signs of withdrawal. Patient does demonstrate clinical sobriety she is able to hold a conversation. Patient does not want to wait any longer in the emergency department and therefore is sent home with a safe ride. I did recommend that she quit drinking alcohol. Follow-up with her primary care doctor. She has been hospitalized and does have resources. Patient understood and was discharged in stable condition Undiagnosed new problem with uncertain prognosis? @ -No Drug Therapy requiring intensive monitoring for toxicity (Heparin, Nitro, Insulin, Cardizem)? @ -No Were any procedures done? @ -No Diagnosis/symptom? @ -Acute alcohol intoxication, acute tachycardia, chronic alcohol abuse Acute, or Chronic, or Acute on Chronic? @ -Acute on chronic Uncomplicated (without systemic symptoms) or Complicated (systemic symptoms)? @ -Complicated Side effects of treatment? @ -No Exacerbation, Progression, or Severe Exacerbation? @ -No Poses a threat to life or bodily function? How? (Chest pain, USA, MS, pneumonia, PE, COPD, DKA, ARF, appy, cholecystitis, CVA, Diverticulitis, Homicidal, Suic idal, threat to staff... and all critical care pts) @ -Yes, patient can sustain long-term issues if she does not stop drinking (Stephanie Carranza) - Lab Data Lab Results 02/17/24 Range/Units 21:46 WBC 4.2 (3.8-10.6) k/uL RBC 4.31 (3.80-5.40) m/uL Hgb 12.7 (11.4-16.0) gm/dL Hct 40.1 (34.0-46.0) % MCV 93.2 (80.0-100.0) fL MCH 29.5 (25.0-35.0) pg MCHC 31.7 (31.0-37.0) g/dL RDW 17.7 H (11.5-15.5) % Plt Count 328 (150-450) k/uL MPV 7.5 Neutrophils % 50 % Lymphocytes % 40 % Monocytes % 3 % Eosinophils % 2 % Basophils % 1 % Neutrophils # 2.1 (1.3-7.7) k/uL Lymphocytes # 1.7 (1.0-4.8) k/uL Monocytes # 0.1 (0-1.0) k/uL Eosinophils # 0.1 (0-0.7) k/uL Basophils # 0.1 (0-0.2) k/uL Anisocytosis Slight Disposition <Corinne Jolly - Last Filed: 02/17/24 21:21> Is patient prescribed a controlled substance at d/c from ED?: No Time of Disposition: 00:59 <Stephanie Carranza - Last Filed: 02/22/24 07:41> Clinical Impression: Alcoholic intoxication Disposition: HOME SELF-CARE Condition: Stable Instructions (If sedation given, give patient instructions): Alcohol Intoxication (ED) Additional Instructions: We recommend that you stop drinking and check out some rehab facilities Referrals: Jones Mclean DO [Primary Care Provider] - 1-2 days
[2024-02-17 22:02] LABS: Anisocytosis Slight; Basophils # (A) 0.1 k/uL (0-0.2); Basophils % (A) 1 %; Eosinophils # (A) 0.1 k/uL (0-0.7); Eosinophils % (A) 2 %; HCT 40.1 % (34.0-46.0); HGB 12.7 gm/dL (11.4-16.0); Lymphocytes # (A) 1.7 k/uL (1.0-4.8); Lymphocytes % (A) 40 %; MCH 29.5 pg (25.0-35.0); MCHC 31.7 g/dL (31.0-37.0); MCV 93.2 fL (80.0-100.0); Mean Platelet Volume 7.5; Monocytes # (A) 0.1 k/uL (0-1.0); Monocytes % (A) 3 %; Neutrophils # (A) 2.1 k/uL (1.3-7.7); Neutrophils % (A) 50 %; Platelet Count 328 k/uL (150-450); RBC 4.31 m/uL (3.80-5.40); RDW 17.7 % (11.5-15.5); WBC 4.2 k/uL (3.8-10.6)
[2024-02-17 22:24] VITALS: BP 160/106; PULSE 121; RESP 18; TEMP 98.7
== END 2024-02-18 01:57 | disposition home or self-care (01) ==
LOC: EC 21:12
DX: F10.129 Alcohol abuse with intoxication, unspecified (principal); Z88.2 Allergy status to sulfonamides; Z90.49 Acquired absence of other specified parts of digestive tract
CPT/HCPCS: 36415; 85025; 93005; 99285

== ENCOUNTER 2024-02-18 08:49 | Inpatient (IN) | payer OTHER ==
[2024-02-18] MEDS ORDERED: LORazepam 2 MG/ML INJ IV PRN ×2 (09:06)
--- NOTE | 2024-02-18 09:10 | ED ---
General Adult HPI - General Chief complaint: Alcohol Stated complaint: detox Time Seen by Provider: 02/18/24 08:53 Source: patient Mode of arrival: EMS Limitations: no limitations - History of Present Illness Initial comments: Dictation was produced using [employer] dictation software. please excuse any grammatical, word or spelling errors. Chief Complaint: 43-year-old female with alcohol withdrawal symptoms History of Present Illness: Patient 43-year-old female she is an alcoholic. She abuses at least 1/5 of liquor daily. Patient's last drink was yesterday. She is trying to quit. States that over the last several hours she has been having worsening symptoms including total body pain, anxiety and tremors. States that she feels like crap. Denies any abdominal pain. Patient wants to quit alcohol forever. The ROS documented in this emergency department record has been reviewed and confirmed by me. Those systems with pertinent positive or negative responses have been documented in the HPI. All other systems are other negative and/or noncontributory. - Related Data Home Medications Medication Instructions Recorded Confirmed lisinopriL [Zestril] 10 mg PO DAILY 08/12/23 02/13/24 busPIRone HCL 15 mg PO BID 02/04/24 02/13/24 Previous Rx's Medication Instructions Recorded Venlafaxine HCl [Effexor XR] 150 mg PO DAILY 30 Days #30 cap 09/02/23 traZODone HCL [Desyrel] 50 mg PO HS 30 Days #30 tab 09/02/23 Acetaminophen Tab [Tylenol] 650 mg PO Q6HR PRN tab 02/06/24 Folic Acid 1 mg PO DAILY #60 tab 02/14/24 Thiamine [Vitamin B-1] 100 mg PO DAILY #60 tab 02/14/24 Allergies Allergy/AdvReac Type Severity Reaction Status Date / Time Sulfa (Sulfonamide Allergy Rash/Hives Verified 02/18/24 08:55 Antibiotics) Review of Systems ROS Statement: Those systems with pertinent positive or pertinent negative responses have been documented in the HPI. ROS Other: All systems not noted in ROS Statement are negative. Past Medical History Past Medical History: Hypertension, Neurologic Disorder, Rheumatoid Arthritis (RA) Additional Past Medical History / Comment(s): neuropathy, covid History of Any Multi-Drug Resistant Organisms: None Reported Past Surgical History: Cholecystectomy Additional Past Surgical History / Comment(s): Left knee replacement. Past Anesthesia/Blood Transfusion Reactions: No Reported Reaction Past Psychological History: Anxiety, Depression Smoking Status: Never smoker Past Alcohol Use History: Abuse, Daily Past Drug Use History: None Reported - Past Family History Father Family Medical History: Pneumonia Additional Family Medical History / Comment(s): Parkinson's following a closed head injury, depression, TBI. Mother Family Medical History: Coronary Artery Disease (CAD) Additional Family Medical History / Comment(s): following a surgery for a heart valve problem. General Exam - General Exam Comments Initial Comments: PHYSICAL EXAM: General Impression: Alert and oriented x3, tremulous HEENT: Normocephalic atraumatic, extra-ocular movements intact, pupils equal and reactive to light bilaterally, mucous membranes moist. Cardiovascular: Heart regular rate and rhythm Chest: Able to complete full sentences, no retractions, no tachypnea Abdomen: abdomen soft, non-tender, non-distended, no organomegaly Musculoskeletal: Pulses present and equal in all extremities, no peripheral edema Motor: no focal deficits noted Neurological: CN II-XII grossly intact, no focal motor or sensory deficits noted Skin: Intact with no visualized rashes Psych: N anxious Limitations: no limitations Course Vital Signs 02/18/24 08:52 Temperature 97.7 F Pulse Rate 104 H Respiratory 20 Rate Blood Pressure 152/92 O2 Sat by Pulse 92 L Oximetry Medical Decision Making - Medical Decision Making Was pt. sent in by a medical professional or institution (, PA, HAT CLEANER, urgent care, hospital, or [facility]...) When possible be specific @ -No Did you speak to anyone other than the patient for history (EMS, parent, family, police, friend...)? What history was obtained from this source @ -No Did you review nursing and triage notes (agree or disagree)? Why? @ -I reviewed and agree with nursing and triage notes Were old charts reviewed (outside hosp., previous admission, EMS record, old EKG, old radiological studies, urgent care reports/EKG's, [facility] records)? Report findings @ -No old charts were reviewed Differential Diagnosis (chest pain, altered mental status, abdominal pain women, abdominal pain men, vaginal bleeding, musculoskeletal, weakness, fever, dyspnea, syncope, headache, dizziness, GI bleed, back pain, seizure, CVA, palpatations, mental health)? @ -Differential Weakness: Hypoglycemia, shock, sepsis, hyponatremia, anemia, infection, MD, ETOH, adverse medicine reaction, overdose, stroke, this is not meant to be an all-inclusive list. EKG interpreted by me (3pts min.). @ -My EKG interpretation: Ventricular rate 117, sinus tachycardia,. 159, cures 86, QTc 395. No OR prolongation, no QTC prolongation, no ST or T-wave changes noted. X-rays interpreted by me (1pt min.). @ -None done CT interpreted by me (1pt min.). @ -None done U/S interpreted by me (1pt. min.). @ -None done What testing was considered but not performed or refused? (CT, X-rays, U/S, labs)? Why? @ -None What meds were considered but not given or refused? Why? @ -None Did you discuss the management of the patient with other professionals (professionals i.e. , PA, HAT CLEANER, lab, RT, psych nurse, social media developer, civil engineer's aide, teacher, state highway police officer, case supervisor)? Give summary @ -Case discussed with hospitalist for admission Was smoking cessation discussed for >3mins.? @ -No Was critical care preformed (if so, how long)? @ -No Were there social determinants of health that impacted care today? How? (Homelessness, low income, unemployed, alcoholism, drug addiction, transportation, low edu. Level, literacy, decrease access to med. care, [facility] [facility], rehab)? @ -No Was there de-escalation of care discussed even if they declined (Discuss DNR or withdrawal of care, Hospice)? DNR status @ -No What co-morbidities impacted this encounter? (DM, HTN, Smoking, COPD, CAD, Cancer, CVA, ARF, Chemo, Hep., AIDS, mental health diagnosis, sleep apnea, morbid obesity)? @ -None Was patient admitted / discharged? Hospital course, mention meds given and route, prescriptions, significant lab abnormalities, going to OR and other pertinent info. @ -43-year-old alcoholic dependent female presents to the ER for alcohol withdrawal. Last alcohol intake was yesterday. Patient acutely withdrawing. Her symptoms appear to be rather severe. Patient with Ativan. Will be admitted for inpatient treatment of alcohol withdrawal. Patient verbally agrees that she is willing to quit alcohol for the rest of her life Undiagnosed new problem with uncertain prognosis? @ -No Drug Therapy requiring intensive monitoring for toxicity (Heparin, Nitro, Insulin, Cardizem)? @ -No Were any procedures done? @ -No Diagnosis/symptom? Acute, or Chronic, or Acute on Chronic? Uncomplicated (without systemic symptoms) or Complicated (systemic symptoms)? @ -Alcohol withdrawal Side effects of treatment? @ -No Exacerbation, Progression, or Severe Exacerbation? @ -No Poses a threat to life or bodily function? How? (Chest pain, USA, MD, pneumonia, PE, COPD, DKA, ARF, appy, cholecystitis, CVA, Diverticulitis, Homicidal, Suicidal, threat to staff... and all critical care pts) @ -Yes Disposition Clinical Impression: Alcohol withdrawal syndrome Disposition: ADMITTED IP TO THIS HOSP Condition: Fair Referrals: Jones Mclean DO [Primary Care Provider] - 1-2 days Decision Time: 09:33
[2024-02-18] MEDS ORDERED: NALOXONE 0.4 MG/ML 1 ML VIAL IV PRN (09:19)
[2024-02-18] MEDS: THIAMINE 100 MG/ML 2 ML VIAL IM STA (09:24)
[2024-02-18] MEDS: SODIUM CHLORIDE 0.9% 1,000 ML IV STA (09:26)
[2024-02-18] MEDS: LORazepam 2 MG/ML INJ IV STA (09:27)
[2024-02-18 09:45] LABS: Anisocytosis Slight; Basophils # (A) 0.1 k/uL (0-0.2); Basophils % (A) 1 %; Eosinophils # (A) 0.1 k/uL (0-0.7); Eosinophils % (A) 1 %; HCT 38.7 % (34.0-46.0); HGB 12.3 gm/dL (11.4-16.0); Lymphocytes # (A) 0.6 k/uL (1.0-4.8); Lymphocytes % (A) 10 %; MCH 29.8 pg (25.0-35.0); MCHC 31.9 g/dL (31.0-37.0); MCV 93.4 fL (80.0-100.0); Mean Platelet Volume 7.5; Monocytes # (A) 0.3 k/uL (0-1.0); Monocytes % (A) 5 %; Neutrophils # (A) 4.8 k/uL (1.3-7.7); Neutrophils % (A) 81 %; Platelet Count 286 k/uL (150-450); RBC 4.15 m/uL (3.80-5.40); RDW 17.4 % (11.5-15.5); WBC 5.8 k/uL (3.8-10.6)
[2024-02-18 09:52] LABS: ALT 81 U/L (4-34); AST 88 U/L (14-36); African American GFR (CKD) >90 (>60 ml/min/1.73 sqM); Alcohol 28 mg/dL; Alkaline Phosphatase 97 U/L (38-126); Anion Gap 18 mmol/L; Blood Urea Nitrogen 15 mg/dL (7-17); Calcium 9.2 mg/dL (8.4-10.2); Carbon Dioxide 16 mmol/L (22-30); Chloride 107 mmol/L (98-107); Glucose 83 mg/dL (74-99); Magnesium 1.5 mg/dL (1.6-2.3); Non-African American GFR(CKD) >90 (>60 ml/min/1.73 sqM); Potassium 4.2 mmol/L (3.5-5.1); Sodium 141 mmol/L (137-145); Total Protein 8.2 g/dL (6.3-8.2)
[2024-02-18] MEDS: SODIUM CHLORIDE 0.9% 1,000 ML IV SCH ×2 (10:26→18:55)
[2024-02-18] MEDS: LORazepam 2 MG/ML INJ IV PRN (11:44)
[2024-02-18] MEDS ORDERED: LORazepam 0.5 MG TAB PO PRN (15:23)
[2024-02-18] MEDS ORDERED: LORazepam 1 MG TAB PO PRN (15:23)
[2024-02-18] MEDS: LORazepam 1 MG TAB PO PRN ×2 (15:33→20:26)
[2024-02-18] MEDS ORDERED: bisacodyL 5 MG TABLET.DR PO PRN (18:13)
[2024-02-18] MEDS ORDERED: MELATONIN 3 MG TABLET PO PRN (18:13)
[2024-02-18] MEDS ORDERED: ONDANSETRON 4 MG/2 ML VIAL IVP PRN (18:13)
[2024-02-18] MEDS ORDERED: ACETAMINOPHEN TAB 325 MG TAB PO PRN (18:13)
--- NOTE | 2024-02-18 18:26 | P.HPIM ---
History of Present Illness H&P Date: 02/18/24 Patient is a 43-year-old female with history of anxiety, depression, hypertension, and rheumatoid arthritis who has been hospitalized 2 additional times in the last month due to alcohol dependency. For the last 1 year she has been drinking 1/5th of vodka daily. She was recently discharged on 426 where she stated that she had all the resources she needed with a sponsor and AA. However she states she quickly relapsed. On arrival here she was tachycardic with a pulse of 104 and hypertensive with a blood pressure of 152/92. Initial laboratory analysis in the emergency department included CBC, CMP, and serum alcohol level which were remarkable for carbon dioxide of 16 with an anion gap of 18. In the ER she was given 2 mg of IV Ativan and started on normal saline. Arrangements were made for admission. Patient seen and examined at bedside. She reports that she quickly began dr inking again at home. She stopped drinking yesterday and then started to get anxious, fidgety, and have tremors and therefore decided to come to the emergency department. She also just reports she is not feeling well overall. She had some nausea and vomiting today. She also thinks she might be getting a cold. We discussed her multiple recent admissions and the fact that she may need to consider inpatient substance abuse rehab as this is not working. She has concerns over losing her job. I explained to her that this is her third hospitalization in 30 days which will also affect her job and that now is the time to make a significant change in her drinking pattern to prevent long-term problems such as cirrhosis. I also offered Tylenol troxidone therapy which she says she is tried in the past but does not work. She points back to her sponsor and AA and I explained to her that these have not worked the last 2 times and that she likely needs a significant change in pattern. Vital signs reviewed General: nontoxic, no distress, appears at stated age Derm: warm, dry Eyes: EOMI, no lid lag, anicteric sclera, pupils equal round reactive to light ENT: Nose and ears atraumatic Cardiovascular: S1S2 reg, no murmur, no edema Lungs: clear to auscultation bilateral, no rhonchi, no rales, no wheeze, no accessory muscle use Abdominal: soft, nontender to palpation, no guarding Ext: no gross muscle atrophy, no contractures Neuro: CN II-XII grossly intact, No focal neuro deficits, induced tremor when she lifts her arm but no tremor when taking oral medications Psych: Alert, oriented, appropriate affect Assessment/Plan: Alcohol withdraw in active alcoholic Sinus tachycardia, secondary to acute alcohol withdraw Anion gap metabolic acidosis suspect secondary to alcohol use Transaminitis due to alcohol use Anxiety and depression Accelerated hypertension -Ativan 0.5 to 2 mg as indicated by CIWA score. -Librium 50 mg 3 times daily -Normal saline at 75 cc/h -Thiamine 100 mg daily, Multivitamin daily, and Folate 1 mg daily -Repeat liver enzymes in a.m. GERD -protonix 40 mg daily. Hypomagnesemia -2 g IV. Then magnesium oxide 400 mg twice daily - repeat magnesium in a.m. Hypertension - lisinopril 10 mg daily. Imaging: As per HPI Data Review: As per HPI The patient is admitted with an anticipated greater than 2 midnight stay for evaluation of alcohol withdrawal. Surrogate decision-maker: Aunt DVT prophylaxis: SCDs Anticipated discharge date: Pending clinical course Anticipated discharge place: Pending clinical course This dictation was prepared using [employer] voice recognition software. Though every attempt is made to correct errors during dictation some may still exist. Past Medical History Past Medical History: GERD/Reflux, Hypertension, Neurologic Disorder, Rheumatoid Arthritis (RA) Additional Past Medical History / Comment(s): neuropathy History of Any Multi-Drug Resistant Organisms: None Reported Past Surgical History: Cholecystectomy Additional Past Surgical History / Comment(s): Bilateral knee replacements Past Anesthesia/Blood Transfusion Reactions: No Reported Reaction Past Psychological History: Anxiety, Depression Smoking Status: Never smoker Past Alcohol Use History: Abuse, Daily Additional Past Alcohol Use History / Comment(s): Drinks about 1/5 of vodka a day Past Drug Use History: None Reported - Past Family History Father Family Medical History: Pneumonia Additional Family Medical History / Comment(s): Parkinson's following a closed head injury, depression, TBI. Mother Family Medical History: Coronary Artery Disease (CAD) Additional Family Medical History / Comment(s): following a surgery for a heart valve problem. Medications and Allergies Home Medications Medication Instructions Recorded Confirmed Type lisinopriL [Zestril] 10 mg PO DAILY 08/12/23 02/18/24 History Venlafaxine HCl [Effexor XR] 150 mg PO DAILY 30 Days #30 cap 09/02/23 02/18/24 Rx traZODone HCL [Desyrel] 50 mg PO HS 30 Days #30 tab 09/02/23 02/18/24 Rx busPIRone HCL 15 mg PO BID 02/04/24 02/18/24 History Acetaminophen Tab [Tylenol] 650 mg PO Q6HR PRN tab 02/06/24 02/18/24 Rx Folic Acid 1 mg PO DAILY #60 tab 02/14/24 02/18/24 Rx Thiamine [Vitamin B-1] 100 mg PO DAILY #60 tab 02/14/24 02/18/24 Rx Allergies Allergy/AdvReac Type Severity Reaction Status Date / Time Sulfa (Sulfonamide Allergy Rash/Hives Verified 02/18/24 10:59 Antibiotics) Physical Exam Osteopathic Statement: *. No significant issues noted on an osteopathic structural exam other than those noted in the History and Physical/Consult. Vitals: Vital Signs Temp Pulse Pulse Resp BP BP Pulse Ox 02/18/24 17:45 103 H 166/103 02/18/24 17:02 98.1 F 97 16 181/106 97 02/18/24 16:31 97.8 F 100 18 156/98 98 02/18/24 13:41 113 H 18 143/95 98 02/18/24 11:42 112 H 18 149/101 97 02/18/24 10:59 112 H 18 145/101 97 02/18/24 08:52 97.7 F 104 H 20 152/92 92 L Intake and Output 02/18/24 02/18/24 02/18/24 06:59 14:59 22:59 Other: Weight 81.647 kg 81.647 kg Results CBC & Chem 7: 02/18/24 09:18 02/18/24 09:18 Labs: Abnormal Lab Results - Last 24 Hours (Table) 02/18/24 02/18/24 Range/Units 09:18 09:18 RDW 17.4 H (11.5-15.5) % Lymphocytes # 0.6 L (1.0-4.8) k/uL Carbon Dioxide 16 L (22-30) mmol/L Magnesium 1.5 L (1.6-2.3) mg/dL AST 88 H (14-36) U/L ALT 81 H (4-34) U/L Thrombosis Risk Factor Assmnt - Choose All That Apply Any of the Below Risk Factors Present?: Yes Each Factor Represents 1 point: Age 41-60 years Other Risk Factors: No Other congenital or acquired thrombophilia - If yes, enter type in comment: No Thrombosis Risk Factor Assessment Total Risk Factor Score: 1 Thrombosis Risk Factor Assessment Level: Low Risk
[2024-02-18] MEDS: PANTOPRAZOLE 40 MG TABLET PO STA (18:54)
[2024-02-18] MEDS: chlordiazePOXIDE 25 MG CAP PO SCH (18:54)
[2024-02-18] MEDS: MAGNESIUM SULFATE-D5W PMX 1 GM in DEXTROSE/WATER 1 100ML.BAG IVPB SCH (18:54)
[2024-02-18] MEDS: busPIRone HCl 5 MG TAB PO SCH (21:27)
[2024-02-18] MEDS: traZODone HCL 50 MG TAB PO SCH (21:27)
[2024-02-18] MEDS: MAGNESIUM OXIDE 400 MG TAB PO SCH (21:27)
[2024-02-19 07:34] LABS: ALT 51 U/L (4-34); AST 49 U/L (14-36); African American GFR (CKD) >90 (>60 ml/min/1.73 sqM); Albumin 3.7 g/dL (3.5-5.0); Albumin/Globulin Ratio 1.4; Alkaline Phosphatase 74 U/L (38-126); Anion Gap 2 mmol/L; Blood Urea Nitrogen 15 mg/dL (7-17); Calcium 8.3 mg/dL (8.4-10.2); Carbon Dioxide 28 mmol/L (22-30); Chloride 103 mmol/L (98-107); Globulin 2.7 g/dL; Glucose 81 mg/dL (74-99); Magnesium 2.3 mg/dL (1.6-2.3); Non-African American GFR(CKD) >90 (>60 ml/min/1.73 sqM); Sodium 133 mmol/L (137-145); Total Bilirubin 1.4 mg/dL (0.2-1.3); Total Protein 6.4 g/dL (6.3-8.2)
[2024-02-19] MEDS: PANTOPRAZOLE 40 MG TABLET PO SCH (08:17)
[2024-02-19] MEDS: THIAMINE 100 MG TAB PO SCH (08:18)
[2024-02-19] MEDS: VENLAFAXINE HCL ER 150 MG CAP PO SCH (08:18)
[2024-02-19] MEDS: FOLIC ACID 1 MG TAB PO SCH (08:18)
[2024-02-19] MEDS: lisinopriL 10 MG TAB PO SCH (08:23)
--- NOTE | 2024-02-19 17:39 | P.PN ---
Subjective Progress Note Date: 02/19/24 (delayed charting seen at 0930) Patient is a 43-year-old female with history of anxiety, depression, hypertension, and rheumatoid arthritis who has been hospitalized 2 additional times in the last month due to alcohol dependency. For the last 1 year she has been drinking 1/5th of vodka daily. She was recently discharged on 426 where she stated that she had all the resources she needed with a sponsor and AA. However she states she quickly relapsed. On arrival here she was tachycardic with a pulse of 104 and hypertensive with a blood pressure of 152/92. Initial laboratory analysis in the emergency department included CBC, CMP, and serum alcohol level which were remarkable for carbon dioxide of 16 with an anion gap of 18. In the ER she was given 2 mg of IV Ativan and started on normal saline. Arrangements were made for admission. She did well after admission but remained tachycardic. She was started on Librium. Patient seen and examined at bedside. She is doing much better today than yesterday. Nausea is resolved, tremors are improved. Anxiety is improved. She states she was able to sleep last night. She is asking for Librium on discharge we discussed the risks of that as if she combines it with alcohol this could lead to overdose. She is understanding and then states she does not want it at home. I did offer her acamprosate or naltrexone but patient declines Vital signs reviewed General: Nontoxic, no distress, appears at stated age Cardiovascular: S1S2 reg, no murmur Lungs: CTA bilateral, no rhonchi, no rales, no accessory muscle use Abdominal: Soft, nontender to palpation, no guarding Ext: No gross muscle atrophy, no edema b/l lower extremities, no contractures Neuro: CN II-XI grossly intact, no focal neuro deficits, + tremors Psych: Alert, oriented, appropriate affect Assessment/Plan: Alcohol withdraw in active alcoholic Sinus tachycardia, secondary to acute alcohol withdraw Transaminitis due to alcohol use Anxiety and depression -Ativan 0.5 to 2 mg as indicated by CIWA score. -Librium 50 mg 3 times daily -Normal saline at 75 cc/h -Thiamine 100 mg daily, Multivitamin daily, and Folate 1 mg daily -Repeat liver enzymes in a.m. GERD -protonix 40 mg daily. Hypertension - lisinopril 10 mg daily. Hypomagnesemia, resolved Anion gap metabolic acidosis suspect secondary to alcohol use, resolved Accelerated hypertension, resolved Imaging: None Data Review: Labs reviewed from today are CMP which are remarkable for sodium of 133, total bilirubin 1.4, AST 49, ALT 51. DVT prophylaxis: Lovenox Anticipated discharge date/place: Home in a.m. This dictation was prepared using [employer] voice recognition software. Though every attempt is made to correct errors during dictation some may still exist. Objective - Vital Signs Vital signs: Vital Signs Temp 97.6 F 02/19/24 11:56 Pulse 95 02/19/24 11:56 Resp 16 02/19/24 11:56 BP 144/89 02/19/24 11:56 Pulse Ox 95 02/19/24 11:56 FiO2 Intake & Output 02/18/24 02/19/24 02/19/24 18:59 06:59 18:59 Intake Total 1540 Balance 1540 Weight 81.647 kg Intake: Intake, IV Titration 1000 Amount Magnesium Sulfate-D5w Pmx 100 1 gm In Dextrose/Water 1 100ml.bag @ 100 mls/hr IVPB Q1H [facility] Rx#: [id number] Sodium Chloride 0.9% 1, 900 000 ml @ 75 mls/hr IV . [id number] [facility] Rx#:[id number] Oral 540 Other: Voiding Method Toilet # Voids 3 - Labs CBC & Chem 7: 02/18/24 09:18 02/19/24 07:02 Labs: Abnormal Lab Results - Last 24 Hours (Table) 02/18/24 02/19/24 Range/Units 18:20 07:02 Sodium 133 L (137-145) mmol/L Plasma Lactic Acid Feroz 0.6 L (0.7-2.0) mmol/L Calcium 8.3 L (8.4-10.2) mg/dL Total Bilirubin 1.4 H (0.2-1.3) mg/dL AST 49 H (14-36) U/L ALT 51 H (4-34) U/L
[2024-02-19 20:33] VITALS: RESP 18
[2024-02-20 08:28] LABS: ALT 39 U/L (4-34); AST 34 U/L (14-36); African American GFR (CKD) >90 (>60 ml/min/1.73 sqM); Albumin 3.4 g/dL (3.5-5.0); Albumin/Globulin Ratio 1.4; Alkaline Phosphatase 64 U/L (38-126); Anion Gap 6 mmol/L; Blood Urea Nitrogen 16 mg/dL (7-17); Calcium 8.9 mg/dL (8.4-10.2); Carbon Dioxide 24 mmol/L (22-30); Chloride 106 mmol/L (98-107); Globulin 2.5 g/dL; Glucose 86 mg/dL (74-99); Non-African American GFR(CKD) >90 (>60 ml/min/1.73 sqM); Potassium 4.1 mmol/L (3.5-5.1); Sodium 136 mmol/L (137-145); Total Bilirubin 0.7 mg/dL (0.2-1.3); Total Protein 5.9 g/dL (6.3-8.2)
[2024-02-20 08:38] VITALS: BP 147/92; PULSE 89; TEMP 97.8
--- NOTE | 2024-02-20 09:46 | P.DS ---
Providers Date of admission: 02/18/24 09:20 Expected date of discharge: 02/20/24 Attending physician: Farhan Pathak MD [facility] Course: Patient is a 43-year-old female with history of anxiety, depression, hypertension, and rheumatoid arthritis who has been hospitalized 2 additional times in the last month due to alcohol dependency. For the last 1 year she has been drinking 1/5th of vodka daily. She was recently discharged on 426 where she stated that she had all the resources she needed with a sponsor and AA. However she states she quickly relapsed. On arrival here she was tachycardic with a pulse of 104 and hypertensive with a blood pressure of 152/92. Initial laboratory analysis in the emergency department included CBC, CMP, and serum alcohol level which were remarkable for carbon dioxide of 16 with an anion gap of 18. In the ER she was given 2 mg of IV Ativan and started on normal saline. Arrangements were made for admission. She did well after admission but remained tachycardic. She was started on Librium. Patient seen and examined at bedside. She reports feeling well. No complaints. Looking forward to going home. She is requesting Librium on discharge. Risks of combining Librium and alcohol was thoroughly explained to the patient including respiratory depression and sudden . She verbalized understanding. She does not plan on drinking once discharge. Vital signs reviewed General: Nontoxic, no distress, appears at stated age Cardiovascular: S1S2 reg, no murmur Lungs: CTA bilateral, no rhonchi, no rales, no accessory muscle use Abdominal: Soft, nontender to palpation, no guarding Ext: No gross muscle atrophy, no edema b/l lower extremities, no contractures Neuro: no focal neuro deficits Psych: Alert, oriented, appropriate affect Discharge Diagnosis: Alcohol withdraw in active alcoholic Sinus tachycardia, secondary to acute alcohol withdraw Transaminitis due to alcohol use Anxiety and depression GERD Hypertension Resolved: Hypomagnesemia, Anion gap metabolic acidosis suspect secondary to alcohol use, Accelerated hypertension This complex discharge took 35 minutes to complete. Patient Condition at Discharge: Stable Plan - Discharge Summary Discharge Rx Participant: No New Discharge Prescriptions: New chlordiazePOXIDE HCl [Librium] 10 mg PO TID PRN 3 Days #9 capsule PRN Reason: Alcohol Withdrawal Pantoprazole [Protonix] 40 mg PO AC-BRKFST #30 tab Continue traZODone HCL [Desyrel] 50 mg PO HS 30 Days #30 tab Venlafaxine HCl [Effexor XR] 150 mg PO DAILY 30 Days #30 cap lisinopriL [Zestril] 10 mg PO DAILY busPIRone HCL 15 mg PO BID Acetaminophen Tab [Tylenol] 650 mg PO Q6HR PRN tab PRN Reason: Mild Pain Or Fever > 100.5 Folic Acid 1 mg PO DAILY #60 tab Thiamine [Vitamin B-1] 100 mg PO DAILY #60 tab Discharge Medication List lisinopriL [Zestril] 10 mg PO DAILY 08/12/23 [History] Venlafaxine HCl [Effexor XR] 150 mg PO DAILY 30 Days #30 cap 09/02/23 [Rx] traZODone HCL [Desyrel] 50 mg PO HS 30 Days #30 tab 09/02/23 [Rx] busPIRone HCL 15 mg PO BID 02/04/24 [History] Acetaminophen Tab [Tylenol] 650 mg PO Q6HR PRN tab 02/06/24 [Rx] Folic Acid 1 mg PO DAILY #60 tab 02/14/24 [Rx] Thiamine [Vitamin B-1] 100 mg PO DAILY #60 tab 02/14/24 [Rx] Pantoprazole [Protonix] 40 mg PO AC-BRKFST #30 tab 02/20/24 [Rx] chlordiazePOXIDE HCl [Librium] 10 mg PO TID PRN 3 Days #9 capsule 02/20/24 [Rx] Follow up Appointment(s)/Referral(s): Jones Mclean DO [Primary Care Provider] - 1-2 days Discharge/Stand Alone Forms: AA Meetings [facility] - [facility], AA Meetings [place], Outpatient Counseling, Inp Substance Abuse Facilities, Personal [employer]
== END 2024-02-20 13:05 | disposition home or self-care (01) | DRG 897 ==
LOC: EC 08:49 → 5NMEDONC 09:20
PROVIDERS: ADMIT Student in an Organized Health Care Education/Training Program; ATTEND Student in an Organized Health Care Education/Training Program
DX: F10.239 Alcohol dependence with withdrawal, unspecified (principal); E87.20 Acidosis, unspecified; E83.42 Hypomagnesemia; F32.A Depression, unspecified; F41.9 Anxiety disorder, unspecified; I10 Essential (primary) hypertension; K21.9 Gastro-esophageal reflux disease without esophagitis; M06.9 Rheumatoid arthritis, unspecified; G62.9 Polyneuropathy, unspecified; R00.0 Tachycardia, unspecified; R74.01 Elevation of levels of liver transaminase levels; Z79.899 Other long term (current) drug therapy; Z28.21 Immunization not carried out because of patient refusal; Z28.310 Unvaccinated for COVID-19; Z96.653 Presence of artificial knee joint, bilateral
CPT/HCPCS: 36415; 80053; 80320; 83605; 83735; 85025; 93005; 96361; 96372; 96374; 96376; 99285

== ENCOUNTER 2024-03-20 09:41 | Observation (INO) | payer OTHER ==
--- NOTE | 2024-03-20 10:38 | ED ---
General Adult HPI - General Chief complaint: Alcohol Stated complaint: ETOH,Nausea Time Seen by Provider: 03/20/24 09:43 Source: patient, family, EMS, RN notes reviewed Mode of arrival: EMS Limitations: altered mental status - History of Present Illness Initial comments: Patient is a 43-year-old female present to the emergency department with alcohol problems. Patient is unclear if she was drunk or detoxing. Patient states she last drank at 7 AM. Patient does admit to having some nausea. No suicidal or homicidal thoughts. Patient admits to feeling anxious regarding drinking. - Related Data Home Medications Medication Instructions Recorded Confirmed lisinopriL [Zestril] 10 mg PO DAILY 08/12/23 03/20/24 busPIRone HCL 15 mg PO BID 02/04/24 03/20/24 Atorvastatin [Lipitor] 40 mg PO HS 03/20/24 03/20/24 clonazePAM 0.5 mg PO DAILY PRN 03/20/24 03/20/24 hydrOXYzine pamoate [Vistaril] 25 mg PO BID PRN 03/20/24 03/20/24 Previous Rx's Medication Instructions Recorded Venlafaxine HCl [Effexor XR] 150 mg PO DAILY 30 Days #30 cap 09/02/23 traZODone HCL [Desyrel] 50 mg PO HS 30 Days #30 tab 09/02/23 Acetaminophen Tab [Tylenol] 650 mg PO Q6HR PRN tab 02/06/24 Folic Acid 1 mg PO DAILY #60 tab 02/14/24 Thiamine [Vitamin B-1] 100 mg PO DAILY #60 tab 02/14/24 Pantoprazole [Protonix] 40 mg PO AC-BRKFST #30 tab 02/20/24 Allergies Allergy/AdvReac Type Severity Reaction Status Date / Time Sulfa (Sulfonamide Allergy Rash/Hives Verified 03/20/24 12:02 Antibiotics) Review of Systems ROS Statement: Those systems with pertinent positive or pertinent negative responses have been documented in the HPI. ROS Other: All systems not noted in ROS Statement are negative. Constitutional: Denies: fever Eyes: Denies: eye pain ENT: Denies: ear pain Respiratory: Denies: cough Cardiovascular: Denies: chest pain Endocrine: Denies: fatigue Gastrointestinal: Reports: nausea. Denies: abdominal pain Psychiatric: Reports: anxiety Past Medical History Past Medical History: GERD/Reflux, Hypertension, Neurologic Disorder, Rheumatoid Arthritis (RA) Additional Past Medical History / Comment(s): neuropathy History of Any Multi-Drug Resistant Organisms: None Reported Past Surgical History: Cholecystectomy Additional Past Surgical History / Comment(s): Bilateral knee replacements Past Anesthesia/Blood Transfusion Reactions: No Reported Reaction Past Psychological History: Anxiety, Depression Smoking Status: Never smoker Past Alcohol Use History: Abuse, Daily Past Drug Use History: None Reported - Past Family History Father Family Medical History: Pneumonia Additional Family Medical History / Comment(s): Parkinson's following a closed head injury, depression, TBI. Mother Family Medical History: Coronary Artery Disease (CAD) Additional Family Medical History / Comment(s): following a surgery for a heart valve problem. General Exam Limitations: altered mental status General appearance: alert, in no apparent distress Head exam: Present: normocephalic Eye exam: Present: normal appearance Respiratory exam: Present: normal lung sounds bilaterally Cardiovascular Exam: Present: regular rate, normal rhythm GI/Abdominal exam: Present: soft. Absent: tenderness Extremities exam: Present: normal inspection Neurological exam: Present: alert Psychiatric exam: Present: anxious Skin exam: Present: normal color Course Vital Signs 03/20/24 03/20/24 03/20/24 09:50 11:26 12:14 Temperature 97.6 F 98.6 F Pulse Rate 108 H 106 H 112 H Respiratory 18 16 18 Rate Blood Pressure 125/84 146/116 134/92 O2 Sat by Pulse 97 92 L 95 Oximetry 03/20/24 03/20/24 12:43 13:49 Temperature 98.2 F Pulse Rate 117 H 122 H Respiratory 20 16 Rate Blood Pressure 131/83 147/87 O2 Sat by Pulse 95 97 Oximetry Medical Decision Making - Medical Decision Making Was pt. sent in by a medical professional or institution (, PA, TOY PACKER, urgent care, hospital, or care home...) When possible be specific @ -No Did you speak to anyone other than the patient for history (EMS, parent, family, police, friend...)? What history was obtained from this source @ -Family is present and helps provide history of recurrent alcohol problem Did you review nursing and triage notes (agree or disagree)? Why? @ -I reviewed and agree with nursing and triage notes Were old charts reviewed (outside hosp., previous admission, EMS record, old EKG, old radiological studies, urgent care reports/EKG's, care home records)? Report findings @ -No old charts were reviewed Differential Diagnosis (chest pain, altered mental status, abdominal pain women, abdominal pain men, vaginal bleeding, weakness, fever, dyspnea, syncope, headache, dizziness, GI bleed, back pain, seizure, CVA, palpatations, mental health, musculoskeletal)? @ -Differential Dizziness: Benign paroxysmal positional Vertigo, Menieres disease, otitis media, acoustic neuroma, vertebrobasilar insufficiency, cerebellar stroke, encephalitis, hypovolemic, arrhythmia, coronary artery syndrome, anemia, this is not meant to be an all-inclusive list EKG interpreted by me (3pts min.). @ -As above X-rays interpreted by me (1pt min.). @ -None done CT interpreted by me (1pt min.). @ -None done U/S interpreted by me (1pt. min.). @ -None done What testing was considered but not performed or refused? (CT, X-rays, U/S, labs)? Why? @ -None What meds were considered but not given or refused? Why? @ -None Did you discuss the management of the patient with other professionals (prof garcia i.e. , PA, TOY PACKER, lab, RT, psych nurse, protective services social worker, food service technician, teacher, licensed loan officer assistant, pillowcase cutter)? Give summary @ -Case discussed with Dr. Patel who will admit covering Dr. Mclean Was smoking cessation discussed for >3mins.? @ -No Was critical care preformed (if so, how long)? @ -No Were there social determinants of health that impacted care today? How? (Homelessness, low income, unemployed, alcoholism, drug addiction, transportation, low edu. Level, literacy, decrease access to med. care, nursing home, rehab)? @ -No Was there de-escalation of care discussed even if they declined (Discuss DNR or withdrawal of care, Hospice)? DNR status @ -No What co-morbidities impacted this encounter? (DM, HTN, Smoking, COPD, CAD, Cancer, CVA, ARF, Chemo, Hep., AIDS, mental health diagnosis, sleep apnea, morbid obesity)? @ -None Was patient admitted / discharged? Hospital course, mention meds given and route, prescriptions, significant lab abnormalities, going to OR and other pertinent info. @ -Patient presents with concerns for both alcohol intoxication and detox. Patient has alcohol of 242 and CIWA of 18. Patient will be admitted. Admission orders written Undiagnosed new problem with uncertain prognosis? @ -No Drug Therapy requiring intensive monitoring for toxicity (Heparin, Nitro, Insulin, Cardizem)? @ -No Were any procedures done? @ -No Diagnosis/symptom? @ -Alcohol intoxication, alcohol withdrawal syndrome Acute, or Chronic, or Acute on Chronic? @ -Acute on chronic, acute on chronic Uncomplicated (without systemic symptoms) or Complicated (systemic symptoms)? @ -Default Side effects of treatment? @ -No Exacerbation, Progression, or Severe Exacerbation? @ -No Poses a threat to life or bodily function? How? (Chest pain, USA, PA, pneumonia, PE, COPD, DKA, ARF, appy, cholecystitis, CVA, Diverticulitis, Homicidal, Suicidal, threat to staff... and all critical care pts) @ -No - Lab Data Result diagrams: 03/20/24 10:55 03/20/24 10:55 Lab Results 03/20/24 03/20/24 03/20/24 Range/Units 10:55 10:55 11:00 WBC 13.7 H (3.8-10.6) k/uL RBC 4.95 (3.80-5.40) m/uL Hgb 14.7 (11.4-16.0) gm/dL Hct 44.3 (34.0-46.0) % MCV 89.5 (80.0-100.0) fL MCH 29.7 (25.0-35.0) pg MCHC 33.2 (31.0-37.0) g/dL RDW 15.9 H (11.5-15.5) % Plt Count 300 (150-450) k/uL MPV 7.0 Neutrophils % 89 % Lymphocytes % 7 % Monocytes % 3 % Eosinophils % 1 % Basophils % 1 % Neutrophils # 12.2 H (1.3-7.7) k/uL Lymphocytes # 0.9 L (1.0-4.8) k/uL Monocytes # 0.4 (0-1.0) k/uL Eosinophils # 0.1 (0-0.7) k/uL Basophils # 0.1 (0-0.2) k/uL Sodium 140 (137-145) mmol/L Potassium 4.3 (3.5-5.1) mmol/L Chloride 108 H (98-107) mmol/L Carbon Dioxide 12 L (22-30) mmol/L Anion Gap 20 mmol/L BUN 15 (7-17) mg/dL Creatinine 0.59 (0.52-1.04) mg/dL Est GFR (CKD-EPI)AfAm >90 (>60 ml/min/1.73 sqM) Est GFR (CKD-EPI)NonAf >90 (>60 ml/min/1.73 sqM) Glucose 69 L (74-99) mg/dL POC Glucose (mg/dL) 68 L (70-110) mg/dL POC Glu Dress Cap Maker ID Stephanie Gamboa Calcium 8.0 L (8.4-10.2) mg/dL Total Bilirubin 0.6 (0.2-1.3) mg/dL AST 91 H (14-36) U/L ALT 66 H (4-34) U/L Alkaline Phosphatase 120 (38-126) U/L Total Protein 7.8 (6.3-8.2) g/dL Albumin 4.9 (3.5-5.0) g/dL 03/20/24 Range/Units 12:52 WBC (3.8-10.6) k/uL RBC (3.80-5.40) m/uL Hgb (11.4-16.0) gm/dL Hct (34.0-46.0) % MCV (80.0-100.0) fL MCH (25.0-35.0) pg MCHC (31.0-37.0) g/dL RDW (11.5-15.5) % Plt Count (150-450) k/uL MPV Neutrophils % % Lymphocytes % % Monocytes % % Eosinophils % % Basophils % % Neutrophils # (1.3-7.7) k/uL Lymphocytes # (1.0-4.8) k/uL Monocytes # (0-1.0) k/uL Eosinophils # (0-0.7) k/uL Basophils # (0-0.2) k/uL Sodium (137-145) mmol/L Potassium (3.5-5.1) mmol/L Chloride (98-107) mmol/L Carbon Dioxide (22-30) mmol/L Anion Gap mmol/L BUN (7-17) mg/dL Creatinine (0.52-1.04) mg/dL Est GFR (CKD-EPI)AfAm (>60 ml/min/1.73 sqM) Est GFR (CKD-EPI)NonAf (>60 ml/min/1.73 sqM) Glucose (74-99) mg/dL POC Glucose (mg/dL) 102 (70-110) mg/dL POC Glu Dress Cap Maker ID Stephania Edward Calcium (8.4-10.2) mg/dL Total Bilirubin (0.2-1.3) mg/dL AST (14-36) U/L ALT (4-34) U/L Alkaline Phosphatase (38-126) U/L Total Protein (6.3-8.2) g/dL Albumin (3.5-5.0) g/dL Disposition Clinical Impression: Alcohol use disorder, severe, dependence, Alcoholic intoxication, Alcohol ab use, Metabolic acidosis Disposition: ADMITTED IP TO THIS HOSP Is patient prescribed a controlled substance at d/c from ED?: No Referrals: Jones Mclean DO [Primary Care Provider] - 1-2 days Forms: AA Meetings Dist 22 & 24 - [facility], Community Resources, Outpatient Counseling, In Substance Abuse Facilities Time of Disposition: 13:59
[2024-03-20 11:03] LABS: Glucose,Whole Blood 68 mg/dL (70-110)
[2024-03-20 11:14] LABS: Basophils # (A) 0.1 k/uL (0-0.2); Basophils % (A) 1 %; Eosinophils # (A) 0.1 k/uL (0-0.7); Eosinophils % (A) 1 %; HCT 44.3 % (34.0-46.0); HGB 14.7 gm/dL (11.4-16.0); Lymphocytes # (A) 0.9 k/uL (1.0-4.8); Lymphocytes % (A) 7 %; MCH 29.7 pg (25.0-35.0); MCHC 33.2 g/dL (31.0-37.0); MCV 89.5 fL (80.0-100.0); Monocytes # (A) 0.4 k/uL (0-1.0); Monocytes % (A) 3 %; Neutrophils # (A) 12.2 k/uL (1.3-7.7); Neutrophils % (A) 89 %; Platelet Count 300 k/uL (150-450); RBC 4.95 m/uL (3.80-5.40); RDW 15.9 % (11.5-15.5); WBC 13.7 k/uL (3.8-10.6)
[2024-03-20] MEDS: THIAMINE 100 MG/ML 2 ML VIAL IM STA (11:15)
[2024-03-20] MEDS: ONDANSETRON 4 MG/2 ML VIAL IVP STA (11:16)
[2024-03-20] MEDS: FAMOTIDINE 20 MG/2 ML VIAL IV STA (11:16)
[2024-03-20] MEDS: SODIUM CHLORIDE 0.9% 1,000 ML IV STA ×2 (11:17→12:15)
[2024-03-20 11:28] LABS: ALT 66 U/L (4-34); AST 91 U/L (14-36); African American GFR (CKD) >90 (>60 ml/min/1.73 sqM); Albumin 4.9 g/dL (3.5-5.0); Alkaline Phosphatase 120 U/L (38-126); Anion Gap 20 mmol/L; Blood Urea Nitrogen 15 mg/dL (7-17); Carbon Dioxide 12 mmol/L (22-30); Chloride 108 mmol/L (98-107); Glucose 69 mg/dL (74-99); Non-African American GFR(CKD) >90 (>60 ml/min/1.73 sqM); Potassium 4.3 mmol/L (3.5-5.1); Sodium 140 mmol/L (137-145); Total Bilirubin 0.6 mg/dL (0.2-1.3); Total Protein 7.8 g/dL (6.3-8.2)
[2024-03-20 12:54] LABS: Glucose,Whole Blood 102 mg/dL (70-110)
[2024-03-20] MEDS ORDERED: LORazepam 0.5 MG TAB PO PRN (14:02)
[2024-03-20] MEDS ORDERED: NALOXONE 0.4 MG/ML 1 ML VIAL IV PRN (14:02)
[2024-03-20] MEDS ORDERED: ONDANSETRON 4 MG/2 ML VIAL IVP PRN (14:02)
[2024-03-20] MEDS ORDERED: LORazepam 1 MG TAB PO PRN (14:02)
[2024-03-20] MEDS ORDERED: ACETAMINOPHEN TAB 325 MG TAB PO PRN (14:04)
[2024-03-20] MEDS ORDERED: clonazePAM 0.5 MG TAB PO PRN (14:04)
[2024-03-20] MEDS: SODIUM CHLORIDE 0.9% 1,000 ML IV SCH (14:23)
[2024-03-20] MEDS: LORazepam 2 MG/ML INJ IV PRN (14:46)
[2024-03-20] MEDS: LORazepam 2 MG/ML INJ IV STA (14:51)
--- NOTE | 2024-03-20 16:18 | P.HPIM ---
History of Present Illness H&P Date: 03/20/24 Chief Complaint: patient requesting for detoxification from alcohol Patient is a 43-year-old female with a past medical history of anxiety, depression, hypertension and rheumatoid arthritis who has been admitted multiple times in the past month for alcohol dependency. Patient states that since her last discharge she did not drink any alcohol but then started drinking again 2 days ago. She states that last 2 days she drank 1/5 of vodka. She states that she is coming to the hospital for detoxing. Patient states that she has been trying to quit alcohol but it has been very difficult. She states that she has been going through a lot of grief. She states that this all started when she lost her mother 6 years ago. Patient is also requesting to speak with the psych iatrist. Patient also states that she was recently exposed to poison tamia and has a rash on her chest. In the ED patient WBC was 13.7, bicarb 12, AST 91 and ALT 66. Patient was mildly tachycardic. ROS: 10 ROS reviewed and are negative except as noted in HPI Physical exam General: [Alert and oriented, well nourished, no acute distress]. Eye: [PERRL, EOMI, normal conjunctiva]. HENT: [Normocephalic, clear tympanic membranes, normal hearing, moist oral mucosa, no scleral icterus, no sinus tenderness]. Neck: [Supple, non-tender, no carotid bruits, no JVD, no lymphadenopathy]. Lungs: [Clear to auscultation and percussion, non-labored respiration]. Heart: [Normal rate, regular rhythm, no murmur, gallop or edema]. Abdomen: [Soft, non-tender, non-distended, normal bowel sounds, no masses]. Musculoskeletal: [Normal range of motion and strength, no tenderness or swelling]. Skin: [Rash on patient's chest]. Neurologic: [Awake, alert, and oriented X3, CN II-XII intact]. Psychiatric: [Appears anxious t]. Assessment and plan Alcohol abuse and withdrawal Will start the patient on CIWA protocol Start thiamine 100 mg p.o. daily, folic acid 1 mg p.o. daily Metabolic acidosis likely due to ketoacidosis Continue with LR 100 cc an hour Anxiety and depression Continue with home meds Will consult psychiatry Poison tamia rash Will start prednisone 40 mg daily Benadryl as needed Hyperlipidemia Continue with statin DVT prophylaxis: Encourage early ambulation Past Medical History Past Medical History: GERD/Reflux, Hypertension, Neurologic Disorder, Rheumatoid Arthritis (RA) Additional Past Medical History / Comment(s): neuropathy History of Any Multi-Drug Resistant Organisms: None Reported Past Surgical History: Cholecystectomy Additional Past Surgical History / Comment(s): Bilateral knee replacements Past Anesthesia/Blood Transfusion Reactions: No Reported Reaction Past Psychological History: Anxiety, Depression Smoking Status: Never smoker Past Alcohol Use History: Abuse, Daily Past Drug Use History: None Reported - Past Family History Father Family Medical History: Pneumonia Additional Family Medical History / Comment(s): Parkinson's following a closed head injury, depression, TBI. Mother Family Medical History: Coronary Artery Disease (CAD) Additional Family Medical History / Comment(s): following a surgery for a heart valve problem. Medications and Allergies Home Medications Medication Instructions Recorded Confirmed Type lisinopriL [Zestril] 10 mg PO DAILY 08/12/23 03/20/24 History Venlafaxine HCl [Effexor XR] 150 mg PO DAILY 30 Days #30 cap 09/02/23 03/20/24 Rx traZODone HCL [Desyrel] 50 mg PO HS 30 Days #30 tab 09/02/23 03/20/24 Rx busPIRone HCL 15 mg PO BID 02/04/24 03/20/24 History Acetaminophen Tab [Tylenol] 650 mg PO Q6HR PRN tab 02/06/24 03/20/24 Rx Folic Acid 1 mg PO DAILY #60 tab 02/14/24 03/20/24 Rx Thiamine [Vitamin B-1] 100 mg PO DAILY #60 tab 02/14/24 03/20/24 Rx Pantoprazole [Protonix] 40 mg PO AC-BRKFST #30 tab 02/20/24 03/20/24 Rx Atorvastatin [Lipitor] 40 mg PO HS 03/20/24 03/20/24 History clonazePAM 0.5 mg PO DAILY PRN 03/20/24 03/20/24 History hydrOXYzine pamoate [Vistaril] 25 mg PO BID PRN 03/20/24 03/20/24 History Allergies Allergy/AdvReac Type Severity Reaction Status Date / Time Sulfa (Sulfonamide Allergy Rash/Hives Verified 03/20/24 12:02 Antibiotics) Physical Exam Osteopathic Statement: *. No significant issues noted on an osteopathic structural exam other than those noted in the History and Physical/Consult. Vitals: Vital Signs Temp Pulse Resp BP Pulse Ox 03/20/24 13:49 98.2 F 122 H 16 147/87 97 03/20/24 12:43 117 H 20 131/83 95 03/20/24 12:14 112 H 18 134/92 95 03/20/24 11:26 98.6 F 106 H 16 146/116 92 L 03/20/24 09:50 97.6 F 108 H 18 125/84 97 Intake and Output 03/20/24 03/20/24 03/20/24 06:59 14:59 22:59 Other: Weight 90.718 kg Results CBC & Chem 7: 03/20/24 10:55 03/20/24 10:55 Labs: Abnormal Lab Results - Last 24 Hours (Table) 03/20/24 03/20/24 03/20/24 Range/Units 10:55 10:55 11:00 WBC 13.7 H (3.8-10.6) k/uL RDW 15.9 H (11.5-15.5) % Neutrophils # 12.2 H (1.3-7.7) k/uL Lymphocytes # 0.9 L (1.0-4.8) k/uL Chloride 108 H (98-107) mmol/L Carbon Dioxide 12 L (22-30) mmol/L Glucose 69 L (74-99) mg/dL POC Glucose (mg/dL) 68 L (70-110) mg/dL Calcium 8.0 L (8.4-10.2) mg/dL AST 91 H (14-36) U/L ALT 66 H (4-34) U/L
[2024-03-20] MEDS ORDERED: diphenhydrAMINE 25 MG CAP PO PRN (16:19)
[2024-03-20] MEDS: LORazepam 1 MG TAB PO PRN (16:56)
[2024-03-20] MEDS: predniSONE 20 MG TAB PO SCH (16:56)
[2024-03-20] MEDS: LACTATED RINGERS 1,000 ML IV SCH (17:03)
[2024-03-20] MEDS ORDERED: LORazepam 1 MG/0.5 ML VIAL IV PRN (19:34)
[2024-03-20] MEDS: busPIRone HCl 5 MG TAB PO SCH (20:46)
[2024-03-20] MEDS: FAMOTIDINE 20 MG TAB PO SCH (20:46)
[2024-03-20] MEDS: traZODone HCL 50 MG TAB PO SCH (20:46)
[2024-03-20] MEDS: ATORVASTATIN 40 MG TAB PO SCH (20:46)
[2024-03-21 04:20] LABS: HCT 36.1 % (34.0-46.0); HGB 12.5 gm/dL (11.4-16.0); MCHC 34.5 g/dL (31.0-37.0); MCV 89.7 fL (80.0-100.0); Mean Platelet Volume 7.2; Platelet Count 198 k/uL (150-450); RBC 4.02 m/uL (3.80-5.40); WBC 6.3 k/uL (3.8-10.6)
[2024-03-21 04:45] LABS: African American GFR (CKD) >90 (>60 ml/min/1.73 sqM); Anion Gap 7 mmol/L; Blood Urea Nitrogen 12 mg/dL (7-17); Calcium 8.4 mg/dL (8.4-10.2); Carbon Dioxide 22 mmol/L (22-30); Chloride 103 mmol/L (98-107); Glucose 113 mg/dL (74-99); Magnesium 1.9 mg/dL (1.6-2.3); Non-African American GFR(CKD) >90 (>60 ml/min/1.73 sqM); Potassium 4.3 mmol/L (3.5-5.1); Sodium 132 mmol/L (137-145)
[2024-03-21] MEDS: lisinopriL 10 MG TAB PO SCH (08:24)
[2024-03-21] MEDS: THIAMINE 100 MG TAB PO SCH (08:24)
[2024-03-21] MEDS: FOLIC ACID 1 MG TAB PO SCH (08:24)
[2024-03-21] MEDS: VENLAFAXINE HCL ER 150 MG CAP PO SCH (09:38)
[2024-03-21] MEDS: chlordiazePOXIDE 25 MG CAP PO STA (09:38)
[2024-03-21] MEDS: hydrOXYzine pamoate 25 MG CAP PO PRN (14:21)
--- NOTE | 2024-03-21 14:29 | P.PN ---
Subjective Progress Note Date: 03/21/24 Patient is a 43-year-old female that is well-known to our service for multiple recent admissions due to alcohol dependency with request for withdrawal and history of anxiety, depression, hypertension, and rheumatoid arthritis who presented to the emergency department asking for detox. On arrival to the ER she was tachycardic with a pulse of 108. Laboratory analysis showed white blood cell count 13.7, AST 91, ALT 66. She was admitted and was started on CIWA protocol, thiamine, and folic acid. Patient seen and examined at bedside. She is feeling bad and still her withdrawal is very bad. She reports some nausea and vomiting, hearing and seeing things, itching, shaking, and anxiety. We again discussed the need for rehab on discharge. She again is reluctant and feels frustrated that she keeps feeling at quitting drinking. Vital signs reviewed General: Nontoxic, no distress, appears at stated age Cardiovascular: S1S2 reg, no murmur Lungs: CTA bilateral, no rhonchi, no rales, no accessory muscle use Abdominal: Soft, nontender to palpation, no guarding Ext: No gross muscle atrophy, no edema b/l lower extremities, no contractures Neuro: CN II-XI grossly intact, no focal neuro deficits, intention tremor Psych: Alert, oriented, appropriate affect Assessment/Plan: Delirium tremens in a known alcoholic -Librium 50 mg stat ordered this a.m., continue at 25 mg 3 times daily -CIWA protocol with oral Ativan between 0.5 to 2 mg every 2-4 hours depending on CIWA score -Thiamine increase to 100 mg twice daily, folic acid 1 mg daily Anxiety and depression -Vistaril 25 mg twice daily as needed -BuSpar 15 mg twice daily -Effexor 150 mg daily -Desyrel 50 mg at night -Await psychiatric consultation Poison tamia rash -Prednisone 40 mg daily day decrease to 10 mg #2 of 5 Dyslipidemia -Lipitor 40 mg Lactic acidosis, resolved Imaging: none Data Review: Labs reviewed from today include CBC and basic metabolic profile which are remarkable for sodium of 132. DVT prophylaxis: Lovenox 40 mg daily Anticipated discharge date: Pending clinical course Anticipated discharge place: Home This dictation was prepared using [employer] voice recognition software. Though every attempt is made to correct errors during dictation some may still exist. Objective - Vital Signs Vital signs: Vital Signs Temp 97.9 F 03/21/24 08:20 Pulse 105 H 03/21/24 12:00 Resp 17 03/21/24 12:00 BP 160/93 03/21/24 12:00 Pulse Ox 95 03/21/24 12:00 FiO2 Intake & Output 03/20/24 03/21/24 03/21/24 18:59 06:59 18:59 Intake Total 540 358 Balance 540 358 Weight 90.718 kg 90.718 kg Intake: Oral 540 358 - Labs CBC & Chem 7: 03/21/24 03:29 03/21/24 03:29 Labs: Abnormal Lab Results - Last 24 Hours (Table) 03/21/24 03/21/24 Range/Units 03:29 03:29 RDW 16.0 H (11.5-15.5) % Sodium 132 L (137-145) mmol/L Glucose 113 H (74-99) mg/dL
--- NOTE | 2024-03-21 15:42 | P.CN ---
Psychiatric Consult - . Consult date: 03/21/24 Consult:: 03/21/24 15:36 Patient Name: Irena Davis Date of : 76 Patient Status: Observation Attending Provider: Joy Donohue Date: 03/21/24 14:27 Initialization Date: 03/21/24 14:27 This is a 43-year-old female who is currently hospitalized for alcohol detox According to the medical follow-up the patient is well-known to the service and has had multiple previous admissions for alcohol dependency Patient also admits to concomitant history of depression and anxiety Her medical issues includehypertension, and rheumatoid arthritis who presented to the emergency department asking for detox. On arrival to the ER she was tachycardic with a pulse of 108. Laboratory analysis showed white blood cell count 13.7, AST 91, ALT 66. She was admitted and was started on CIWA protocol, thiamine, and folic acid. Patient is currently on Librium 50 mg stat ordered this a.m., continue at 25 mg 3 times daily -CIWA protocol with oral Ativan between 0.5 to 2 mg every 2-4 hours depending on CIWA score -Thiamine increase to 100 mg twice daily, folic acid 1 mg daily Anxiety and depression -Vistaril 25 mg twice daily as needed -BuSpar 15 mg twice daily -Effexor 150 mg daily -Desyrel 50 mg at night When seen today patient states that she is waiting to go home and that she has plans to have treatment follow-up as an outpatient She states that she is goes to regularly and has a sponsor She states that she currently works for the [employer] She said that she already takes Effexor and buspirone for depression and anxiety She admits that she needs to get some outpatient help and that she has no intention of harming herself or others She denies any thoughts of wanting to hurt herself or others She denies any previous psychiatric hospitalization but states that she has outpatient follow-ups Mental status examination: Mental status exam: General Appearance: Patient appears to be stated age, mildly obese, dressed in clean casual attire Patient seems uninterested and mostly worked on her phone Patient did not feel that she needed this psychiatric appointment since she already has sponsors and follow-up treatments and that she is already on medic ations Behavior: No agitated behavior. Polite, Speech: Patient's speech is fluent and non-pressured. Mood/Affect: Mood is "ok", affect is congruent and constricted. Suicidality/Homicidality: Patient denies having any suicidal or homicidal ideation intent or plan. Perceptions: Patient denies any auditory or visual hallucinations. Though content/process: There is no evidence of delusional thought content. Organized thought process Memory and concentration: AOX3, grossly intact for the purposes of this session Judgment and insight: Fair Diagnostic impression: Adjustment disorder with mixed emotional features mood disorder most likely related to alcohol use Anxiety disorder most likely related to alcohol use Alcohol use disorder chronic Plan: The patient does not meet the criteria for inpatient psychiatric hospitalization Patient is a good candidate for referral to outpatient psychiatric services and referral to substance use program Thank you very much for your kind referral and please feel free to contact me for any further questions Obie Hylton MD
[2024-03-21] MEDS: chlordiazePOXIDE 25 MG CAP PO SCH (16:44)
[2024-03-21] MEDS: LORazepam 1 MG TAB PO PRN (19:35)
[2024-03-22 05:41] LABS: HCT 37.1 % (34.0-46.0); HGB 11.8 gm/dL (11.4-16.0); MCH 28.3 pg (25.0-35.0); MCHC 31.9 g/dL (31.0-37.0); MCV 88.9 fL (80.0-100.0); Mean Platelet Volume 7.6; Platelet Count 160 k/uL (150-450); RBC 4.17 m/uL (3.80-5.40); RDW 15.9 % (11.5-15.5); WBC 5.5 k/uL (3.8-10.6)
[2024-03-22 06:03] LABS: ALT 35 U/L (4-34); AST 37 U/L (14-36); African American GFR (CKD) >90 (>60 ml/min/1.73 sqM); Albumin 3.7 g/dL (3.5-5.0); Alkaline Phosphatase 78 U/L (38-126); Anion Gap 4 mmol/L; Blood Urea Nitrogen 13 mg/dL (7-17); Calcium 8.7 mg/dL (8.4-10.2); Carbon Dioxide 27 mmol/L (22-30); Chloride 104 mmol/L (98-107); Glucose 88 mg/dL (74-99); Non-African American GFR(CKD) >90 (>60 ml/min/1.73 sqM); Potassium 3.4 mmol/L (3.5-5.1); Sodium 135 mmol/L (137-145); Total Bilirubin 0.8 mg/dL (0.2-1.3); Total Protein 6.1 g/dL (6.3-8.2)
[2024-03-22] MEDS: ENOXAPARIN 40 MG/0.4 ML SYRINGE SQ SCH (08:30)
[2024-03-22] MEDS: predniSONE 10 MG TAB PO SCH (08:43)
[2024-03-22 10:55] VITALS: BP 157/95; PULSE 106; RESP 18; TEMP 97.4
--- NOTE | 2024-03-22 13:39 | P.DS ---
Providers Date of admission: 03/20/24 14:04 Expected date of discharge: 03/22/24 Attending physician: Joy Donohue MD Consults: 03/20/24 16:18 Consult Physician Routine Consulting Provider: Tad Hwang Consult Reason/Comments: depression Do you want consulting provider notified?: Yes [facility] Course: Discharge Diagnosis: Delirium tremens in a known alcoholic Anxiety and depression Poison tamia rash, improved Dyslipidemia Lactic acidosis, resolved Hospital Course: Patient is a 43-year-old female that is well-known to our service for multiple recent admissions due to alcohol dependency with request for withdrawal and history of anxiety, depression, hypertension, and rheumatoid arthritis who pre sented to the emergency department asking for detox. On arrival to the ER she was tachycardic with a pulse of 108. Laboratory analysis showed white blood cell count 13.7, AST 91, ALT 66. She was admitted and was started on CIWA protocol, thiamine, and folic acid. She was then started on Librium due to CIWA scores of 20. She had rapid improvement in her withdrawal. She continued to be anxious which responded to Vistaril. She was seen by psychiatry who felt she did not warrant inpatient psychiatric admission. By the morning of 03/22/2024 she felt improved to much that she could manage at home and was asking for discharge. Patient was subsequently discharged home in stable condition. Follow-up: She will follow with her primary care physician in 1 to 2 days. She was given a short supply of Vistaril. I spent a long time instructing her that she should avoid benzodiazepines in the outpatient setting as she is likely treating 1 addiction for potential second addiction. She is in agreement. Patient seen and examined at bedside. She is doing well. Feels as though her anxiety and withdrawal is managed. She is going to stay with her sponsor from , she is considering rehab again. Vital signs reviewed and stable. General: Nontoxic, no distress, appears at stated age Cardiovascular: S1S2 reg, no murmur, positive posterior tibial pulse bilateral, Lungs: CTA bilateral, no rhonchi, no rales, no accessory muscle use Abdominal: Soft, nontender to palpation, no guarding, no appreciable organomegaly Ext: No gross muscle atrophy, no edema b/l lower extremities, no contractures Neuro: CN II-XI grossly intact, no focal neuro deficits Psych: Alert, oriented, appears anxious. A total of 35 minutes of time were spent preparing this complex discharge sum herbert. Patient was discharged on 03/22/24. This dictation was prepared using [employer] voice recognition software. Though every attempt is made to correct errors during dictation some may still exist. Plan - Discharge Summary New Discharge Prescriptions: Continue traZODone HCL [Desyrel] 50 mg PO HS 30 Days #30 tab Venlafaxine HCl [Effexor XR] 150 mg PO DAILY 30 Days #30 cap Atorvastatin [Lipitor] 40 mg PO HS lisinopriL [Zestril] 10 mg PO DAILY busPIRone HCL 15 mg PO BID Acetaminophen Tab [Tylenol] 650 mg PO Q6HR PRN tab PRN Reason: Mild Pain Or Fever > 100.5 Folic Acid 1 mg PO DAILY #60 tab Pantoprazole [Protonix] 40 mg PO AC-BRKFST #30 tab hydrOXYzine pamoate [Vistaril] 25 mg PO BID PRN #20 cap PRN Reason: Anxiety Thiamine [Vitamin B-1] 100 mg PO DAILY #30 tab Discontinued clonazePAM 0.5 mg PO DAILY PRN PRN Reason: Anxiety Discharge Medication List lisinopriL [Zestril] 10 mg PO DAILY 08/12/23 [History] Venlafaxine HCl [Effexor XR] 150 mg PO DAILY 30 Days #30 cap 09/02/23 [Rx] traZODone HCL [Desyrel] 50 mg PO HS 30 Days #30 tab 09/02/23 [Rx] busPIRone HCL 15 mg PO BID 02/04/24 [History] Acetaminophen Tab [Tylenol] 650 mg PO Q6HR PRN tab 02/06/24 [Rx] Folic Acid 1 mg PO DAILY #60 tab 02/14/24 [Rx] Pantoprazole [Protonix] 40 mg PO AC-BRKFST #30 tab 02/20/24 [Rx] Atorvastatin [Lipitor] 40 mg PO HS 03/20/24 [History] Thiamine [Vitamin B-1] 100 mg PO DAILY #30 tab 03/22/24 [Rx] hydrOXYzine pamoate [Vistaril] 25 mg PO BID PRN #20 cap 03/22/24 [Rx] Follow up Appointment(s)/Referral(s): Jones Mclean DO [Primary Care Provider] - 1-2 days Patient Instructions/Handouts: Alcohol Withdrawal (DC) Activity/Diet/Wound Care/Special Instructions: Activity: As tolerated Diet: Heart Health Special Instructions: Abstain from Alcohol Please consider going to Alcohol rehab. Discharge/Stand Alone Forms: AA Meetings Dist 22 & 24 - [facility], Community Resou rces, Outpatient Counseling, Inp Substance Abuse Facilities Discharge Disposition: HOME SELF-CARE
== END 2024-03-22 10:38 | disposition home or self-care (01) ==
LOC: EC 09:41 → 3SCARD 14:04
PROVIDERS: ADMIT Internal Medicine; ATTEND Internal Medicine
DX: F10.231 Alcohol dependence with withdrawal delirium (principal); F43.23 Adjustment disorder with mixed anxiety and depressed mood; F10.229 Alcohol dependence with intoxication, unspecified; E87.20 Acidosis, unspecified; I10 Essential (primary) hypertension; M06.9 Rheumatoid arthritis, unspecified; E78.5 Hyperlipidemia, unspecified; L23.7 Allergic contact dermatitis due to plants, except food; Z79.899 Other long term (current) drug therapy; Z88.2 Allergy status to sulfonamides
CPT/HCPCS: 96361 ×3; 82075; 96372; 96374; 96375; 99285; 36415; 80053 ×2; 80048; 83735; 85025; 85027 ×2; G0378 ×3; J2060; J3411; J2405; J3490; J7512 ×3

== ENCOUNTER 2024-03-29 14:01 | Observation (INO) | payer OTHER ==
--- NOTE | 2024-03-29 14:19 | ED ---
General Adult HPI - General Chief complaint: Nausea/Vomiting/Diarrhea Stated complaint: Vomiting Time Seen by Provider: 03/29/24 14:03 Source: patient Mode of arrival: EMS Limitations: no limitations - History of Present Illness Initial comments: This patient is a 43-year-old woman who arrives by ambulance with complaint that she believes she is "detoxing" from alcohol. The patient had been admitted in the hospital and then was discharged for same complaint. She went home and today she drank fifth of alcohol. Patient denies recent fall or injury. She complains of feeling very shaky and anxious and that her heart is racing. She has had a number of rounds of vomiting no hematemesis. No dark tarry stools or bloody stool. Onset/Timin -: days(s) Severity scale (1-10): 0 Consistency: constant Improves with: none Worsens with: none Associated Symptoms: nausea/vomiting Treatments Prior to Arrival: none - Related Data Home Medications Medication Instructions Recorded Confirmed lisinopriL [Zestril] 10 mg PO DAILY 08/12/23 03/29/24 busPIRone HCL 15 mg PO BID 02/04/24 03/29/24 Atorvastatin [Lipitor] 40 mg PO HS 03/20/24 03/29/24 Previous Rx's Medication Instructions Recorded Venlafaxine HCl [Effexor XR] 150 mg PO DAILY 30 Days #30 cap 09/02/23 traZODone HCL [Desyrel] 50 mg PO HS 30 Days #30 tab 09/02/23 Acetaminophen Tab [Tylenol] 650 mg PO Q6HR PRN tab 02/06/24 Folic Acid 1 mg PO DAILY #60 tab 02/14/24 Pantoprazole [Protonix] 40 mg PO AC-BRKFST #30 tab 02/20/24 Thiamine [Vitamin B-1] 100 mg PO DAILY #30 tab 03/22/24 hydrOXYzine pamoate [Vistaril] 25 mg PO BID PRN #20 cap 03/22/24 Allergies Allergy/AdvReac Type Severity Reaction Status Date / Time Sulfa (Sulfonamide Allergy Rash/Hives Verified 03/29/24 16:37 Antibiotics) Review of Systems ROS Statement: Those systems with pertinent positive or pertinent negative responses have been documented in the HPI. ROS Other: All systems not noted in ROS Statement are negative. Constitutional: Denies: fever, chills, weakness Eyes: Denies: vision change Respiratory: Denies: cough, dyspnea Cardiovascular: Denies: chest pain, palpitations, edema Gastrointestinal: Reports: nausea, vomiting. Denies: abdominal pain, hematemesis, melena, hematochezia Genitourinary: Denies: dysuria, hematuria Musculoskeletal: Denies: back pain Skin: Denies: rash Neurological: Denies: headache, weakness, numbness Psychiatric: Reports: anxiety. Denies: suicidal thoughts Past Medical History Past Medical History: GERD/Reflux, Hypertension, Neurologic Disorder, Rheumatoid Arthritis (RA) Additional Past Medical History / Comment(s): neuropathy History of Any Multi-Drug Resistant Organisms: None Reported Past Surgical History: Cholecystectomy Additional Past Surgical History / Comment(s): Bilateral knee replacements Past Anesthesia/Blood Transfusion Reactions: No Reported Reaction Past Psychological History: Anxiety, Depression Smoking Status: Never smoker Past Alcohol Use History: Abuse, Daily Past Drug Use History: None Reported - Past Family History Father Family Medical History: Pneumonia Additional Family Medical History / Comment(s): Parkinson's following a closed head injury, depression, TBI. Mother Family Medical History: Coronary Artery Disease (CAD) Additional Family Medical History / Comment(s): following a surgery for a heart valve problem. General Exam Limitations: no limitations General appearance: alert, in no apparent distress, appears intoxicated, anxious Head exam: Present: atraumatic Eye exam: Present: PERRL, EOMI, nystagmus. Absent: scleral icterus, conjunctival injection ENT exam: Present: mucous membranes dry Neck exam: Present: normal inspection Respiratory exam: Present: normal lung sounds bilaterally. Absent: respiratory distress, wheezes, rales, rhonchi, stridor, accessory muscle use Cardiovascular Exam: Present: normal rhythm, tachycardia, normal heart sounds. Absent: systolic murmur, diastolic murmur, rubs, gallop GI/Abdominal exam: Present: soft. Absent: distended, tenderness, guarding, rebound, rigid, mass Extremities exam: Present: normal inspection, normal capillary refill. Absent: pedal edema, calf tenderness Back exam: Present: normal inspection Neurological exam: Present: alert Psychiatric exam: Present: anxious. Absent: homicidal ideation, suicidal ideation Skin exam: Present: warm, dry, intact, normal color. Absent: rash Course Vital Signs 03/29/24 03/29/24 14:03 16:38 Temperature 97.8 F Pulse Rate 117 H 118 H Respiratory 16 18 Rate Blood Pressure 130/93 132/90 O2 Sat by Pulse 97 98 Oximetry Medical Decision Making - Lab Data Result diagrams: 03/29/24 14:26 03/29/24 14:26 Lab Results 03/29/24 03/29/24 Range/Units 14:26 14:26 WBC 7.2 (3.8-10.6) k/uL RBC 5.04 (3.80-5.40) m/uL Hgb 14.9 D (11.4-16.0) gm/dL Hct 46.1 H (34.0-46.0) % MCV 91.7 (80.0-100.0) fL MCH 29.7 (25.0-35.0) pg MCHC 32.4 (31.0-37.0) g/dL RDW 16.3 H (11.5-15.5) % Plt Count 223 (150-450) k/uL MPV 7.0 Neutrophils % 89 % Lymphocytes % 7 % Monocytes % 2 % Eosinophils % 0 % Basophils % 1 % Neutrophils # 6.3 (1.3-7.7) k/uL Lymphocytes # 0.5 L (1.0-4.8) k/uL Monocytes # 0.2 (0-1.0) k/uL Eosinophils # 0.0 (0-0.7) k/uL Basophils # 0.0 (0-0.2) k/uL Anisocytosis Slight Sodium 141 (137-145) mmol/L Potassium 4.3 (3.5-5.1) mmol/L Chloride 110 H (98-107) mmol/L Carbon Dioxide 10 L (22-30) mmol/L Anion Gap 21 mmol/L BUN 17 (7-17) mg/dL Creatinine 0.65 (0.52-1.04) mg/dL Est GFR (CKD-EPI)AfAm >90 (>60 ml/min/1.73 sqM) Est GFR (CKD-EPI)NonAf >90 (>60 ml/min/1.73 sqM) Glucose 68 L (74-99) mg/dL Calcium 8.0 L (8.4-10.2) mg/dL Total Bilirubin 1.4 H (0.2-1.3) mg/dL AST 95 H (14-36) U/L ALT 50 H (4-34) U/L Alkaline Phosphatase 116 (38-126) U/L Total Protein 8.1 (6.3-8.2) g/dL Albumin 5.1 H (3.5-5.0) g/dL Serum Alcohol 377 H* mg/dL Disposition Clinical Impression: Alcoholic intoxication, Alcohol withdrawal syndrome Disposition: ADMITTED IP TO THIS HOSP Condition: Fair
[2024-03-29] MEDS: LORazepam 2 MG/ML INJ IV STA (14:35)
[2024-03-29] MEDS: ONDANSETRON 4 MG/2 ML VIAL IVP STA (14:35)
[2024-03-29] MEDS: SODIUM CHLORIDE 0.9% 1,000 ML IV ONE (14:37)
[2024-03-29 14:43] LABS: Anisocytosis Slight; Basophils % (A) 1 %; Eosinophils % (A) 0 %; HCT 46.1 % (34.0-46.0); Lymphocytes # (A) 0.5 k/uL (1.0-4.8); Lymphocytes % (A) 7 %; MCH 29.7 pg (25.0-35.0); MCHC 32.4 g/dL (31.0-37.0); MCV 91.7 fL (80.0-100.0); Monocytes # (A) 0.2 k/uL (0-1.0); Monocytes % (A) 2 %; Neutrophils # (A) 6.3 k/uL (1.3-7.7); Neutrophils % (A) 89 %; Platelet Count 223 k/uL (150-450); RBC 5.04 m/uL (3.80-5.40); RDW 16.3 % (11.5-15.5); WBC 7.2 k/uL (3.8-10.6)
[2024-03-29 14:46] LABS: HGB 14.9 gm/dL (11.4-16.0)
[2024-03-29 14:50] LABS: ALT 50 U/L (4-34); AST 95 U/L (14-36); African American GFR (CKD) >90 (>60 ml/min/1.73 sqM); Albumin 5.1 g/dL (3.5-5.0); Alkaline Phosphatase 116 U/L (38-126); Anion Gap 21 mmol/L; Blood Urea Nitrogen 17 mg/dL (7-17); Carbon Dioxide 10 mmol/L (22-30); Chloride 110 mmol/L (98-107); Glucose 68 mg/dL (74-99); Non-African American GFR(CKD) >90 (>60 ml/min/1.73 sqM); Potassium 4.3 mmol/L (3.5-5.1); Sodium 141 mmol/L (137-145); Total Bilirubin 1.4 mg/dL (0.2-1.3); Total Protein 8.1 g/dL (6.3-8.2)
[2024-03-29 15:02] LABS: Alcohol 377 mg/dL
[2024-03-29] MEDS ORDERED: ONDANSETRON 4 MG/2 ML VIAL IVP PRN (15:55)
[2024-03-29] MEDS ORDERED: NALOXONE 0.4 MG/ML 1 ML VIAL IV PRN (15:55)
[2024-03-29] MEDS ORDERED: LORazepam 1 MG TAB PO PRN (16:02)
[2024-03-29] MEDS ORDERED: LORazepam 2 MG/ML INJ IV PRN ×2 (16:02)
[2024-03-29] MEDS: LORazepam 2 MG/ML INJ IV PRN (16:20)
[2024-03-29] MEDS: SODIUM CHLORIDE 0.9% 1,000 ML IV SCH (16:24)
[2024-03-29] MEDS ORDERED: DEXTROSE 50% SYRINGE 50 ML IVP PRN ×2 (16:29)
--- NOTE | 2024-03-29 17:02 | P.HPIM ---
History of Present Illness H&P Date: 03/29/24 History of Presenting Illness: Patient is a 43-year-old female with a past medical history of anxiety, depression, hypertension, rheumatoid arthritis, and daily alcohol abuse drinking 1-2 fifths of alcohol daily.. Patient is very well-known to our services and has had multiple admissions to our facility for alcohol intoxication and withdrawal secondary to her longstanding history of alcoholism. She presented to the emergency department today via EMS with complaints that she is "detoxing" from alcohol and experiencing intractable vomiting. Patient seen and fully evaluated at bedside. Patient eating popsicle at time of examination. No tremors noted. Patient reports she is anxious and detoxing. Patient informed blood alcohol level was 377. Patient reports last time drinking was approximately an hour prior to arrival to the hospital. Patient reports she typically drinks 1-2 fifths of alcohol daily and only drank a fifth today. Upon arrival to our facility, patient underwent evaluation in the emergency department. Vital signs upon arrival show blood pressure 130/93, heart rate 117, respiratory rate 16, temp 97.8 F, and SpO2 of 97% on 2 L completed and reviewed. CBC showing elevated hematocrit of 46.1 otherwise normal findings. BMP showing high anion gap metabolic acidosis with chloride of 110, bicarb of 10, and anion gap of 21. Glucose 68. Liver enzymes showing elevated total bili of 1.4, AST of 95, and ALT of 50. Blood Alcohol level 377. Patient admitted under our services to observation unit at this time. Review of systems: Pertinent positives and negatives as discussed in HPI, a complete review of systems was performed and all other systems are negative. Physical exam: Vital signs reviewed and stable. General: Nontoxic, no distress and appears stated age. Derm: Skin warm and dry, normal coloration for ethnicity. Head: Atraumatic, normocephalic and symmetric. Eyes: EOMs intact, no lid lag, and anicteric sclera Mouth: no lip lesions, mucus membranes moist Cardiovascular: Tachycardic rate with regular rhythm. Normal S1S2, no murmur, positive posterior tibial pulses bilaterally, and cap refill < 2 seconds. Lungs: Respirations even, regular, and unlabored on room air. Lungs CTA bilaterally, no rhonchi, no rales, no wheezing, and no accessory muscle usage. Abdominal: soft, nontender to palpation, no guarding, no appreciable organomegaly Ext: ROM intact. No gross muscle atrophy, no edema, no contractures Neuro: Speech clear, face symmetrical and CN II-XII grossly intact with no noted focal neuro deficits. . Psych: Alert and oriented to person, place, time, and situation. Appropriate and pleasant affect. Assessment and Plan of Care: Alcohol withdraw in active alcoholic Intractable vomiting, secondary to alcohol abuse Sinus tachycardia, secondary to acute alcohol withdraw and dehydration High anion gap metabolic acidosis, secondary to alcohol abuse Hyperbilirubinemia with elevated transaminases. Secondary to daily alcohol use/abuse. -Order placed for monitoring of CIWA scores and patient to be medicated with Ati van 0.5 mg every 4 hours as needed for CIWA score of 4-5, Ativan 1 mg every 4 hours for CIWA score of 6-7, Ativan 2 mg every 3 hours CIWA score of 8-9, and Ativan 2 mg every 2 hours forr CIWA score of 10 or greater. -Continuous IV hydration with 0.9% normal saline at 130 cc/h -Thiamine 100 mg daily, Multivitamin daily, and Folate 1 mg daily -Seizure, fall, aspiration, and elopement precautions in place. -EKG to be obtained. -Zofran 4 mg IVP every 8 hours as needed for nausea and vomiting and Tigan 2 g IM every 8 hours for persistent nausea. -Telemetry monitoring. -Repeat CMP to follow-up on hyperbilirubinemia with elevated transaminases. Anxiety and depression -Continue daily medication regimen with Effexor 150 mg daily, trazodone 50 mg nightly, and BuSpar 15 mg twice daily. . Hypertension -Continue daily medication regimen with lisinopril 10 mg daily. Data and imaging reviewed: As stated above in HPI The patient is admitted with an anticipated less than 2 midnight stay for evaluation of alcohol intoxication CODE STATUS: Full code DVT prophylaxis: Lovenox Anticipated discharge date: Likely within the next 24 hours, once clinically sober Anticipated discharge place: Home versus inpatient drug and alcohol rehabilitation facility Patient was seen independently by Nurse Practitioner. This document was prepared using [employer] dictation software. Please allow for errors in fountain pen nibs inspector while rare they do occur. I reviewed the documentation as provided by the ANN above, who is the original author of this note. I agree with the documented assessment and plan, with the following changes: none Past Medical History Past Medical History: GERD/Reflux, Hypertension, Neurologic Disorder, Rheumatoid Arthritis (RA) Additional Past Medical History / Comment(s): neuropathy History of Any Multi-Drug Resistant Organisms: None Reported Past Surgical History: Cholecystectomy Additional Past Surgical History / Comment(s): Bilateral knee replacements Past Anesthesia/Blood Transfusion Reactions: No Reported Reaction Past Psychological History: Anxiety, Depression Smoking Status: Never smoker Past Alcohol Use History: Abuse, Daily Past Drug Use History: None Reported - Past Family History Father Family Medical History: Pneumonia Additional Family Medical History / Comment(s): Parkinson's following a closed head injury, depression, TBI. Mother Family Medical History: Coronary Artery Disease (CAD) Additional Family Medical History / Comment(s): following a surgery for a heart valve problem. Medications and Allergies Home Medications Medication Instructions Recorded Confirmed Type lisinopriL [Zestril] 10 mg PO DAILY 08/12/23 03/29/24 History Venlafaxine HCl [Effexor XR] 150 mg PO DAILY 30 Days #30 cap 09/02/23 03/29/24 Rx traZODone HCL [Desyrel] 50 mg PO HS 30 Days #30 tab 09/02/23 03/29/24 Rx busPIRone HCL 15 mg PO BID 02/04/24 03/29/24 History Acetaminophen Tab [Tylenol] 650 mg PO Q6HR PRN tab 02/06/24 03/29/24 Rx Folic Acid 1 mg PO DAILY #60 tab 02/14/24 03/29/24 Rx Pantoprazole [Protonix] 40 mg PO AC-BRKFST #30 tab 02/20/24 03/29/24 Rx Atorvastatin [Lipitor] 40 mg PO HS 03/20/24 03/29/24 History Thiamine [Vitamin B-1] 100 mg PO DAILY #30 tab 03/22/24 03/29/24 Rx hydrOXYzine pamoate [Vistaril] 25 mg PO BID PRN #20 cap 03/22/24 03/29/24 Rx Allergies Allergy/AdvReac Type Severity Reaction Status Date / Time Sulfa (Sulfonamide Allergy Rash/Hives Verified 03/29/24 16:37 Antibiotics) Physical Exam Osteopathic Statement: *. No significant issues noted on an osteopathic structural exam other than those noted in the History and Physical/Consult. Vitals: Vital Signs Temp Pulse Resp BP Pulse Ox 03/29/24 14:03 97.8 F 117 H 16 130/93 97 Intake and Output 03/29/24 03/29/24 03/29/24 06:59 14:59 22:59 Other: Weight 200 kg Results CBC & Chem 7: 03/29/24 14:26 03/29/24 14:26 Labs: Abnormal Lab Results - Last 24 Hours (Table) 03/29/24 03/29/24 Range/Units 14:26 14:26 Hct 46.1 H (34.0-46.0) % RDW 16.3 H (11.5-15.5) % Lymphocytes # 0.5 L (1.0-4.8) k/uL Chloride 110 H (98-107) mmol/L Carbon Dioxide 10 L (22-30) mmol/L Glucose 68 L (74-99) mg/dL Calcium 8.0 L (8.4-10.2) mg/dL Total Bilirubin 1.4 H (0.2-1.3) mg/dL AST 95 H (14-36) U/L ALT 50 H (4-34) U/L Albumin 5.1 H (3.5-5.0) g/dL Serum Alcohol 377 H* mg/dL
[2024-03-29 17:11] LABS: Glucose,Whole Blood 74 mg/dL (70-110)
[2024-03-29] MEDS: hydrOXYzine pamoate 25 MG CAP PO PRN (17:17)
[2024-03-29] MEDS: LORazepam 0.5 MG TAB PO PRN (18:58)
[2024-03-29] MEDS ORDERED: LORazepam 1 MG/0.5 ML VIAL IV PRN ×2 (20:05→20:06)
[2024-03-29] MEDS: LORazepam 1 MG/0.5 ML VIAL IV PRN ×2 (20:21→21:38)
[2024-03-29] MEDS: ATORVASTATIN 40 MG TAB PO SCH (21:37)
[2024-03-29] MEDS: busPIRone HCl 5 MG TAB PO SCH (21:37)
[2024-03-29] MEDS: traZODone HCL 50 MG TAB PO SCH (21:37)
[2024-03-29 23:02] LABS: Glucose,Whole Blood 84 mg/dL (70-110)
[2024-03-30 02:23] VITALS: RESP 18
[2024-03-30] MEDS: LORazepam 1 MG/0.5 ML VIAL IV PRN (05:54)
[2024-03-30 06:25] LABS: Glucose,Whole Blood 77 mg/dL (70-110)
[2024-03-30 07:46] VITALS: BP 138/83; PULSE 112; TEMP 97.6
[2024-03-30] MEDS ORDERED: THIAMINE 100 MG TAB PO SCH (09:00)
[2024-03-30] MEDS: THIAMINE 100 MG TAB PO SCH (09:15)
[2024-03-30] MEDS: ENOXAPARIN 40 MG/0.4 ML SYRINGE SQ SCH (09:16)
[2024-03-30] MEDS: FOLIC ACID 1 MG TAB PO SCH (09:16)
[2024-03-30] MEDS: PANTOPRAZOLE 40 MG TABLET PO SCH (09:16)
[2024-03-30] MEDS: lisinopriL 10 MG TAB PO SCH (09:16)
[2024-03-30 09:27] LABS: ALT 37 U/L (8-44); AST 46 U/L (13-35); Albumin 4.1 g/dL (3.8-4.9); Albumin/Globulin Ratio 2.05 Ratio (1.60-3.17); Alkaline Phosphatase 82 U/L (41-126); Calcium 7.6 mg/dL (8.7-10.3); Carbon Dioxide 22.7 mmol/L (21.6-31.8); Chloride 102 mmol/L (96-109); Glucose 79 mg/dL (70-110); Magnesium 1.7 mg/dL (1.5-2.4); Sodium 136 mmol/L (135-145); Total Bilirubin 1.8 mg/dL (0.3-1.2); Total Protein 6.1 g/dL (6.2-8.2)
[2024-03-30 09:48] LABS: HCT 33.5 % (37.2-46.3); HGB 10.9 g/dL (12.0-15.0); MCH 29.3 pg (27.0-32.0); MCHC 32.5 g/dL (32.0-37.0); MCV 90.1 FL (80.0-97.0); Mean Platelet Volume 8.9 FL (9.5-12.2); NRBC Per 100 WBC 0 X 10*3/uL (0.00-0.01); Platelet Count 129 X 10*3/uL (140-440); RBC 3.72 X 10*6/uL (4.10-5.20); RDW 16.3 % (11.5-14.5); WBC 4.21 X 10*3/uL (4.50-10.00)
[2024-03-30] MEDS: VENLAFAXINE HCL ER 150 MG CAP PO SCH (10:07)
--- NOTE | 2024-03-30 10:34 | P.DS ---
Providers Date of admission: 03/29/24 15:55 Expected date of discharge: 03/30/24 Attending physician: Danyel Hansen MD [facility] Course: Discharge Diagnosis: Alcohol withdraw in active alcoholic. Had extensive conversations with patient regarding strong recommendations on attending inpatient drug and alcohol rehabilitation facility. Patient states that she will set it up herself and declines assistance at this time. Patient medically sober and cleared for discharge at this time. Patient strongly encouraged to avoid any and all alcohol use and educated on further use/abuse of alcohol will only lead to further deterioration of health up to and including alcoholic cirrhosis and even . Patient was provided with community resources including AA meetings, outpatient counseling services, and inpatient rehabilitation facilities available. Alcohol intoxication upon arrival. Medically sober and cleared for discharge. Intractable vomiting, secondary to alcohol abuse. Resolved. Sinus tachycardia, secondary to acute alcohol withdraw and dehydration High anion gap metabolic acidosis, secondary to alcohol abuse. Resolved with IV hydration. Hyperbilirubinemia with elevated transaminases. Secondary to daily alcohol use/abuse. Anxiety and depression. Continue daily medication regimen with Effexor 150 mg daily, trazodone 50 mg nightly, and BuSpar 15 mg twice daily. . Hypertension. Continue daily medication regimen with lisinopril 10 mg daily. Hospital Course: Patient is a 43-year-old female with a past medical history of anxiety, depression, hypertension, rheumatoid arthritis, and daily alcohol abuse drinking 1-2 fifths of alcohol daily.. Patient is very well-known to our services and has had multiple admissions to our facility for alcohol intoxication and withdrawal secondary to her longstanding history of alcoholism. She presented to the emergency department today via EMS with complaints that she is "detoxing" from alcohol and experiencing intractable vomiting. Patient seen and fully evaluated at bedside. Patient eating popsicle at time of examination. No tremors noted. Patient reports she is anxious and detoxing. Patient informed blood alcohol level was 377. Patient reports last time drinking was approximately an hour prior to arrival to the hospital. Patient reports she typically drinks 1-2 fifths of alcohol daily and only drank a fifth today. Upon arrival to our facility, patient underwent evaluation in the emergency depa rtment. Vital signs upon arrival show blood pressure 130/93, heart rate 117, respiratory rate 16, temp 97.8 F, and SpO2 of 97% on 2 L completed and reviewed. CBC showing elevated hematocrit of 46.1 otherwise normal findings. BMP showing high anion gap metabolic acidosis with chloride of 110, bicarb of 10, and anion gap of 21. Glucose 68. Liver enzymes showing elevated total bili of 1.4, AST of 95, and ALT of 50. Blood Alcohol level 377. Patient admitted under our services to observation unit at this time. Physical exam: Vital signs reviewed and stable. General: Nontoxic, no distress and appears stated age. Derm: Skin warm and dry, normal coloration for ethnicity. Head: Atraumatic, normocephalic and symmetric. Eyes: EOMs intact, no lid lag, and anicteric sclera Mouth: no lip lesions, mucus membranes moist Cardiovascular: Tachycardic rate with regular rhythm. Normal S1S2, no murmur, positive posterior tibial pulses bilaterally, and cap refill < 2 seconds. Lungs: Respirations even, regular, and unlabored on room air. Lungs CTA bilaterally, no rhonchi, no rales, no wheezing, and no accessory muscle usage. Abdominal: soft, nontender to palpation, no guarding, no appreciable organomegaly Ext: ROM intact. No gross muscle atrophy, no edema, no contractures Neuro: Speech clear, face symmetrical and CN II-XII grossly intact with no noted focal neuro deficits. . Psych: Alert and oriented to person, place, time, and situation. Appropriate and pleasant affect. A total of 31 minutes of time were spent preparing this complex discharge summary. Pt was discharged on 03/30/2024 at 10:18 AM. Patient was seen independently by Nurse Practitioner. This document was prepared using [employer] dictation software. Please allow for errors in induction heat treater while rare they do occur. Elio Garcia NP rendered care for this patient independently, reviewed the findings and plan as documented in the note above. I did not physically speak with or examine the patient on this date. Patient Condition at Discharge: Stable Plan - Discharge Summary Discharge Rx Participant: No New Discharge Prescriptions: Continue traZODone HCL [Desyrel] 50 mg PO HS 30 Days #30 tab Venlafaxine HCl [Effexor XR] 150 mg PO DAILY 30 Days #30 cap Atorvastatin [Lipitor] 40 mg PO HS lisinopriL [Zestril] 10 mg PO DAILY busPIRone HCL 15 mg PO BID Acetaminophen Tab [Tylenol] 650 mg PO Q6HR PRN tab PRN Reason: Mild Pain Or Fever > 100.5 Folic Acid 1 mg PO DAILY #60 tab Pantoprazole [Protonix] 40 mg PO AC-BRKFST #30 tab hydrOXYzine pamoate [Vistaril] 25 mg PO BID PRN #20 cap PRN Reason: Anxiety Thiamine [Vitamin B-1] 100 mg PO DAILY #30 tab Discharge Medication List lisinopriL [Zestril] 10 mg PO DAILY 08/12/23 [History] Venlafaxine HCl [Effexor XR] 150 mg PO DAILY 30 Days #30 cap 09/02/23 [Rx] traZODone HCL [Desyrel] 50 mg PO HS 30 Days #30 tab 09/02/23 [Rx] busPIRone HCL 15 mg PO BID 02/04/24 [History] Acetaminophen Tab [Tylenol] 650 mg PO Q6HR PRN tab 02/06/24 [Rx] Folic Acid 1 mg PO DAILY #60 tab 02/14/24 [Rx] Pantoprazole [Protonix] 40 mg PO AC-BRKFST #30 tab 02/20/24 [Rx] Atorvastatin [Lipitor] 40 mg PO HS 03/20/24 [History] Thiamine [Vitamin B-1] 100 mg PO DAILY #30 tab 03/22/24 [Rx] hydrOXYzine pamoate [Vistaril] 25 mg PO BID PRN #20 cap 03/22/24 [Rx] Follow up Appointment(s)/Referral(s): Jones Mclean DO [Primary Care Provider] - 04/06/24 1:20 pm Patient Instructions/Handouts: Alcohol Intoxication (DC), Abuse of Alcohol (DC), Alcohol Withdrawal (DC) Activity/Diet/Wound Care/Special Instructions: Activity: As tolerated. Diet: Heart healthy and carb consistent diet. Avoid salts, or foods with hidden salts such as canned or boxed foods and frozen dinners. Extra salt makes your heart work harder and traps the fluid in your body for longer. Special Instructions: As discussed, it is strongly recommended that you attend inpatient drug and alcohol rehabilitation center to assist you in obtaining sobriety. You have been provided with outpatient resources including outpatient counseling, AA meetings, and community resources available to you. Strongly recommend avoidance of any and all alcohol use, continued use of alcohol can only lead to further detrimental health consequences up to and including including alcoholic cirrhosis and . Thank you for allowing us to participate in your care, it was truly a pleasure having you for our patient!!! Discharge/Stand Alone Forms: AA Kevin Guido, Who Do I Call?, Community Resources, Help In The Home, Outpatient Counseling, Inp Substance Abuse Facilities Discharge Disposition: HOME SELF-CARE
[2024-03-30] MEDS: MAGNESIUM OXIDE 400 MG TAB PO STA (11:28)
[2024-03-30] MEDS: TRIMETHOBENZAMIDE 100 MG/ML 2 ML VIAL IM PRN (11:28)
== END 2024-03-30 12:12 | disposition home or self-care (01) ==
LOC: EC 14:01 → INTOOBSV 15:55 → 5NMEDONC 15:55
PROVIDERS: ADMIT Internal Medicine; ATTEND Internal Medicine
DX: F10.239 Alcohol dependence with withdrawal, unspecified (principal); F10.229 Alcohol dependence with intoxication, unspecified; E87.20 Acidosis, unspecified; E86.0 Dehydration; Y90.8 Blood alcohol level of 240 mg/100 ml or more; I10 Essential (primary) hypertension; M06.9 Rheumatoid arthritis, unspecified; R74.01 Elevation of levels of liver transaminase levels; R17 Unspecified jaundice; F41.9 Anxiety disorder, unspecified; F32.A Depression, unspecified; Z79.899 Other long term (current) drug therapy; Z88.2 Allergy status to sulfonamides
CPT/HCPCS: 96376 ×3; 96361 ×3; 96372; 96374; 96375; 99285; 36415; 93005; 80053 ×2; 83735; 85025; 85027; 80320; G0378 ×2; J2060 ×2; J3250; J2405; J1650

== ENCOUNTER 2024-04-06 13:47 | Observation (INO) | payer OTHER ==
[2024-04-06 14:03] LABS: Glucose,Whole Blood 107 mg/dL (70-110)
[2024-04-06 14:28] LABS: Anisocytosis Slight; Basophils % (A) 0 %; Eosinophils % (A) 1 %; HCT 39.5 % (34.0-46.0); HGB 12.6 gm/dL (11.4-16.0); Hypochromasia Slight; Lymphocytes # (A) 0.4 k/uL (1.0-4.8); Lymphocytes % (A) 7 %; MCH 29.9 pg (25.0-35.0); MCHC 31.8 g/dL (31.0-37.0); Mean Platelet Volume 7.2; Monocytes # (A) 0.2 k/uL (0-1.0); Monocytes % (A) 3 %; Neutrophils % (A) 88 %; Platelet Count 117 k/uL (150-450); RDW 17.1 % (11.5-15.5); WBC 5.6 k/uL (3.8-10.6)
[2024-04-06 14:42] LABS: ALT 51 U/L (4-34); AST 117 U/L (14-36); African American GFR (CKD) >90 (>60 ml/min/1.73 sqM); Albumin 4.8 g/dL (3.5-5.0); Alkaline Phosphatase 130 U/L (38-126); Anion Gap 25 mmol/L; Blood Urea Nitrogen 11 mg/dL (7-17); Calcium 7.6 mg/dL (8.4-10.2); Chloride 104 mmol/L (98-107); Glucose 112 mg/dL (74-99); Magnesium 1.9 mg/dL (1.6-2.3); Non-African American GFR(CKD) >90 (>60 ml/min/1.73 sqM); Potassium 3.6 mmol/L (3.5-5.1); Sodium 138 mmol/L (137-145); Total Bilirubin 1.6 mg/dL (0.2-1.3); Total Protein 7.3 g/dL (6.3-8.2)
[2024-04-06] MEDS: THIAMINE 100 MG/ML 2 ML VIAL IM STA (14:49)
[2024-04-06 14:54] LABS: Alcohol 437 mg/dL; Carbon Dioxide 9 mmol/L (22-30)
[2024-04-06] MEDS: SODIUM CHLORIDE 0.9% 1,000 ML IV ONE (14:54)
[2024-04-06] MEDS ORDERED: NALOXONE 0.4 MG/ML 1 ML VIAL IV PRN (15:22)
--- NOTE | 2024-04-06 15:31 | ED ---
General Adult HPI - General Chief complaint: Alcohol Stated complaint: ETOH Time Seen by Provider: 04/06/24 13:53 Source: patient, EMS, RN notes reviewed, old records reviewed Mode of arrival: EMS Limitations: no limitations - History of Present Illness Initial comments: 43-year-old female presenting for evaluation of alcohol intoxication. Patient admits to drinking vodka. Patient has had multiple admissions with acute alcohol intoxication. She states that she has gone to rehab in the past but not recently. She denies physical complaint but history is limited by severe intoxication. - Related Data Home Medications Medication Instructions Recorded Confirmed lisinopriL [Zestril] 10 mg PO DAILY 08/12/23 03/29/24 busPIRone HCL 15 mg PO BID 02/04/24 03/29/24 Atorvastatin [Lipitor] 40 mg PO HS 03/20/24 03/29/24 Previous Rx's Medication Instructions Recorded Venlafaxine HCl [Effexor XR] 150 mg PO DAILY 30 Days #30 cap 09/02/23 traZODone HCL [Desyrel] 50 mg PO HS 30 Days #30 tab 09/02/23 Acetaminophen Tab [Tylenol] 650 mg PO Q6HR PRN tab 02/06/24 Folic Acid 1 mg PO DAILY #60 tab 02/14/24 Pantoprazole [Protonix] 40 mg PO AC-BRKFST #30 tab 02/20/24 Thiamine [Vitamin B-1] 100 mg PO DAILY #30 tab 03/22/24 hydrOXYzine pamoate [Vistaril] 25 mg PO BID PRN #20 cap 03/22/24 Allergies Allergy/AdvReac Type Severity Reaction Status Date / Time Sulfa (Sulfonamide Allergy Rash/Hives Verified 04/06/24 14:05 Antibiotics) Review of Systems ROS Statement: Those systems with pertinent positive or pertinent negative responses have been documented in the HPI. ROS Other: All systems not noted in ROS Statement are negative. Past Medical History Past Medical History: GERD/Reflux, Hypertension, Neurologic Disorder, Rheumatoid Arthritis (RA) Additional Past Medical History / Comment(s): neuropathy History of Any Multi-Drug Resistant Organisms: None Reported Past Surgical History: Cholecystectomy Additional Past Surgical History / Comment(s): Bilateral knee replacements Past Anesthesia/Blood Transfusion Reactions: No Reported Reaction Past Psychological History: Anxiety, Depression Smoking Status: Never smoker Past Alcohol Use History: Abuse, Daily Past Drug Use History: None Reported - Past Family History Father Family Medical History: Pneumonia Additional Family Medical History / Comment(s): Parkinson's following a closed head injury, depression, TBI. Mother Family Medical History: Coronary Artery Disease (CAD) Additional Family Medical History / Comment(s): following a surgery for a heart valve problem. General Exam Limitations: no limitations General appearance: appears intoxicated Head exam: Present: atraumatic, normocephalic Eye exam: Present: normal appearance, PERRL ENT exam: Present: normal exam Neck exam: Present: normal inspection. Absent: tenderness, meningismus Respiratory exam: Present: normal lung sounds bilaterally. Absent: respiratory distress, wheezes Cardiovascular Exam: Present: regular rate, normal rhythm GI/Abdominal exam: Present: soft. Absent: distended Neurological exam: Present: alert. Absent: motor sensory deficit Psychiatric exam: Present: anxious Skin exam: Present: warm, dry, intact Course Vital Signs 04/06/24 04/06/24 13:57 15:10 Temperature 97.4 F L Pulse Rate 104 H 111 H Respiratory 18 18 Rate Blood Pressure 141/99 143/94 O2 Sat by Pulse 96 95 Oximetry Medical Decision Making - Medical Decision Making Was pt. sent in by a medical professional or institution (, PA, FIELD MAP EDITOR, urgent care, hospital, or retirement...) When possible be specific @ -No Did you speak to anyone other than the patient for history (EMS, parent, family, police, friend...)? What history was obtained from this source @ -No Did you review nursing and triage notes (agree or disagree)? Why? @ -I reviewed and agree with nursing and triage notes Were old charts reviewed (outside hosp., previous admission, EMS record, old EKG, old radiological studies, urgent care reports/EKG's, retirement records)? Report findings @ -No old charts were reviewed Differential Diagnosis: alcohol intoxication, dehydration, poisoning by alcohol EKG interpreted by me (3pts min.). @ -As above X-rays interpreted by me (1pt min.). @ -None done CT interpreted by me (1pt min.). @ -None done U/S interpreted by me (1pt. min.). @ -None done What testing was considered but not performed or refused? (CT, X-rays, U/S, labs)? Why? @ -None What meds were considered but not given or refused? Why? @ -None Did you discuss the management of the patient with other professionals (professionals i.e. , ANASTASIYA, FIELD MAP EDITOR, lab, RT, psych nurse, social service manager, heel sewer, teacher, education officer, case repairer)? Give summary @ -No Was smoking cessation discussed for >3mins.? @ -No Was critical care preformed (if so, how long)? @ -No Were there social determinants of health that impacted care today? How? (Homelessness, low income, unemployed, alcoholism, drug addiction, transpo rtation, low edu. Level, literacy, decrease access to med. care, prison, rehab)? @ -No Was there de-escalation of care discussed even if they declined (Discuss DNR or withdrawal of care, Hospice)? DNR status @ -No What co-morbidities impacted this encounter? (DM, HTN, Smoking, COPD, CAD, Cancer, CVA, ARF, Chemo, Hep., AIDS, mental health diagnosis, sleep apnea, morbid obesity)? @Alcohol abuse Was patient admitted / discharged? Hospital course, mention meds given and route, prescriptions, significant lab abnormalities, going to OR and other pertinent info. @ -[43-year-old female presenting with alcohol intoxication. Initial alcohol is 437. The patient is acidotic with a CO2 of 9. This will be repeated after hydration. Lactic acid is pending, urinalysis is pending. Given the degree of intoxication the patient will be admitted for close monitoring. Case discussed with [facility], Dr. Pathak. Undiagnosed new problem with uncertain prognosis? @ -No Drug Therapy requiring intensive monitoring for toxicity (Heparin, Nitro, Insulin, Cardizem)? @ -No Were any procedures done? @ -No Diagnosis/symptom? @ -Alcohol intoxication Acute, or Chronic, or Acute on Chronic? @ -Acute on chronic Uncomplicated (without systemic symptoms) or Complicated (systemic symptoms)? @ -Default Side effects of treatment? @ -No Exacerbation, Progression, or Severe Exacerbation? @ -No Poses a threat to life or bodily function? How? (Chest pain, [place], [place], pneumonia, PE, COPD, DKA, ARF, appy, cholecystitis, CVA, Diverticulitis, Homicidal, Suicidal, threat to staff... and all critical care pts) @ -Yes, alcohol poisoning, acidosis, withdrawal, seizure - Lab Data Result diagrams: 04/06/24 14:16 04/06/24 14:16 Lab Results 04/06/24 04/06/24 04/06/24 Range/Units 14:00 14:16 14:16 WBC 5.6 (3.8-10.6) k/uL RBC 4.20 (3.80-5.40) m/uL Hgb 12.6 (11.4-16.0) gm/dL Hct 39.5 (34.0-46.0) % MCV 94.0 (80.0-100.0) fL MCH 29.9 (25.0-35.0) pg MCHC 31.8 (31.0-37.0) g/dL RDW 17.1 H (11.5-15.5) % Plt Count 117 L (150-450) k/uL MPV 7.2 Neutrophils % 88 % Lymphocytes % 7 % Monocytes % 3 % Eosinophils % 1 % Basophils % 0 % Neutrophils # 5.0 (1.3-7.7) k/uL Lymphocytes # 0.4 L (1.0-4.8) k/uL Monocytes # 0.2 (0-1.0) k/uL Eosinophils # 0.0 (0-0.7) k/uL Basophils # 0.0 (0-0.2) k/uL Hypochromasia Slight Anisocytosis Slight Sodium 138 (137-145) mmol/L Potassium 3.6 (3.5-5.1) mmol/L Chloride 104 (98-107) mmol/L Carbon Dioxide 9 L* (22-30) mmol/L Anion Gap 25 mmol/L BUN 11 (7-17) mg/dL Creatinine 0.61 (0.52-1.04) mg/dL Est GFR (CKD-EPI)AfAm >90 (>60 ml/min/1.73 sqM) Est GFR (CKD-EPI)NonAf >90 (>60 ml/min/1.73 sqM) Glucose 112 H (74-99) mg/dL POC Glucose (mg/dL) 107 (70-110) mg/dL POC Glu Battery Assembler ID [employer] Calcium 7.6 L (8.4-10.2) mg/dL Magnesium 1.9 (1.6-2.3) mg/dL Total Bilirubin 1.6 H (0.2-1.3) mg/dL AST 117 H (14-36) U/L ALT 51 H (4-34) U/L Alkaline Phosphatase 130 H (38-126) U/L Total Protein 7.3 (6.3-8.2) g/dL Albumin 4.8 (3.5-5.0) g/dL Serum Alcohol 437 H* mg/dL Disposition Clinical Impression: Alcoholic intoxication Disposition: ADMITTED IP TO THIS HOSP Condition: Stable Is patient prescribed a controlled substance at d/c from ED?: No Referrals: Jones Mclean DO [Primary Care Provider] - 1-2 days Time of Disposition: 15:31
[2024-04-06] MEDS ORDERED: LORazepam 2 MG/ML INJ IV PRN (15:38)
[2024-04-06 15:50] LABS: Appearance,Urine Clear (Clear); Bacteria,Urine Rare /hpf; Bilirubin,Urine Negative (Negative); Blood,Urine Trace (Negative); Color,Urine Light Yellow; Glucose,Urine (UA) Negative (Negative); Hyaline Casts,Urine 4 /lpf (0-2); Ketones,Urine 3+ (Negative); Leukocyte Esterase,Urine Negative (Negative); Mucus,Urine Rare /hpf; Nitrite,Urine Negative (Negative); PH, Urine 5.5 (5.0-8.0); Protein,Urine 1+ (Negative); RBC,Urine <1 /hpf (0-5); Specific Gravity,Urine 1.014 (1.001-1.035); Squamous Epithelial Cell,Urine 3 /hpf (0-4); Urobilinogen,Urine <2.0 mg/dL (<2.0); WBC,Urine <1 /hpf (0-5)
[2024-04-06] MEDS: LORazepam 2 MG/ML INJ IV PRN ×2 (15:53→19:49)
--- NOTE | 2024-04-06 16:19 | P.HPIM ---
History of Present Illness H&P Date: 04/06/24 Patient is a 43-year-old female with history of alcohol dependence with recent multiple visits to the emergency for alcohol intoxication and alcohol withdrawal, hypertension, GERD, depression, dyslipidemia presenting with alcohol intoxication. She claims that ever since she went home after her last admission she has not been taking any medications and has been drinking about 1/5 of vodka daily. She claims that she has some visual hallucinations but denies any auditory hallucinations. She denies any suicidal or homicidal ideations. She is motivated to go to rehab after this admission. She denies any smoking or illicit drug use. Currently complaining of some mild chest pain after having episodes of vomiting. Denies any abdominal pain, urinary complaints. Has been feeling constipated, last bowel movement was 2 days ago. In the ER, temperature was 97.4, pulse 104, blood pressure 141/99, saturating at 96% on room air. Laboratory workup showed WBC of 5.6, hemoglobin 12.6, platelet 117, potassium 3.6, bicarb 9, anion gap 25, creatinine 0.61, lactate 3.6, magnesium 1.9, total bili 1.6, AST 117, ALP 51, ALP 130, serum alcohol 437. Patient given 1 L of normal saline, started on IV fluids at 130 cc an hour. She was also given IM thiamine and started on CIWA protocol. Patient being admitted for alcohol intoxication with impending alcohol withdrawal. Pertinent positives and negatives as discussed in HPI, a complete review of systems was performed and all other systems are negative. Patient seen and examined at bedside. Vital signs reviewed General: nontoxic, no distress, appears at stated age, obese Derm: warm, dry Head: atraumatic, normocephalic, symmetric Eyes: EOMI, no lid lag, anicteric sclera, pupils equal round reactive to light ENT: Nose and ears atraumatic Neck: No thyromegaly, supple Mouth: no lip lesion, mucus membranes moist Cardiovascular: S1S2 reg, no murmur, no edema Lungs: clear to auscultation bilateral, no rhonchi, no rales, no wheeze, no accessory muscle use Abdominal: soft, nontender to palpation, no guarding, no appreciable orga nomegaly Ext: no gross muscle atrophy, muscle strength muscle strength 5 out of 5 in all 4 extremities, no contractures Neuro: CN II-XII grossly intact Psych: Alert, oriented, appropriate affect, restless Assessment/Plan: Active: Acute alcohol intoxication Alcohol dependence with impending alcohol withdrawal High anion gap metabolic acidosis Lactic acidosis Mild thrombocytopenia Transaminitis Hyperbilirubinemia -Continue normal saline at 130 cc an hour -Continue thiamine 100 mg oral daily -IV Ativan as needed per CIWA scores, monitor for sedation -Repeat lactate, BMP for resolution of metabolic acidosis -Elevated liver enzymes and thrombocytopenia likely in the setting of chronic alcohol use Gastritis -Likely in the setting of alcohol abuse -Continue pantoprazole 40 mg IV daily Constipation -MiraLAX daily Chronic: Hypertension Dyslipidemia Depression GERD -Restart home medications once reconciled by pharmacy The patient is admitted with an anticipated less than 2 midnight stay as observation status for evaluation of alcohol intoxication. Surrogate decision-maker: Aunt CODE STATUS: Full code DVT prophylaxis: Lovenox Anticipated discharge date: Pending clinical course Anticipated discharge place: Pending clinical course A total of minutes was spent on the care of this complex patient more than 50% of the time was spent in counseling and care coordination. Past Medical History Past Medical History: GERD/Reflux, Hypertension, Neurologic Disorder, Rheumatoid Arthritis (RA) Additional Past Medical History / Comment(s): neuropathy History of Any Multi-Drug Resistant Organisms: None Reported Past Surgical History: Cholecystectomy Additional Past Surgical History / Comment(s): Bilateral knee replacements Past Anesthesia/Blood Transfusion Reactions: No Reported Reaction Past Psychological History: Anxiety, Depression Smoking Status: Never smoker Past Alcohol Use History: Abuse, Daily Past Drug Use History: None Reported - Past Family History Father Family Medical History: Pneumonia Additional Family Medical History / Comment(s): Parkinson's following a closed head injury, depression, TBI. Mother Family Medical History: Coronary Artery Disease (CAD) Additional Family Medical History / Comment(s): following a surgery for a heart valve problem. Medications and Allergies Home Medications Medication Instructions Recorded Confirmed Type lisinopriL [Zestril] 10 mg PO DAILY 08/12/23 04/06/24 History Venlafaxine HCl [Effexor XR] 150 mg PO DAILY 30 Days #30 cap 09/02/23 04/06/24 Rx traZODone HCL [Desyrel] 50 mg PO HS 30 Days #30 tab 09/02/23 04/06/24 Rx busPIRone HCL 15 mg PO BID 02/04/24 04/06/24 History Acetaminophen Tab [Tylenol] 650 mg PO Q6HR PRN tab 02/06/24 04/06/24 Rx Folic Acid 1 mg PO DAILY #60 tab 02/14/24 04/06/24 Rx Pantoprazole [Protonix] 40 mg PO AC-BRKFST #30 tab 02/20/24 04/06/24 Rx Atorvastatin [Lipitor] 40 mg PO HS 03/20/24 04/06/24 History Thiamine [Vitamin B-1] 100 mg PO DAILY #30 tab 03/22/24 04/06/24 Rx hydrOXYzine pamoate [Vistaril] 25 mg PO BID PRN #20 cap 03/22/24 04/06/24 Rx Allergies Allergy/AdvReac Type Severity Reaction Status Date / Time Sulfa (Sulfonamide Allergy Rash/Hives Verified 04/06/24 16:16 Antibiotics) Physical Exam Vitals: Vital Signs Temp Pulse Resp BP Pulse Ox 04/06/24 15:10 111 H 18 143/94 95 04/06/24 13:57 97.4 F L 104 H 18 141/99 96 Intake and Output 04/06/24 04/06/24 04/06/24 06:59 14:59 22:59 Other: Weight 81.647 kg Results CBC & Chem 7: 04/06/24 14:16 04/06/24 14:16 Labs: Abnormal Lab Results - Last 24 Hours (Table) 04/06/24 04/06/24 04/06/24 Range/Units 14:16 14:16 15:09 RDW 17.1 H (11.5-15.5) % Plt Count 117 L (150-450) k/uL Lymphocytes # 0.4 L (1.0-4.8) k/uL Carbon Dioxide 9 L* (22-30) mmol/L Glucose 112 H (74-99) mg/dL Plasma Lactic Acid Feroz 3.6 H* (0.7-2.0) mmol/L Calcium 7.6 L (8.4-10.2) mg/dL Total Bilirubin 1.6 H (0.2-1.3) mg/dL AST 117 H (14-36) U/L ALT 51 H (4-34) U/L Alkaline Phosphatase 130 H (38-126) U/L Serum Alcohol 437 H* mg/dL
[2024-04-06] MEDS: SODIUM CHLORIDE 0.9% 1,000 ML IV SCH (17:16)
[2024-04-06 21:24] LABS: African American GFR (CKD) >90 (>60 ml/min/1.73 sqM); Anion Gap 16 mmol/L; Blood Urea Nitrogen 9 mg/dL (7-17); Calcium 7.8 mg/dL (8.4-10.2); Carbon Dioxide 15 mmol/L (22-30); Chloride 107 mmol/L (98-107); Glucose 92 mg/dL (74-99); Non-African American GFR(CKD) >90 (>60 ml/min/1.73 sqM); Sodium 138 mmol/L (137-145)
[2024-04-07 03:50] LABS: African American GFR (CKD) >90 (>60 ml/min/1.73 sqM); Anion Gap 11 mmol/L; Blood Urea Nitrogen 8 mg/dL (7-17); Calcium 7.7 mg/dL (8.4-10.2); Carbon Dioxide 18 mmol/L (22-30); Chloride 106 mmol/L (98-107); Glucose 68 mg/dL (74-99); Non-African American GFR(CKD) >90 (>60 ml/min/1.73 sqM); Potassium 3.8 mmol/L (3.5-5.1); Sodium 135 mmol/L (137-145)
[2024-04-07 04:01] LABS: Anisocytosis Slight; Basophils % (A) 0 %; Eosinophils % (A) 1 %; HCT 35.9 % (34.0-46.0); HGB 11.6 gm/dL (11.4-16.0); Lymphocytes # (A) 0.5 k/uL (1.0-4.8); Lymphocytes % (A) 14 %; MCH 29.5 pg (25.0-35.0); MCHC 32.2 g/dL (31.0-37.0); MCV 91.8 fL (80.0-100.0); Mean Platelet Volume 8.3; Monocytes # (A) 0.3 k/uL (0-1.0); Monocytes % (A) 7 %; Neutrophils # (A) 2.8 k/uL (1.3-7.7); Neutrophils % (A) 76 %; Platelet Count 97 k/uL (150-450); RBC 3.91 m/uL (3.80-5.40); RDW 17.5 % (11.5-15.5); WBC 3.7 k/uL (3.8-10.6)
[2024-04-07] MEDS: ONDANSETRON 4 MG/2 ML VIAL IVP STA (05:49)
[2024-04-07] MEDS ORDERED: hydrOXYzine pamoate 25 MG CAP PO PRN (07:53)
[2024-04-07] MEDS ORDERED: DEXTROSE 50% SYRINGE 50 ML IVP PRN ×2 (07:55)
[2024-04-07] MEDS ORDERED: PANTOPRAZOLE 40 MG TABLET PO SCH (08:00)
[2024-04-07 08:40] LABS: Glucose,Whole Blood 104 mg/dL (70-110)
[2024-04-07] MEDS ORDERED: PANTOPRAZOLE 40 MG/10 ML VIAL IV SCH (09:00)
[2024-04-07] MEDS: lisinopriL 10 MG TAB PO SCH (09:15)
[2024-04-07] MEDS: THIAMINE 100 MG TAB PO SCH (09:16)
[2024-04-07] MEDS: FOLIC ACID 1 MG TAB PO SCH (09:16)
[2024-04-07] MEDS: busPIRone HCl 10 MG TAB PO SCH (09:16)
[2024-04-07] MEDS: VENLAFAXINE HCL ER 150 MG CAP PO SCH (09:17)
[2024-04-07] MEDS: polyethylene glycoL 3350 17 GM POWD.PACK PO SCH (09:19)
[2024-04-07 09:27] VITALS: BP 148/75; PULSE 98; RESP 16; TEMP 98.1
--- NOTE | 2024-04-07 10:53 | P.DS ---
Providers Date of admission: 04/06/24 15:23 Expected date of discharge: 04/07/24 Attending physician: Farhan Pathak MD [facility] Course: Discharge Diagnosis: Alcohol withdraw in active alcoholic. Had extensive conversations with patient regarding strong recommendations on attending inpatient drug and alcohol rehabilitation facility. Patient states that she wants to go to rehab in the process of having it set up with [facility], but declines our assistance with setting up for inpatient rehab stating she will set it up herself and continues to decline assistance with placement at this time. Patient medically sober and therefor cleared for discharge at this time. Patient again strongly encouraged to avoid any and all alcohol use and educated that further use/abuse of alcohol will only lead to continued deterioration of her health up to and including . Patient was provided with community resources including AA meetings, outpatient counseling services, and inpatient rehabilitation facilities available. Alcohol intoxication upon arrival. Medically sober and cleared for discharge. High anion gap metabolic acidosis, secondary to alcohol abuse. Resolved with aggressive IV fluid hydration. Sodium 135, chloride 106, bicarb 18, anion gap of 11 at time of discharge. Alcoholic ketoacidosis. Lactic acidosis resolved after aggressive IV fluid hydration. High anion gap metabolic acidosis also improved after aggressive IV fluid hydration. Initial Lactate 3.6 and was 0.9 on day of discharge. Sinus tachycardia, secondary to acute alcohol withdraw and dehydration. Improved after aggressive IV fluid hydration with heart rate 98 at time of discharge. Hyperbilirubinemia with transaminitis. Chronic Secondary to daily alcohol abuse. Bicytopenia. Secondary to daily alcohol abuse. Hypoglycemia. Resolved after oral intake with glucose of 104 at time of discharge. Hypoglycemic episode secondary to chronic daily alcohol abuse and underlying alcoholic liver cirrhosis is poor oral intake/malnutrition resulting from daily alcohol abuse resulting in decreased gluconeogenesis and insufficient glycogen storage. Anxiety and depression. Continue daily medication regimen with Effexor 150 mg daily, trazodone 50 mg nightly, and BuSpar 15 mg twice daily. . Hypertension. Continue daily medication regimen with lisinopril 10 mg daily. Hospital Course: Patient is a 43-year-old female with a past medical history of anxiety, depression, hypertension, rheumatoid arthritis, and daily alcohol abuse drinking 1-2 fifths of alcohol daily.. Patient is very well-known to our services and has had multiple admissions to our facility for alcohol intoxication and withdrawal secondary to her longstanding history of alcoholism. She presented to the emergency department on 04/06/2024 via EMS with complaints of alcohol intoxication. On arrival to our facility, patient underwent evaluation in the emergency department. Vital signs upon arrival show blood pressure 141/99, heart rate 104, respiratory rate 18, temp 97.4 F, and SpO2 of 96% on room air. Labs were completed and reviewed. CBC showing thrombocytopenia with platelet count of 117. BMP showing high anion gap metabolic acidosis with chloride of 104, bicarb of 9, and anion gap of 25. Blood glucose was 112. Lactic acid 3.6. Magnesium 1.9. Liver profile showing hyperbilirubinemia with total bili of 1.6 and transaminitis with AST of 117, ALT of 51, and alkaline phosphatase of 130. Serum alcohol level was highly elevated at 437. Patient was admitted under our services for aggressive IV fluid hydration and continued close monitoring until clinically sober. Patient monitored overnight repeat labs completed showing improvement of high anion gap metabolic acidosis. Patient clinically sober at this time. Discussed recommendations for inpatient rehab, patient adamantly reports that she is setting up herself with [facility] and did not do since last discharge because she had not had the time but repeatedly states that she is working on her own placement and declines assistance with placement at this time. Patient is clinically sober at this time. She had no active tremors noted upon assessment, no diaphoresis and denies having any visual or auditory hallucinations at this time. Patient has received Ativan for signs/symptoms of withdrawal throughout the night. Patient declining assistance with placement and again strongly encouraged to attend a rehab. Vital signs stable with blood pressure 148/75, heart rate 98, respiratory rate 16, temp 98.1 F, and SpO2 100% on room air. Patient being discharged at this time and strongly advised to avoi d any and all alcohol use and again highly encouraged assistance and calling [facility] to assist with her need for placement. Physical exam: Vital signs reviewed and stable. General: Nontoxic, no distress and appears stated age. Derm: Skin warm and dry, normal coloration for ethnicity. No diaphoresis Head: Atraumatic, normocephalic and symmetric. Eyes: EOMs intact, no lid lag, and anicteric sclera Mouth: no lip lesions, mucus membranes moist Cardiovascular: Tachycardic rate with regular rhythm. Normal S1S2, no murmur, positive posterior tibial pulses bilaterally, and cap refill < 2 seconds. Lungs: Respirations even, regular, and unlabored on room air. Lungs CTA bilaterally, no rhonchi, no rales, no wheezing, and no accessory muscle usage. Abdominal: soft, nontender to palpation, no guarding, no appreciable organomegaly Ext: ROM intact. No gross muscle atrophy, no edema, no contractures Neuro: Speech clear, face symmetrical and CN II-XII grossly intact with no noted focal neuro deficits. No Tremors noted at time of assessment. Psych: Alert and oriented to person, place, time, and situation. Appropriate and pleasant affect. A total of 32 minutes of time were spent preparing this complex discharge summary. Pt was discharged on 04/07/2024 at 9:08 AM. Patient was seen independently by Nurse Practitioner. This document was prepared using [employer] dictation software. Please allow for errors in instrument repairer helper while rare they do occur. Elio Garcia NP rendered care for this patient independently, reviewed the findings and plan as documented in the note above. I did not physically speak with or examine the patient on this date. Patient Condition at Discharge: Stable Plan - Discharge Summary New Discharge Prescriptions: Continue traZODone HCL [Desyrel] 50 mg PO HS 30 Days #30 tab Venlafaxine HCl [Effexor XR] 150 mg PO DAILY 30 Days #30 cap Atorvastatin [Lipitor] 40 mg PO HS lisinopriL [Zestril] 10 mg PO DAILY busPIRone HCL 15 mg PO BID Acetaminophen Tab [Tylenol] 650 mg PO Q6HR PRN tab PRN Reason: Mild Pain Or Fever > 100.5 Folic Acid 1 mg PO DAILY #60 tab Pantoprazole [Protonix] 40 mg PO AC-BRKFST #30 tab hydrOXYzine pamoate [Vistaril] 25 mg PO BID PRN #20 cap PRN Reason: Anxiety Thiamine [Vitamin B-1] 100 mg PO DAILY #30 tab Discharge Medication List lisinopriL [Zestril] 10 mg PO DAILY 08/12/23 [History] Venlafaxine HCl [Effexor XR] 150 mg PO DAILY 30 Days #30 cap 09/02/23 [Rx] traZODone HCL [Desyrel] 50 mg PO HS 30 Days #30 tab 09/02/23 [Rx] busPIRone HCL 15 mg PO BID 04/16/24 [History] Acetaminophen Tab [Tylenol] 650 mg PO Q6HR PRN tab 02/06/24 [Rx] Folic Acid 1 mg PO DAILY #60 tab 02/14/24 [Rx] Pantoprazole [Protonix] 40 mg PO AC-BRKFST #30 tab 02/20/24 [Rx] Atorvastatin [Lipitor] 40 mg PO HS 03/20/24 [History] Thiamine [Vitamin B-1] 100 mg PO DAILY #30 tab 03/22/24 [Rx] hydrOXYzine pamoate [Vistaril] 25 mg PO BID PRN #20 cap 03/22/24 [Rx] Follow up Appointment(s)/Referral(s): Jones Mclean DO [Primary Care Provider] - 1-2 days Patient Instructions/Handouts: Alcohol Intoxication (DC), Abuse of Alcohol (DC), Alcohol Withdrawal (IP) Activity/Diet/Wound Care/Special Instructions: Activity: As tolerated. Diet: Heart healthy and carb consistent diet. Avoid salts, or foods with hidden salts such as canned or boxed foods and frozen dinners. Extra salt makes your heart work harder and traps the fluid in your body for longer. Special Instructions: As discussed, it is strongly recommended that you attend inpatient drug and alcohol rehabilitation center to assist you in obtaining sobriety. You have been provided with outpatient resources including outpatient counseling, AA meetings, and community resources available to you. Strongly recommend avoidance of any and all alcohol use, continued use of alcohol can only lead to further detrimental health consequences up to and including including alcoholic cirrhosis and . Highly recommend optimizing oral intake and maintaining proper nutrition with food as you have had episodes of hypoglycemia and this is likely secondary to your chronic daily alcohol abuse and underlying alcoholic liver cirrhosis. Thank you for allowing us to participate in your care, it was truly a pleasure having you for our patient!!! Discharge/Stand Alone Forms: AA Meetings [address] - [facility], AA Meetings [facility], Community Resources, In Substance Abuse Facilities, Outpatient [facility]a, Outpatient Therapy List, Who Do I Call? Discharge Disposition: HOME SELF-CARE
[2024-04-07] MEDS ORDERED: ATORVASTATIN 40 MG TAB PO SCH (21:00)
[2024-04-07] MEDS ORDERED: traZODone HCL 50 MG TAB PO SCH (21:00)
== END 2024-04-07 09:22 | disposition home or self-care (01) ==
LOC: EC 13:47 → 3SCARD 15:23
PROVIDERS: ADMIT Student in an Organized Health Care Education/Training Program; ATTEND Student in an Organized Health Care Education/Training Program
DX: F10.229 Alcohol dependence with intoxication, unspecified (principal); F10.239 Alcohol dependence with withdrawal, unspecified; K70.30 Alcoholic cirrhosis of liver without ascites; E86.0 Dehydration; E87.29 Other acidosis; D69.59 Other secondary thrombocytopenia; E46 Unspecified protein-calorie malnutrition; E16.2 Hypoglycemia, unspecified; I10 Essential (primary) hypertension; K21.9 Gastro-esophageal reflux disease without esophagitis; E78.5 Hyperlipidemia, unspecified; R07.9 Chest pain, unspecified; K29.70 Gastritis, unspecified, without bleeding; M06.9 Rheumatoid arthritis, unspecified; K59.00 Constipation, unspecified; F32.A Depression, unspecified; F41.9 Anxiety disorder, unspecified; Z79.899 Other long term (current) drug therapy; Z88.2 Allergy status to sulfonamides; Y90.8 Blood alcohol level of 240 mg/100 ml or more
CPT/HCPCS: 96376 ×2; 96361 ×2; 96372; 96374; 96375; 99285; 36415; 80053; 80048 ×2; 83605 ×2; 83735; 85025 ×2; 81001; 80320; G0378 ×2; J2060 ×2; J3411; J2405

== ENCOUNTER 2024-04-07 20:17 | Observation (INO) | payer OTHER ==
[2024-04-07] MEDS ORDERED: LORazepam 2 MG/ML INJ IV PRN ×3 (21:44)
[2024-04-07] MEDS ORDERED: LORazepam 1 MG TAB PO PRN ×2 (21:44)
--- NOTE | 2024-04-07 21:47 | ED ---
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) Previous Visits for Alcohol Intoxication?: Yes Recent Trauma: Yes Associated Symptoms: denies other symptoms Treatments Prior to Arrival: none Chronic Alcohol Use: Yes <Familia Rodriguez - Last Filed: 04/07/24 21:45> <Richar Falcon - Last Filed: 04/08/24 03:00> - General Chief Complaint: Alcohol Stated Complaint: ETOH Time Seen by Provider: 04/07/24 21:04 - History of Present Illness Initial Comments: This is a 43-year-old female to the ER for evaluation patient presents today for evaluation regards to severe alcohol intoxication, poor historian secondary to alcohol intoxication recent hospital admission with recent discharge (Familia Rodriguez) - Related Data Home Medications Medication Instructions Recorded Confirmed lisinopriL [Zestril] 10 mg PO DAILY 08/12/23 04/06/24 busPIRone HCL 15 mg PO BID 02/04/24 04/06/24 Atorvastatin [Lipitor] 40 mg PO HS 03/20/24 04/06/24 Previous Rx's Medication Instructions Recorded Venlafaxine HCl [Effexor XR] 150 mg PO DAILY 30 Days #30 cap 09/02/23 traZODone HCL [Desyrel] 50 mg PO HS 30 Days #30 tab 09/02/23 Acetaminophen Tab [Tylenol] 650 mg PO Q6HR PRN tab 02/06/24 Folic Acid 1 mg PO DAILY #60 tab 02/14/24 Pantoprazole [Protonix] 40 mg PO AC-BRKFST #30 tab 02/20/24 Thiamine [Vitamin B-1] 100 mg PO DAILY #30 tab 03/22/24 hydrOXYzine pamoate [Vistaril] 25 mg PO BID PRN #20 cap 03/22/24 Allergies Allergy/AdvReac Type Severity Reaction Status Date / Time Sulfa (Sulfonamide Allergy Rash/Hives Verified 04/07/24 20:31 Antibiotics) Review of Systems ROS Other: All systems not noted in ROS Statement are negative. <Familia Rodriguez - Last Filed: 04/07/24 21:45> ROS Other: All systems not noted in ROS Statement are negative. <EzekielRichar - Last Filed: 04/08/24 03:00> ROS Statement: Those systems with pertinent positive or pertinent negative responses have been documented in the HPI. Past Medical History Past Medical History: GERD/Reflux, Hypertension, Neurologic Disorder, Rheumatoid Arthritis (RA) Additional Past Medical History / Comment(s): neuropathy History of Any Multi-Drug Resistant Organisms: None Reported Past Surgical History: Cholecystectomy Additional Past Surgical History / Comment(s): Bilateral knee replacements Past Anesthesia/Blood Transfusion Reactions: No Reported Reaction Past Psychological History: Anxiety, Depression Smoking Status: Never smoker Past Alcohol Use History: Abuse, Daily Past Drug Use History: None Reported - Past Family History Father Family Medical History: Pneumonia Additional Family Medical History / Comment(s): Parkinson's following a closed head injury, depression, TBI. Mother Family Medical History: Coronary Artery Disease (CAD) Additional Family Medical History / Comment(s): following a surgery for a heart valve problem. <Familia Rodriguez - Last Filed: 04/07/24 21:45> General Exam Limitations: no limitations General appearance: alert, in no apparent distress Head exam: Present: atraumatic, normocephalic, normal inspection Eye exam: Present: normal appearance, PERRL, EOMI. Absent: scleral icterus, conjunctival injection, periorbital swelling ENT exam: Present: normal exam, mucous membranes moist Neck exam: Present: normal inspection. Absent: tenderness, meningismus, lymphadenopathy Respiratory exam: Present: normal lung sounds bilaterally. Absent: respiratory distress, wheezes, rales, rhonchi, stridor Cardiovascular Exam: Present: regular rate, normal rhythm, normal heart sounds. Absent: systolic murmur, diastolic murmur, rubs, gallop, clicks GI/Abdominal exam: Present: soft, normal bowel sounds. Absent: distended, tenderness, guarding, rebound, rigid Extremities exam: Present: normal inspection, full ROM, normal capillary refill. Absent: tenderness, pedal edema, joint swelling, calf tenderness Back exam: Present: normal inspection Neurological exam: Present: alert, oriented X3, CN II-XII intact Psychiatric exam: Present: normal affect, normal mood Skin exam: Present: warm, dry, intact, normal color. Absent: rash <Familia Rodriguez - Last Filed: 04/07/24 21:45> Course <Familia Rodriguez - Last Filed: 04/07/24 21:45> Vital Signs 04/07/24 04/08/24 20:27 02:25 Temperature 97.8 F Pulse Rate 118 H 121 H Respiratory 18 18 Rate Blood Pressure 129/83 129/86 O2 Sat by Pulse 97 95 Oximetry - Reevaluation(s) Reevaluation #1: 04/07/24 21:46 Records reviewed (Familia Rodriguez) Reevaluation #4: Was pt. sent in by a medical professional or institution (, ANASTASIYA, CORE SUCKER, urgent care, hospital, or fdc...) When possible be specific @ -no Did you speak to anyone other than the patient for history (EMS, parent, family, police, friend...)? What history was obtained from this source @ -no Did you review nursing and triage notes (agree or disagree)? Why? @ -agree Are old charts reviewed (outside hosp., previous admission, EMS record, old EKG, old radiological studies, urgent care reports/EKG's, fdc records)? Report findings @ -yes Differential Diagnosis (chest pain, altered mental status, abdominal pain women, abdominal pain men, vaginal bleeding, weakness, fever, dyspnea, syncope, headache, dizziness, GI bleed, back pain, seizure, CVA, palpatations, mental health, musculoskeletal)? @ -prior EKG interpreted by me (3pts min.). @ -yes X-rays interpreted by me (1pt min.). @ -yes negative for acute disease CT interpreted by me (1pt min.). @ -no U/S interpreted by me (1pt. min.). @ -no What testing was considered but not performed or refused? (CT, X-rays, U/S, labs)? Why? @ -none What meds were considered but not given or refused? Why? @ -none Did you discuss the management of the patient with other professionals (professionals i.e. ANASTASIYA Hernandez, CORE SUCKER, lab, RT, psych nurse, social media project manager, layout designer, teacher, tank officer, shelter case manager)? Give summary @ -no Was smoking cessation discussed for >3mins.? @ -no Was critical care preformed (if so, how long)? @ -no Were there social determinants of health that impacted care today? How? ( Homelessness, low income, unemployed, alcoholism, drug addiction, transportation, low edu. Level, literacy, decrease access to med. care, shelter, rehab)? @ -none Was there de-escalation of care discussed even if they declined (Discuss DNR or withdrawal of care, Hospice)? DNR status @ -no What co-morbidities impacted this encounter? (DM, HTN, Smoking, COPD, CAD, Cancer, CVA, ARF, Chemo, Hep., AIDS, mental health diagnosis, sleep apnea, morbid obesity)? @ -none Was patient admitted / discharged? Hospital course, mention meds given and route, prescriptions, significant lab abnormalities, going to OR and other pertinent info. @ - Undiagnosed new problem with uncertain prognosis? @ -no Drug Therapy requiring intensive monitoring for toxicity (Heparin, Nitro, Insulin, Cardizem)? @ -no Were any procedures done? @ -no Diagnosis/symptom? @ - Acute, or Chronic, or Acute on Chronic? @ -Acute Uncomplicated (without systemic symptoms) or Complicated (systemic symptoms)? @ -Complicated Side effects of treatment? @ -no Exacerbation, Progression, or Severe Exacerbation? @ -exacerbation Poses a threat to life or bodily function? How? (Chest pain, USA, MA, pneumonia, PE, COPD, DKA, ARF, appy, cholecystitis, CVA, Diverticulitis, Homicidal, Suicidal, threat to staff... and all critical care pts) @ -yes (Familia Rodriguez) Medical Decision Making - Lab Data Result diagrams: 04/07/24 21:53 04/07/24 21:53 <Richar Falcon - Last Filed: 04/08/24 03:00> - Medical Decision Making Patient seen by previous provider. Patient acutely intoxicated with alcohol with some laboratory and electrolyte derangements. Patient would like to leave however cannot clinically discharge this patient as she is still unsteady on her feet. She was in agreement with admission. I spoke with the admitting provider, Dr. Hernandez who accepted the admission. Patient is already on CIWA protocol. She was started on multivitamin. Diagnosis/symptom? @ -Alcohol intoxication Acute, or Chronic, or Acute on Chronic? @ -Acute on chronic Uncomplicated (without systemic symptoms) or Complicated (systemic symptoms)? @ -Complicated Side effects of treatment? @ -None Exacerbation, Progression, or Severe Exacerbation] @ -No Poses a threat to life or bodily function? @ -Yes (Richar Falcon) - Lab Data Lab Results 04/07/24 04/07/24 Range/Units 21:53 21:53 WBC 4.0 (3.8-10.6) k/uL RBC 4.28 (3.80-5.40) m/uL Hgb 12.8 (11.4-16.0) gm/dL Hct 38.8 (34.0-46.0) % MCV 90.5 (80.0-100.0) fL MCH 29.9 (25.0-35.0) pg MCHC 33.0 (31.0-37.0) g/dL RDW 17.2 H (11.5-15.5) % Plt Count 124 L (150-450) k/uL MPV 8.1 Neutrophils % 72 % Lymphocytes % 19 % Monocytes % 6 % Eosinophils % 1 % Basophils % 1 % Neutrophils # 2.9 (1.3-7.7) k/uL Lymphocytes # 0.8 L (1.0-4.8) k/uL Monocytes # 0.2 (0-1.0) k/uL Eosinophils # 0.0 (0-0.7) k/uL Basophils # 0.0 (0-0.2) k/uL Anisocytosis Slight Sodium 134 L (137-145) mmol/L Potassium 3.5 (3.5-5.1) mmol/L Chloride 102 (98-107) mmol/L Carbon Dioxide 16 L (22-30) mmol/L Anion Gap 16 mmol/L BUN 5 L (7-17) mg/dL Creatinine 0.54 (0.52-1.04) mg/dL Est GFR (CKD-EPI)AfAm >90 (>60 ml/min/1.73 sqM) Est GFR (CKD-EPI)NonAf >90 (>60 ml/min/1.73 sqM) Glucose 106 H (74-99) mg/dL Calcium 8.4 (8.4-10.2) mg/dL Phosphorus 1.0 L* (2.5-4.5) mg/dL Magnesium 1.8 (1.6-2.3) mg/dL Total Bilirubin 1.6 H (0.2-1.3) mg/dL AST 94 H (14-36) U/L ALT 50 H (4-34) U/L Alkaline Phosphatase 153 H (38-126) U/L Total Protein 7.6 (6.3-8.2) g/dL Albumin 5.0 (3.5-5.0) g/dL Serum Alcohol 241 H* mg/dL Disposition <Familia Rodriguez - Last Filed: 04/07/24 21:45> Time of Disposition: 03:00 <Richar Falcon - Last Filed: 04/08/24 03:00> Clinical Impression: Alcohol intoxication Disposition: ADMITTED IP TO THIS HOSP Condition: Stable Referrals: Jones Mclean DO [Primary Care Provider] - 1-2 days
[2024-04-07 22:08] LABS: Anisocytosis Slight; Basophils % (A) 1 %; Eosinophils % (A) 1 %; HCT 38.8 % (34.0-46.0); HGB 12.8 gm/dL (11.4-16.0); Lymphocytes # (A) 0.8 k/uL (1.0-4.8); Lymphocytes % (A) 19 %; MCH 29.9 pg (25.0-35.0); MCV 90.5 fL (80.0-100.0); Mean Platelet Volume 8.1; Monocytes # (A) 0.2 k/uL (0-1.0); Monocytes % (A) 6 %; Neutrophils # (A) 2.9 k/uL (1.3-7.7); Neutrophils % (A) 72 %; Platelet Count 124 k/uL (150-450); RBC 4.28 m/uL (3.80-5.40); RDW 17.2 % (11.5-15.5)
[2024-04-07] MEDS: SODIUM CHLORIDE 0.9% 1,000 ML IV STA (22:09)
[2024-04-07] MEDS: ONDANSETRON 4 MG/2 ML VIAL IVP STA (22:09)
[2024-04-07] MEDS: LORazepam 2 MG/ML INJ IV STA (22:10)
[2024-04-07 22:19] LABS: ALT 50 U/L (4-34); AST 94 U/L (14-36); African American GFR (CKD) >90 (>60 ml/min/1.73 sqM); Alkaline Phosphatase 153 U/L (38-126); Anion Gap 16 mmol/L; Blood Urea Nitrogen 5 mg/dL (7-17); Calcium 8.4 mg/dL (8.4-10.2); Carbon Dioxide 16 mmol/L (22-30); Chloride 102 mmol/L (98-107); Glucose 106 mg/dL (74-99); Magnesium 1.8 mg/dL (1.6-2.3); Non-African American GFR(CKD) >90 (>60 ml/min/1.73 sqM); Potassium 3.5 mmol/L (3.5-5.1); Sodium 134 mmol/L (137-145); Total Bilirubin 1.6 mg/dL (0.2-1.3); Total Protein 7.6 g/dL (6.3-8.2)
[2024-04-07 22:27] LABS: Alcohol 241 mg/dL
[2024-04-08] MEDS: SODIUM CHLORIDE 0.9% 500 ML 500 ML IV STA (00:01)
[2024-04-08] MEDS: LORazepam 0.5 MG TAB PO PRN (00:05)
[2024-04-08] MEDS ORDERED: NALOXONE 0.4 MG/ML 1 ML VIAL IV PRN (02:57)
[2024-04-08] MEDS: THIAMINE 100 MG/ML 2 ML VIAL IM STA (03:29)
[2024-04-08] MEDS: SODIUM CHLORIDE 0.9% 1,000 ML IV STA (03:35)
--- NOTE | 2024-04-08 04:41 | P.HPIM ---
History of Present Illness H&P Date: 04/08/24 Patient is a 43-year-old female with a PMH of EtOH abuse and hypertension who presents to the emergency room with complaints of alcohol withdrawal. Patient reports that she has been drinking 1/5 of vodka daily for the past several years and that she is trying to quit. Notes her last drink was earlier in the day yesterday. Notes feeling shaky and nauseous but denied any additional complaints. Denied experiencing chest discomfort, shortness breath, fever, chills, cough, abdominal pain, diarrhea. Laboratory evaluation in the emergency room revealed a phosphorus of 1.0, magnesium 1.8, serum alcohol level 241, platelet count 124, and sodium 134. ED documentation reviewed and case discussed with ED provider. Review of systems: Pertinent positives and negatives as discussed in HPI, a complete review of systems was performed and all other systems are negative. Physical examination: Vital signs reviewed General: non toxic, no distress, appears at stated age, obese Derm: no unusual rashes/lesions, warm Head: atraumatic, normocephalic, symmetric Eyes: EOMI, no lid lag, anicteric sclera, pupils equal round reactive to light ENT: Nose and ears atraumatic Neck: No cervical lymphadenopathy, trachea midline, supple Mouth: no lip lesion, mucus membranes moist, tongue fasciculations noted Cardiovascular: S1S2 reg, no murmur, positive dorsalis pedis pulse bilateral, no edema Lungs: CTA bilateral, no rhonchi, no rales, no accessory muscle use Abdominal: soft, nontender to palpation, no guarding Ext: muscle strength 5 out of 5 in all 4 extremities grossly, no gross muscle atrophy, no contractures, Neuro: CN II-XI grossly intact, no gross focal neuro deficits, tremulous Psych: Alert, oriented, appropriate affect Assessment: Alcohol withdrawal in active alcoholic Hypophosphatemia Abnormal LFTs, likely due to ongoing alcohol abuse Thrombocytopenia, likely due to alcohol abuse Imaging: None performed Data Review: Laboratory evaluation in the emergency room revealed a phosphorus of 1.0, magnesium 1.8, serum alcohol level 241, platelet count 124, and sodium 134. Plan: CIWA protocol with Ativan as needed Continue with IV fluids normal saline 75 cc/h Continue with thiamine Cardiac monitoring Fall precautions Replace phosphorus and monitor for improvement Trend LFTs Monitor CBC Advised on the importance of cessation DVT prophylaxis: Lovenox subcu The patient is admitted with an anticipated fever than 2 midnight stay for evaluation of alcohol withdrawal CODE STATUS: Full Code Discussed with: Patient Anticipated discharge place: Home Past Medical History Past Medical History: GERD/Reflux, Hypertension, Neurologic Disorder, Rheumatoid Arthritis (RA) Additional Past Medical History / Comment(s): neuropathy History of Any Multi-Drug Resistant Organisms: None Reported Past Surgical History: Cholecystectomy Additional Past Surgical History / Comment(s): Bilateral knee replacements Past Anesthesia/Blood Transfusion Reactions: No Reported Reaction Past Psychological History: Anxiety, Depression Smoking Status: Never smoker Past Alcohol Use History: Abuse, Daily Past Drug Use History: None Reported - Past Family History Father Family Medical History: Pneumonia Additional Family Medical History / Comment(s): Parkinson's following a closed head injury, depression, TBI. Mother Family Medical History: Coronary Artery Disease (CAD) Additional Family Medical History / Comment(s): following a surgery for a heart valve problem. Medications and Allergies Home Medications Medication Instructions Recorded Confirmed Type lisinopriL [Zestril] 10 mg PO DAILY 08/12/23 04/06/24 History Venlafaxine HCl [Effexor XR] 150 mg PO DAILY 30 Days #30 cap 09/02/23 04/06/24 Rx traZODone HCL [Desyrel] 50 mg PO HS 30 Days #30 tab 09/02/23 04/06/24 Rx busPIRone HCL 15 mg PO BID 02/04/24 04/06/24 History Acetaminophen Tab [Tylenol] 650 mg PO Q6HR PRN tab 02/06/24 04/06/24 Rx Folic Acid 1 mg PO DAILY #60 tab 02/14/24 04/06/24 Rx Pantoprazole [Protonix] 40 mg PO AC-BRKFST #30 tab 02/20/24 04/06/24 Rx Atorvastatin [Lipitor] 40 mg PO HS 03/20/24 04/06/24 History Thiamine [Vitamin B-1] 100 mg PO DAILY #30 tab 03/22/24 04/06/24 Rx hydrOXYzine pamoate [Vistaril] 25 mg PO BID PRN #20 cap 03/22/24 04/06/24 Rx Allergies Allergy/AdvReac Type Severity Reaction Status Date / Time Sulfa (Sulfonamide Allergy Rash/Hives Verified 04/07/24 20:31 Antibiotics) Physical Exam Vitals: Vital Signs Temp Pulse Resp BP Pulse Ox 04/08/24 04:16 97.7 F 101 H 14 137/87 97 04/08/24 02:25 121 H 18 129/86 95 04/07/24 20:27 97.8 F 118 H 18 129/83 97 Intake and Output 04/07/24 04/07/24 04/08/24 14:59 22:59 06:59 Other: Weight 90.718 kg Results CBC & Chem 7: 04/07/24 21:53 04/07/24 21:53 Labs: Abnormal Lab Results - Last 24 Hours (Table) 04/07/24 04/07/24 Range/Units 21:53 21:53 RDW 17.2 H (11.5-15.5) % Plt Count 124 L (150-450) k/uL Lymphocytes # 0.8 L (1.0-4.8) k/uL Sodium 134 L (137-145) mmol/L Carbon Dioxide 16 L (22-30) mmol/L BUN 5 L (7-17) mg/dL Glucose 106 H (74-99) mg/dL Phosphorus 1.0 L* (2.5-4.5) mg/dL Total Bilirubin 1.6 H (0.2-1.3) mg/dL AST 94 H (14-36) U/L ALT 50 H (4-34) U/L Alkaline Phosphatase 153 H (38-126) U/L Serum Alcohol 241 H* mg/dL
[2024-04-08] MEDS: MULTIVITAMINS, THERA 1 EACH TAB PO SCH (07:58)
[2024-04-08] MEDS: ONDANSETRON 4 MG/2 ML VIAL IVP PRN (07:58)
[2024-04-08] MEDS: LORazepam 1 MG TAB PO PRN (07:58)
[2024-04-08] MEDS: ENOXAPARIN 40 MG/0.4 ML SYRINGE SQ SCH (07:58)
[2024-04-08] MEDS: POTAS-SOD-PHOS 278-164-250 MG 1 EACH PACKET PO SCH (07:58)
[2024-04-08 08:39] VITALS: BP 158/99; PULSE 125; RESP 16; TEMP 98.2
--- NOTE | 2024-04-08 13:12 | XR ---
EXAMINATION TYPE: XR forearm RT, XR humerus RT DATE OF EXAM: 04/08/2024 12:46 PM CLINICAL INDICATION:Female, 43 years old with history of pain bruising swelling poss fall while in toxica; [facility] COMPARISON: None TECHNIQUE: XR forearm RT, XR humerus RT; forearm was examined in AP and lateral projections. FINDINGS/IMPRESSION: * Soft tissue edema without evidence of fracture. * Mild degeneration changes of the shoulder and elbow joints with osteophytes and joint space narrow ing..
[2024-04-08 13:31] LABS: ALT 50 U/L (4-34); AST 91 U/L (14-36); African American GFR (CKD) >90 (>60 ml/min/1.73 sqM); Albumin 4.4 g/dL (3.5-5.0); Albumin/Globulin Ratio 1.8; Alkaline Phosphatase 124 U/L (38-126); Anion Gap 12 mmol/L; Anisocytosis Slight; Blood Urea Nitrogen 3 mg/dL (7-17); Calcium 8.1 mg/dL (8.4-10.2); Carbon Dioxide 19 mmol/L (22-30); Chloride 102 mmol/L (98-107); Globulin 2.4 g/dL; Glucose 89 mg/dL (74-99); HCT 32.8 % (34.0-46.0); HGB 10.8 gm/dL (11.4-16.0); MCH 29.8 pg (25.0-35.0); MCHC 32.8 g/dL (31.0-37.0); MCV 90.7 fL (80.0-100.0); Magnesium 1.4 mg/dL (1.6-2.3); Mean Platelet Volume 8.6; Non-African American GFR(CKD) >90 (>60 ml/min/1.73 sqM); Potassium 3.2 mmol/L (3.5-5.1); RBC 3.62 m/uL (3.80-5.40); RDW 17.4 % (11.5-15.5); Sodium 133 mmol/L (137-145); Total Bilirubin 1.9 mg/dL (0.2-1.3); Total Protein 6.8 g/dL (6.3-8.2); WBC 3.4 k/uL (3.8-10.6)
[2024-04-08 14:05] LABS: Platelet Count 96 k/uL (150-450)
[2024-04-08] MEDS: POTASSIUM CHLORIDE ER 20 MEQ TAB.ER PO STA (14:05)
[2024-04-08] MEDS: MAGNESIUM OXIDE 400 MG TAB PO STA (14:05)
--- NOTE | 2024-04-08 14:11 | P.DS ---
Providers Date of admission: 04/08/24 02:57 Attending physician: Paulina Hernandez MD Primary care physician: [facility] [place] Hospital Course: Discharge Diagnosis: Alcohol withdraw in active alcoholic. Had extensive conversations with patient regarding strong recommendations on attending inpatient drug and alcohol rehabilitation facility. Patient states that she wants to go to rehab in the process of having it set up with [facility], but declines our assistance with setting up for inpatient rehab stating she will set it up herself and continues to decline assistance with placement at this time. Patient medically sober and therefor cleared for discharge at this time. Patient again strongly encouraged to avoid any and all alcohol use and educated that further use/abuse of alcohol will only lead to continued deterioration of her health up to and including . Patient was provided with community resources including AA meetings, outpatient counseling services, and inpatient rehabilitation facilities available. Alcohol intoxication upon arrival. Medically sober and cleared for discharge. Sinus tachycardia, secondary to acute alcohol withdraw and dehydration. Hyperbilirubinemia with transaminitis. Chronic Secondary to daily alcohol abuse. Pancytopenia. Secondary to daily alcohol abuse. Anxiety and depression. Continue daily medication regimen with Effexor 150 mg daily, trazodone 50 mg nightly, and BuSpar 15 mg twice daily. . Hypertension. Continue daily medication regimen with lisinopril 10 mg daily. Hospital Course: Patient is a 43-year-old female with a past medical history of anxiety, depression, hypertension, rheumatoid arthritis, and daily alcohol abuse drinking 1-2 fifths of alcohol daily.. Patient is very well-known to our services and has had multiple admissions to our facility for alcohol intoxication and withdrawal secondary to her longstanding history of alcoholism. She presented to the emergency department on 04/07/2024 via EMS with complaints of alcohol intoxication after being discharged from hospital earlier in the day. On arrival to our facility, patient underwent evaluation in the emergency department. Vital signs upon arrival show blood pressure 129/83, heart rate 118, respiratory rate 18, temp 97.8 F, SpO2 of 97% on room air. Labs completed and reviewed. CBC showing thrombocytopenia with platelet count of 124. BMP showing hyponatremia with sodium 134, hypocarbia with bicarb of 16, and elevated anion gap of 16. Phosphorus was critically low at 1.0 and replaced. Magnesium 1.8. Liver profile showing hyperbilirubinemia and transaminitis with total bili of 1.6, AST of 94, ALT of 50, and alkaline phosphatase of 153. Serum alcohol level was 241. Patient was again admitted under our services, placed on [facility] protocol symptom triggered medication management with benzodiazepines and provided with aggressive IV fluid hydration. Once patient clinically sober she was complaining of right arm pain. Patient did have mild swelling and bruising noted to right arm she does not recall if she fell while intoxicated prior to arrival. X-rays completed of right humerus and right forearm with positive for soft tissue edema without evidence of fracture. Patient was provided with contact information for [facility], [facility] is closed at this time secondary to holiday. Call was placed to patient's PCP to discuss patient's recurrent hospitalizations for alcohol intoxication with daily alcohol abuse. Patient follows with [facility] and patient was encouraged to call [facility] crisis number at [phone]. Patient reports her dad is available to stay with her until she can get into [facility] and will again attempt to call [facility] in the morning to set up appointment for admission. Patient states she has something she needs to take care of prior to admission. Patient again strongly encouraged to avoid any and all alcohol use. Physical exam: Vital signs reviewed and stable. General: Nontoxic, no distress and appears stated age. Derm: Skin warm and dry, normal coloration for ethnicity. No diaphoresis Head: Atraumatic, normocephalic and symmetric. Eyes: EOMs intact, no lid lag, and anicteric sclera Mouth: no lip lesions, mucus membranes moist Cardiovascular: Tachycardic rate with regular rhythm. Normal S1S2, no murmur, positive posterior tibial pulses bilaterally, and cap refill < 2 seconds. Lungs: Respirations even, regular, and unlabored on room air. Lungs CTA bilaterally, no rhonchi, no rales, no wheezing, and no accessory muscle usage. Abdominal: soft, nontender to palpation, no guarding, no appreciable organomegaly Ext: ROM intact. No gross muscle atrophy, no edema, no contractures Neuro: Speech clear, face symmetrical and CN II-XII grossly intact with no noted focal neuro deficits. No Tremors noted at time of assessment. Psych: Alert and oriented to person, place, time, and situation. Appropriate and pleasant affect. A total of 33 minutes of time were spent preparing this complex discharge summary. Pt was discharged on 04/08/2024 at 2:03 PM Patient was seen independently by Nurse Practitioner. This document was prepared using [employer] dictation software. Please allow for errors in traffic operations engineer while rare they do occur. Patient Condition at Discharge: Stable Plan - Discharge Summary Discharge Rx Participant: Yes New Discharge Prescriptions: New Magnesium Oxide [Mag-Ox] 400 mg PO ONCE 30 Days #30 tab Continue traZODone HCL [Desyrel] 50 mg PO HS 30 Days #30 tab Venlafaxine HCl [Effexor XR] 150 mg PO DAILY 30 Days #30 cap Atorvastatin [Lipitor] 40 mg PO HS lisinopriL [Zestril] 10 mg PO DAILY busPIRone HCL 15 mg PO BID Acetaminophen Tab [Tylenol] 650 mg PO Q6HR PRN tab PRN Reason: Mild Pain Or Fever > 100.5 Folic Acid 1 mg PO DAILY #60 tab Pantoprazole [Protonix] 40 mg PO AC-BRKFST #30 tab hydrOXYzine pamoate [Vistaril] 25 mg PO BID PRN #20 cap PRN Reason: Anxiety Thiamine [Vitamin B-1] 100 mg PO DAILY #30 tab Discharge Medication List lisinopriL [Zestril] 10 mg PO DAILY 08/12/23 [History] Venlafaxine HCl [Effexor XR] 150 mg PO DAILY 30 Days #30 cap 09/02/23 [Rx] traZODone HCL [Desyrel] 50 mg PO HS 30 Days #30 tab 09/02/23 [Rx] busPIRone HCL 15 mg PO BID 02/04/24 [History] Acetaminophen Tab [Tylenol] 650 mg PO Q6HR PRN tab 02/06/24 [Rx] Folic Acid 1 mg PO DAILY #60 tab 02/14/24 [Rx] Pantoprazole [Protonix] 40 mg PO AC-BRKFST #30 tab 02/20/24 [Rx] Atorvastatin [Lipitor] 40 mg PO HS 03/20/24 [History] Thiamine [Vitamin B-1] 100 mg PO DAILY #30 tab 03/22/24 [Rx] hydrOXYzine pamoate [Vistaril] 25 mg PO BID PRN #20 cap 03/22/24 [Rx] Magnesium Oxide [Mag-Ox] 400 mg PO ONCE 30 Days #30 tab 04/08/24 [Rx] Follow up Appointment(s)/Referral(s): Jones Mclean DO [Primary Care Provider] - 1-2 days Patient Instructions/Handouts: Alcohol Intoxication (DC), Abuse of Alcohol (DC), Alcohol Withdrawal (DC), Medical Clearance for Substance Abuse Treatment (DC) Activity/Diet/Wound Care/Special Instructions: Activity: As tolerated. Diet: Heart healthy and carb consistent diet. Avoid salts, or foods with hidden salts such as canned or boxed foods and frozen dinners. Extra salt makes your heart work harder and traps the fluid in your body for longer. Special Instructions: As discussed, it is strongly recommended that you attend inpatient drug and alcohol rehabilitation center to assist you in obtaining sobriety. You will need to call [facility] again first thing tomorrow morning to set up your appointment time You have been provided with outpatient resources including outpatient counseling, AA meetings, and community resources available to you. Strongly recommend avoidance of any and all alcohol use, continued use of alcohol can only lead to further detrimental health consequences up to and including including alcoholic cirrhosis and . Highly recommend optimizing oral intake and maintaining proper nutrition with food as you have had episodes of hypoglycemia and this is likely secondary to your chronic daily alcohol abuse and underlying alcoholic liver cirrhosis. Thank you for allowing us to participate in your care, it was truly a pleasure having you for our patient!!! Discharge/Stand Alone Forms: AA Meetings [facility], Outpatient Counseling, In Substance Abuse Facilities Discharge Disposition: HOME SELF-CARE
[2024-04-09] MEDS ORDERED: THIAMINE 100 MG TAB PO SCH (09:00)
== END 2024-04-08 14:36 | disposition home or self-care (01) ==
LOC: EC 20:17 → 4SSUR 04-08 02:57
PROVIDERS: ADMIT Internal Medicine; ATTEND Internal Medicine
DX: F10.239 Alcohol dependence with withdrawal, unspecified (principal); F10.229 Alcohol dependence with intoxication, unspecified; E86.0 Dehydration; D61.818 Other pancytopenia; E83.39 Other disorders of phosphorus metabolism; R74.01 Elevation of levels of liver transaminase levels; E87.1 Hypo-osmolality and hyponatremia; I10 Essential (primary) hypertension; R17 Unspecified jaundice; M06.9 Rheumatoid arthritis, unspecified; R60.9 Edema, unspecified; Y90.8 Blood alcohol level of 240 mg/100 ml or more; F32.A Depression, unspecified; F41.9 Anxiety disorder, unspecified; Z79.899 Other long term (current) drug therapy; Z88.2 Allergy status to sulfonamides
CPT/HCPCS: 96376; 96372 ×2; 96361; 96374; 96375; 99285; 36415; 80053 ×2; 83735 ×2; 84100; 85025; 85027; 80320; 73060; 73090; G0378; J2060; J3411; J2405 ×2; J1650

== ENCOUNTER 2024-06-20 13:12 | Inpatient (IN) | payer OTHER ==
[2024-06-20 13:42] LABS: Anisocytosis Slight; Basophils % (A) 1 %; Eosinophils % (A) 1 %; HGB 12.9 gm/dL (11.4-16.0); Hypochromasia Slight; Lymphocytes # (A) 0.7 k/uL (1.0-4.8); Lymphocytes % (A) 21 %; MCH 29.9 pg (25.0-35.0); MCV 90.4 fL (80.0-100.0); Mean Platelet Volume 6.7; Monocytes # (A) 0.1 k/uL (0-1.0); Monocytes % (A) 3 %; Neutrophils # (A) 2.2 k/uL (1.3-7.7); Neutrophils % (A) 71 %; Platelet Count 260 k/uL (150-450); RBC 4.32 m/uL (3.80-5.40); RDW 16.5 % (11.5-15.5); WBC 3.1 k/uL (3.8-10.6)
--- NOTE | 2024-06-20 13:50 | ED ---
General Adult HPI - General Chief complaint: Alcohol Stated complaint: ETOH Time Seen by Provider: 06/20/24 13:31 Source: patient, EMS Mode of arrival: EMS - History of Present Illness Initial comments: Dictation was produced using [employer] dictation software. please excuse any gramma tical, word or spelling errors. Chief Complaint: 43-year-old alcoholic female presents to the ER for EtOH intoxication and fall History of Present Illness: Patient 43-year-old female she is a daily drinker. She drinks large amounts of alcohol daily. Patient states she did not drink enough. Apparently she had fallen. Family called EMS concerned that patient is drunk apparently family is disappointed and patient's alcohol abuse. Patient denies any suicidal homicidal ideation. Patient denies any pain complaints. The ROS documented in this emergency department record has been reviewed and confirmed by me. Those systems with pertinent positive or negative responses have been documented in the HPI. All other systems are other negative and/or noncontributory. - Related Data Home Medications Medication Instructions Recorded Confirmed lisinopriL [Zestril] 10 mg PO DAILY 08/12/23 04/08/24 busPIRone HCL 15 mg PO BID 02/04/24 04/08/24 Atorvastatin [Lipitor] 40 mg PO HS 03/20/24 04/08/24 Previous Rx's Medication Instructions Recorded Venlafaxine HCl [Effexor XR] 150 mg PO DAILY 30 Days #30 cap 09/02/23 traZODone HCL [Desyrel] 50 mg PO HS 30 Days #30 tab 09/02/23 Acetaminophen Tab [Tylenol] 650 mg PO Q6HR PRN tab 02/06/24 Folic Acid 1 mg PO DAILY #60 tab 02/14/24 Pantoprazole [Protonix] 40 mg PO AC-BRKFST #30 tab 02/20/24 Thiamine [Vitamin B-1] 100 mg PO DAILY #30 tab 03/22/24 hydrOXYzine pamoate [Vistaril] 25 mg PO BID PRN #20 cap 03/22/24 Magnesium Oxide [Mag-Ox] 400 mg PO ONCE 30 Days #30 tab 04/08/24 Allergies Allergy/AdvReac Type Severity Reaction Status Date / Time Sulfa (Sulfonamide Allergy Rash/Hives Verified 06/20/24 13:26 Antibiotics) Review of Systems ROS Statement: Those systems with pertinent positive or pertinent negative responses have been documented in the HPI. ROS Other: All systems not noted in ROS Statement are negative. Past Medical History Past Medical History: GERD/Reflux, Hypertension, Neurologic Disorder, Rheumatoid Arthritis (RA) Additional Past Medical History / Comment(s): neuropathy History of Any Multi-Drug Resistant Organisms: None Reported Past Surgical History: Cholecystectomy Additional Past Surgical History / Comment(s): Bilateral knee replacements Past Anesthesia/Blood Transfusion Reactions: No Reported Reaction Past Psychological History: Anxiety, Depression Smoking Status: Never smoker Past Alcohol Use History: Abuse, Daily Past Drug Use History: None Reported - Past Family History Father Family Medical History: Pneumonia Additional Family Medical History / Comment(s): Parkinson's following a closed head injury, depression, TBI. Mother Family Medical History: Coronary Artery Disease (CAD) Additional Family Medical History / Comment(s): following a surgery for a heart valve problem. General Exam - General Exam Comments Initial Comments: PHYSICAL EXAM: General Impression: Alert and oriented x3, not in acute distress HEENT: Normocephalic atraumatic, extra-ocular movements intact, pupils equal and reactive to light bilaterally, mucous membranes moist. Cardiovascular: Heart regular rate and rhythm Chest: Able to complete full sentences, no retractions, no tachypnea Abdomen: abdomen soft, non-tender, non-distended, no organomegaly Musculoskeletal: Pulses present and equal in all extremities, no peripheral edema Motor: no focal deficits noted Neurological: CN II-XII grossly intact, no focal motor or sensory deficits noted Skin: Intact with no visualized rashes Psych: Normal affect and mood Course Vital Signs 06/20/24 13:17 Temperature 98.1 F Pulse Rate 91 Respiratory 18 Rate Blood Pressure 128/86 O2 Sat by Pulse 98 Oximetry EKG Findings - EKG Comments: EKG Findings:: My EKG interpretation: Ventricular rate 93, sinus rhythm,. 173, QRS 101, QTc 426. No UT prolongation, no QTC prolongation, no ST or T-wave changes noted. \Overall, this EKG is unremarkable Medical Decision Making - Medical Decision Making Was pt. sent in by a medical professional or institution (, PA, DIGESTION OPERATOR, urgent care, hospital, or penitentiary...) When possible be specific @ -No Did you speak to anyone other than the patient for history (EMS, parent, family, police, friend...)? What history was obtained from this source @ -No Did you review nursing and triage notes (agree or disagree)? Why? @ -I reviewed and agree with nursing and triage notes Were old charts reviewed (outside hosp., previous admission, EMS record, old EKG, old radiological studies, urgent care reports/EKG's, penitentiary records)? Report findings @ -No old charts were reviewed Differential Diagnosis (chest pain, altered mental status, abdominal pain women, abdominal pain men, vaginal bleeding, musculoskeletal, weakness, fever, dyspnea, syncope, headache, dizziness, GI bleed, back pain, seizure, CVA, palpatations, mental health)? @ -Skull fracture, neck fracture, head contusion EKG interpreted by me (3pts min.). @ -See above X-rays interpreted by me (1pt min.). @ -None done CT interpreted by me (1pt min.). @ -CT head and C-spine shows no acute processes U/S interpreted by me (1pt. min.). @ -None done What testing was considered but not performed or refused? (CT, X-rays, U/S, labs)? Why? @ -None What meds were considered but not given or refused? Why? @ -None Was smoking cessation discussed for >3mins.? @ -No Were there social determinants of health that impacted care today? How? (Homelessness, low income, unemployed, alcoholism, drug addiction, transportation, low edu. Level, literacy, decrease access to med. care, long-term, rehab)? @ -No Was there de-escalation of care discussed even if they declined (Discuss DNR or withdrawal of care, Hospice)? DNR status @ -No What co-morbidities impacted this encounter? (DM, HTN, Smoking, COPD, CAD, Cancer, CVA, ARF, Chemo, Hep., AIDS, mental health diagnosis, sleep apnea, morbid obesity)? @ -None Was patient admitted / discharged? Hospital course, mention meds given and route, prescriptions, significant lab abnormalities, going to OR and other pertinent info. @ -43-year-old female presents emergency department for alleged fall. Patient is a daily alcoholic. Vital signs upon arrival are within acceptable limits. Patient well-appearing at the bedside. Physical examination is benign. CT brain is negative. Laboratory evaluation obtained. Alcohol level is 468. Patient well-appearing at the bedside. She request admission for alcohol detox treatment. Believe this is a reasonable request given that patient would likely withdraw severely she would benefit from in-hospital treatment. Case discussed with Dr. Germain who is willing to accept patient's care for admission Did you discuss the management of the patient with other professionals (professionals i.e. , PA, DIGESTION OPERATOR, lab, RT, psych nurse, social welfare research worker, swat team member, teacher, unclaimed property officer, manager case management)? Give summary @ -See above Was critical care preformed (if so, how long)? @ -No Undiagnosed new problem with uncertain prognosis? @ -No Drug Therapy requiring intensive monitoring for toxicity (Heparin, Nitro, Ins ulin, Cardizem)? @ -No Were any procedures done? @ -No Diagnosis/symptom? Acute, or Chronic, or Acute on Chronic? Uncomplicated (without systemic symptoms) or Complicated (systemic symptoms)? @ -Alcohol intoxication Side effects of treatment? @ -No Exacerbation, Progression, or Severe Exacerbation? @ -No Poses a threat to life or bodily function? How? (Chest pain, [place], DE, pneumonia, PE, COPD, DKA, ARF, appy, cholecystitis, CVA, Diverticulitis, Homicidal, Suicidal, threat to staff... and all critical care pts) @ -yes - Lab Data Result diagrams: 06/20/24 13:36 06/20/24 13:36 Lab Results 06/20/24 06/20/24 Range/Units 13:36 13:36 WBC 3.1 L (3.8-10.6) k/uL RBC 4.32 (3.80-5.40) m/uL Hgb 12.9 (11.4-16.0) gm/dL Hct 39.0 (34.0-46.0) % MCV 90.4 (80.0-100.0) fL MCH 29.9 (25.0-35.0) pg MCHC 33.0 (31.0-37.0) g/dL RDW 16.5 H (11.5-15.5) % Plt Count 260 (150-450) k/uL MPV 6.7 Neutrophils % 71 % Lymphocytes % 21 % Monocytes % 3 % Eosinophils % 1 % Basophils % 1 % Neutrophils # 2.2 (1.3-7.7) k/uL Lymphocytes # 0.7 L (1.0-4.8) k/uL Monocytes # 0.1 (0-1.0) k/uL Eosinophils # 0.0 (0-0.7) k/uL Basophils # 0.0 (0-0.2) k/uL Hypochromasia Slight Anisocytosis Slight Sodium 145 (137-145) mmol/L Potassium 3.7 (3.5-5.1) mmol/L Chloride 109 H (98-107) mmol/L Carbon Dioxide 25 (22-30) mmol/L Anion Gap 11 mmol/L BUN 13 (7-17) mg/dL Creatinine 0.59 (0.52-1.04) mg/dL Est GFR (CKD-EPI)AfAm >90 (>60 ml/min/1.73 sqM) Est GFR (CKD-EPI)NonAf >90 (>60 ml/min/1.73 sqM) Glucose 75 (74-99) mg/dL Calcium 8.5 (8.4-10.2) mg/dL Magnesium 1.9 (1.6-2.3) mg/dL Serum Alcohol 468 H* mg/dL Disposition Clinical Impression: Alcohol intoxication Disposition: ADMITTED IP TO THIS HOSP Condition: Fair Referrals: Jones Mclean DO [Primary Care Provider] - 1-2 days Decision Time: 17:22
[2024-06-20 13:52] LABS: African American GFR (CKD) >90 (>60 ml/min/1.73 sqM); Anion Gap 11 mmol/L; Blood Urea Nitrogen 13 mg/dL (7-17); Calcium 8.5 mg/dL (8.4-10.2); Carbon Dioxide 25 mmol/L (22-30); Chloride 109 mmol/L (98-107); Glucose 75 mg/dL (74-99); Magnesium 1.9 mg/dL (1.6-2.3); Non-African American GFR(CKD) >90 (>60 ml/min/1.73 sqM); Potassium 3.7 mmol/L (3.5-5.1); Sodium 145 mmol/L (137-145)
[2024-06-20 14:09] LABS: Alcohol 468 mg/dL
--- NOTE | 2024-06-20 15:45 | CT ---
EXAMINATION TYPE: CT brain cspine wo con CT DLP: 1465 mGycm, Automated exposure control for dose reduction was used. DATE OF EXAM: 06/20/2024 2:57 PM COMPARISON: None. CLINICAL INDICATION: Female, 43 years old with history of fall; TECHNIQUE: Brain: Multiple axial CT images of the brain were obtained without IV contrast. Cspine: Axial CT images from the skull base to the inferior aspect of T2 we obtained without intraven ous contrast. Coronal and sagittal reformatted images were also reviewed. . FINDINGS: Brain: Extra-axial spaces: No abnormal extra-axial fluid collections. Ventricular system: Within normal limits Cerebral parenchyma: No acute intraparenchymal hemorrhage or mass effect. The yuan-white junction is well differentiated. Cerebellum: Unremarkable. Mass effect: No evidence of midline shift. Intracranial vasculature: unremarkable Soft tissues: Normal. Calvarium/osseous structures: No depressed skull fracture. Paranasal sinuses and mastoid air cells: Clear. Visualized orbits: Orbital contents are intact. Cervical spine: Fracture: None. Osseous structures: Multilevel degenerative disc disease changes with endplate spurring and disc oste ophyte complex's. Vertebral alignment: Within normal limits. Spinal canal/Neural Foramina: No evidence of significant spinal canal narrowing. No evidence for sign ificant neural foraminal stenosis. Neck soft tissues: Prevertebral soft tissues are within normal limits. Other: The airway is patent. The lung apices are clear. Elongated styloid processes bilaterally. IMPRESSION: 1. No acute intracranial process. 2. No evidence of cervical spine fracture. 3. Mild multilevel degenerative disc disease.
[2024-06-20] MEDS ORDERED: NALOXONE 0.4 MG/ML 1 ML VIAL IV PRN ×2 (17:19→18:19)
--- NOTE | 2024-06-20 18:26 | P.HPIM ---
History of Present Illness H&P Date: 06/20/24 Chief Complaint: etoh abuse 43-year-old alcoholic female presents to the ER for EtOH intoxication and fall. She is a daily drinker. She drinks a fifth of liqure daily. Apparently she had fallen, no injuries. Patient denies any suicidal homicidal ideation. States she is done with alcohol and that she wants to quit. Patient denies any pain complaints. States she was sober for 12 years but went back to drinking last october. Has some family issues, states that she lost her mother back then. States she is done with alcohol and that she wants to quit. Review of Systems Complete ROS performed, documented pertinent positive Per HPI otherwise negative. Past Medical History Past Medical History: GERD/Reflux, Hypertension, Neurologic Disorder, Rheumatoid Arthritis (RA) Additional Past Medical History / Comment(s): neuropathy History of Any Multi-Drug Resistant Organisms: None Reported Past Surgical History: Cholecystectomy Additional Past Surgical History / Comment(s): Bilateral knee replacements Past Anesthesia/Blood Transfusion Reactions: No Reported Reaction Past Psychological History: Anxiety, Depression Smoking Status: Never smoker Past Alcohol Use History: Abuse, Daily Past Drug Use History: None Reported - Past Family History Father Family Medical History: Pneumonia Additional Family Medical History / Comment(s): Parkinson's following a closed head injury, depression, TBI. Mother Family Medical History: Coronary Artery Disease (CAD) Additional Family Medical History / Comment(s): following a surgery for a heart valve problem. Medications and Allergies Home Medications Medication Instructions Recorded Confirmed Type lisinopriL [Zestril] 10 mg PO DAILY 08/12/23 06/20/24 History Venlafaxine HCl [Effexor XR] 150 mg PO DAILY 30 Days #30 cap 09/02/23 06/20/24 Rx traZODone HCL [Desyrel] 50 mg PO HS 30 Days #30 tab 09/02/23 06/20/24 Rx busPIRone HCL 15 mg PO BID 02/04/24 06/20/24 History Acetaminophen Tab [Tylenol] 650 mg PO Q6HR PRN tab 02/06/24 06/20/24 Rx Folic Acid 1 mg PO DAILY #60 tab 02/14/24 06/20/24 Rx Pantoprazole [Protonix] 40 mg PO AC-BRKFST #30 tab 02/20/24 06/20/24 Rx Atorvastatin [Lipitor] 40 mg PO HS 03/20/24 06/20/24 History Thiamine [Vitamin B-1] 100 mg PO DAILY #30 tab 03/22/24 06/20/24 Rx hydrOXYzine pamoate [Vistaril] 25 mg PO BID PRN #20 cap 03/22/24 06/20/24 Rx Allergies Allergy/AdvReac Type Severity Reaction Status Date / Time Sulfa (Sulfonamide Allergy Rash/Hives Verified 06/20/24 17:59 Antibiotics) Physical Exam Vitals: Vital Signs Temp Pulse Resp BP Pulse Ox 06/20/24 13:17 98.1 F 91 18 128/86 98 Intake and Output 06/20/24 06/20/24 06/20/24 06:59 14:59 22:59 Other: Weight 77.111 kg Constitutional: No acute distress, conversant, pleasant Eyes:Anicteric sclerae, moist conjunctiva, no lid-lag, PERRLA, ENMT: Oropharynx clear, no erythema, exudates Neck: Supple, FROM, no masses, or JVD, No carotid bruits, No thyromegaly Lungs: Clear to auscultation, Clear to percussion, Normal respiratory effort, no accessory muscle use Cardiovascular: Heart regular in rate and rhythm, No murmurs, gallops, or rubs, No peripheral edema Abdominal: Soft, Nontender, no guarding, rebound or rigidity, Normoactive bowel sounds, No hepatomegaly, No splenomegaly, No palpable mass Skin: Normal temperature, tone, texture, turgor, no induration, No subcutaneous nodules, No rash, lesions, No ulcers Extremities: No digital cyanosis, No clubbing, Pedal pulses intact and symmetrical, Radial pulses intact and symmetrical, No calf tenderness Psychiatric: Alert and oriented to person, place and time, appropriate affect, intact judgement Neuro: Muscles Strength 5/5 in all 4 extremities, Sensation to light touch grossly present throughout, Cranial nerves II-XII grossly intact, no focal sensory deficits Results CBC & Chem 7: 06/20/24 13:36 06/20/24 13:36 Labs: Abnormal Lab Results - Last 24 Hours (Table) 06/20/24 06/20/24 Range/Units 13:36 13:36 WBC 3.1 L (3.8-10.6) k/uL RDW 16.5 H (11.5-15.5) % Lymphocytes # 0.7 L (1.0-4.8) k/uL Chloride 109 H (98-107) mmol/L Serum Alcohol 468 H* mg/dL Assessment and Plan Plan: acute alcohol intoxication Delirium tremens Admit WA protocol, IV fluids Leukopenia Likely sec to ETOH abuse Follow Dehydration IV fluids Hx of anxiety and depression Continue zoloft Continue trazodone Consult psych HTN Hyperlipidemia Stable resume meds Admit to inpatient expected length of stay >2 midnights.
[2024-06-20] MEDS: LORazepam 2 MG/ML INJ IV PRN ×2 (20:17→23:16)
[2024-06-20] MEDS: SODIUM CHLORIDE 0.9% 1,000 ML IV STA (20:23)
[2024-06-20] MEDS: SODIUM CHLORIDE 0.9% 1,000 ML IV SCH (20:24)
[2024-06-20] MEDS: ATORVASTATIN 40 MG TAB PO SCH (22:04)
[2024-06-20] MEDS: traZODone HCL 50 MG TAB PO SCH (22:04)
[2024-06-20] MEDS: busPIRone HCl 5 MG TAB PO SCH (22:04)
[2024-06-21] MEDS: ACETAMINOPHEN TAB 325 MG TAB PO PRN (02:30)
[2024-06-21] MEDS: PANTOPRAZOLE 40 MG TABLET PO SCH (06:38)
[2024-06-21] MEDS: LORazepam 2 MG/ML INJ IV PRN (06:44)
[2024-06-21 08:59] LABS: Anisocytosis Slight; Basophils % (A) 0 %; Eosinophils % (A) 1 %; HCT 34.4 % (34.0-46.0); HGB 11.3 gm/dL (11.4-16.0); Hypochromasia Slight; Lymphocytes # (A) 0.6 k/uL (1.0-4.8); Lymphocytes % (A) 22 %; MCH 30.1 pg (25.0-35.0); MCHC 32.8 g/dL (31.0-37.0); MCV 91.7 fL (80.0-100.0); Mean Platelet Volume 7.6; Monocytes # (A) 0.3 k/uL (0-1.0); Monocytes % (A) 11 %; Neutrophils # (A) 1.8 k/uL (1.3-7.7); Neutrophils % (A) 64 %; Platelet Count 226 k/uL (150-450); RBC 3.76 m/uL (3.80-5.40); RDW 16.9 % (11.5-15.5); WBC 2.9 k/uL (3.8-10.6)
[2024-06-21] MEDS: THIAMINE 100 MG TAB PO SCH (09:06)
[2024-06-21] MEDS: FOLIC ACID 1 MG TAB PO SCH (09:06)
[2024-06-21] MEDS: VENLAFAXINE HCL ER 150 MG CAP PO SCH (09:07)
[2024-06-21 09:29] LABS: African American GFR (CKD) >90 (>60 ml/min/1.73 sqM); Anion Gap 4 mmol/L; Blood Urea Nitrogen 16 mg/dL (7-17); Calcium 8.3 mg/dL (8.4-10.2); Carbon Dioxide 28 mmol/L (22-30); Chloride 106 mmol/L (98-107); Glucose 92 mg/dL (74-99); Magnesium 1.5 mg/dL (1.6-2.3); Non-African American GFR(CKD) >90 (>60 ml/min/1.73 sqM); Potassium 3.5 mmol/L (3.5-5.1); Sodium 138 mmol/L (137-145)
[2024-06-21] MEDS: MAGNESIUM SULFATE-D5W PMX 1 GM in DEXTROSE/WATER 1 100ML.BAG IVPB SCH (12:49)
[2024-06-21 13:26] LABS: Total Bilirubin 1.8 mg/dL (0.2-1.3)
--- NOTE | 2024-06-21 14:43 | P.PN ---
Subjective Progress Note Date: 06/21/24 Principal diagnosis: etoh abuse patient has been receiving Ativan for alcohol withdrawal. Has been having diarrhea as well, tested negative for C. diff. denies fevers or chills. No pain. Objective - Vital Signs Vital signs: Vital Signs Temp 98.0 F 06/21/24 08:55 Pulse 111 H 06/21/24 08:55 Resp 16 06/21/24 08:55 BP 154/95 06/21/24 08:55 Pulse Ox 97 06/21/24 08:55 FiO2 Intake & Output 06/20/24 06/21/24 06/21/24 18:59 06:59 18:59 Intake Total 1140 540 Balance 1140 540 Weight 77.111 kg 87 kg Intake: Intake, IV Titration 900 Amount Sodium Chloride 0.9% 1, 900 000 ml @ 150 mls/hr IV . Q6H40M [facility] Rx#:[id number] Oral 240 540 Other: Voiding Method Toilet # Bowel Movements 1 - Exam Constitutional: No acute distress, conversant, pleasant Eyes:Anicteric sclerae, moist conjunctiva, no lid-lag, PERRLA, ENMT: Oropharynx clear, no erythema, exudates Neck: Supple, FROM, no masses, or JVD, No carotid bruits, No thyromegaly Lungs: Clear to auscultation, Clear to percussion, Normal respiratory effort, no accessory muscle use Cardiovascular: Heart regular in rate and rhythm, No murmurs, gallops, or rubs, No peripheral edema Abdominal: Soft, Nontender, no guarding, rebound or rigidity, Normoactive bowel sounds, No hepatomegaly, No splenomegaly, No palpable mass Skin: Normal temperature, tone, texture, turgor, no induration, No subcutaneous nodules, No rash, lesions, No ulcers Extremities: No digital cyanosis, No clubbing, Pedal pulses intact and symmetrical, Radial pulses intact and symmetrical, No calf tenderness Psychiatric: Alert and oriented to person, place and time, appropriate affect, intact judgement Neuro: Muscles Strength 5/5 in all 4 extremities, Sensation to light touch grossly present throughout, Cranial nerves II-XII grossly intact, no focal sensory deficits - Labs CBC & Chem 7: 06/21/24 08:28 06/21/24 08:28 Labs: Abnormal Lab Results - Last 24 Hours (Table) 06/21/24 06/21/24 06/21/24 Range/Units 08:28 08:28 08:28 WBC 2.9 L (3.8-10.6) k/uL RBC 3.76 L (3.80-5.40) m/uL Hgb 11.3 L (11.4-16.0) gm/dL RDW 16.9 H (11.5-15.5) % Lymphocytes # 0.6 L (1.0-4.8) k/uL Calcium 8.3 L (8.4-10.2) mg/dL Magnesium 1.5 L (1.6-2.3) mg/dL Total Bilirubin 1.8 H (0.2-1.3) mg/dL Assessment and Plan Plan: acute alcohol intoxication Delirium tremens CIWA protocol, IV fluids Leukopenia Likely sec to ETOH abuse Follow Dehydration IV fluids Hx of anxiety and depression Continue Buspar, Effexor Continue trazodone Consider starting acamprosate tid to help with craving seen by psych, patient states that she has plans to quit when she moves to [place] in the future. HTN Hyperlipidemia Stable resume meds Admit to inpatient expected length of stay >2 midnights.
[2024-06-21] MEDS ORDERED: ACAMPROSATE CALCIUM 333 MG TABLET.DR PO SCH (16:00)
--- NOTE | 2024-06-21 17:42 | P.CN ---
Psychiatric Consult - . Consult date: 06/21/24 Consult:: IDENTIFYING DATA: This patient is a 43 year old woman. REASON FOR REFERRAL: Psychiatry was consulted for depression. HISTORY OF PRESENT ILLNESS: Irena Davis is a 43 year old woman with a history of alcohol use disorder and major depressive disorder who presented to the ER acutely intoxicated. She has been drinking a fifth/day recently; she previously had 12 years of sobriety but returned to alcohol use after her mom passed in October 2023. Ms. Davis was seen at the bedside today and shared that she has had "a lot of fear" recently and sadness which both contribute to her drinking alcohol. This has been going on for the last month and she notices that she tends to try and suppress her feelings of anxiety and panic by drinking alcohol. She endorses is symptoms of panic that happen with no clear trigger on a daily basis. These episodes last about 30 to 45 minutes and are sometimes resolved while taking a walk or talking to her sponsor. However she generally finds it difficult to cope with excessive worries and rumination which all in their own way contribute to her use of alcohol. She reports decreased sleep, decreased energy, and decreased appetite. She does find it hard to enjoy things which is worse when she has been consuming alcohol. She reports having prior history of a decreased need for sleep associated with an increase in goal-directed activity however this did not cause any functional impairment for her despite it lasting for about a month. Ms. Davis saying that some of her fear is related to her plans to move to [place], [place] to be closer to her sponsor. She is expecting to make this move in a few weeks, and while she thinks that it will be beneficial for her wellbeing she is nervous about moving forward. She denies any history of suicide attempts she denies present suicidal ideation, identified method, intent, or plan. While she has had suicidal ideation in the past she has not felt this way in over a year. She denies homicidal ideation, intent, or plan. She is not presently nor recently experiencing any auditory or visual hallucinations. PAST PSYCHIATRIC HISTORY: Patient has a history of major depressive disorder and alcohol use disorder. She does have prior inpatient psychiatric admissions including to this hospital. He is currently on venlafaxine 150 mg daily, trazodone 50 mg daily, and buspirone 15 mg twice daily. She has previously tried naltrexone and acamprosate but was unable to reliably get these on an outpatient basis through her pharmacy and thus did not continue. Additionally she did not feel these medications were helpful in decreasing alcohol craving or usage. Is any history of suicide attempts. PAST MEDICAL HISTORY: HTN ALLERGIES: sulfa CHEMICAL DEPENDENCY HISTORY: Over the last month she has been drinking about a f ifth per day of alcohol. She had previously been sober for 12 years until relapsing in October following a significant loss. She denies any use of marijuana, tobacco, cocaine, heroin, LSD, PCP, hallucinogens, or pills not prescribed to her. FAMILY PSYCHIATRIC/SUBSTANCE USE HISTORY: Denies any family history of psychiatric conditions or family history of suicide. SOCIAL HISTORY: Patient was born and raised in [place], [place]. She completed a bachelor's of business administration. 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 She does not have any active legal issues. She does not have any weapons at home. MENTAL STATUS EXAM: General Appearance: Patient appears to be stated age is alert, pleasant, and cooperative. Patient appears to have fair hygiene and grooming wearing hospital gown with poor eye contact. Behavior: Patient is calmly sitting in bed without any agitated behavior. Speech: Patient's speech is fluent and nonpressured. Mood/Affect: Patient reports their mood is "a lot of fear", affect is congruent Suicidality/Homicidality: Patient denies having any suicidal or homicidal ideation intent or plan. Perceptions: Patient denies any visual hallucinations and denies any auditory hallucinations Though content/process: There is no evidence of any delusional thought content and thought process is linear and goal-directed. Memory and concentration: AOX3, grossly intact for the purposes of this session. Recalls recent and remote history appropriately. Judgment and insight: Impaired judgment, fair insight IMPRESSIONS: Irena Davis is a 43-year-old woman with a history of severe alcohol use disorder and major depressive disorder who presented to the emergency department with acute alcohol intoxication. She is presently admitted for medical management of alcohol withdrawal symptoms. Dietary consult was requested due to concern for depression. Patient is experiencing symptoms of depression and an xiety which are frequently exacerbated by ongoing alcohol use. She is looking forward to relocating to [place] to be closer to her sponsor who is a significant part of her social support and her quest to again experience sobriety. Does find her family to be supportive, however she feels particularly anxious about how she will manage her sobriety following discharge from the hospital and before she moves to [place]. We talked about continuing to engage her home group as well as her sponsor as often as needed she finds these interventions to be most helpful. Denies suicidal ideation, intent, and plan and homicidal ideation, intent, and plan; she is not experiencing any symptoms of jus or psychosis. She is not presently interested in a medication to assist with cessation of alcohol use as she did not find them helpful in the past. She feels she has adequate outpatient support. - Alcohol use disorder, severe - Major depressive disorder PLAN: -At this time patient DOES NOT meet criteria for inpatient psychiatric admission. -Continue home medications: venlafaxine 150 mg daily, buspirone 15 mg BID, and Trazodone 50 mg at bedtime -Continue CIWA protocol with PRN Ativan for alcohol withdrawal. Continue to monitor vital signs. -Fiber Heel Piece Shaper spoke with patient about substance abuse and the harmful effects on medical and mental health, patient verbally understood and agreed. -automotive tire worker may provide patient with access line number to call for inpatient substance rehab if patient is amenable; this may provide a supportive bridge until her move -Communicated plan to patient's nurse -Psychiatry will sign off at this time -Please contact with any questions.
[2024-06-22] MEDS: chlordiazePOXIDE 25 MG CAP PO STA (04:02)
[2024-06-22] MEDS: IBUPROFEN 400 MG TAB PO STA (04:02)
[2024-06-22] MEDS: PANTOPRAZOLE 40 MG TABLET PO ONE (04:03)
[2024-06-22] MEDS: IBUPROFEN 400 MG TAB ONE (04:05)
[2024-06-22 07:52] LABS: Anisocytosis Slight; Basophils % (A) 1 %; Eosinophils % (A) 1 %; HGB 12.2 gm/dL (11.4-16.0); Lymphocytes # (A) 0.4 k/uL (1.0-4.8); Lymphocytes % (A) 8 %; MCH 29.9 pg (25.0-35.0); MCHC 32.8 g/dL (31.0-37.0); MCV 91.2 fL (80.0-100.0); Mean Platelet Volume 7.9; Monocytes # (A) 0.2 k/uL (0-1.0); Monocytes % (A) 5 %; Neutrophils # (A) 3.7 k/uL (1.3-7.7); Neutrophils % (A) 85 %; Platelet Count 176 k/uL (150-450); RBC 4.06 m/uL (3.80-5.40); RDW 16.6 % (11.5-15.5); WBC 4.4 k/uL (3.8-10.6)
[2024-06-22 08:08] LABS: ALT 22 U/L (4-34); AST 34 U/L (14-36); African American GFR (CKD) >90 (>60 ml/min/1.73 sqM); Albumin 4.1 g/dL (3.5-5.0); Alkaline Phosphatase 76 U/L (38-126); Anion Gap 6 mmol/L; Blood Urea Nitrogen 9 mg/dL (7-17); Calcium 8.8 mg/dL (8.4-10.2); Carbon Dioxide 24 mmol/L (22-30); Chloride 102 mmol/L (98-107); Glucose 85 mg/dL (74-99); Magnesium 1.7 mg/dL (1.6-2.3); Non-African American GFR(CKD) >90 (>60 ml/min/1.73 sqM); Potassium 3.6 mmol/L (3.5-5.1); Sodium 132 mmol/L (137-145); Total Bilirubin 1.7 mg/dL (0.2-1.3); Total Protein 6.6 g/dL (6.3-8.2)
--- NOTE | 2024-06-22 13:13 | P.PN ---
Subjective Progress Note Date: 06/22/24 Hospital Course: 43-year-old female with history of hypertension, alcohol dependence, dyslipide amaury, depression/anxiety presenting with alcohol intoxication. On presentation, vital signs within normal limits. Laboratory workup showed mild leukopenia, alcohol level of 468. Rest of the labs were otherwise unremarkable. She was started on IV Ativan as needed. Subjective: Patient seen and examined at bedside. No acute events overnight. Claims that her headache has improved. Still having some nausea. Denies any other complaints. Still requiring IV Ativan overnight. Pertinent positives and negatives as discussed above, a complete review of systems was performed and all other systems are negative. Vitals Signs Reviewed. General: Nontoxic, no distress, appears at stated age Derm: Warm, dry Head: Atraumatic, normocephalic, symmetric Eyes: EOMI, no lid lag, anicteric sclera Mouth: No lip lesion, mucus membranes moist Cardiovascular: S1S2 reg, no murmur Lungs: CTA bilateral, no rhonchi, no rales, no accessory muscle use Abdominal: Soft, nontender to palpation, no guarding, no appreciable organomegaly Ext: No gross muscle atrophy, no edema, no contractures Neuro: CN II-XI grossly intact, no focal neuro deficits, mild extension tremor. Psych: Alert, oriented, appropriate affect Data Reviewed Today: Pertinent Labs: WBC 4.4, sodium 132, creatinine 0.53, magnesium 1.7 Imaging: No new imaging Assessment and Plan: Alcohol dependence with alcohol withdrawal Acute alcohol intoxication on admission Major depressive disorder -IV Ativan per CIWA score, monitor for sedation -Thiamine 100 mg daily, folic acid 1 mg daily -Tolerating oral intake, discontinue normal saline -Psychiatry evaluated patient, recommended continuing BuSpar 15 twice daily, trazodone 50 nightly, Effexor 150 daily Hypertension -Continue lisinopril 10 mg daily Dyslipidemia -Continue atorvastatin 40 nightly GERD -Continue pantoprazole 40 daily Mild hyponatremia -Euvolemic -Repeat BMP tomorrow Resolved: Leukopenia DVT ppx: Lovenox Code status: Full code Anticipated discharge place: Home Anticipated discharge time: Likely tomorrow Objective - Vital Signs Vital signs: Vital Signs Temp 99.7 F H 06/22/24 12:08 Pulse 94 06/22/24 12:08 Resp 18 06/22/24 12:08 BP 167/96 06/22/24 12:08 Pulse Ox 99 06/22/24 12:08 FiO2 Intake & Output 06/21/24 06/22/24 06/22/24 18:59 06:59 18:59 Intake Total 780 450 Balance 780 450 Weight 88.4 kg Intake: Intake, IV Titration 450 Amount Sodium Chloride 0.9% 1, 450 000 ml @ 150 mls/hr IV . Q6H40M [facility] Rx#:[id number] Oral 780 Other: Voiding Method Toilet Toilet # Voids 1 1 # Bowel Movements 1 - Labs CBC & Chem 7: 06/22/24 06:56 06/22/24 06:56 Labs: Abnormal Lab Results - Last 24 Hours (Table) 06/21/24 06/22/24 06/22/24 Range/Units 08:28 06:56 06:56 RDW 16.6 H (11.5-15.5) % Lymphocytes # 0.4 L (1.0-4.8) k/uL Sodium 132 L (137-145) mmol/L Total Bilirubin 1.8 H 1.7 H (0.2-1.3) mg/dL
[2024-06-22] MEDS: lisinopriL 10 MG TAB PO STA (13:57)
--- NOTE | 2024-06-22 18:48 | US ---
EXAMINATION TYPE: US venous doppler duplex UE LT DATE OF EXAM: 06/22/2024 COMPARISON: NONE CLINICAL INDICATION: Female, 43 years old with history of thrombophlebitis?; IV in left antecubital f mary now hurting. SIDE PERFORMED: Left Left Arm: No evidence for DVT seen. SVT in the cephalic vein at the antecubital fossa IMPRESSION: 1. Left upper extremity ultrasound negative for deep venous thrombosis. 2. Superficial venous thrombosis is within the distal cephalic vein near the level of the antecubital fossa
[2024-06-23] MEDS: PANTOPRAZOLE 40 MG TABLET PO SCH (06:05)
[2024-06-23] MEDS: ENOXAPARIN 40 MG/0.4 ML SYRINGE SQ SCH (07:46)
[2024-06-23] MEDS: lisinopriL 10 MG TAB PO SCH (07:46)
[2024-06-23 07:55] VITALS: TEMP 99.4
[2024-06-23 09:06] LABS: African American GFR (CKD) >90 (>60 ml/min/1.73 sqM); Anion Gap 5 mmol/L; Blood Urea Nitrogen 7 mg/dL (7-17); Calcium 8.8 mg/dL (8.4-10.2); Carbon Dioxide 22 mmol/L (22-30); Chloride 104 mmol/L (98-107); Glucose 106 mg/dL (74-99); Non-African American GFR(CKD) >90 (>60 ml/min/1.73 sqM); Potassium 3.5 mmol/L (3.5-5.1); Sodium 131 mmol/L (137-145)
--- NOTE | 2024-06-23 11:38 | P.DS ---
Providers Date of admission: 06/20/24 17:19 Expected date of discharge: 06/23/24 Attending physician: Skylar Germain MD Consults: 06/20/24 18:27 Consult Physician Routine Consulting Provider: Tad Hwang Consult Reason/Comments: etoh abuse Do you want consulting provider notified?: Yes Primary care physician: Jones Copley Hospital Course: Discharge Diagnosis: Alcohol withdraw in active alcoholic. Had extensive conversations with patient regarding strong recommendations on attending inpatient drug and alcohol rehabilitation facility, [place] and does not want to go to rehab here. Patient states that she wants to go to rehab once she moves, but declines any assistance with setting up for inpatient rehab stating she will set it up herself and continues to decline assistance with placement at this time. Patient medically sober and cleared for discharge at this time. Patient again strongly encouraged to avoid any and all alcohol use and educated that further use/abuse of alcohol will only lead to continued deterioration of her health up to and including . Patient was provided with community resources including AA meetings, outpatient counseling services, and inpatient rehabilitation facilities available. Alcohol intoxication upon arrival. Medically sober and cleared for discharge. Sinus tachycardia, secondary to acute alcohol withdraw and dehydration. Hyperbilirubinemia. Chronic Secondary to daily alcohol abuse. Pancytopenia. Secondary to daily alcohol abuse. Anxiety and depression. Continue daily medication regimen with Effexor 150 mg daily, trazodone 50 mg nightly, and BuSpar 15 mg twice daily. . Hypertension. Continue daily medication regimen with lisinopril 10 mg daily. Hospital Course: Patient is a 43-year-old female with a past medical history of anxiety, depression, hypertension, rheumatoid arthritis, and chronic daily alcohol abuse drinking 1-2 fifths of alcohol daily. Patient is very well-known to our services and has had multiple admissions to our facility for alcohol intoxication and withdrawal secondary to her longstanding history of alcoholism. She presented to the emergency department on 06/20/24 via EMS with complaints of alcohol intoxication. On arrival to our facility, patient underwent evaluation in the emergency department. Vital signs upon arrival show blood pressure 128/86, heart rate 91, respiratory rate 18, temp 98.1 F, and SpO2 of 98% on room air. Labs completed and reviewed. CBC showing WBC count of 3.1, hemoglobin 12.9, platelet count of 260. BMP showing hyperchloremia with chloride of 109 otherwise normal findings. Liver profile revealing elevated total bili of 1.8. Patient was admitted under our services, placed on CIWA protocol with ymptom triggered medication management with benzodiazepines and provided with aggressive IV fluid hydration. Pt underwent 3 night hospitalization for medical detox.again, had long discussion with patient regarding recommendations for inpatient rehab. Patient reports [place] and will look into rehab once she is moved. Patient declines assistance with inpatient rehab information. Patient follows with [facility] and encouraged to call [facility] crisis number at [phone] if she changes her mind and would like to undergo treatment. Patient strongly encouraged to avoid any and all alcohol use. Patient provided with outpatient resources available to her including AA meetings, outpatient counseling services, and inpatient rehabilitation facilities. Physical exam: Vital signs reviewed and stable. General: Nontoxic, no distress and appears stated age. Derm: Skin warm and dry, normal coloration for ethnicity. No diaphoresis Head: Atraumatic, normocephalic and symmetric. Eyes: EOMs intact, no lid lag, and anicteric sclera Mouth: no lip lesions, mucus membranes moist Cardiovascular: Tachycardic rate with regular rhythm. Normal S1S2, no murmur, positive posterior tibial pulses bilaterally, and cap refill < 2 seconds. Lungs: Respirations even, regular, and unlabored on room air. Lungs CTA bilaterally, no rhonchi, no rales, no wheezing, and no accessory muscle usage. Abdominal: soft, nontender to palpation, no guarding, no appreciable organomegaly Ext: ROM intact. No gross muscle atrophy, no edema, no contractures Neuro: Speech clear, face symmetrical and CN II-XII grossly intact with no noted focal neuro deficits. No Tremors noted at time of assessment. Psych: Alert and oriented to person, place, time, and situation. Appropriate and pleasant affect. A total of 35 minutes of time were spent preparing this complex discharge summary. Pt was discharged on 06/23/2024 at 11:25 AM. Patient was seen independently by Nurse Practitioner. This document was prepared using [employer] dictation software. Please allow for errors in bell valet while rare they do occur. Elio Garcia NP rendered care for this patient independently, reviewed the findings and plan as documented in the note above. I did not physically speak with or examine the patient on this date. Patient Condition at Discharge: Stable Plan - Discharge Summary Discharge Rx Participant: Yes New Discharge Prescriptions: Continue traZODone HCL [Desyrel] 50 mg PO HS 30 Days #30 tab Venlafaxine HCl [Effexor XR] 150 mg PO DAILY 30 Days #30 cap Atorvastatin [Lipitor] 40 mg PO HS lisinopriL [Zestril] 10 mg PO DAILY busPIRone HCL 15 mg PO BID Acetaminophen Tab [Tylenol] 650 mg PO Q6HR PRN tab PRN Reason: Mild Pain Or Fever > 100.5 Folic Acid 1 mg PO DAILY #60 tab Pantoprazole [Protonix] 40 mg PO AC-BRKFST #30 tab hydrOXYzine pamoate [Vistaril] 25 mg PO BID PRN #20 cap PRN Reason: Anxiety Thiamine [Vitamin B-1] 100 mg PO DAILY #30 tab Discharge Medication List lisinopriL [Zestril] 10 mg PO DAILY 08/12/23 [History] Venlafaxine HCl [Effexor XR] 150 mg PO DAILY 30 Days #30 cap 09/02/23 [Rx] traZODone HCL [Desyrel] 50 mg PO HS 30 Days #30 tab 09/02/23 [Rx] busPIRone HCL 15 mg PO BID 02/04/24 [History] Acetaminophen Tab [Tylenol] 650 mg PO Q6HR PRN tab 02/06/24 [Rx] Folic Acid 1 mg PO DAILY #60 tab 02/14/24 [Rx] Pantoprazole [Protonix] 40 mg PO AC-BRKFST #30 tab 02/20/24 [Rx] Atorvastatin [Lipitor] 40 mg PO HS 03/20/24 [History] Thiamine [Vitamin B-1] 100 mg PO DAILY #30 tab 03/22/24 [Rx] hydrOXYzine pamoate [Vistaril] 25 mg PO BID PRN #20 cap 03/22/24 [Rx] Follow up Appointment(s)/Referral(s): Jones Mclean DO [Primary Care Provider] - 06/26/24 10:20 am () Patient Instructions/Handouts: Abuse of Alcohol (DC), Alcohol Withdrawal (DC) Activity/Diet/Wound Care/Special Instructions: Activity: As tolerated. Diet: Regular Diet. Special Instructions: As discussed, it is strongly recommended that you attend inpatient drug and a lcohol rehabilitation center to assist you in obtaining/continuing sobriety. You have been provided with outpatient resources including outpatient counseling, AA meetings, and community resources available to you. Strongly recommend avoidance of any and all alcohol use, continued use of alcohol can only lead to further detrimental health consequences up to and including including alcoholic cirrhosis and . Thank you for allowing us to participate in your care, it was truly a pleasure having you for our patient!!! Discharge/Stand Alone Forms: AA Meetings [address] - [facility], AA Meetings [place], Outpatient Counseling, In Substance Abuse Facilities Discharge Disposition: HOME SELF-CARE
[2024-06-23 11:46] VITALS: BP 142/94; PULSE 131; RESP 18
== END 2024-06-23 15:05 | disposition home or self-care (01) | DRG 897 ==
LOC: EC 13:12 → 3SCARD 17:19
PROVIDERS: ADMIT Internal Medicine; ATTEND Internal Medicine
DX: F10.229 Alcohol dependence with intoxication, unspecified (principal); E87.1 Hypo-osmolality and hyponatremia; D61.818 Other pancytopenia; R17 Unspecified jaundice; Y90.8 Blood alcohol level of 240 mg/100 ml or more; F10.231 Alcohol dependence with withdrawal delirium; E78.5 Hyperlipidemia, unspecified; E86.0 Dehydration; E87.8 Other disorders of electrolyte and fluid balance, not elsewhere classified; F32.9 Major depressive disorder, single episode, unspecified; K21.9 Gastro-esophageal reflux disease without esophagitis; I10 Essential (primary) hypertension; M06.9 Rheumatoid arthritis, unspecified; F32.A Depression, unspecified; F41.9 Anxiety disorder, unspecified; Z79.899 Other long term (current) drug therapy
CPT/HCPCS: 36415; 70450; 72125; 80048; 80053; 80320; 82247; 83735; 84450; 84460; 85025; 93005; 96361; 96374; 96376; 99285